=== PATIENT | male | born 1935 | race Caucasian/White ===

== ENCOUNTER → 2016-11-26 | Outpatient (CLI) | payer OTHER, BC ==
[~2016-11-26] MED LIST: ALBUAER19 INH; ASMIN/60 INH; ASPI-461 PO; AZAT50TA17 PO; CLC100X PO; CLON0.5T3 PO; CYAN10002 IM; LPR25 PO; MULTI VITAMIN PO; POLY335025 PO; PYRI60TA9 PO; TOLT4CAP PO; ZOLP10TA6 PO; vancomycin susp PO
--- NOTE | 2016-11-26 13:48 | DIAGNOSTIC IMAGING REPORT ---
RIGHT SHOULDER MIN 2 VIEWS ROUTINE CLINICAL HISTORY: Right shoulder pain. Impingement. COMPARISON: None FINDINGS: There is marked glenohumeral joint space narrowing. There is chronic deformity of the right humeral head. There is osteophytosis with subchondral sclerosis. Elevation of the humeral head is noted. There is evidence for a prior distal right clavicular resection. There is no acute fracture. Several osteophytes are present. IMPRESSION: 1. Severe osteoarthritis of the right glenohumeral joint. 2. Elevation of the right humeral head which suggests a chronic rotator cuff tear. 3. No acute fracture. 4. Findings suggestive of a previous distal right clavicular resection. Electronically signed by: Conrado Dumont M.D. 11/26/2016 1:46 PM Dictated Date/Time: 11/26/2016 1:44 PM
== END | disposition home or self-care (01) ==
LOC: C.RAD1850 12:59
PROVIDERS: ATTEND Family Medicine
DX: M75.41 Impingement syndrome of right shoulder (principal); J20.9 Acute bronchitis, unspecified; M19.011 Primary osteoarthritis, right shoulder

== ENCOUNTER 2016-12-27 16:06 | Emergency (ER) | payer OTHER, BC ==
[~2016-12-27] VITALS: Ht 180.3 cm; Wt 141.7 kg
[2016-12-27 16:19] VITALS: TEMP 36.7; Ht 180.3 cm; Wt 141.7 kg
[2016-12-27] MEDS ORDERED: SODIUM CHLORIDE 0.9% 1000ML 1,000 ML IV STA (16:46)
[2016-12-27 17:23] LABS: BASO % 0.6 %; BASO ABS # 0.03 K/uL (0-0.2); COMPLETE YES; HEMATOCRIT 45.1 % (42-52); IG% 0.2 %; LYMPH % 15.1 %; LYMPH ABS # 0.71 K/uL (1.2-3.4); MEAN CELL VOLUME 100.7 fL (80-100); MEAN CORPUSCULAR HEMOGLOBIN 32.8 pg (25-34); MEAN CORPUSCULAR HGB CONC 32.6 g/dl (32-36); MEAN PLATELET VOLUME 11.4 fL (7.4-10.4); MONO % 11.3 %; NEUT % 65.8 %; PLATELET COUNT 156 K/uL (130-400); RED BLOOD COUNT 4.48 M/uL (4.7-6.1)
--- NOTE | 2016-12-27 17:27 | DIAGNOSTIC IMAGING REPORT ---
CT HEAD WITHOUT CONTRAST (CT) CLINICAL HISTORY: Acute change in mental status. Weakness. COMPARISON STUDY: No previous studies for comparison. TECHNIQUE: Axial CT of the brain is performed from the vertex to the skull base. IV contrast was not administered for this examination. A dose lowering technique was utilized adhering to the principles of ALARA. CT DOSE: 724.83 mGy.cm FINDINGS: No intra or extra-axial mass lesions are visualized. There is no CT evidence of acute cortical infarction. There is no evidence of midline shift. There is no acute hemorrhage. No calvarial fractures are visualized. There are minor white matter hypodensities likely on a small vessel basis. There is focal left frontal atrophy of uncertain etiology. There is no evidence of pathologic ventricular dilatation. There is trace fluid/debris within the left maxillary sinus. There is a left sphenoid sinus air-fluid level. There is partial opacification of several left-sided ethmoid air cells. IMPRESSION: 1. No acute intracranial findings. 2. Focal left frontal lobe atrophy 3. Inflammatory changes within the paranasal sinuses Electronically signed by: Hernan Ashton M.D. 12/27/2016 5:25 PM Dictated Date/Time: 12/27/2016 5:22 PM
--- NOTE | 2016-12-27 17:44 | DIAGNOSTIC IMAGING REPORT ---
CHEST ONE VIEW PORTABLE CLINICAL HISTORY: Altered mental status, weakness. COMPARISON STUDY: 12/08/2012 FINDINGS: The examination is limited from a technical standpoint. The heart is enlarged. Mild central pulmonary vascular congestion is suspected. Increased basal markings, are likely atelectatic. There are no pleural effusions. There is no overt failure.[ There is no lobar consolidation. There are old posttraumatic changes involving the distal right clavicle and proximal right shoulder IMPRESSION: 1. Technically limited study 2. Cardiomegaly and suspected mild bony vascular congestion 3. No evidence of lobar consolidation Electronically signed by: Hernan Ashton M.D. 12/27/2016 5:42 PM Dictated Date/Time: 12/27/2016 5:41 PM
[2016-12-27 17:58] LABS: ALKALINE PHOSPHATASE 86 U/L (45-117); ALT/SGPT 17 U/L (12-78); AST/SGOT 24 U/L (15-37); BLOOD UREA NITROGEN 20 mg/dl (7-18); BUN/CREATININE RATIO 26.6 (10-20); CALCIUM 8.4 mg/dl (8.5-10.1); CARBON DIOXIDE 29 mmol/L (21-32); CHLORIDE 106 mmol/L (98-107); CKMB/CK RATIO 1.2 (0-3.0); CREATININE 0.77 mg/dl (0.60-1.40); GLUCOSE 103 mg/dl (70-99); MAGNESIUM 2.3 mg/dl (1.8-2.4); POTASSIUM 4.6 mmol/L (3.5-5.1); SODIUM 139 mmol/L (136-145)
--- NOTE | 2016-12-27 18:42 | EMERGENCY ROOM VISIT NOTE ---
History Report prepared by Virginie: Sherrie Galicia Under the Supervision of: Dr. Remberto Singleton D.O. First contact with patient: 16:25 Chief Complaint: HEAD INJURY (MINOR) Stated Complaint: HIT HEAD ON TUESDAY History of Present Illness The patient is a 81 year old male who presents to the Emergency Room with complaints of a sudden fall that occurred one week ago. He currently rates his discomfort as an 8/10 in severity. The patient states that he is unsure what happened and what made him fall. He states that he does not remember the fall and states that when he woke up he saw his granddaughter and EMS surrounding him. The patient's daughter states that the patient hit his head off of the concrete floor in the garage. She states that the patient was bleeding from the back of his head. The patient's daughter states that the patient refused any further medical treatment and declined coming to the emergency department for further evaluation and treatment. She states that the patient was taken to his [facility] at [facility] after the fall. The patient states that he had an additional fall on Tuesday. The patient's daughter states that the patient has complained of dizziness since the fall. The patient reports a history of Myasthenia gravis. He denies any chest pain or shortness of breath. The patient reports a decrease in fluid intake, noting that he is feeling dry right now. He reports a decrease in appetite. He states that he has a history of atrial fibrillation, but denies being on any anti-coagulants. The patient reports a history of a cardiac ablation. He states that he takes metoprolol daily for his atrial fibrillation. The patient reports a headache today. Source of History: patient, family (daughter) Onset: one week ago Position: other (global) Symptom Intensity: 8/10 Quality: other (fall) Timing: other (sudden) Associated Symptoms: + headache, No chest pain, No SOB Note: Associated Symptoms: dizziness, decrease in appetite, decrease in fluid intake Review of Systems See HPI for pertinent positives & negatives. A total of 10 systems reviewed and were otherwise negative. 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 (11) Stress echo Family History Diabetes mellitus Social History Smoking Status: Former Smoker Marital Status: Housing Status: lives alone Occupation Status: retired Current/Historical Medications Scheduled Aspirin (Aspirin), 81 MG PO DAILY Azathioprine (Imuran), 150 MG PO DAILY Cyanocobalamin (Vitamin B-12 Inj), 1,000 MCG IM Q2 WEEKS Docusate Sodium (Colace), 100 MG PO HS Metoprolol Tartrate (Lopressor), 12.2 MG PO DAILY Mometasone Furoate (Asmanex 60 Metered Doses), 1 PUFF INH QAM Pyridostigmine Dexter (Mestinon Tab), 120 MG PO TID Tolterodine Tartrate (Detrol La), 4 MG PO BID [Multi Vitamin Packet], 1 PACK PO DAILY [vancomycin susp], 250 MG PO QID [vancomycin susp], 125 MG PO QID Scheduled PRN Albuterol Inhaler (Ventolin Inhaler), 2 PUFFS INH Q4H PRN Clonazepam (Klonopin), 0.5 MG PO DAILY PRN Polyethylene Glycol 3350 (Miralax), 1 DOSE PO DAILY UD PRN Zolpidem Tartrate (Zolpidem Tartrate), 10 MG PO HS PRN Allergies Coded Allergies: Adhesives (Verified Allergy, Unknown, ., 07/18/09) Latex1 -Allergic Contact Dermititis (Verified Allergy, Unknown, blisters and swelling, 09/14/16) Physical Exam Vital Signs Date Time Temp Pulse Resp B/P (MAP) Pulse Ox O2 Delivery O2 Flow Rate FiO2 12/27/16 18:11 65 20 166/83 93 Room Air 12/27/16 16:24 20 12/27/16 16:19 36.7 60 20 163/86 95 Room Air Physical Exam CONSTITUTIONAL/VITAL SIGNS: Reviewed / noted above. GENERAL: Non-toxic in appearance. INTEGUMENTARY: Warm, dry, and [place]. HEAD: Healing abrasion on the posterior apex of the head. EYES: without scleral icterus or trauma. ENT/OROPHARYNX: clear and moist. LYMPHADENOPATHY/NECK: Is supple without lymphadenopathy or meningismus. RESPIRATORY: Lungs clear and equal. CARDIOVASCULAR: Regular rate and rhythm. GI/ABDOMEN: Soft and nontender. No organomegaly or pulsatile mass. No rebound or guarding. Normal bowel sounds. EXTREMITIES: Warm and well perfused. BACK: No CVA tenderness. NEUROLOGICAL: Intact without focal deficits. PSYCHIATRIC: normal affect. MUSCULOSKELETAL: Normally developed with good muscle tone. Medical Decision & Procedures ER Provider Diagnostic Interpretation: Radiology results as stated below per my review and radiologist interpretation: CT HEAD WITHOUT CONTRAST (CT) CLINICAL HISTORY: Acute change in mental status. Weakness. COMPARISON STUDY: No previous studies for comparison. TECHNIQUE: Axial CT of the brain is performed from the vertex to the skull base. IV contrast was not administered for this examination. A dose lowering technique was utilized adhering to the principles of ALARA. CT DOSE: 724.83 mGy.cm FINDINGS: No intra or extra-axial mass lesions are visualized. There is no CT evidence of acute cortical infarction. There is no evidence of midline shift. There is no acute hemorrhage. No calvarial fractures are visualized. There are minor white matter hypodensities likely on a small vessel basis. There is focal left frontal atrophy of uncertain etiology. There is no evidence of pathologic ventricular dilatation. There is trace fluid/debris within the left maxillary sinus. There is a left sphenoid sinus air-fluid level. There is partial opacification of several left-sided ethmoid air cells. IMPRESSION: 1. No acute intracranial findings. 2. Focal left frontal lobe atrophy 3. Inflammatory changes within the paranasal sinuses Electronically signed by: Hernan Ashton M.D. 12/27/2016 5:25 PM Dictated Date/Time: 12/27/2016 5:22 PM CHEST ONE VIEW PORTABLE CLINICAL HISTORY: Altered mental status, weakness. COMPARISON STUDY: 12/08/2012 FINDINGS: The examination is limited from a technical standpoint. The heart is enlarged. Mild central pulmonary vascular congestion is suspected. Increased basal markings, are likely atelectatic. There are no pleural effusions. There is no overt failure.[ There is no lobar consolidation. There are old posttraumatic changes involving the distal right clavicle and proximal right shoulder IMPRESSION: 1. Technically limited study 2. Cardiomegaly and suspected mild bony vascular congestion 3. No evidence of lobar consolidation Electronically signed by: Hernan Ashton M.D. 12/27/2016 5:42 PM Dictated Date/Time: 12/27/2016 5:41 PM Laboratory Results 12/27/16 17:05 Red Blood Count 4.48, Mean Corpuscular Volume 100.7, Mean Corpuscular Hemoglobin 32.8, Mean Corpuscular Hemoglobin Concent 32.6, Mean Platelet Volume 11.4, Neutrophils (%) (Auto) 65.8, Lymphocytes (%) (Auto) 15.1, Monocytes (%) ( Auto) 11.3, Eosinophils (%) (Auto) 7.0, Basophils (%) (Auto) 0.6, Neutrophils # (Auto) 3.09, Lymphocytes # (Auto) 0.71, Monocytes # (Auto) 0.53, Eosinophils # ( Auto) 0.33, Basophils # (Auto) 0.03 12/27/16 17:05 Test 12/27/16 17:05 White Blood Count 4.70 K/uL (4.8-10.8) Red Blood Count 4.48 M/uL (4.7-6.1) Hemoglobin 14.7 g/dL (14.0-18.0) Hematocrit 45.1 % (42-52) Mean Corpuscular Volume 100.7 fL (80-100) Mean Corpuscular Hemoglobin 32.8 pg (25-34) Mean Corpuscular Hemoglobin Concent 32.6 g/dl (32-36) Platelet Count 156 K/uL (130-400) Mean Platelet Volume 11.4 fL (7.4-10.4) Neutrophils (%) (Auto) 65.8 % Lymphocytes (%) (Auto) 15.1 % Monocytes (%) (Auto) 11.3 % Eosinophils (%) (Auto) 7.0 % Basophils (%) (Auto) 0.6 % Neutrophils # (Auto) 3.09 K/uL (1.4-6.5) Lymphocytes # (Auto) 0.71 K/uL (1.2-3.4) Monocytes # (Auto) 0.53 K/uL (0.11-0.59) Eosinophils # (Auto) 0.33 K/uL (0-0.5) Basophils # (Auto) 0.03 K/uL (0-0.2) RDW Standard Deviation 55.2 fL (36.4-46.3) RDW Coefficient of Variation 15.0 % (11.5-14.5) Immature Granulocyte % (Auto) 0.2 % Immature Granulocyte # (Auto) 0.01 K/uL (0.00-0.02) Anion Gap 4.0 mmol/L (3-11) Est Creatinine Clear Calc Drug Dose 112.1 ml/min Estimated GFR () 100.0 Estimated GFR (Non- 86.3 BUN/Creatinine Ratio 26.6 (10-20) Calcium Level 8.4 mg/dl (8.5-10.1) Magnesium Level 2.3 mg/dl (1.8-2.4) Total Bilirubin 0.6 mg/dl (0.2-1) Direct Bilirubin mg/dl (0-0.2) Aspartate Amino Transf (AST/SGOT) 24 U/L (15-37) Alanine Aminotransferase (ALT/SGPT) 17 U/L (12-78) Alkaline Phosphatase 86 U/L (45-117) Total Creatine Kinase 60 U/L (39-308) Creatine Kinase MB 0.7 ng/ml (0.5-3.6) Creatine Kinase MB Ratio 1.2 (0-3.0) Troponin I < 0.015 ng/ml (0-0.045) Total Protein 6.6 gm/dl (6.4-8.2) Albumin 3.6 gm/dl (3.4-5.0) Lipase 99 U/L (73-393) Thyroid Stimulating Hormone (TSH) 1.660 uIu/ml (0.300-4.500) Laboratory results as stated above per my review. Medications Administered Medications (Trade) Dose Ordered Sig/Tenzin Route Start Time Stop Time Status Last Admin Dose Admin Sodium Chloride 1,000 ml @ 300 mls/hr Q3H20M STAT IV 12/27/16 16:46 12/27/16 20:05 12/27/16 18:13 300 MLS/HR ECG Indication: other (dizziness) Rate (beats per minute): 63 Rhythm: sinus rhythm Findings: 1st degree AV block, PVC, no acute ischemic change, no ectopy ED Course 163: Previous medical records were reviewed. The patient was evaluated in room B8. A complete history and physical examination was performed. 164: Ordered Sodium Chloride 1000 ml @ 300 mls/hr IV. 1842: I reevaluated the patient and he is doing well. I discussed the exam findings with him and his family and I discussed the treatment plan. They verbalized complete understanding and agreement. The patient is ready to go home. Medical Decision Differentials include: Acute coronary syndrome, myocardial infarction, CVA, TIA , anemia, infection, pneumonia, UTI, pyelonephritis, poor nutrition, dehydration , electrolyte disturbance, and hypoglycemia. This is a 81-year-old male who presents to the ED with a chief complaint of a head injury. The patient states that he fell and his garage striking the back of his head on concrete. This occurred 6 days ago. Tuesday he states that he lost his balance and also fell in his house. The patient does not remember how he fell or what occurred 6 days ago. He was evaluated by EMS at that time but refused transport. His daughter states that he was not unresponsive for any period of time. The patient denies loss of consciousness with regards to his fall on Tuesday. He denies any recent illness. He does report that he has had decreased oral intake and has not had much of an appetite recently. His physical and neurological exam today did not reveal any significant abnormalities. A twelve-lead EKG reveals a sinus rhythm at a rate of 63 with a first-degree AV block and an occasional PVC. There was no acute injury or ectopy. CBC is unremarkable, BUN is 20, metabolic panel was unremarkable, TSH is normal, troponin is negative. Chest x-ray did not show acute disease. CT scan of the brain did not show any evidence of acute trauma. The patient was told the results of the test. The patient is felt to be stable for discharge and outpatient follow-up. Head Trauma GCS Score: 15 Medication Reconcilliation Current Medication List: was personally reviewed by me Blood Pressure Screening Patient's blood pressure: Elevated blood pressure Blood pressure disposition: Elevated BP felt to be situational, Did not require urgent referral Impression Primary Impression: Fall Additional Impressions: Abrasion head Unsteady Scribe Attestation The scribe's documentation has been prepared under my direction and personally reviewed by me in its entirety. I confirm that the note above accurately reflects all work, treatment, procedures, and medical decision making performed by me. Departure Information Dispostion Home / Self-Care Referrals Costa Iverson M.D. (PCP) Forms HOME CARE DOCUMENTATION FORM, IMPORTANT VISIT INFORMATION Patient Instructions My [facility] Additional Instructions Follow-up with your neurologist for recheck. Call tomorrow for an appointment. Follow-up with your doctor for further care and evaluation in 1-2 days. Return to the emergency department for worsening or new symptoms or any concerns. You have been examined and treated today on an emergency basis only. This is not a substitute for, or an effort to provide, complete comprehensive medical care. It is impossible to recognize and treat all injuries or illnesses in a single emergency department visit. It is therefore important that you follow up closely with your doctor. Call as soon as possible for an appointment. Use your walker. Problem Qualifiers
[2016-12-27 20:29] VITALS: BP 160/72; PULSE 78; O2SAT 98
== END 2016-12-27 20:33 | disposition home or self-care (01) ==
LOC: C.EDB 16:07
DX: S09.90XA Unspecified injury of head, initial encounter (principal); S00.91XA Abrasion of unspecified part of head, initial encounter; W22.09XA Striking against other stationary object, initial encounter; R26.81 Unsteadiness on feet; I44.0 Atrioventricular block, first degree; I48.92 Unspecified atrial flutter; E11.9 Type 2 diabetes mellitus without complications; G70.00 Myasthenia gravis without (acute) exacerbation; Z91.81 History of falling; Z98.84 Bariatric surgery status; Z90.49 Acquired absence of other specified parts of digestive tract; Z87.891 Personal history of nicotine dependence; Z79.82 Long term (current) use of aspirin; Z79.899 Other long term (current) drug therapy; Z83.3 Family history of diabetes mellitus; R63.8 Other symptoms and signs concerning food and fluid intake; R42 Dizziness and giddiness

== ENCOUNTER 2018-11-28 15:11 | Inpatient (IN) ==
--- OUTSIDE RECORDS SUMMARY | 2018-11-28 15:15 | External Medical Summary | Continuity of Care Document ---
:1935 Author Name Nesha Ruffin, Provider Address Unavailable Unavailable , Care Team Providers Name Role Phone Unavailable Unavailable Unavailable Robyn Fields Unavailable [email or web address] Regina Covarrubias Unavailable [email or web address] Mcdaniels Unavailable [email or web address] MIL PEREZ Unavailable Unavailable Unavailable Unavailable Unavailable Problems Urinary tract infection (599.0) (N39.0) Urinary symptom or sign (788.99) (R39.9) Urinary frequency (788.41) (R35.0) Urge incontinence (788.31) (N39.41) Nocturia (788.43) (R35.1) Allergies and Adverse Reactions Morphine Derivatives (Allergy) Adhesive Tape (Allergy) Medications LORazepam 0.5 MG Oral Tablet , M.D. Refills: 0 Asmanex 30 Metered Doses 220 MCG/INH Inhalation Aeroso l Powder Breath Activated , M.D. Refills: 0 Pyridostigmine Pinnacle 60 MG Oral Tablet , M.D. Refills: 0 Zolpidem Tartrate 5 MG Oral Tablet , M.D. Refills: 0 Metoprolol Tartrate 25 MG Oral Tablet , M.D. Refills: 0 Tylenol 325 MG Oral Tablet , M.D. Refills: 0 PreserVision AREDS CAPS , M.D. Refills: 0 Aspirin 81 MG TABS , M.D. Refills: 0 ProAir HFA 108 (90 Base) MCG/ACT Inhalation Aerosol Solution , M.D. Refills: 0 Detrol LA 4 MG Oral Capsule Extended Release 24 Hour , M.D. Refills: 0 Multivitamins TABS , M.D. Refills: 0 Vitamin B-12 1000 MCG/ML SOLN , M.D. Refills: 0 Myrbetriq 25 MG Oral Tablet Extended Rel ease 24 Hour; take 1 tablet by mouth twice a day SIMONE Martinez Start: 13-Apr-2016 Quantity: 60 Refills: 2 Lisinopril 5 MG Oral Tablet , M.DPriya Refills: 0 Botox 100 UNIT Injection Solution Recons tituted; INJECT 100 UNIT Once Inject 100 units intravesicle into bladder detrusor muscle, every 3 months, PRN SIMONE Aldana Start: 17-Oct-2017 Quantity: 1 Refills: 0 Ciprofloxacin HCl - 500 MG Oral Tablet; TAKE 1 TABLET TWICE DAILY. SIMONE Almaguer Start: 07-Sep-2018 Quantity: 12 Refills: 0 Procedures History of Knee Replacement Status: Comp leted History of Shoulder Surgery Status: Comp leted Immunizations Immunizations not documented Family History Mother Family history of diabetes mellitus (V18.0) (Z83.3) Status: Active Social History - Smoking Status Former smoker Plan of Treatment Planned Observations Planned Goals not documented Results No Known Results Results not documented Encounters Appointment; Brady Ott M.D. 21-Nov-2018 14:00 Encounter Diagnosis: Problem not documented Appointment; Urology, Room 7 21-Nov-2018 13:00 Encounter Diagnosis: Problem not documented Appointment; Urology, RN 21-Nov-2018 13:00 Encounter Diagnosis: Problem not documented Appointment; Brady Ott M.D. 12-Jul-2018 16:15 Encounter Diagnosis: Problem not documented Appointment; Urology, Room 7 12-Jul-2018 15:15 Encounter Diagnosis: Problem not documented Appointment; Urology, RN 12-Jul-2018 15:15 Encounter Diagnosis: Problem not documented Appointment; Brady Ott M.D. 27-Feb-2018 14:45 Encounter Diagnosis: Problem not documented Appointment; Urology, Room 7 27-Feb-2018 13:45 Encounter Diagnosis: Problem not documented Appointment; Urology, RN 27-Feb-2018 13:45 Encounter Diagnosis: Problem not documented Appointment; Urology, RN 16-Feb-2018 13:00 Encounter Diagnosis: Problem not documented Appointment; Brady Ott M.D. 15-Feb-2018 10:05 Encounter Diagnosis: Problem not documented Appointment; Urology, Nursing Station 14-Feb-2018 12:00 Encounter Diagnosis: Problem not documented Appointment; Brady Ott M.D. 30-Jan-2018 14:30 Encounter Diagnosis: Problem not documented Appointment; Urology, RN 28-Nov-2017 14:00 Encounter Diagnosis: Problem not documented Appointment; Brady Ott M.D. 04-Nov-2017 10:00 Encounter Diagnosis: Problem not documented Appointment; Urology, RN 04-Nov-2017 9:00 Encounter Diagnosis: Problem not documented Appointment; Urology, Room 7 04-Nov-2017 9:00 Encounter Diagnosis: Problem not documented Appointment; Urology, RN 17-Oct-2017 14:00 Encounter Diagnosis: Problem not documented Appointment; Brady Ott M.D. 29-Aug-2017 15:00 Encounter Diagnosis: Problem not documented Appointment; Brady Ott M.D. 08-Jul-2017 10:20 Encounter Diagnosis: Problem not documented Appointment; Urology, Room 6 30-Jun-2017 14:30 Encounter Diagnosis: Problem not documented Appointment; Urology, Room 6 16-Jun-2017 14:30 Encounter Diagnosis: Problem not documented Appointment; Urology, Room 6 09-Jun-2017 14:30 Encounter Diagnosis: Problem not documented Appointment; Urology, Room 6 02-Jun-2017 14:30 Encounter Diagnosis: Problem not documented Appointment; Urology, Room 6 26-May-2017 14:00 Encounter Diagnosis: Problem not documented Appointment; Urology, Room 6 19-May-2017 14:30 Encounter Diagnosis: Problem not documented Appointment; Urology, Room 6 12-May-2017 14:30 Encounter Diagnosis: Problem not documented Appointment; Urology, Room 6 05-May-2017 14:30 Encounter Diagnosis: Problem not documented Appointment; Urology, Room 6 28-Apr-2017 14:30 Encounter Diagnosis: Problem not documented Appointment; Urology, Room 6 21-Apr-2017 14:30 Encounter Diagnosis: Problem not documented Appointment; Brady tOt M.D. 20-Apr-2017 15:45 Encounter Diagnosis: Problem not documented Appointment; Urology, Room 7 20-Apr-2017 15:30 Encounter Diagnosis: Problem not documented Appointment; Urology, Room 6 14-Apr-2017 14:30 Encounter Diagnosis: Problem not documented Appointment; Urology, Room 6 31-Mar-2017 13:30 Encounter Diagnosis: Problem not documented Appointment; Brady Ott M.D. 15-Mar-2017 13:15 Encounter Diagnosis: Problem not documented
[2018-11-28] MEDS ORDERED: PYRIDOSTIGMINE BROMIDE 60 MG TAB PO STA ×2 (15:28→15:29)
[2018-11-28 15:40] LABS: Basophils # (auto) 0.02 K/uL (0-0.2); Basophils % (auto) 0.3 %; Eosinophils # (auto) 0.04 K/uL (0-0.5); Eosinophils % (auto) 0.7 %; Hematocrit (blood only) 44.3 % (42-52); Hemoglobin 14.6 g/dL (14.0-18.0); Immature Granulocytes # (auto) 0.02 K/uL (0.00-0.02); Immature Granulocytes % (auto) 0.3 %; Lymphocytes # (auto) 0.49 K/uL (1.2-3.4); Lymphocytes % (auto) 8.1 %; Mean Corpuscular Volume 95.1 fL (80-100); Mean Platelet Volume 10.2 fL (7.4-10.4); Monocytes # (auto) 0.79 K/uL (0.11-0.59); Neutrophils # (auto) 4.71 K/uL (1.4-6.5); Neutrophils % (auto) 77.6 %; Platelet Count 167 K/uL (130-400); RDW Coefficient of Variation 16.4 % (11.5-14.5); RDW Standard Deviation 56.2 fL (36.4-46.3); Red Blood Count 4.66 M/uL (4.7-6.1); White Blood Count 6.07 K/uL (4.8-10.8)
--- NOTE | 2018-11-28 15:45 | XRay Report ---
XR chest 1V portable CLINICAL HISTORY: Dyspnea COMPARISON STUDY: Chest CT December 08, 2012. Chest radiograph December 27, 2016. FINDINGS: There is no pneumothorax. Small to moderate left and small right pleural effusions are note d. There is pulmonary vascular congestion with suspected pulmonary edema. Bibasilar opacities are not ed. Chronic deformity of the right humeral head and right acromioclavicular joint is unchanged. There is no pneumothorax. Moderate cardiomegaly is noted. IMPRESSION: 1. Moderate pulmonary edema. 2. Small to moderate left and small right pleural effusions with bibasilar opacities which favor atel ectasis although consolidation could appear similar. Radiographic follow up is recommended. Electronically signed by: Conrado Dumont M.D. 11/28/2018 3:43 PM
[2018-11-28 16:04] LABS: INR 1.2 (0.9-1.1); Partial Thromboplastin Ratio 1.1; Partial Thromboplastin Time 28.7 Seconds (21.0-31.0); Prothrombin Time 12.4 Seconds (9.0-12.0)
[2018-11-28 16:07] LABS: Alanine Aminotransferase 18 U/L (12-78); Albumin Globulin Ratio 1.1 (0.9-2); Albumin Level 3.5 gm/dl (3.4-5.0); Alkaline Phosphatase 74 U/L (45-117); BUN Creatinine Ratio 20.1 (10-20); Bilirubin,Total 1.5 mg/dl (0.2-1); Blood Urea Nitrogen 18 mg/dl (7-18); Calcium 8.9 mg/dl (8.5-10.1); Carbon Dioxide 30 mmol/L (21-32); Chloride 99 mmol/L (98-107); Creatinine Clr Calc Pharmacy 100.7 ml/min; Est GFR (African American) 92.5; Est GFR (Non-African American) 79.8; Globulin 3.1 gm/dl (2.5-4.0); Glucose 120 mg/dl (70-99); NT Pro B Type Natriuretic Pept 3991 pg/ml (0-1800); Sodium 134 mmol/L (136-145); Total Protein 6.6 gm/dl (6.4-8.2); Troponin I < 0.015 ng/ml (0-0.045)
[2018-11-28] MEDS ORDERED: FUROSEMIDE 40 MG/4 ML VIAL IV STA (16:15)
[2018-11-28 16:20] LABS: Base Excess VBG 2.1 mEq/L; HCO3 VBG 29 mmol/L; PCO2 VBG 55 mmHg (38-50); PO2 VBG 26 mmHg; pH VBG 7.35 (7.36-7.41)
[2018-11-28 16:29] LABS: Oxygen Saturation VBG < 60.0 %
[2018-11-28 16:41] LABS: Magnesium 2.2 mg/dl (1.8-2.4); Potassium 4.5 mmol/L (3.5-5.1)
--- NOTE | 2018-11-28 20:52 | History & Physical Report ---
Date of Service November 28, 2018 Assessment & Plan (1) Shortness of breath: 83M here for dyspnea on exertion, LE swelling and weakness over the last 4 weeks. PMH sig for myasthenia gravis and BRIJESH and h/o PAF s/p ablation. #Dyspnea -diffl includes cardiac, respiratory, neurologic -BNP elevated, and exam concerning for CHF although has no known history of the same -fluid evident on CXR, but otherwise not hypoxic currently -exam and testing not consistent with myasthenic crisis at this time, although this should be followed closely for any changes. -not febrile, tachycardic, tachypnic, no leukocytosis Plan -pt has received 40mg IV lasix with good output - vann in place - monitor I/Os, daily weights and dose as appropriate -TTE in AM, trend trops (so far negative) -can consider cardiology consult - see Dr. Wiley with [facility] cards -repeat CXR in am -O2 as needed -neuro checks QS -avoid IVF, low sodium diet -procal in AM - if positive, could consider abx coverage for PNA, although I suspect this is not an infectious process. #EKG abnormalities -PAF vs PVCs. Rate is controlled. -h/o PAF s/p ablation and not on anticoagulation -TTE as above -daily EKG, telemetry monitoring #Deconditioning, morbid obesity -PT/OT consulted, may likely need temp rehab as he lives alone. Family prefers [facility]. FEN/GI: heart healthy, low sodium DVT ppx: heparin q8h CODE STATUS: FULL as d/w pt and family DISPO: Tele. PT/OT. Jacy Lamb is pt's daughter, cell is [phone], and home is [phone]. Other ongoing medical problems: -BRIJESH - cont home CPAP -Myasthenia gravis - cont home azathioprine, pyridostigmine -asthma - cont home asmanex and albuterol -urinary incontinence - currently with vann, cont home myrbetriq -HTN - cont home lisinopril (2) CHF (congestive heart failure): (3) Weakness: (4) Atrial flutter: (5) Morbid obesity: (6) Myasthenia gravis: History of Present Illness Chief Complaint: Shortness of breath, progressive weakness over the last 4 weeks, intermittent confusion Primary Care Provider: Costa Iverson MD This is an 83-year-old male who presents to the ER by private vehicle accompanied by his daughters due to progressive shortness of breath, progressive weakness and intermittent confusion over the last 3 to 4 weeks. Patient lives alone, but his daughter lives next door. She provides history that over the last 3 to 4 weeks he has declined functionally. She states he has not wanted to get up out of bed or walk for any length of time, normally ambulates with a mobile walker but was very resistant to walking any due to decreased energy. He is been sleeping more and has had decreased appetite which is not like him. He was seen in his PCP office and basic blood work was done given his difficulty breathing and cough and per report no abnormalities were found. Daughter also states that his short-term memory has become progressively worse in this time as well. Denies any overt illness or fevers. Does have a history of atrial fibrillation and apparently has undergone ablation and follows with Dr. Wiley but has not seen him in about 2 years. No known history of congestive heart failure, states his last echocardiogram was probably 2 years ago. He is followed by Dr. Tang his neurologist for medical management of his myasthenia gravis medications, and was just seen within the last 2 weeks and his medication instructions were clarified. Daughter does have concerned that the patient is not taking his medications as prescribed possibly due to increasing confusion. She wonders if he has had mini strokes. Despite his history of A. fib this patient is not on any anticoagulation that I can see, he does regularly check his pulse and blood pressure at home and these have been normal. Of note, he does endorse swelling in his legs that is relatively new for him and that has progressively gotten worse in the last 3 to 4 weeks. He also endorses a semi-productive cough for which she has been taking his albuterol inhaler as needed. ED course: 40 mg IV Lasix (patient is Lasix jessica) with good output, Vann placed, chest x-ray with evidence of fluid overload and possible consolidation. Afebrile, not hypoxic, not hypotensive or hypertensive, pulse is under 100 but appears irregular on the monitor and appears to have PVCs on the EKG. Labs are notable for absence of leukocytosis, absence of anemia, mildly elevated INR 1.2, venous blood gas without significant abnormalities, BMP notable for slightly elevated bilirubin 1.5, negative for transaminitis or elevated troponin, BNP nearly 4000. NIF test performed by RT normal. Allergies Allergy/AdvReac Type Severity Reaction Status Date / Time vancomycin Allergy Severe Hives Verified 11/28/18 16:49 adhesive Allergy Unknown . Verified 07/18/09 19:29 latex Allergy Unknown blisters Verified 09/14/16 12:41 and swelling morphine Allergy Rash Verified 11/28/18 16:49 Influenza Virus Vaccines AdvReac Severe DEATHLY Verified 11/28/18 16:49 SICK Home Medications Home Medications Medication Instructions Recorded Confirmed Type acetaminophen [Tylenol] 325 mg PO Q4 PRN 11/28/18 11/28/18 History albuterol sulfate 2 puff INHALATION Q4 PRN 11/28/18 11/28/18 History amoxicillin 2,000 mg PO UD PRN 11/28/18 11/28/18 History aspirin [Aspir-81] 81 mg PO QPM 11/28/18 11/28/18 History azathioprine [Imuran] 150 mg PO DAILY 11/28/18 11/28/18 History cyanocobalamin (vitamin B-12) 1,000 mcg IM .[id number] 11/28/18 11/28/18 History escitalopram oxalate [Lexapro] 5 mg PO DAILY 11/28/18 11/28/18 History ferrous sulfate [iron] 325 mg PO TID 11/28/18 11/28/18 History fexofenadine [Jenny Allergy] 180 mg PO DAILY PRN 11/28/18 11/28/18 History fluticasone propionate [Flonase 2 spray INTRANASAL DAILY PRN 11/28/18 11/28/18 History Allergy Relief] lisinopril [Zestril] 5 mg PO DAILY 11/28/18 11/28/18 History mirabegron [Myrbetriq] 25 mg PO BID 11/28/18 11/28/18 History mometasone [Asmanex Twisthaler] 2 inh INHALATION BID 11/28/18 11/28/18 History multivitamin 4 - 5 tab PO DAILY 11/28/18 11/28/18 History pyridostigmine bromide [Mestinon] 120 mg PO TID 11/28/18 11/28/18 History tolterodine [Detrol LA] 4 mg PO BID 11/28/18 11/28/18 History zolpidem [Ambien] 5 mg PO HS PRN 11/28/18 11/28/18 History Past Med/Surg History Medical History Atrial flutter (Resolved Unknown) "s/p ablation " Myasthenia gravis (Chronic Unknown) Pulmonary hypertension (Acute Unknown) Social History Preferred Language: Maltese Communication Ability: Effective Open Shank Coverer Required: No Beliefs That Will Affect Care: None Current Living Situation: Alone Current Living Situation Comment: Patient lives at home alone, however, daughter lives next door to him. Other Information That Helps Us Care for You: No Feels Safe at Home: Yes Safety Concerns: Feels Safe At This Time Smoking Status: Former smoker Smoking End Date: 1965 Second Hand Exposure: No Hx Alcohol Use: No Hx Substance Use: No Review of Systems Review of Systems: All systems reviewed & are unremarkable except as noted in HPI & below (Denies chest pain, abdominal pain, shoulder pain that is out of the norm, does not endorse sukhdev orthopnea although does sleep with a CPAP every night and cannot sleep without it. Endorses leg swelling.) Physical Exam Physical Exam: Vitals noted and within normal limits GENERAL: Awake, alert to person, place, and time, nontoxic-appearing, in no distress. HENT: Normocephalic, atraumatic. . Mucus membranes appear moist. EYES: Normal conjunctiva. Sclera non-icteric. EOMI. NECK: Supple. Full range of motion. RESPIRATORY: Distant breath sounds bilaterally, no overt wheezing or rhonchi. Normal work of breathing. CARDIAC: Irregular rate, appears to have PVCs on telemetry. Extremities warm and well perfused, pulses are difficult to ascertain in the lower extremities given the extent of swelling; . LOWER EXTREMITIES: Inspection of calves reveal equal size bilaterally. They are non-tender. 3+ edema to the knee. No discoloration. Evidence of venous stasis given lack of hair and sheen to the skin NEURO: No gross focal motor deficits noted. Sensation in tact. CN II-XII in tact. All 4 extremities move symmetrically, strength equal in all 4 extremities. SKIN: Rash not present. No jaundice noted. PSYCH: Appropriate mood and affect. Cooperative. Seen and examined with Constantine Lamb at bedside. Exam as done by Natalie Pickett MD, Machine Builder. Results & Data Vital Signs (Past 12 Hours) Vital Signs Temp Pulse Pulse Resp BP BP Pulse Ox 11/28/18 20:30 82 18 115/67 98 11/28/18 19:32 65 20 129/66 11/28/18 16:10 80 16 94 11/28/18 16:01 80 119/62 94 11/28/18 16:00 88 93 11/28/18 15:43 85 96 11/28/18 15:40 98 11/28/18 15:34 36.4 C L 81 24 131/63 98 11/28/18 15:30 93 H 131/63 95 Laboratory Results 11/28/18 11/28/18 11/28/18 Range/Units 15:57 15:57 15:25 WBC (4.8-10.8) K/uL RBC (4.7-6.1) M/uL Hgb (14.0-18.0) g/dL Hct (42-52) % MCV (80-100) fL MCH (25-34) pg MCHC (32-36) g/dL RDW Std Deviation (36.4-46.3) fL RDW Coeff of Naseem (11.5-14.5) % Plt Count (130-400) K/uL MPV (7.4-10.4) fL Immature Gran % (Auto) % Neut % (Auto) % Lymph % (Auto) % Calhoun % (Auto) % Eos % (Auto) % Baso % (Auto) % Immature Gran # (Auto) (0.00-0.02) K/uL Neut # (Auto) (1.4-6.5) K/uL Lymph # (Auto) (1.2-3.4) K/uL Calhoun # (Auto) (0.11-0.59) K/uL Eos # (Auto) (0-0.5) K/uL Baso # (Auto) (0-0.2) K/uL PT (9.0-12.0) Seconds INR (0.9-1.1) APTT (21.0-31.0) Seconds PTT Ratio VBG pH 7.35 L (7.36-7.41) VBG pCO2 55 H (38-50) mmHg VBG pO2 26 mmHg VBG HCO3 29 mmol/L VBG O2 Saturation < 60.0 % VBG Base Excess 2.1 mEq/L Barometric Pressure 732.8 mm/Hg Sodium 134 L (136-145) mmol/L Potassium 4.5 (3.5-5.1) mmol/L Chloride 99 (98-107) mmol/L Carbon Dioxide 30 (21-32) mmol/L Anion Gap 5.0 (3-11) BUN 18 (7-18) mg/dl Creatinine 0.90 (0.6-1.4) mg/dl Est Cr Clr Drug Dosing 100.7 ml/min Est GFR ( Amer) 92.5 Est GFR (Non-Af Amer) 79.8 BUN/Creatinine Ratio 20.1 H (10-20) Glucose 120 H (70-99) mg/dl Calcium 8.9 (8.5-10.1) mg/dl Magnesium 2.2 (1.8-2.4) mg/dl Total Bilirubin 1.5 H (0.2-1) mg/dl AST 25 (15-37) U/L ALT 18 (12-78) U/L Alkaline Phosphatase 74 (45-117) U/L Troponin I < 0.015 (0-0.045) ng/ml NT-Pro-B Natriuret Pep 3991 H (0-1800) pg/ml Total Protein 6.6 (6.4-8.2) gm/dl Albumin 3.5 (3.4-5.0) gm/dl Globulin 3.1 (2.5-4.0) gm/dl Albumin/Globulin Ratio 1.1 (0.9-2) Specimen Hemolysis 11/28/18 11/28/18 Range/Units 15:25 15:25 WBC 6.07 (4.8-10.8) K/uL RBC 4.66 L (4.7-6.1) M/uL Hgb 14.6 (14.0-18.0) g/dL Hct 44.3 (42-52) % MCV 95.1 (80-100) fL MCH 31.3 (25-34) pg MCHC 33.0 (32-36) g/dL RDW Std Deviation 56.2 H (36.4-46.3) fL RDW Coeff of Naseem 16.4 H (11.5-14.5) % Plt Count 167 (130-400) K/uL MPV 10.2 (7.4-10.4) fL Immature Gran % (Auto) 0.3 % Neut % (Auto) 77.6 % Lymph % (Auto) 8.1 % Calhoun % (Auto) 13.0 % Eos % (Auto) 0.7 % Baso % (Auto) 0.3 % Immature Gran # (Auto) 0.02 (0.00-0.02) K/uL Neut # (Auto) 4.71 (1.4-6.5) K/uL Lymph # (Auto) 0.49 L (1.2-3.4) K/uL Calhoun # (Auto) 0.79 H (0.11-0.59) K/uL Eos # (Auto) 0.04 (0-0.5) K/uL Baso # (Auto) 0.02 (0-0.2) K/uL PT 12.4 H (9.0-12.0) Seconds INR 1.2 H (0.9-1.1) APTT 28.7 (21.0-31.0) Seconds PTT Ratio 1.1 VBG pH (7.36-7.41) VBG pCO2 (38-50) mmHg VBG pO2 mmHg VBG HCO3 mmol/L VBG O2 Saturation % VBG Base Excess mEq/L Barometric Pressure mm/Hg Sodium (136-145) mmol/L Potassium (3.5-5.1) mmol/L Chloride (98-107) mmol/L Carbon Dioxide (21-32) mmol/L Anion Gap (3-11) BUN (7-18) mg/dl Creatinine (0.6-1.4) mg/dl Est Cr Clr Drug Dosing ml/min Est GFR ( Amer) Est GFR (Non-Af Amer) BUN/Creatinine Ratio (10-20) Glucose (70-99) mg/dl Calcium (8.5-10.1) mg/dl Magnesium (1.8-2.4) mg/dl Total Bilirubin (0.2-1) mg/dl AST (15-37) U/L ALT (12-78) U/L Alkaline Phosphatase (45-117) U/L Troponin I (0-0.045) ng/ml NT-Pro-B Natriuret Pep (0-1800) pg/ml Total Protein (6.4-8.2) gm/dl Albumin (3.4-5.0) gm/dl Globulin (2.5-4.0) gm/dl Albumin/Globulin Ratio (0.9-2) Specimen Hemolysis Supervising Physician Co-Signing Physician Notes Pt seen/examined following resident MD Leona Pickett. Orders and plan of admission formulated with resident. 83 y/o M Hx mtesthenia gravis, HTN, morbidly obese. Brought to the hospital by family who state that he has become SOB and weak over the past few weeks. Apparently he failed a Niff test in the ER OE AAO x 2 S1,2 R CTA - poor effort NT, ND, BS + + BL edema P: Progressive weakness and SOB - may be exacerbation of MG - Will be placed on steroids. He is already on Imuran so may benefit from Mycphenolate going forward. We will obtain an echo as he is edematous and CHF is in differential. Decision on medication will be left to the discretion of neurology. PT/OT can follow diagnostic w/u PG Care Time/CCT Total # of Minutes Spent Total Time Spent with Patient: Total time spent is greater than 50% in coordination of care (as documented) at patient's floor/unit and/or counseling patient: Resident Activity Tracking Resident Involvement: Resident Care Provided Care Provided: Adult Hospital Medicine (1) CHF (congestive heart failure) Heart failure chronicity: acute Heart failure type: unspecified Qualified Code(s): I50.9 - Heart failure, unspecified
[2018-11-28] MEDS ORDERED: ALBUTEROL HFA 8 GM INHALER INH PRN (22:45)
[2018-11-28] MEDS ORDERED: ZOLPIDEM TARTRATE 5 MG TAB PO PRN (22:45)
[2018-11-28] MEDS ORDERED: POLYETHYLENE (MIRALAX) 17 GM PACK PO PRN (22:45)
[2018-11-28] MEDS ORDERED: ACETAMINOPHEN 325 MG TAB PO PRN (22:45)
[2018-11-28] MEDS ORDERED: ENOXAPARIN INJ 30 MG/0.3 ML SYR SQ SCH (22:45)
[2018-11-28] MEDS ORDERED: FLUTICASONE PROPIONATE NA SPR 16 GM BTL PRN (22:45)
[2018-11-28] MEDS ORDERED: ALUMINUM/MAGNESIUM SUSP 30 ML UDC PO PRN (22:45)
[2018-11-28] MEDS ORDERED: FEXOFENADINE HCL 180 MG TAB PO PRN (22:45)
[2018-11-28] MEDS ORDERED: MAGNESIUM HYDROXIDE SUSP 30 ML UDC PO PRN (22:45)
--- NOTE | 2018-11-28 23:10 | Emergency Department Note ---
Entered by Mary Tinajero acting as a scribe for Royal Sy MD History of Present Illness General Chief complaint: Shortness of Breath/Dyspnea Stated complaint: WEAKNESS, SOB Time Seen by Provider: 11/28/18 15:14 Source: patient History of Present Illness Onset (ago): week(s) 2 Location: chest Pain Consistency: + other (persistent) Quality: + other (shortness of breath) Associated symptoms: + cough (positive productive with yellow phlegm) and + other (negative abdominal pain; positive leg swelling ); no chest pain The patient is a 83 year old white male w/ PMHx of atrial flutter, myasthenia gravis, and hypertension who presents to the ED w/ CC of persistent shortness of breath beginning 2 weeks prior to arrival. The patient states that he has been weak during this time, and states that he has been sitting a lot more recently. He reports that he has been coughing up some yellow phlegm during this time. The patient states that his legs have become more swollen recently. He denies chest pain or abdominal pain. The patient states that he is unsure if he is on blood thinners. Home Medications Home Medications Medication Instructions Recorded Confirmed Type acetaminophen [Tylenol] 325 mg PO Q4 PRN 11/28/18 11/28/18 History albuterol sulfate 2 puff INHALATION Q4 PRN 11/28/18 11/28/18 History amoxicillin 2,000 mg PO UD PRN 11/28/18 11/28/18 History aspirin [Aspir-81] 81 mg PO QPM 11/28/18 11/28/18 History azathioprine [Imuran] 150 mg PO DAILY 11/28/18 11/28/18 History cyanocobalamin (vitamin B-12) 1,000 mcg IM .[id number] 11/28/18 11/28/18 History escitalopram oxalate [Lexapro] 5 mg PO DAILY 11/28/18 11/28/18 History ferrous sulfate [iron] 325 mg PO TID 11/28/18 11/28/18 History fexofenadine [Jenny Allergy] 180 mg PO DAILY PRN 11/28/18 11/28/18 History fluticasone propionate [Flonase 2 spray INTRANASAL DAILY PRN 11/28/18 11/28/18 History Allergy Relief] lisinopril [Zestril] 5 mg PO DAILY 11/28/18 11/28/18 History mirabegron [Myrbetriq] 25 mg PO BID 11/28/18 11/28/18 History mometasone [Asmanex Twisthaler] 2 inh INHALATION BID 11/28/18 11/28/18 History multivitamin 4 - 5 tab PO DAILY 11/28/18 11/28/18 History pyridostigmine bromide [Mestinon] 120 mg PO TID 11/28/18 11/28/18 History tolterodine [Detrol LA] 4 mg PO BID 11/28/18 11/28/18 History zolpidem [Ambien] 5 mg PO HS PRN 11/28/18 11/28/18 History Allergies Allergy/AdvReac Type Severity Reaction Status Date / Time vancomycin Allergy Severe Hives Verified 11/28/18 16:49 adhesive Allergy Unknown . Verified 07/18/09 19:29 latex Allergy Unknown blisters Verified 09/14/16 12:41 and swelling morphine Allergy Rash Verified 11/28/18 16:49 Influenza Virus Vaccines AdvReac Severe DEATHLY Verified 11/28/18 16:49 SICK Past Med/Surg History Medical History Atrial flutter (Resolved Unknown) "s/p ablation " Myasthenia gravis (Chronic Unknown) Pulmonary hypertension (Acute Unknown) Social History Smoking Status: Former smoker Review of Systems See HPI for pertinent positives & negatives. and A total of 10 systems reviewed and were otherwise negative Physical Exam Vital Signs Vital Signs - 24 hr 11/28/18 15:30 11/28/18 15:34 11/28/18 15:40 Temperature 36.4 C L Temperature Source Oral Sepsis Recent Fever Within 48 Hours No Sepsis New/Unexplained Change in Mental Status No Sepsis Action Taken by Nursing No Action Required Pulse Rate 93 H 81 Pulse Rate [Finger] Pulse Rate from SpO2 Sensor 60 Respiratory Rate 24 Respiratory Effort / Characteristics Labored Respiratory Depth Normal Blood Pressure 131/63 131/63 Blood Pressure [Right Arm] Blood Pressure Mean 85 85 Blood Pressure Mean [Right Arm] Pulse Oximetry 95 98 98 Oxygen Delivery Method Room Air Room Air 11/28/18 15:43 11/28/18 16:00 11/28/18 16:01 Temperature Temperature Source Sepsis Recent Fever Within 48 Hours Sepsis New/Unexplained Change in Mental Status Sepsis Action Taken by Nursing Pulse Rate 85 88 80 Pulse Rate [Finger] Pulse Rate from SpO2 Sensor 70 Respiratory Rate Respiratory Effort / Characteristics Respiratory Depth Blood Pressure 119/62 Blood Pressure [Right Arm] Blood Pressure Mean 81 Blood Pressure Mean [Right Arm] Pulse Oximetry 96 93 94 Oxygen Delivery Method 11/28/18 16:10 11/28/18 19:32 11/28/18 20:30 Temperature Temperature Source Sepsis Recent Fever Within 48 Hours Sepsis New/Unexplained Change in Mental Status Sepsis Action Taken by Nursing Pulse Rate Pulse Rate [Finger] 80 65 82 Pulse Rate from SpO2 Sensor Respiratory Rate 16 20 18 Respiratory Effort / Characteristics Non-Labored Spontaneous Respiratory Depth Blood Pressure Blood Pressure [Right Arm] 129/66 115/67 Blood Pressure Mean Blood Pressure Mean [Right Arm] 87 83 Pulse Oximetry 94 98 Oxygen Delivery Method Room Air Room Air GENERAL: Wearing glasses. Well appearing, well nourished, NAD, non-toxic. EYE EXAM: Normal conjunctiva. PERRL, no anisocoria and EOM's grossly intact w/o pain. OROPHARYNX: Moist mucus membranes. Grossly normal dentition. NECK: Supple, no nuchal rigidity, no adenopathy, non-tender. no signs of meningismus. LUNGS: Bibasilar crackles and decreased breath sounds at the bases. Normal chest wall mechanics. HEART: NSR, no MRG. ABDOMEN: Abdomen soft, non-tender, normo-active bowel sounds, no masses, no rebound or guarding. BACK: No CVA TTP. SKIN: No rashes and no bruising. UPPER EXTREMITIES: Upper extremities are grossly normal. LOWER EXTREMITIES: 3-4+ bilateral lower extremity edema. No calf pain. NEURO EXAM: A&O x3, cranial nerves II-XII grossly intact, normal speech, moves all 4 extremities on command w/o issue. Course 1521: Past medical records reviewed. The patient was evaluated in room B6. A complete history and physical exam was performed. 1614: Respiratory is in the room. 1637: The patient had a NIF of - 30 and a VC of 990. 1651: I had a long conversation with the patient and his family. He will attempt an ambulatory trial and the onsite case manager will talk to the patient. 191: [facility]. Salazar[facility] Hopsitalist service is aware of the patient. Administered Medications Discontinued Medications Furosemide (Lasix) 40 mg IV NOW STA Stop: 11/28/18 16:16 Last Admin: 11/28/18 16:43 Dose: 40 mg Documented by: [id number] Pyridostigmine Horatio (Mestinon) 60 mg PO NOW STA Stop: 11/28/18 15:29 Last Admin: 11/28/18 15:54 Dose: Not Given Documented by: [id number] Pyridostigmine Horatio (Mestinon) 120 mg PO NOW STA Stop: 11/28/18 15:30 Last Admin: 11/28/18 15:54 Dose: 120 mg Documented by: [id number] Medical Decision Making Medical Records Attestation: I reviewed the patient's medical records. Home Medications Current Medication List: was personally reviewed by me Laboratory Data Attestation: I reviewed the patient's lab results. Result diagrams: 11/28/18 15:25 11/28/18 15:57 Lab Results 11/28/18 11/28/18 11/28/18 Range/Units 15:25 15:25 15:25 WBC 6.07 (4.8-10.8) K/uL RBC 4.66 L (4.7-6.1) M/uL Hgb 14.6 (14.0-18.0) g/dL Hct 44.3 (42-52) % MCV 95.1 (80-100) fL MCH 31.3 (25-34) pg MCHC 33.0 (32-36) g/dL RDW Std Deviation 56.2 H (36.4-46.3) fL RDW Coeff of Naseem 16.4 H (11.5-14.5) % Plt Count 167 (130-400) K/uL MPV 10.2 (7.4-10.4) fL Immature Gran % (Auto) 0.3 % Neut % (Auto) 77.6 % Lymph % (Auto) 8.1 % [place] % (Auto) 13.0 % Eos % (Auto) 0.7 % Baso % (Auto) 0.3 % Immature Gran # (Auto) 0.02 (0.00-0.02) K/uL Neut # (Auto) 4.71 (1.4-6.5) K/uL Lymph # (Auto) 0.49 L (1.2-3.4) K/uL [place] # (Auto) 0.79 H (0.11-0.59) K/uL Eos # (Auto) 0.04 (0-0.5) K/uL Baso # (Auto) 0.02 (0-0.2) K/uL PT 12.4 H (9.0-12.0) Seconds INR 1.2 H (0.9-1.1) APTT 28.7 (21.0-31.0) Seconds PTT Ratio 1.1 VBG pH (7.36-7.41) VBG pCO2 (38-50) mmHg VBG pO2 mmHg VBG HCO3 mmol/L VBG O2 Saturation % VBG Base Excess mEq/L Barometric Pressure mm/Hg Sodium 134 L (136-145) mmol/L Potassium (3.5-5.1) mmol/L Chloride 99 (98-107) mmol/L Carbon Dioxide 30 (21-32) mmol/L Anion Gap 5.0 (3-11) BUN 18 (7-18) mg/dl Creatinine 0.90 (0.6-1.4) mg/dl Est Cr Clr Drug Dosing 100.7 ml/min Est GFR ( Amer) 92.5 Est GFR (Non-Af Amer) 79.8 BUN/Creatinine Ratio 20.1 H (10-20) Glucose 120 H (70-99) mg/dl Calcium 8.9 (8.5-10.1) mg/dl Magnesium (1.8-2.4) mg/dl Total Bilirubin 1.5 H (0.2-1) mg/dl AST (15-37) U/L ALT 18 (12-78) U/L Alkaline Phosphatase 74 (45-117) U/L Troponin I < 0.015 (0-0.045) ng/ml NT-Pro-B Natriuret Pep 3991 H (0-1800) pg/ml Total Protein 6.6 (6.4-8.2) gm/dl Albumin 3.5 (3.4-5.0) gm/dl Globulin 3.1 (2.5-4.0) gm/dl Albumin/Globulin Ratio 1.1 (0.9-2) Specimen Hemolysis 11/28/18 11/28/18 Range/Units 15:57 15:57 WBC (4.8-10.8) K/uL RBC (4.7-6.1) M/uL Hgb (14.0-18.0) g/dL Hct (42-52) % MCV (80-100) fL MCH (25-34) pg MCHC (32-36) g/dL RDW Std Deviation (36.4-46.3) fL RDW Coeff of Naseem (11.5-14.5) % Plt Count (130-400) K/uL MPV (7.4-10.4) fL Immature Gran % (Auto) % Neut % (Auto) % Lymph % (Auto) % [place] % (Auto) % Eos % (Auto) % Baso % (Auto) % Immature Gran # (Auto) (0.00-0.02) K/uL Neut # (Auto) (1.4-6.5) K/uL Lymph # (Auto) (1.2-3.4) K/uL [place] # (Auto) (0.11-0.59) K/uL Eos # (Auto) (0-0.5) K/uL Baso # (Auto) (0-0.2) K/uL PT (9.0-12.0) Seconds INR (0.9-1.1) APTT (21.0-31.0) Seconds PTT Ratio VBG pH 7.35 L (7.36-7.41) VBG pCO2 55 H (38-50) mmHg VBG pO2 26 mmHg VBG HCO3 29 mmol/L VBG O2 Saturation < 60.0 % VBG Base Excess 2.1 mEq/L Barometric Pressure 732.8 mm/Hg Sodium (136-145) mmol/L Potassium 4.5 (3.5-5.1) mmol/L Chloride (98-107) mmol/L Carbon Dioxide (21-32) mmol/L Anion Gap (3-11) BUN (7-18) mg/dl Creatinine (0.6-1.4) mg/dl Est Cr Clr Drug Dosing ml/min Est GFR ( Amer) Est GFR (Non-Af Amer) BUN/Creatinine Ratio (10-20) Glucose (70-99) mg/dl Calcium (8.5-10.1) mg/dl Magnesium 2.2 (1.8-2.4) mg/dl Total Bilirubin (0.2-1) mg/dl AST 25 (15-37) U/L ALT (12-78) U/L Alkaline Phosphatase (45-117) U/L Troponin I (0-0.045) ng/ml NT-Pro-B Natriuret Pep (0-1800) pg/ml Total Protein (6.4-8.2) gm/dl Albumin (3.4-5.0) gm/dl Globulin (2.5-4.0) gm/dl Albumin/Globulin Ratio (0.9-2) Specimen Hemolysis Imaging Data Radiologist's Impression: Radiology results as stated below per my review and the radiologist's interpretation: XR chest 1V portable CLINICAL HISTORY: Dyspnea COMPARISON STUDY: Chest CT December 08, 2012. Chest radiograph December 27, 2016. FINDINGS: There is no pneumothorax. Small to moderate left and small right pleural effusions are noted. There is pulmonary vascular congestion with suspected pulmonary edema. Bibasilar opacities are noted. Chronic deformity of the right humeral head and right acromioclavicular joint is unchanged. There is no pneumothorax. Moderate cardiomegaly is noted. IMPRESSION: 1. Moderate pulmonary edema. 2. Small to moderate left and small right pleural effusions with bibasilar opacities which favor atelectasis although consolidation could appear similar. Radiographic follow up is recommended. Electronically signed by: Conrado Dumont M.D. 11/28/2018 3:43 PM ECG Data Attestation: I personally reviewed and interpreted this ECG as follows: Indication: SOB/dyspnea Rate (beats per minute): 98 Rhythm: atrial fibrillation (likely) Findings: + other (prolonged QTC; right axis deviation) and + PVC (frequent) Comparison ECG Date: from (12/27/16) Change: the following changes noted (the patient may now be in a fib, difficult to interpret given frequent PVCs and motion artifact) Blood Pressure Blood Pressure Findings: Normal blood pressure MDM Narrative The patient is a 83 year old white male w/ PMHx of atrial flutter, myasthenia gravis, and hypertension who presents to the ED w/ CC of persistent shortness of breath beginning 2 weeks prior to arrival. Differential diagnosis: Etiologies such as infections, reactive airway disease, pneumonia, pneumothorax, COPD, CHF, cardiac ischemia, pulmonary embolism, musculoskeletal, gastrointestinal, as well as others were entertained. Patient was seen and evaluated the bedside. The patient was presenting with some weakness and associated shortness of breath. The patient is a prior history of a flutter myasthenia gravis. The patient does not complain of any bulbar symptoms. Patient does not complain of any difficulty with swallowing p tosis. I did call the respiratory therapist for a negative inspiratory force and vital capacity. Patient's NIF was -30 and vital capacity was approximately 1 L. The patient does have a normal white count and H&H. BNP is elevated and the patient does appear to be significantly volume overloaded. Troponin is not detectable. The patient's EKG is difficult to interpret but I believe this is A. fib. The patient does have a prior history of this but is not on any anticoagulant medication not in any dig therapy per the patient's medical reconciliation. Patient had been given his initial Mestinon given the concern for the patient's prior history of myasthenia gravis. The patient is Lasix na ve and did put out a fair amount of urine during his ER stay. I did attempt that the patient walked but this was unable to be completed. The onsite case manager did talk with the patient the patient's family and it was discussed with the patient be admitted for additional diuresis medical management optimization and then likely placement at [facility]. I did speak with the on-call hospitalist and resident and the patient was substernally admitted to the medicine service. Impression & Plan Shortness of breath, CHF (congestive heart failure), Weakness, Myasthenia gravis Discharge Plan Visit Data *Final* Discharge Date/Time: 11/28/18 21:35 Chief Complaint: Shortness of Breath/Dyspnea Stated Complaint: WEAKNESS, SOB ED Provider: Royal Sy Discharge Problem: Shortness of breath, CHF (congestive heart failure), Weakness, Myasthenia gravis Patient Disposition: Admitted As Inpatient Discharge Instructions Interventions: ED Discharge Assessment Last Done: 11/28/18 21:35 Discharge Problem: CHF (congestive heart failure) Qualifiers: Heart failure type: unspecified Heart failure chronicity: acute Qualified Code(s): I50.9 - Heart failure, unspecified The scribe's documentation has been prepared under my direction and personally reviewed by me in its entirety. I confirm that the note above accurately reflects all work, treatment, procedures, and medical decision making performed by me.
[2018-11-29] MEDS: MOMETASONE FUROATE 14 PUFF/1 INHALER INH SCH ×3 (00:51→20:20)
[2018-11-29] MEDS: MIRABEGRON ER 25 MG TAB PO SCH ×3 (00:53→20:20)
[2018-11-29] MEDS: ASPIRIN 81 MG ECTAB PO SCH ×2 (00:53→20:22)
[2018-11-29] MEDS: FERROUS SULFATE 325 MG TAB PO SCH ×4 (00:54→20:21)
[2018-11-29] MEDS: PYRIDOSTIGMINE BROMIDE 60 MG TAB PO SCH ×4 (00:54→20:21)
[2018-11-29] MEDS: TOLTERODINE TARTRATE LA 4 MG CAPCR PO SCH ×3 (00:54→20:21)
[2018-11-29 06:25] LABS: BUN Creatinine Ratio 18.7 (10-20); Calcium 8.6 mg/dl (8.5-10.1); Creatinine Clr Calc Pharmacy 98.3 ml/min; Est GFR (African American) 94.7; Est GFR (Non-African American) 81.7; Potassium 4.2 mmol/L (3.5-5.1)
[2018-11-29 06:30] LABS: Troponin I 0.016 ng/ml (0-0.045)
--- NOTE | 2018-11-29 07:08 | XRay Report ---
XR chest 1V portable CLINICAL HISTORY: fluid overload dyspnea COMPARISON STUDY: 11/28/2018 FINDINGS: Cardiomegaly. Components of congestive heart failure are similar to perhaps slightly improv ed. There appears to be small bilateral pleural effusions. IMPRESSION: Congestive heart failure of bilateral pleural effusions. Slight improvement compared to the prior study. The above report was generated using voice recognition software. It may contain grammatical, syntax or spelling errors. Electronically signed by: Ant Coon M.D. 11/29/2018 7:06 AM
[2018-11-29] MEDS: HEPARIN SOD 5,000 UNIT/0.5 ML VIAL SQ SCH ×2 (07:16→13:47)
[2018-11-29] MEDS: azaTHIOprine 50 MG TAB PO SCH (07:21)
[2018-11-29] MEDS: LISINOPRIL 5 MG TAB PO SCH (07:21)
--- NOTE | 2018-11-29 07:57 | Family Medicine Progress Note ---
Date of Service November 29, 2018 Assessment & Plan (1) Shortness of breath: 83M with a PMHx of atrial flutter s/p ablation (not on anticoagulation) and myasthenia gravis here for dyspnea on exertion, LE swelling and weakness over the last 4 weeks. Dyspnea -likely secondary to new onset CHF, in exacerbation -BNP elevated to 3991; patient volume overloaded on exam -pleural effusions on CXR (11/28), present but improved with diruesis (11/29) -pt has received 40mg IV lasix on admission (11/28) with negative output 3.6L; will order same dose of lasix today (11/29) for further diruesis -Jamil in place - monitor I/Os, daily weights -TTE obtained this AM -[place] cardiology consulted, patient follows with Dr. Wiley -O2 as needed, will wean tomorrow (11/30) -neuro checks QS given hx of myasthenia gravis -avoid IVF EKG abnormalities - string of PVCs on tele. Rate is controlled. -h/o PAF s/p ablation and not on anticoagulation -TTE as above -daily EKG, telemetry monitoring -[facility] cardiology consulted Deconditioning, morbid obesity -PT/OT consulted -Care management consulted (patient would like to go to [facility] for acute rehab) BRIJESH - cont home CPAP Myasthenia gravis - cont home azathioprine, pyridostigmine -neuro checks, qs asthma - cont home asmanex and albuterol urinary incontinence -Jamil in place - cont home myrbetriq HTN -cont home lisinopril FEN/GI: heart healthy, low sodium DVT ppx: heparin q8h CODE STATUS: FULL DISPO: Tele. Jacy Lamb is pt's daughter, cell is [phone], and home is [phone]. PT/OT: ordered (2) CHF (congestive heart failure): (3) Weakness: (4) Atrial flutter: (5) Morbid obesity: (6) Myasthenia gravis: Supervising Physician Co-Signing Physician Notes Patient seen and examined with Timmy Gabriel and Kayden. Agree with history, exam findings, assessment and plan of care as outlined. 83 y/o M Hx mtesthenia gravis, HTN, morbidly obese admitted with dyspnea and generalized weakness. Reports that he is feeling a bit better today after having lasix in the ED. Denies history of heart failure in the past but does follow with cardiology for aflutter that has previously been ablated. Crackles in the bases. regular rate and rhythm, but with flutter on the monitor. +lower extremity edema. 1. CHF exacerbation. IV Lasix. Monitor I/O's, daily weights. TTE pending. cardiology consult to assist in the setting of aflutter and to assist with question of whether or not he should be anticoagulated. 2. hx of MG. ?exacerbation. steroids. Already on imuran, continue. 3. electorlyte disturbance. repleting lytes. goal to get K to 4 and Mag to 2. Subjective Per nightfloat, patient had string of PVCs on tele. Eating well. Out of breath on conversation. Would like to do acute rehab at [facility] (care management consult already placed). Review of Systems Constitutional: + weakness; no chills, no sweats and no malaise Eyes: no diplopia and no worsening vision Ear, Nose, Mouth, Throat: denies difficulty chewing food, swallowing Respiratory: + cough and + dyspnea Cardiovascular: + edema; no chest pain Gastrointestinal: + early satiety; no abdominal pain, no nausea and no vomiting Physical Exam Constitutional: well developed, well nourished, + obese and cooperative nasal cannula in place Eyes: No ptosis Respiratory: + labored breathing; does not use accessory muscles Auscultation: + diminished lung sounds and + crackles (bilateral lung bases ) conversational dyspnea, speaking in 3-4 word bursts Cardiovascular: Rate/Rhythm: regular rate and regular rhythm Heart Sounds: normal S1, normal S2 and + murmur (systolic ejection murmur best appreciated in aortic area; radiates to neck) Vessels: no JVD Extremities: + pedal edema (+2 up to the bilateral knees) Gastrointestinal (Abdomen): Inspection/Auscultation: normal bowel sounds and + significant pannus Percussion/Palpation: abdomen soft; abdomen nontender and no guarding Skin: brawny dermatitis present on bilateral LE (L worse than R) Neurologic: awake Psychiatric: Orientation: oriented x 3 and cooperative Results & Data Vital Signs (Past 12 Hours) Vital Signs Temp Pulse Pulse Resp BP Pulse Ox 11/29/18 07:09 36.6 C 80 19 110/57 L 90 11/29/18 03:46 36.5 C 84 18 104/64 94 11/28/18 23:58 36.6 C 75 16 121/64 94 11/28/18 23:56 81 18 94 11/28/18 22:40 99 H 11/28/18 22:20 95 H 11/28/18 21:54 36.6 C 73 24 133/78 97 11/28/18 20:30 82 18 115/67 98 Laboratory Results 11/29/18 11/29/18 Range/Units 12:37 05:35 Sodium 136 (136-145) mmol/L Potassium 4.2 (3.5-5.1) mmol/L Chloride 99 (98-107) mmol/L Carbon Dioxide 34 H (21-32) mmol/L Anion Gap 3.0 (3-11) BUN 16 (7-18) mg/dl Creatinine 0.85 (0.6-1.4) mg/dl Est Cr Clr Drug Dosing 98.3 ml/min Est GFR ( Amer) 94.7 Est GFR (Non-Af Amer) 81.7 BUN/Creatinine Ratio 18.7 (10-20) Glucose 99 (70-99) mg/dl Calcium 8.6 (8.5-10.1) mg/dl Troponin I < 0.015 0.016 (0-0.045) ng/ml Diagnostic Findings XR chest 1V portable CLINICAL HISTORY: fluid overload dyspnea COMPARISON STUDY: 11/28/2018 FINDINGS: Cardiomegaly. Components of congestive heart failure are similar to perhaps slightly improved. There appears to be small bilateral pleural effusions. IMPRESSION: Congestive heart failure of bilateral pleural effusions. Slight improvement compared to the prior study. The above report was generated using voice recognition software. It may contain grammatical, syntax or spelling errors. Electronically signed by: Ant Coon M.D. 11/29/2018 7:06 AM Medications Administered Current Inpatient Medications Acetaminophen (Tylenol) 325 mg PO Q4 PRN PRN Reason: Pain Stop: 12/28/18 22:44 Al Hydrox/Mg Hydrox/Simethicone (Maalox) 15 ml PO Q4H PRN PRN Reason: Dyspepsia Stop: 12/28/18 22:44 Albuterol (Ventolin Hfa) 2 puffs INH Q4 PRN PRN Reason: Shortness Of Breath Or Wheezin Stop: 12/28/18 22:44 Aspirin (Ecotrin Ectab) 81 mg PO QPM [facility] Stop: 12/28/18 22:44 Last Admin: 11/29/18 00:53 Dose: 81 mg Documented by: Azathioprine (Imuran) 150 mg PO DAILY [facility] Stop: 12/29/18 08:59 Last Admin: 11/29/18 07:21 Dose: 150 mg Documented by: Cyanocobalamin (Vitamin B-12) 1,000 mcg IM Q14D@0900 [facility] Stop: 01/05/19 08:59 Ferrous Sulfate (Feosol) 325 mg PO TID [facility] Stop: 12/28/18 22:44 Last Admin: 11/29/18 13:46 Dose: 325 mg Documented by: Fexofenadine HCl (Jenny) 180 mg PO DAILY PRN PRN Reason: ALLERGIES Stop: 12/28/18 22:44 Fluticasone Propionate (Flonase) 2 sprays NA DAILY PRN PRN Reason: Nasal Congestion Stop: 12/28/18 22:44 Heparin Sodium/Dextrose () 1 ea IV Q15M [facility]; Protocol Stop: 12/29/18 18:18 Lisinopril (Zestril) 5 mg PO DAILY [facility] Stop: 12/29/18 08:59 Last Admin: 11/29/18 07:21 Dose: 5 mg Documented by: Magnesium Hydroxide (Milk Of Magnesia) 30 ml PO Q12H PRN PRN Reason: Constipation Stop: 12/28/18 22:44 Metoprolol Tartrate (Lopressor) 25 mg PO BID [facility] Stop: 12/30/18 08:59 Mirabegron (Myrbetriq Er) 25 mg PO BID [facility] Stop: 12/28/18 22:44 Last Admin: 11/29/18 07:20 Dose: 25 mg Documented by: Mometasone Furoate (Asmanex 220mcg) 2 puffs INH BID [facility] Stop: 12/28/18 22:44 Last Admin: 11/29/18 07:22 Dose: 2 puffs Documented by: Polyethylene Glycol (Miralax Powder Packet) 17 gm PO DAILY PRN PRN Reason: Constipation Stop: 12/28/18 22:44 Pyridostigmine Harrison (Mestinon) 120 mg PO TID [facility] Stop: 12/28/18 22:44 Last Admin: 11/29/18 13:47 Dose: 120 mg Documented by: Tolterodine Tartrate (Detrol La) 4 mg PO BID [facility] Stop: 12/28/18 22:44 Last Admin: 11/29/18 07:20 Dose: 4 mg Documented by: Warfarin Sodium (Coumadin) 5 mg PO DAILY@1600 [facility] Stop: 12/30/18 15:59 Zolpidem Tartrate (Ambien) 5 mg PO HS PRN PRN Reason: Sleep Stop: 12/28/18 22:44 PG Care Time/CCT Total # of Minutes Spent Total Time Spent with Patient: Total time spent is greater than 50% in coordination of care (as documented) at patient's floor/unit and/or counseling patient: Resident Activity Tracking Resident Involvement: Resident Care Provided Care Provided: Adult Hospital Medicine (1) CHF (congestive heart failure) Heart failure chronicity: acute Heart failure type: unspecified Qualified Code(s): I50.9 - Heart failure, unspecified
[2018-11-29] MEDS ORDERED: FUROSEMIDE 40 MG in SYRINGE 0 ML IV ONE (12:09)
[2018-11-29] MEDS ORDERED: FUROSEMIDE 40 MG in SYRINGE 0 ML IV STA (13:30)
[2018-11-29] MEDS ORDERED: WARFARIN SOD 5 MG TAB PO ONE (18:19)
[2018-11-29] MEDS ORDERED: METOPROLOL TARTRATE 25 MG TAB PO STA (18:36)
--- NOTE | 2018-11-29 18:36 | Cardiology Consultation ---
Date of Consultation November 29, 2018 Assessment & Plan (1) CHF (congestive heart failure): (2) Atrial fibrillation, persistent: (3) Frequent PVCs: (4) Nonsustained ventricular tachycardia: (5) Morbid obesity: I discussed the patient's progress with nursing. He has had a significant amoun t of urine output on his current dose of diuretics with most recent dose of 40 mg this afternoon at 1346. We will hold off on further diuretic therapy and reassess him clinically and assess his labs tomorrow. Future considerations include adding low-dose spironolactone if necessary from a standpoint of helping maintain his potassium. In terms of his rhythm, we will add metoprolol tartrate for regulation of atrial fibrillation as well as the frequent PVCs and nonsustained ventricular tachycardia. In terms of stroke prophylaxis, I have ordered a heparin infusion to be followed by Coumadin. Coumadin dose will likely need to be adjusted due to his use of azathioprine, and this may mean that his Coumadin dose will be higher than expected, but I think it is most reasonable to start with a low-dose 5 mg although given the azathioprine and his obesity, his Coumadin dose will likely need to be higher than this. Daily INRs have been ordered. Given his moderate aortic stenosis, wanted to be cautious to not over diurese him. At the time of his most recent cardiology visit in 2017 he had just had a fall with head trauma. The patient states that he has not had any recent falls, and I think in the short-term is reasonable to start anticoagulation, and as his hospitalization develops we can reassess his fall risk. History of Present Illness Attending Physician: Catracho Serrano DO History of Present Illness Emory Benjamin is an 83 year old male seen in cardiology consultation per the request of Dr Springer for the evaluation of congestive heart failure and arrhythmia. The patient was sitting in the bedside chair. He was comfortable. A Jamil catheter was in place, with 2 L of clear yellow urine output noted in the collection receptacle. The patient describes that he has had generalized progressive fatigue over the last few weeks, and progressive lower extremity edema that he thinks has been going on for about 2 to 4 weeks. He ultimately presented to the emergency room yesterday, 11/28/2018 and was found to be volume overloaded on exam, with further supporting findings on chest x-ray with small bilateral pleural effusions. The patient's past history is notable for myasthenia gravis. He had previously followed with Dr. Randolph of our cardiology practice and then Dr Wiley with most recent visit having been in 2017. Office notes describe a history of remote atrial flutter ablation which the patient states was performed at [facility]. This was performed at least prior to 2010 looking back at his office notes. His history is otherwise notable for frequent PVCs, monoclonal paraproteinemia, remote cholecystectomy, morbid obesity, and obstructive sleep apnea on CPAP. Allergies Allergy/AdvReac Type Severity Reaction Status Date / Time vancomycin Allergy Severe Hives Verified 11/28/18 16:49 adhesive Allergy Unknown . Verified 07/18/09 19:29 latex Allergy Unknown blisters Verified 09/14/16 12:41 and swelling morphine Allergy Rash Verified 11/28/18 16:49 Influenza Virus Vaccines AdvReac Severe DEATHLY Verified 11/28/18 16:49 SICK Home Medications Home Medications Medication Instructions Recorded Confirmed Type acetaminophen [Tylenol] 325 mg PO Q4 PRN 11/28/18 11/28/18 History albuterol sulfate 2 puff INHALATION Q4 PRN 11/28/18 11/28/18 History amoxicillin 2,000 mg PO UD PRN 11/28/18 11/28/18 History aspirin [Aspir-81] 81 mg PO QPM 11/28/18 11/28/18 History azathioprine [Imuran] 150 mg PO DAILY 11/28/18 11/28/18 History cyanocobalamin (vitamin B-12) 1,000 mcg IM .[id number] 11/28/18 11/28/18 History escitalopram oxalate [Lexapro] 5 mg PO DAILY 11/28/18 11/28/18 History ferrous sulfate [iron] 325 mg PO TID 11/28/18 11/28/18 History fexofenadine [Jenny Allergy] 180 mg PO DAILY PRN 11/28/18 11/28/18 History fluticasone propionate [Flonase 2 spray INTRANASAL DAILY PRN 11/28/18 11/28/18 History Allergy Relief] lisinopril [Zestril] 5 mg PO DAILY 11/28/18 11/28/18 History mirabegron [Myrbetriq] 25 mg PO BID 11/28/18 11/28/18 History mometasone [Asmanex Twisthaler] 2 inh INHALATION BID 11/28/18 11/28/18 History multivitamin 4 - 5 tab PO DAILY 11/28/18 11/28/18 History pyridostigmine bromide [Mestinon] 120 mg PO TID 11/28/18 11/28/18 History tolterodine [Detrol LA] 4 mg PO BID 11/28/18 11/28/18 History zolpidem [Ambien] 5 mg PO HS PRN 11/28/18 11/28/18 History Patient History Medical History Atrial flutter (Resolved Unknown) "s/p ablation " Myasthenia gravis (Chronic Unknown) Pulmonary hypertension (Acute Unknown) Social History Preferred Language: Argentine Communication Ability: Effective Production Cell Leader Required: No Beliefs That Will Affect Care: None marital status: / Current Living Situation: Alone Current Living Situation Comment: Patient lives at home alone, however, ananda ramos lives next door to him. Other Information That Helps Us Care for You: No Feels Safe at Home: Yes Safety Concerns: Feels Safe At This Time Smoking Status: Former smoker Smoking End Date: 1965 Second Hand Exposure: No Hx Alcohol Use: No Hx Substance Use: No Review of Systems Review of Systems: All systems reviewed & are unremarkable except as noted in HPI & below Physical Exam Physical Exam: Temp Pulse Resp BP Pulse Ox 36.9 C 83 16 131/68 96 11/29/18 16:00 11/29/18 16:00 11/29/18 16:00 11/29/18 16:00 11/29/18 16:00 Constitutional: + ill appearing Ill in appearance without acute distress Respiratory: Auscultation: + diminished lung sounds (Decreased breath sounds at the bases bilaterally); no crackles and no rales Cardiovascular: Rate/Rhythm: + irregularly irregular Heart Sounds: no murmur Vessels: + JVD Extremities: + edema (2+ bilateral lower extremity edema) Gastrointestinal (Abdomen): normal bowel sounds, soft, nontender, no hepatosplenomegaly Neurologic: moves all extremities; no focal motor deficits Genitourinary: Jamil catheter in place draining clear yellow urine Results & Data Vital Signs (Past 12 Hours) Vital Signs Temp Pulse Pulse Resp BP Pulse Ox Pulse Ox 11/29/18 16:00 36.9 C 83 16 131/68 96 11/29/18 15:16 83 11/29/18 13:05 96 11/29/18 10:53 36.7 C 48 L 19 128/51 L 90 11/29/18 10:01 93 11/29/18 07:09 36.6 C 80 19 110/57 L 90 Pulse Ox 11/29/18 16:00 11/29/18 15:16 11/29/18 13:05 11/29/18 10:53 11/29/18 10:01 88 L 11/29/18 07:09 Laboratory Results Cardiac Enzymes 11/29/18 11/29/18 Range/Units 05:35 12:37 Troponin I 0.016 < 0.015 (0-0.045) ng/ml Comprehensive Metabolic Panel 11/29/18 Range/Units 05:35 Sodium 136 (136-145) mmol/L Potassium 4.2 (3.5-5.1) mmol/L Chloride 99 (98-107) mmol/L Carbon Dioxide 34 H (21-32) mmol/L BUN 16 (7-18) mg/dl Creatinine 0.85 (0.6-1.4) mg/dl Glucose 99 (70-99) mg/dl Calcium 8.6 (8.5-10.1) mg/dl Intake and Output 11/29/18 11/29/18 11/29/18 06:59 14:59 22:59 Intake Total 160 / 160 Output Total 1250 / 2800 1550 / 2800 Balance -1090 / -2640 -1550 / -2640 Intake: Oral 160 / 160 Output: Urine 800 / 800 Urine Amount (Catheter) 450 / 2000 1550 / 2000 Jamil/Indwelling 450 / 2000 1550 / 2000 Other: Weight 147 kg Patient Weight 11/30/18 06:59 Weight 147 kg Diagnostic Findings EKG performed 11/29/2018 at 6:31 AM revealed atrial fibrillation 82 bpm with frequent PVCs, nonspecific diffuse T wave flattening noted. Telemetry reveals rate controlled atrial fibrillation with frequent PVCs with episodes of ventricular bigeminy. A 12 beat run of nonsustained VT was also noted. A 2D echocardiogram was performed today and reviewed and palate by the undersigned: Assessment of hemodynamics of aortic stenosis as well as regional wall motion abnormal were limited due to the frequent ventricular ectopy. The left ventricular wall motion and LVEF however appear to be grossly normal. The right atrium appears to be mild to moderately dilated, with mild dilatation of the right ventricle and normal RV systolic function. There is evidence of a moderate left pleural effusion noted on echocardiogram. Mild mitral regurgitation is present. Mild tricuspid regurgitation is present. Moderate aortic valve stenosis is present (1) CHF (congestive heart failure) Heart failure chronicity: acute Heart failure type: unspecified Qualified Code(s): I50.9 - Heart failure, unspecified
[2018-11-29] MEDS: Heparin Adult STANDARD Wt-Based Dextrose 5% 25,000 units/500 mL IV SCH (19:02)
[2018-11-29] MEDS: Heparin IV Standard *NO* Bolus IV SCH ×2 (20:37→20:38)
[2018-11-29] MEDS ORDERED: METOPROLOL TARTRATE 25 MG TAB PO SCH (21:00)
[2018-11-30 01:36] LABS: Partial Thromboplastin Ratio 2.6
[2018-11-30 01:49] LABS: Partial Thromboplastin Time 69.5 Seconds (21.0-31.0)
--- NOTE | 2018-11-30 07:04 | Family Medicine Progress Note ---
Date of Service November 30, 2018 Assessment & Plan (1) Shortness of breath: 83M with a PMHx of atrial flutter s/p ablation (not on anticoagulation) and myasthenia gravis here for dyspnea on exertion, LE swelling and weakness over the last 4 weeks. Dyspnea-improving with diruesis -likely secondary to new onset CHF, in exacerbation -pleural effusions on CXR (11/28), present but improved with diruesis (11/29) -pt has received 1 dose of IV lasix, 40mg (11/28) and 1 on 11/29 which has resulted in 8.4 liters of fluid removal - additional dose of IV lasix, 40mg, IV ordered today (11/30) -Jamil in place - monitor I/Os -weight 160.2 kg on admission, 143.6kg today (11/30) -O2 weaned today (11/30) -neuro checks QS given hx of myasthenia gravis -avoid IVF given volume overloaded state Present on Admission?: Yes (2) CHF (congestive heart failure): -BNP elevated to 3991 on admission (11/28) - patient volume overloaded on exam - pleural effusions on CXR (11/28), present but improved with diruesis (11/29) -measure daily weights -Jamil in place (I/Os) -[facility] consulted, patient follows with Dr. Wiley -cardiology guiding direutic dosing -TTE from 11/29 showed evidence of pulmonary HTN (3) Atrial fibrillation, persistent: -Rate is controlled. -bridging with heparin to coumadin -initial coumadin dose 5mg (given patient's BMI and concurrent use of aza thioprine) -daily INR checks -[id number] score of 4 -HAS-BLED score of 3 -patient felt to be a poor candidate for a DOAC given his BMI over 40 (dosing becomes difficult) -TTE as above -daily EKG, telemetry monitoring (4) Weakness: Present on Admission?: Yes (5) Atrial flutter: (6) Morbid obesity: -PT/OT consulted and recommended inpatient rehab -Care management (working to place in [facility] in [place]) Present on Admission?: Yes (7) Myasthenia gravis: - cont home azathioprine, pyridostigmine -neuro checks, qs Present on Admission?: Yes (8) Rash: -erythema with overlying scale present in bilateral inguinal folds -appears to be consistent with intertrigo -wound care consulted, appreciate recs FEN/GI: heart healthy, low sodium DVT ppx: heparin q8h CODE STATUS: FULL DISPO: TelePriya Lamb is pt's daughter, cell is [phone], and home is [phone]. PT/OT: ordered Present on Admission?: Yes (9) Hypertension: -cont home lisinopril (10) BRIJESH (obstructive sleep apnea): - cont home CPAP Present on Admission?: Yes (11) Asthma: - cont home asmanex and albuterol Present on Admission?: Yes (12) Urinary bladder incontinence: -Jamil in place - cont home myrbetriq Present on Admission?: Yes Supervising Physician Co-Signing Physician Notes Patient seen and examined with Timmy Gabriel and Kayden. Agree with history, exam findings, assessment and plan of care as outlined. 83 y/o M Hx MG, HTN, morbidly obese admitted with dyspnea and generalized weakness. Reports that he is feeling a bit better today. Urinating a lot from the lasix. Crackles in the bases. regular rate and rhythm, but with flutter/fib on the monitor. +lower extremity edema to the knees. 1. CHF exacerbation. IV Lasix. Added spironolactone. Monitor I/O's, daily weights. Wean O2 as able. TTE difficult to interpret due to frequent ectopy. Appreciate cardiology assistance with anticoagulation question and diuresis. 2. hx of MG. not in exacerbation. steroids. Already on imuran, continue. 3. electorlyte disturbance. repleting lytes. goal to get K to 4 and Mag to 2. 4. afib/flutter. added metoprolol, now anticoagulated with heparin to coumadin bridge. Might consider outpatient lovenox bridge [facility] to make participating in therapy more feasible. Dispo: pending cinical improvement with diuresis. Will be discharged to [facility]. Subjective No events overnight. Feels as though he is able to breath better; feels as though legs are still significantly swollen. Grandson present during evaluation. PT recommends placement at inpatient rehab facility (rather than SNF); patient would like to go to [facility] in [place] since his youngest daughter works there. Review of Systems Constitutional: + weakness; no chills, no sweats and no malaise Eyes: no diplopia and no worsening vision Ear, Nose, Mouth, Throat: denies difficulty chewing food, swallowing Respiratory: + cough and + dyspnea Cardiovascular: + edema; no chest pain Gastrointestinal: + early satiety; no abdominal pain, no nausea and no vomiting Physical Exam Constitutional: well developed, well nourished, + obese and cooperative Respiratory: + labored breathing; does not use accessory muscles Auscultation: + diminished lung sounds and + crackles (bilateral lung bases ) conversational dyspnea still present, although patient is now able to speak in 5-7 word sentences (improved from yesterday's exam) Cardiovascular: Rate/Rhythm: regular rate and regular rhythm Heart Sounds: normal S1, normal S2 and + murmur (systolic ejection murmur best appreciated in aortic area; radiates to neck) Vessels: no JVD Extremities: + pedal edema (+2 up to the bilateral knees) Gastrointestinal (Abdomen): Inspection/Auscultation: normal bowel sounds and + significant pannus Percussion/Palpation: abdomen soft; abdomen nontender and no guarding Skin: + rash (intertrigous rash present in bilateral inguinal folds (R & L groin)) Neurologic: awake Psychiatric: Orientation: oriented x 3 and cooperative Genitourinary: Jamil catheter in place draining reese colored urine with no visible blood clots Results & Data Vital Signs (Past 12 Hours) Vital Signs Temp Pulse Pulse Resp BP BP Pulse Ox 11/30/18 04:12 36.5 C 50 L 21 108/65 93 11/30/18 00:42 84 11/30/18 00:02 36.7 C 55 L 21 114/66 92 11/29/18 21:22 49 L 16 95 11/29/18 20:18 36.6 C 66 16 124/75 96 Laboratory Results 11/30/18 11/30/18 11/30/18 Range/Units 15:11 08:14 08:14 WBC 7.02 (4.8-10.8) K/uL RBC 4.42 L (4.7-6.1) M/uL Hgb 13.9 L (14.0-18.0) g/dL Hct 41.8 L (42-52) % MCV 94.6 (80-100) fL MCH 31.4 (25-34) pg MCHC 33.3 (32-36) g/dL RDW Std Deviation 55.9 H (36.4-46.3) fL RDW Coeff of Naseem 16.1 H (11.5-14.5) % Plt Count 149 (130-400) K/uL MPV 9.5 (7.4-10.4) fL PT 13.2 H (9.0-12.0) Seconds INR 1.3 H (0.9-1.1) APTT Pending 76.1 H* (21.0-31.0) Seconds PTT Ratio Pending 2.8 Sodium (136-145) mmol/L Potassium (3.5-5.1) mmol/L Chloride (98-107) mmol/L Carbon Dioxide (21-32) mmol/L Anion Gap (3-11) BUN (7-18) mg/dl Creatinine (0.6-1.4) mg/dl Est Cr Clr Drug Dosing ml/min Est GFR ( Amer) Est GFR (Non-Af Amer) BUN/Creatinine Ratio (10-20) Glucose (70-99) mg/dl Calcium (8.5-10.1) mg/dl Magnesium (1.8-2.4) mg/dl 11/30/18 11/30/18 Range/Units 08:14 01:02 WBC (4.8-10.8) K/uL RBC (4.7-6.1) M/uL Hgb (14.0-18.0) g/dL Hct (42-52) % MCV (80-100) fL MCH (25-34) pg MCHC (32-36) g/dL RDW Std Deviation (36.4-46.3) fL RDW Coeff of Naseem (11.5-14.5) % Plt Count (130-400) K/uL MPV (7.4-10.4) fL PT (9.0-12.0) Seconds INR (0.9-1.1) APTT 69.5 H* (21.0-31.0) Seconds PTT Ratio 2.6 Sodium 135 L (136-145) mmol/L Potassium 3.8 (3.5-5.1) mmol/L Chloride 97 L (98-107) mmol/L Carbon Dioxide 33 H (21-32) mmol/L Anion Gap 5.0 (3-11) BUN 17 (7-18) mg/dl Creatinine 0.88 (0.6-1.4) mg/dl Est Cr Clr Drug Dosing 93.0 ml/min Est GFR ( Amer) 93.4 Est GFR (Non-Af Amer) 80.6 BUN/Creatinine Ratio 19.0 (10-20) Glucose 120 H (70-99) mg/dl Calcium 8.3 L (8.5-10.1) mg/dl Magnesium 2.1 (1.8-2.4) mg/dl Medications Administered Current Inpatient Medications Acetaminophen (Tylenol) 325 mg PO Q4 PRN PRN Reason: Pain Stop: 12/28/18 22:44 Al Hydrox/Mg Hydrox/Simethicone (Maalox) 15 ml PO Q4H PRN PRN Reason: Dyspepsia Stop: 12/28/18 22:44 Albuterol (Ventolin Hfa) 2 puffs INH Q4 PRN PRN Reason: Shortness Of Breath Or Wheezin Stop: 12/28/18 22:44 Aspirin (Ecotrin Ectab) 81 mg PO QPM TRACY Stop: 12/28/18 22:44 Last Admin: 11/29/18 20:22 Dose: 81 mg Documented by: Azathioprine (Imuran) 150 mg PO DAILY [facility] Stop: 12/29/18 08:59 Last Admin: 11/30/18 07:44 Dose: 150 mg Documented by: Cyanocobalamin (Vitamin B-12) 1,000 mcg IM Q14D@0900 [facility] Stop: 01/05/19 08:59 Ferrous Sulfate (Feosol) 325 mg PO TID TRACY Stop: 12/28/18 22:44 Last Admin: 11/30/18 14:33 Dose: 325 mg Documented by: Fexofenadine HCl (Jenny) 180 mg PO DAILY PRN PRN Reason: ALLERGIES Stop: 12/28/18 22:44 Fluticasone Propionate (Flonase) 2 sprays NA DAILY PRN PRN Reason: Nasal Congestion Stop: 12/28/18 22:44 Heparin Sodium/Dextrose (Heparin Sodium/Dextrose) 25,000 units in 500 mls @ 30 mls/hr IV .[id number] [facility]; Protocol Stop: 12/29/18 18:59 Last Titration: 11/30/18 14:58 Dose: 1,500 units/hr, 30 mls/hr Documented by: Lisinopril (Zestril) 5 mg PO DAILY [facility] Stop: 12/29/18 08:59 Last Admin: 11/30/18 07:44 Dose: 5 mg Documented by: Magnesium Hydroxide (Milk Of Magnesia) 30 ml PO Q12H PRN PRN Reason: Constipation Stop: 12/28/18 22:44 Metoprolol Tartrate (Lopressor) 25 mg PO BID [facility] Stop: 12/30/18 08:59 Last Admin: 11/30/18 07:44 Dose: 25 mg Documented by: Mirabegron (Myrbetriq Er) 25 mg PO BID [facility] Stop: 12/28/18 22:44 Last Admin: 11/30/18 07:44 Dose: 25 mg Documented by: Mometasone Furoate (Asmanex 220mcg) 2 puffs INH BID [facility] Stop: 12/28/18 22:44 Last Admin: 11/30/18 07:45 Dose: 2 puffs Documented by: Nystatin (Mycostatin) 1 appln EXT DAILY PRN PRN Reason: Affected Skin Folds Stop: 12/30/18 00:51 Polyethylene Glycol (Miralax Powder Packet) 17 gm PO DAILY PRN PRN Reason: Constipation Stop: 12/28/18 22:44 Pyridostigmine [place] (Mestinon) 120 mg PO TID [facility] Stop: 12/28/18 22:44 Last Admin: 11/30/18 14:33 Dose: 120 mg Documented by: Spironolactone (Aldactone) 12.5 mg PO DAILY [facility] Stop: 12/30/18 11:44 Last Admin: 11/30/18 12:45 Dose: 12.5 mg Documented by: Tolterodine Tartrate (Detrol La) 4 mg PO BID [facility] Stop: 12/28/18 22:44 Last Admin: 11/30/18 07:44 Dose: 4 mg Documented by: Warfarin Sodium (Coumadin) 5 mg PO DAILY@1600 [facility] Stop: 12/30/18 15:59 Zolpidem Tartrate (Ambien) 5 mg PO HS PRN PRN Reason: Sleep Stop: 12/28/18 22:44 PG Care Time/CCT Total # of Minutes Spent Total Time Spent with Patient: Total time spent is greater than 50% in coordination of care (as documented) at patient's floor/unit and/or counseling patient: Resident Activity Tracking Resident Involvement: Resident Care Provided Care Provided: Adult Hospital Medicine (1) CHF (congestive heart failure) Heart failure chronicity: acute Heart failure type: unspecified Qualified Code(s): I50.9 - Heart failure, unspecified
[2018-11-30] MEDS: METOPROLOL TARTRATE 25 MG TAB PO SCH ×2 (07:44→20:44)
[2018-11-30] MEDS: LISINOPRIL 5 MG TAB PO SCH (07:44)
[2018-11-30] MEDS: TOLTERODINE TARTRATE LA 4 MG CAPCR PO SCH ×2 (07:44→20:43)
[2018-11-30] MEDS: MIRABEGRON ER 25 MG TAB PO SCH ×2 (07:44→20:42)
[2018-11-30] MEDS: PYRIDOSTIGMINE BROMIDE 60 MG TAB PO SCH ×3 (07:44→20:42)
[2018-11-30] MEDS: FERROUS SULFATE 325 MG TAB PO SCH ×3 (07:44→20:44)
[2018-11-30] MEDS: azaTHIOprine 50 MG TAB PO SCH (07:44)
[2018-11-30] MEDS: MOMETASONE FUROATE 14 PUFF/1 INHALER INH SCH ×2 (07:45→20:42)
[2018-11-30 08:26] LABS: Hematocrit (blood only) 41.8 % (42-52); Hemoglobin 13.9 g/dL (14.0-18.0); Mean Corpuscular Hgb Conc 33.3 g/dL (32-36); Mean Corpuscular Volume 94.6 fL (80-100); Mean Platelet Volume 9.5 fL (7.4-10.4); Platelet Count 149 K/uL (130-400); RDW Coefficient of Variation 16.1 % (11.5-14.5); RDW Standard Deviation 55.9 fL (36.4-46.3); Red Blood Count 4.42 M/uL (4.7-6.1); White Blood Count 7.02 K/uL (4.8-10.8)
[2018-11-30 08:50] LABS: INR 1.3 (0.9-1.1); Partial Thromboplastin Ratio 2.8; Prothrombin Time 13.2 Seconds (9.0-12.0)
[2018-11-30 08:54] LABS: Partial Thromboplastin Time 76.1 Seconds (21.0-31.0)
[2018-11-30] MEDS: Heparin Adult STANDARD Wt-Based Dextrose 5% 25,000 units/500 mL IV SCH (09:00)
[2018-11-30 09:10] LABS: Calcium 8.3 mg/dl (8.5-10.1); Est GFR (African American) 93.4; Est GFR (Non-African American) 80.6; Magnesium 2.1 mg/dl (1.8-2.4); Potassium 3.8 mmol/L (3.5-5.1)
[2018-11-30] MEDS ORDERED: FUROSEMIDE 40 MG in SYRINGE 0 ML IV ONE (11:01)
--- NOTE | 2018-11-30 11:35 | Cardiology Progress Note ---
Date of Service November 30, 2018 Assessment & Plan (1) CHF (congestive heart failure): Acute congestive heart failure with preserved ejection fraction, and in the setting of frequent ventricular ectopy, and likely moderate aortic stenosis. As documented in the echocardiogram report, analysis of regional wall motion, LVEF, as well as the hemodynamics of aortic valve stenosis are somewhat technically limited due to the frequent PVCs and that were present during the echocardiogram. Metoprolol has therefore been added for PVC suppression as well as for treatment for the sustained ventricular tachycardia, which the patient has tolerated well thus far. The patient's fluid balance was a negative net 4.8 L yesterday with a relatively low dose of furosemide having been administered. Electrolytes and blood pressure stable, I would recommend proceeding with another dose of 40 mg today. I discussed this with Dr Gabriel and will allow the primary service to place the diuretic order. CO2 levels climbing , however I certainly do not believe the patient is intravascularly volume depleted. I think we can continue diuresing . Start spironolactone 12.5 mg for diuretic and potassium sparing effect. (2) Atrial fibrillation, persistent: Rate control: metoprolol. Stroke prophylaxis: Continue with unfractionated heparin bridge. Coumadin initiated. Believe Coumadin is the drug of choice as the patient does have underlying valvular heart disease, and he is obese with a BMI of over 40, weight over 300 pounds. Need to reassess his fall risk on a daily basis in terms of determining his long-term anticoagulation candidacy. (3) Frequent PVCs: Continue metoprolol, monitor electrolytes. (4) Nonsustained ventricular tachycardia: Continue metoprolol, monitor electrolytes. (5) Myasthenia gravis: Continue [place] [facility] medications. Subjective Chief complaint: Follow-up edema, generalized fatigue Subjective: Patient sitting the bedside chair. Jamil catheter remains in place draining concentrated yellow urine. Telemetry was reviewed. The predominant rhythm is atrial fibrillation with ventricular rates in the 60 to 80 bpm range. Frequent PVCs are noted including episodes of ventricular bigeminy. A 12 beat carmen of nonsustained ventricular tachycardia was noted at 1643 on 11/29/2018 without recurrence. Review of Systems Review of Systems: All systems reviewed & are unremarkable except as noted in HPI & below Physical Exam Physical Exam: Temp Pulse Resp BP Pulse Ox 36.5 C 72 18 121/76 96 11/30/18 07:42 11/30/18 07:42 11/30/18 07:42 11/30/18 07:42 11/30/18 07:42 Constitutional: WD/WN, vitals as above Respiratory: Auscultation: + diminished lung sounds (Mildly decreased breath sounds bilaterally at the bases) Cardiovascular: Rate/Rhythm: + irregularly irregular Heart Sounds: + murmur (I/mineral 6 systolic murmur) Vessels: no JVD Extremities: + edema (2+ bilateral lower extremity edema) Gastrointestinal (Abdomen): normal bowel sounds, soft, nontender, no hepatosplenomegaly Neurologic: PERRL, EOMI, accommodation nl, no face palsy, no dysarthria Results & Data Vital Signs (Past 12 Hours) Vital Signs Temp Pulse Pulse Resp BP Pulse Ox 11/30/18 07:42 36.5 C 72 18 121/76 96 11/30/18 04:12 36.5 C 50 L 21 108/65 93 11/30/18 00:42 84 11/30/18 00:02 36.7 C 55 L 21 114/66 92 Laboratory Results Cardiac Enzymes 11/29/18 Range/Units 12:37 Troponin I < 0.015 (0-0.045) ng/ml Coagulation 11/30/18 11/30/18 Range/Units 01:02 08:14 PT 13.2 H (9.0-12.0) Seconds APTT 69.5 H* 76.1 H* (21.0-31.0) Seconds CBC 11/30/18 Range/Units 08:14 WBC 7.02 (4.8-10.8) K/uL RBC 4.42 L (4.7-6.1) M/uL Hgb 13.9 L (14.0-18.0) g/dL Hct 41.8 L (42-52) % Plt Count 149 (130-400) K/uL Comprehensive Metabolic Panel 11/30/18 Range/Units 08:14 Sodium 135 L (136-145) mmol/L Potassium 3.8 (3.5-5.1) mmol/L Chloride 97 L (98-107) mmol/L Carbon Dioxide 33 H (21-32) mmol/L BUN 17 (7-18) mg/dl Creatinine 0.88 (0.6-1.4) mg/dl Glucose 120 H (70-99) mg/dl Calcium 8.3 L (8.5-10.1) mg/dl Intake and Output 11/29/18 11/30/18 11/30/18 22:59 06:59 14:59 Intake Total 250 / 657.2 247.2 / 657.2 252.800 / 252.800 Output Total 3950 / 5500 300 / 5500 Balance -3700 / -4842.8 -52.8 / -4842.8 252.800 / 252.800 Intake: IV 247.2 / 247.2 252.800 / 252.800 HEPARIN SODIUM/DEXTROSE 25,000 247.2 / 247.2 252.800 / 252.800 units In 500 ml @ 1,700 UNITS/ HR 34 mls/hr IV .[id number] [facility] Rx #:[id number] Oral 250 / 410 Output: Urine Amount (Catheter) 3950 / 4700 300 / 4700 Jamil/Indwelling 3950 / 4700 300 / 4700 Other: Other Intake Source sips Weight 143.6 kg INR today 11/30/2018: 1.3 Diagnostic Findings EKG performed 11/30/2018 at 6:59 AM and reviewed independently reveals atrial fibrillation with frequent PVCs 82 bpm, age-indeterminate anterior lateral infarction pattern noted with poor R wave progression in the lateral leads, unchanged. The reported corrected QT interval was 565 ms, I do not however believe this is accurate because of the irregular R to R interval, and the varying durations of the QRS duration related to the frequent ventricular ectopy. (1) CHF (congestive heart failure) Heart failure chronicity: acute Heart failure type: unspecified Qualified Code(s): I50.9 - Heart failure, unspecified
[2018-11-30] MEDS: SPIRONOLACTONE 25 MG TAB PO SCH (12:45)
[2018-11-30 15:39] LABS: Partial Thromboplastin Ratio 2.2
[2018-11-30 15:44] LABS: Partial Thromboplastin Time 59.5 Seconds (21.0-31.0)
[2018-11-30] MEDS: WARFARIN SOD 5 MG TAB PO SCH (16:05)
[2018-11-30] MEDS: ASPIRIN 81 MG ECTAB PO SCH (20:42)
[2018-12-01] MEDS: Heparin Adult STANDARD Wt-Based Dextrose 5% 25,000 units/500 mL IV SCH ×2 (02:14→19:12)
[2018-12-01 06:37] LABS: BUN Creatinine Ratio 23.3 (10-20); Calcium 8.2 mg/dl (8.5-10.1); Est GFR (African American) 88.9; Est GFR (Non-African American) 76.7; INR 1.4 (0.9-1.1); Magnesium 1.9 mg/dl (1.8-2.4); Partial Thromboplastin Ratio 2.2; Potassium 3.6 mmol/L (3.5-5.1); Prothrombin Time 13.8 Seconds (9.0-12.0)
[2018-12-01 06:44] LABS: Partial Thromboplastin Time 60.2 Seconds (21.0-31.0)
--- NOTE | 2018-12-01 09:36 | Family Medicine Progress Note ---
Date of Service December 01, 2018 Assessment & Plan (1) Shortness of breath: 83M with a PMHx of atrial flutter s/p ablation (initiating anticoagulation) and myasthenia gravis here for dyspnea on exertion, LE swelling and weakness over the last 4 weeks. Dyspnea-improving with diruesis -likely secondary to new onset CHF, in exacerbation -pleural effusions on CXR (11/28), present but improved with diruesis (11/29) -continue lasix, 40mg IV, daily -started 20 mEQ KCL supplemetation -Jamil in place - monitor I/Os -weight 160.2 kg on admission, 143.6 kg today (12/01) -total of 10.75 liters of fluid has been direused thus far during hospital stay (12/01) -attempted to wean O2 yesterday but saturation dropped to 80s. now at 82% on 3L NC -neuro checks QS given hx of myasthenia gravis -avoid IVF given volume overloaded state (2) CHF (congestive heart failure): -BNP elevated to 3991 on admission (11/28) - patient volume overloaded on exam - pleural effusions on CXR (11/28), present but improved with diruesis (11/29) -measure daily weights -Jamil in place (I/Os) [facility], patient follows with Dr. Wiley -cardiology guiding direutic dosing -TTE from 11/29 showed evidence of pulmonary HTN, moderate aortic stenosis (3) Atrial fibrillation, persistent: -Rate fluctuation; continue metoprolol tartrate, 25 bid (room to titrate up, however will leave at present dose today given pulse of 48) -bridging with heparin to coumadin (initial dose 5mg) -INR 1.4 today (12/01); patient will be approved for discharge to [facility] once theraputic ( goal INR 2-3) -continue daily INR checks -[id number] score of 4 -HAS-BLED score of 3 -patient felt to be a poor candidate for a DOAC given his BMI over 40 (dosing becomes difficult) -TTE as above -daily EKG, telemetry monitoring (reported multiple strings of PVCs overnight) (4) Weakness: (5) Atrial flutter: (6) Morbid obesity: -PT/OT consulted and recommended inpatient rehab -Care management (working to place in [facility] in [place]) (7) Myasthenia gravis: - cont home azathioprine, pyridostigmine -neuro checks, qs (8) Rash: -erythema with overlying scale present in bilateral inguinal folds -appears to be consistent with intertrigo -wound care consulted, appreciate recs (9) Hypertension: -cont home lisinopril (10) BRIJESH (obstructive sleep apnea): - cont home CPAP (11) Asthma: - cont home asmanex and albuterol (12) Urinary bladder incontinence: -Jamil in place - cont home myrbetriq FEN/GI: heart healthy, low sodium DVT ppx: heparin q8h CODE STATUS: FULL DISPO: Tele. Jacy Lamb is pt's daughter, cell is [phone], and home is [phone]. PT/OT: ordered Supervising Physician Co-Signing Physician Notes Attending attestation Pt seen and examined in concert with Dr. Gabriel. In agreement with the documented findings as noted in the resident documentation with any exceptions or additions as noted here. Improving shortness of breath and leg swelling though still feeling tight. 2+ pitting edema of the B/L LE, S1/S2 nl, S3+, 3/6 DAYANA CHF with exacerbation - continue day by day lasix dosing and monitor I/O and weights AF - continue heparin to coumadin with INR trend Else see resident documentation as noted. Subjective No events overnight. Feels as though he is able to breath better and the swelling in his legs is much improved. Care Management working to get patient a bed at [facility] in [place] for inpatient rehab (anticipated discharge 12/04) Review of Systems Constitutional: + weakness; no chills, no sweats and no malaise Eyes: no diplopia Ear, Nose, Mouth, Throat: denies difficulty chewing food, swallowing Respiratory: + cough and + dyspnea Cardiovascular: + edema; no chest pain Gastrointestinal: + early satiety; no abdominal pain, no nausea and no vomiting Physical Exam Constitutional: well developed, well nourished, + obese and cooperative Respiratory: + labored breathing; does not use accessory muscles Auscultation: + diminished lung sounds and + crackles (bilateral lung bases ) Cardiovascular: Rate/Rhythm: regular rate and regular rhythm Heart Sounds: normal S1, normal S2 and + murmur (systolic ejection murmur best appreciated in aortic area; radiates to neck) Vessels: no JVD Extremities: + pedal edema (+2 up to the bilateral knees) S3 present on auscultation Gastrointestinal (Abdomen): Inspection/Auscultation: normal bowel sounds and + significant pannus Percussion/Palpation: abdomen soft; abdomen nontender and no guarding Skin: + rash (intertrigous rash present in bilateral inguinal folds (R & L groin)) Neurologic: awake Psychiatric: Orientation: oriented x 3 and cooperative Genitourinary: Jamil catheter in place draining reese colored urine with no visible blood clots Results & Data Vital Signs (Past 12 Hours) Vital Signs Temp Pulse Pulse Resp BP BP Pulse Ox 12/01/18 07:11 36.8 C 62 22 100/64 93 12/01/18 05:04 36.7 C 53 L 22 104/64 86 L 11/30/18 23:54 103 H 11/30/18 23:45 37.3 C 65 20 101/67 93 Laboratory Results 12/01/18 12/01/18 11/30/18 Range/Units 05:44 05:44 15:11 PT 13.8 H (9.0-12.0) Seconds INR 1.4 H (0.9-1.1) APTT 60.2 H* 59.5 H* (21.0-31.0) Seconds PTT Ratio 2.2 2.2 Sodium 135 L (136-145) mmol/L Potassium 3.6 (3.5-5.1) mmol/L Chloride 97 L (98-107) mmol/L Carbon Dioxide 34 H (21-32) mmol/L Anion Gap 4.0 (3-11) BUN 22 H (7-18) mg/dl Creatinine 0.93 (0.6-1.4) mg/dl Est Cr Clr Drug Dosing 88.0 ml/min Est GFR ( Amer) 88.9 Est GFR (Non-Af Amer) 76.7 BUN/Creatinine Ratio 23.3 H (10-20) Glucose 109 H (70-99) mg/dl Calcium 8.2 L (8.5-10.1) mg/dl Magnesium 1.9 (1.8-2.4) mg/dl Medications Administered Current Inpatient Medications Acetaminophen (Tylenol) 325 mg PO Q4 PRN PRN Reason: Pain Stop: 12/28/18 22:44 Al Hydrox/Mg Hydrox/Simethicone (Maalox) 15 ml PO Q4H PRN PRN Reason: Dyspepsia Stop: 12/28/18 22:44 Albuterol (Ventolin Hfa) 2 puffs INH Q4 PRN PRN Reason: Shortness Of Breath Or Wheezin Stop: 12/28/18 22:44 Aspirin (Ecotrin Ectab) 81 mg PO QPM [facility] Stop: 12/28/18 22:44 Last Admin: 11/30/18 20:42 Dose: 81 mg Documented by: Azathioprine (Imuran) 150 mg PO DAILY [facility] Stop: 12/29/18 08:59 Last Admin: 12/01/18 09:40 Dose: 150 mg Documented by: Cyanocobalamin (Vitamin B-12) 1,000 mcg IM Q14D@0900 [facility] Stop: 01/05/19 08:59 Ferrous Sulfate (Feosol) 325 mg PO TID [facility] Stop: 12/28/18 22:44 Last Admin: 12/01/18 09:41 Dose: 325 mg Documented by: Fexofenadine HCl (Jenny) 180 mg PO DAILY PRN PRN Reason: ALLERGIES Stop: 12/28/18 22:44 Fluticasone Propionate (Flonase) 2 sprays NA DAILY PRN PRN Reason: Nasal Congestion Stop: 12/28/18 22:44 Heparin Sodium/Dextrose (Heparin Sodium/Dextrose) 25,000 units in 500 mls @ 30 mls/hr IV .[id number] [facility]; Protocol Stop: 12/29/18 18:59 Last Titration: 12/01/18 06:50 Dose: 1,500 units/hr, 30 mls/hr Documented by: Lisinopril (Zestril) 5 mg PO DAILY [facility] Stop: 12/29/18 08:59 Last Admin: 12/01/18 09:41 Dose: 5 mg Documented by: Magnesium Hydroxide (Milk Of Magnesia) 30 ml PO Q12H PRN PRN Reason: Constipation Stop: 12/28/18 22:44 Metoprolol Tartrate (Lopressor) 25 mg PO BID [facility] Stop: 12/30/18 08:59 Last Admin: 12/01/18 09:40 Dose: 25 mg Documented by: Mirabegron (Myrbetriq Er) 25 mg PO BID [facility] Stop: 12/28/18 22:44 Last Admin: 12/01/18 09:40 Dose: 25 mg Documented by: Mometasone Furoate (Asmanex 220mcg) 2 puffs INH BID [facility] Stop: 12/28/18 22:44 Last Admin: 12/01/18 09:39 Dose: 2 puffs Documented by: Nystatin (Mycostatin) 1 appln EXT DAILY PRN PRN Reason: Affected Skin Folds Stop: 12/30/18 00:51 Polyethylene Glycol (Miralax Powder Packet) 17 gm PO DAILY PRN PRN Reason: Constipation Stop: 12/28/18 22:44 Pyridostigmine [place] (Mestinon) 120 mg PO TID [facility] Stop: 12/28/18 22:44 Last Admin: 12/01/18 09:39 Dose: 120 mg Documented by: Spironolactone (Aldactone) 12.5 mg PO DAILY [facility] Stop: 12/30/18 11:44 Last Admin: 12/01/18 09:40 Dose: 12.5 mg Documented by: Tolterodine Tartrate (Detrol La) 4 mg PO BID [facility] Stop: 12/28/18 22:44 Last Admin: 12/01/18 09:40 Dose: 4 mg Documented by: Warfarin Sodium (Coumadin) 5 mg PO DAILY@1600 [facility] Stop: 12/30/18 15:59 Last Admin: 11/30/18 16:05 Dose: 5 mg Documented by: Zolpidem Tartrate (Ambien) 5 mg PO HS PRN PRN Reason: Sleep Stop: 12/28/18 22:44 PG Care Time/CCT Total # of Minutes Spent Total Time Spent with Patient: Total time spent is greater than 50% in coordination of care (as documented) at patient's floor/unit and/or counseling patient: Resident Activity Tracking Resident Involvement: Resident Care Provided Care Provided: Adult Hospital Medicine (1) CHF (congestive heart failure) Heart failure chronicity: acute Heart failure type: unspecified Qualified Code(s): I50.9 - Heart failure, unspecified
[2018-12-01] MEDS: MOMETASONE FUROATE 14 PUFF/1 INHALER INH SCH ×2 (09:39→21:11)
[2018-12-01] MEDS: PYRIDOSTIGMINE BROMIDE 60 MG TAB PO SCH ×3 (09:39→21:14)
[2018-12-01] MEDS: SPIRONOLACTONE 25 MG TAB PO SCH (09:40)
[2018-12-01] MEDS: MIRABEGRON ER 25 MG TAB PO SCH ×2 (09:40→21:16)
[2018-12-01] MEDS: METOPROLOL TARTRATE 25 MG TAB PO SCH ×2 (09:40→21:13)
[2018-12-01] MEDS: azaTHIOprine 50 MG TAB PO SCH (09:40)
[2018-12-01] MEDS: TOLTERODINE TARTRATE LA 4 MG CAPCR PO SCH ×2 (09:40→21:17)
[2018-12-01] MEDS: LISINOPRIL 5 MG TAB PO SCH (09:41)
[2018-12-01] MEDS: FERROUS SULFATE 325 MG TAB PO SCH ×3 (09:41→21:15)
--- NOTE | 2018-12-01 10:59 | Cardiology Progress Note ---
Date of Service December 01, 2018 Assessment & Plan (1) CHF (congestive heart failure): Recommend 40 mg intravenous Lasix today. Patient received additional 20 mEq of oral potassium as well. Continue Aldactone and metoprolol as previously ordered. Repeat BMP in a.m. Follow fluid balance and daily weights. Echocardiogram technically limited however suggests possible moderate aortic stenosis. Patient will require repeat imaging in the outpatient setting. (2) Atrial fibrillation, persistent: Continue rate control strategy with metoprolol and IV heparin bridging to oral Coumadin. INR subtherapeutic today at 1.4. (3) Frequent PVCs: Continue metoprolol, give additional 20 mg potassium today. (4) Nonsustained ventricular tachycardia: (5) Myasthenia gravis: Continue [facility] medications. Subjective Patient seen and examined at the bedside. Fluid balance negative approximately 1500 cc overnight. INR remains subtherapeutic. Multiple family members present at bedside during the examination. Family voices concern regarding patient's edema and respiratory status. Patient notes intermittent breathlessness. Telemetry demonstrates rate controlled atrial fibrillation with frequent PVCs, occasional ventricular couplets, and frequent periods of ventricular bigeminy. Review of Systems Review of Systems: All systems reviewed & are unremarkable except as noted in HPI & below Physical Exam Physical Exam: General: NAD, AAO x3, well nourished. Chronically ill. HEENT: Normocephalic. Atraumatic. Conjunctiva pink, no scleral icterus. Neck: No carotid bruits, the carotid upstrokes are brisk. No JVD. No HJR Heart: Irregular rhythm with ectopy. 2/6 systolic ejection murmur heard best at the right second intercostal space. Heart sounds are distant. PMI is not displaced. No RV heave. Lungs: + Crackles at the bases bilaterally. Abdomen: 1+ edema. Normal bowel sounds. Soft. Nontender. No masses or organomegaly. No abdominal bruits. Extremities: 2+ bilateral lower extremity pitting edema. Pulses: radial=2/4. Neuro: Cranial nerves grossly intact. No focal motor deficit. Results & Data Vital Signs (Past 12 Hours) Vital Signs Temp Pulse Pulse Resp BP BP Pulse Ox 12/01/18 07:11 36.8 C 62 22 100/64 93 12/01/18 05:04 36.7 C 53 L 22 104/64 86 L 11/30/18 23:54 103 H 07/18/19 23:45 37.3 C 65 20 101/67 93 (1) CHF (congestive heart failure) Heart failure chronicity: acute Heart failure type: unspecified Qualified Code(s): I50.9 - Heart failure, unspecified
[2018-12-01] MEDS ORDERED: FUROSEMIDE 40 MG in SYRINGE 0 ML IV ONE (11:00)
[2018-12-01] MEDS ORDERED: POTASSIUM CHLORIDE 20 MEQ TABCR PO STA (11:01)
[2018-12-01] MEDS ORDERED: FUROSEMIDE 40 MG/4 ML VIAL IV STA (13:17)
[2018-12-01] MEDS ORDERED: FUROSEMIDE 40 MG in SYRINGE 0 ML IV STA (13:24)
[2018-12-01] MEDS: WARFARIN SOD 5 MG TAB PO SCH (18:13)
--- NOTE | 2018-12-01 19:51 | Progress Note ---
Date of Service December 01, 2018 Received a page from the patient's nurse that he has new hematuria in his Jamil bag. Brief record review, patient is on heparin bridge towards Coumadin for A. fib. Saw patient at bedside. He states he has never had hematuria before but that he sees Dr. Ott of urology as an outpatient for incontinence. He denies any abdominal pain or acute concerns. Vitals reviewed. Patient appears overall comfortable, slightly dyspneic, but pleasantly conversational. There is a darkish red coloration to his urine in the Jamil bag with a pinkish urine in the tube. Plan: - We will check an H&H for a new baseline. - Hold his heparin drip. - Consulted urology for the morning for further evaluation. Fang Monique, PGY3 Overnight call Results & Data Vital Signs (Past 12 Hours) Vital Signs Temp Pulse Resp BP BP Pulse Ox 12/01/18 19:42 37.2 C 67 20 104/65 93 12/01/18 16:10 36.8 C 54 L 19 98/62 L 92 12/01/18 11:36 36.9 C 48 L 16 100/63 92
[2018-12-01 19:55] LABS: Hematocrit (blood only) 43.5 % (42-52); Hemoglobin 14.3 g/dL (14.0-18.0)
[2018-12-01] MEDS: ASPIRIN 81 MG ECTAB PO SCH (21:16)
[2018-12-02 06:48] LABS: INR 1.6 (0.9-1.1); Prothrombin Time 16.2 Seconds (9.0-12.0)
[2018-12-02 07:01] LABS: BUN Creatinine Ratio 26.5 (10-20); Calcium 8.2 mg/dl (8.5-10.1); Creatinine Clr Calc Pharmacy 86.1 ml/min; Est GFR (African American) 86.7; Est GFR (Non-African American) 74.8; Potassium 3.8 mmol/L (3.5-5.1)
[2018-12-02] MEDS: METOPROLOL TARTRATE 25 MG TAB PO SCH ×2 (08:20→20:47)
[2018-12-02] MEDS: TOLTERODINE TARTRATE LA 4 MG CAPCR PO SCH ×2 (08:20→20:45)
[2018-12-02] MEDS: azaTHIOprine 50 MG TAB PO SCH (08:21)
[2018-12-02] MEDS: LISINOPRIL 5 MG TAB PO SCH (08:21)
[2018-12-02] MEDS: SPIRONOLACTONE 25 MG TAB PO SCH (08:21)
[2018-12-02] MEDS: FERROUS SULFATE 325 MG TAB PO SCH ×3 (08:22→20:44)
[2018-12-02] MEDS: MOMETASONE FUROATE 14 PUFF/1 INHALER INH SCH ×2 (08:22→20:43)
[2018-12-02] MEDS: MIRABEGRON ER 25 MG TAB PO SCH ×2 (08:22→20:46)
[2018-12-02] MEDS: PYRIDOSTIGMINE BROMIDE 60 MG TAB PO SCH ×3 (08:22→20:44)
--- NOTE | 2018-12-02 11:17 | Family Medicine Progress Note ---
Date of Service December 02, 2018 Assessment & Plan (1) Acute exacerbation of CHF (congestive heart failure): - Pt is currently satting to 96% on 2L NC, still with dyspnea and signs of volume overload but improved from yesterday - I/O net -8942mL, vann in place to measure, monitor daily weights - Continue Lasix 40 mg IV once daily, appreciate cardiology recs on dosing - duonebs PRN shortness of breath - Repeat CXR 2 view Present on Admission?: Yes (2) Macroscopic hematuria: - last night patient developed gross hematuria while bridging heparin to warfarin. Heparin was held and urology consulted, appreciate recs will trend H/H q12 - Repeat CBC today, UA - INR 1.6 on warfarin 5mg for 3 days Present on Admission?: No (3) Atrial fibrillation with rapid ventricular response: - pt continues to be in AFib on tele, will continue home metoprolol tartrate 25mg twice daily - INR 1.6 with daily INR checks, not to goal of 2.0-3.0 but will hold off on titration of dose for urology and cardiology recs concerning hematuria - [id number] score 4 - HASBLED score 3 Present on Admission?: Yes (4) Intertrigo: - erythema with overlying scale present in bilateral inguinal folds consistent with intertrigo - nystatin powder Present on Admission?: Yes Supervising Physician Co-Signing Physician Notes Attending attestation Pt seen and examined in concert with Dr. Trujillo. In agreement with the documented findings as noted in the resident documentation with any exceptions or additions as noted here. Overnight episode of mild confusion and SOB while off O2NC which resolved with resumption. Stable to mildly improved today with persistent cough. 2+ pitting edema of the B/L LE stable to mildly improved, S1/S2 nl, S3+, 3/6 DAYANA. Decreased breath sounds B/L LL with rales. CHF with exacerbation - continue diuresis with furosemide. Monitor I/O and weights. Repeat CXR today. Hematuria - urology consultation appreciated - trend H/H q12 for now and hold heparin. UA/UCx Atrial fibrillation - holding heparin until urology evaluation, likely to continue warfarin based on urology and trend INR. Continue metoprolol Else see resident documentation as noted. Subjective Pt seen and examined at bedside with daughter and granddaughter present. Yesterday late afternoon had an episode of confusion while off of O2 which resolved after resumption of oxygen therapy. Reports feeling somewhat better today however still feels weak and short of breath. Denies fever or chills, chest pain presyncopal symptoms. Currently has a vann catheter in place for output monitoring however has issues with incontinence at baseline. Pt's daughter reports that she believes her father looks much thinner since starting diuresis. Review of Systems Review of Systems: All systems reviewed & are unremarkable except as noted in HPI & below Constitutional: + fatigue and + weakness; no fever, no chills, no sweats and no malaise Respiratory: + cough, + chest congestion and + dyspnea Cardiovascular: + edema; no chest pain, no lightheadedness and no syncope Gastrointestinal: no abdominal pain, no nausea and no vomiting Genitourinary: + hematuria (started overnight, visualized in catheter collection bag) Physical Exam Constitutional: well developed, well nourished, + morbidly obese, cooperative and + edematous Respiratory: + audible wheezes; no retractions and does not use accessory muscles Auscultation: + diminished lung sounds, + crackles and + wheezes Cardiovascular: Rate/Rhythm: + irregularly irregular Heart Sounds: + murmur (2/6 systolic ejection murmur, right second intercostal space) Vessels: no carotid bruit Extremities: + edema (2+ pitting edema of the bilateral lower extremities) Gastrointestinal (Abdomen): Inspection/Auscultation: normal bowel sounds Percussion/Palpation: abdomen soft; abdomen nontender Psychiatric: A+Ox3, euthymic affect Results & Data Vital Signs (Past 12 Hours) Vital Signs Temp Pulse Resp BP BP Pulse Ox 12/02/18 07:54 36.5 C 76 18 95/52 L 96 12/02/18 05:07 37.0 C 73 20 98/54 L 93 12/01/18 23:40 36.8 C 74 19 97/59 L 91 PG Care Time/CCT Total # of Minutes Spent Total Time Spent with Patient: Total time spent is greater than 50% in coordination of care (as documented) at patient's floor/unit and/or counseling patient: Resident Activity Tracking Resident Involvement: Resident Care Provided Care Provided: Adult Hospital Medicine
[2018-12-02] MEDS ORDERED: FUROSEMIDE 40 MG in SYRINGE 0 ML IV ONE (11:48)
--- NOTE | 2018-12-02 11:49 | Cardiology Progress Note ---
Date of Service December 02, 2018 Assessment & Plan (1) CHF (congestive heart failure): 40 mg intravenous Lasix today. Continue Aldactone and metoprolol as previously ordered. Repeat BMP in a.m. Follow fluid balance and daily weights. Echocardiogram technically limited however suggests possible moderate aortic stenosis. Patient will require repeat imaging in the outpatient setting. (2) Atrial fibrillation, persistent: Continue rate control strategy with metoprolol and IV heparin bridging to oral Coumadin. INR subtherapeutic today at 1.6 (3) Frequent PVCs: Continue metoprolol. (4) Nonsustained ventricular tachycardia: (5) Myasthenia gravis: Continue ZINC PLATE GRAINER medications. Subjective Patient seen and examined at the bedside. Weight is down 36 pounds since admission. Renal function remains stable. Daughter present at bedside. Patient denies chest pain or palpitations. Telemetry demonstrates atrial fibrillation with frequent premature ventricular complexes. INR remains subtherapeutic. Review of Systems Review of Systems: All systems reviewed & are unremarkable except as noted in HPI & below Physical Exam Physical Exam: General: NAD, AAO x3, well nourished. Chronically ill. HEENT: Normocephalic. Atraumatic. Conjunctiva pink, no scleral icterus. Neck: No carotid bruits, the carotid upstrokes are brisk. No JVD. No HJR Heart: Irregular rhythm with ectopy. 2/6 systolic ejection murmur heard best at the right second intercostal space. Heart sounds are distant. PMI is not displaced. No RV heave. Lungs: + Crackles at the bases bilaterally. Abdomen: 1+ edema. Normal bowel sounds. Soft. Nontender. No masses or organomegaly. No abdominal bruits. Extremities: 2+ bilateral lower extremity pitting edema. Pulses: radial=2/4. Neuro: Cranial nerves grossly intact. No focal motor deficit. Results & Data Vital Signs (Past 12 Hours) Vital Signs Temp Pulse Resp BP BP Pulse Ox 12/02/18 07:54 36.5 C 76 18 95/52 L 96 12/02/18 05:07 37.0 C 73 20 98/54 L 93 Laboratory Results Laboratory Results - last 24 hr 12/01/18 12/02/18 12/02/18 19:37 05:56 05:56 Hgb 14.3 Hct 43.5 PT 16.2 H INR 1.6 H Sodium 134 L Potassium 3.8 Chloride 96 L Carbon Dioxide 33 H Anion Gap 5.0 BUN 25 H Creatinine 0.95 Est Cr Clr Drug Dosing 86.1 Est GFR ( Amer) 86.7 Est GFR (Non-Af Amer) 74.8 BUN/Creatinine Ratio 26.5 H Glucose 104 H Calcium 8.2 L Magnesium 2.0 (1) CHF (congestive heart failure) Heart failure chronicity: acute Heart failure type: unspecified Qualified Code(s): I50.9 - Heart failure, unspecified
--- NOTE | 2018-12-02 12:01 | Urology Consultation ---
Date of Consultation December 02, 2018 Assessment & Plan (1) Hematuria: Currently monitoring. On blood thinner. Will monitor for retention / Clot obstruction. Continue to follow. Will need cystoscopy and imaging as outpatient to workup more fully. May need scope if continues to have severe issues. As long as emptying can continue to monitor. Will monitor labs for suddent ABLA Discussed at length with family. Agree with monitoring for now. May have reoccurance of hematuria during management of blood thinners. Unless obstructive issues will monitor. History of Present Illness Attending Physician: Soy Yu MD History of Present Illness Admitted for multiple issues with multiple chronic issues including card and pulm On Bipap mask now. Unable to answer questions fully. Trying to rest. Family at bedside who give majority of information. ON blood thinner and found to develop hematuria. Severe urinary issues with hematuria over night. Now cleared to light pink History of Urologic issues and following with our group, Sees Dr. Ott No severe pain with bladder. no major change. Urgency sensation. Moderate to Severe LUTS at baseline Allergies Allergy/AdvReac Type Severity Reaction Status Date / Time vancomycin Allergy Severe Hives Verified 11/28/18 16:49 adhesive Allergy Unknown . Verified 07/18/09 19:29 latex Allergy Unknown blisters Verified 09/14/16 12:41 and swelling morphine Allergy Rash Verified 11/28/18 16:49 Influenza Virus Vaccines AdvReac Severe DEATHLY Verified 11/28/18 16:49 SICK Home Medications Home Medications Medication Instructions Recorded Confirmed Type acetaminophen [Tylenol] 325 mg PO Q4 PRN 11/28/18 11/28/18 History albuterol sulfate 2 puff INHALATION Q4 PRN 11/28/18 11/28/18 History amoxicillin 2,000 mg PO UD PRN 11/28/18 11/28/18 History aspirin [Aspir-81] 81 mg PO QPM 11/28/18 11/28/18 History azathioprine [Imuran] 150 mg PO DAILY 11/28/18 11/28/18 History cyanocobalamin (vitamin B-12) 1,000 mcg IM .[id number] 11/28/18 11/28/18 History escitalopram oxalate [Lexapro] 5 mg PO DAILY 11/28/18 11/28/18 History ferrous sulfate [iron] 325 mg PO TID 11/28/18 11/28/18 History fexofenadine [Jenny Allergy] 180 mg PO DAILY PRN 11/28/18 11/28/18 History fluticasone propionate [Flonase 2 spray INTRANASAL DAILY PRN 11/28/18 11/28/18 History Allergy Relief] lisinopril [Zestril] 5 mg PO DAILY 11/28/18 11/28/18 History mirabegron [Myrbetriq] 25 mg PO BID 11/28/18 11/28/18 History mometasone [Asmanex Twisthaler] 2 inh INHALATION BID 11/28/18 11/28/18 History multivitamin 4 - 5 tab PO DAILY 11/28/18 11/28/18 History pyridostigmine bromide [Mestinon] 120 mg PO TID 11/28/18 11/28/18 History tolterodine [Detrol LA] 4 mg PO BID 11/28/18 11/28/18 History zolpidem [Ambien] 5 mg PO HS PRN 11/28/18 11/28/18 History Patient History Medical History Atrial flutter (Resolved Unknown) "s/p ablation " Myasthenia gravis (Chronic Unknown) Pulmonary hypertension (Acute Unknown) Social History Preferred Language: Armenian Communication Ability: Effective Track Announcer Required: No Beliefs That Will Affect Care: None marital status: / Current Living Situation: Alone Current Living Situation Comment: Patient lives at home alone, however, daughter lives next door to him. Other Information That Helps Us Care for You: No Feels Safe at Home: Yes Safety Concerns: Feels Safe At This Time Smoking Status: Former smoker Smoking End Date: 1965 Second Hand Exposure: No Hx Alcohol Use: No Hx Substance Use: No Review of Systems Review of Systems: All systems reviewed & are unremarkable except as noted in HPI & below Constitutional: + weakness; no chills, no sweats and no malaise Ear, Nose, Mouth, Throat: denies difficulty chewing food, swallowing Bipap mask on obscuring speech Respiratory: + cough and + dyspnea Cardiovascular: + edema; no chest pain Physical Exam Constitutional: WD/WN, vitals as above well developed, well nourished, + ill appearing, + obese and cooperative Respiratory: normal respiratory effort baseline issues. CPAP mask on. Obscuring speech. Tolerating well. Cardiovascular: Rate/Rhythm: not tachycardic Gastrointestinal (Abdomen): normal bowel sounds, soft, nontender, no hepatosplenomegaly Inspection/Auscultation: normal bowel sounds and + significant pannus Percussion/Palpation: abdomen soft; abdomen nontender and no guarding Skin: + rash (intertrigous rash present in bilateral inguinal folds (R & L groin)) Neurologic: PERRL, EOMI, accommodation nl, no face palsy, no dysarthria moves all extremities and awake; no focal motor deficits Psychiatric: Orientation: oriented x 3 and cooperative Genitourinary: Jamil in place. Light pink urine to yellow in tube. Mild red urine in bag Results & Data Vital Signs (Past 12 Hours) Vital Signs Temp Pulse Resp BP BP Pulse Ox 12/02/18 07:54 36.5 C 76 18 95/52 L 96 12/02/18 05:07 37.0 C 73 20 98/54 L 93
[2018-12-02] MEDS ORDERED: ALBUT/IPRATROP 3MG/0.5MG NEB 3 ML VIAL NEB PRN (14:15)
[2018-12-02] MEDS: WARFARIN SOD 5 MG TAB PO SCH (15:13)
[2018-12-02 15:51] LABS: Hematocrit (blood only) 43.5 % (42-52); Hemoglobin 14.2 g/dL (14.0-18.0)
[2018-12-02 20:09] LABS: Appearance Urine Turbid (Clear); Bacteria Urine Automated Negative (Negative); Blood Urine 3+ (Negative); Color Urine Dark Yellow; Glucose Urine UA Negative (Negative); Ketones Urine Trace (Negative); Leukocyte Esterase Urine Trace (Negative); Nitrite Urine Positive (Negative); Protein Urine 2+ (Negative); RBC Urine Automated >30 /hpf (0-4); Urobilinogen Urine Positive (Negative)
[2018-12-02 20:33] LABS: Bilirubin Urine Negative (Negative); Ictotest Urine Negative (Negative)
[2018-12-02] MEDS: ASPIRIN 81 MG ECTAB PO SCH (20:45)
--- NOTE | 2018-12-02 21:07 | XRay Report ---
XR chest 1V portable CLINICAL HISTORY: Congestive failure COMPARISON STUDY: 11/29/2018 FINDINGS: The heart remains enlarged. There is continued radiographic evidence of congestive failure/ fluid overload. There are persistent bilateral pleural effusions with associated basilar airspace opa cities, likely representing compressive atelectasis.[ IMPRESSION: Persistent cardiomegaly, radiographic evidence of congestive failure/fluid overload, and bilateral pleural effusions. Electronically signed by: Hernan Ashton M.D. 12/02/2018 9:04 PM
[2018-12-02] MEDS ORDERED: DOBUTamine / D5W 500 MG/250 ML BAG IV PRN (22:22)
[2018-12-02] MEDS ORDERED: ICU PROTOCOL FOR HYPERGLYCEMIA PRN (22:22)
--- NOTE | 2018-12-02 22:25 | Progress Note ---
Date of Service December 02, 2018 Assessment & Plan (1) Acute exacerbation of CHF (congestive heart failure): Received a page that pt was becoming increasingly more hypoxic. Reviewed records. Total output shows -9L. Episodes of hypotension SBP 90s. PE: NECK: + JVD bilaterally RESP: crackles bilaterally, respiratory distress Assessment: fulminant dCHF, hypotension, UTI Plan: -consult court magistrate -transfer to ICU for dobutamine drip -will need central line placed -start abx for UTI A Piyush [facility] Resident PGY3 Results & Data Vital Signs (Past 12 Hours) Vital Signs Temp Pulse Resp BP BP Pulse Ox 12/02/18 21:46 37.7 C H 12/02/18 20:00 36.8 C 73 21 106/69 95 12/02/18 15:45 36.8 C 72 18 100/60 96 12/02/18 12:15 36.7 C 84 16 115/60 96 Resident Activity Tracking Resident Involvement: Resident Care Provided Care Provided: Adult Hospital Medicine
[2018-12-02] MEDS ORDERED: FUROSEMIDE 40 MG/4 ML VIAL IV STA (22:46)
--- NOTE | 2018-12-02 22:47 | Critical Care Consultation ---
Date of Consultation December 02, 2018 Assessment & Plan (1) Atrial fibrillation with rapid ventricular response: Reason critically ill: 83yo male with acute hypoxic respiratory failure in the setting of atrial fibrillation with rvr and acute decompensated heart failure refractory to diuretic treatment. NEURO -[facility] NEGATIVE -Pt with Hx of myasthenia gravis-continue mestinon -Continue home Ambien, Lexapro CARDS CHF -Pt with refractory CHF which possibly requires need for dobutamine support. -s/p stat 40mg IV Lasix administration per primary team -Chest XR 12/02 with persistent pleural effusions -Echo 11/29 with frequent PVCs and likely normal EF. Some LVH and RA dilation. -trops NEG x4 -continue Aldactone A fib with rvr -Currently on no meds for rate control -EKG 12/02 with a fib with rvr, normal qtc -anticoagulated with warfarin, INR subtherapeutic at 1.6 -appreciate CARDS input HTN -hold home lisinopril given lower BPs currently -If needed, will place central line in AM, will continue to monitor BP and hypoxia until then. RESP -Pt with acute hypoxic respiratory failure requiring bipap support, @FiO2 of 35 currently -Will continue to monitor the need for increased resp support, ie intubation and mech ventilation. -likely secondary to refractory CHF -No signs of a pneumonia, intrinsic lung disease, neoplasm -continue home albuterol, flonase as needed for asthma RENAL//ELECTROLYTES -no concerns currently -will replace electrolytes as needed -vann in place -No fluids given fluid overload status -continue home Detrol LA and Myrbetriq GI -Heart Healthy diet -Continue constipation meds -GI prophylaxis ENDOCRINE -ICU protocol for hyperglycemia HEME -no concerns currently ID -UA suggestive of UTI, urine culture pending -empiric treatment with Rocephin for UTI started. PIVs intact DVT Prophylaxis: On warfarin CODE STATUS: FULL CODE Dispo: ICU Supervising Physician Co-Signing Physician Notes I was advised of the patient by telephone. History of Present Illness Attending Physician: Soy Yu MD History of Present Illness Pt transferred to ICU out of concern for acute hypoxic respiratory failure and decompensated refractory CHF requiring the possible need of dobutamine administration for support. Pt seen in the room with bipap on. Was able to reply that he had abdominal pain. Allergies Allergy/AdvReac Type Severity Reaction Status Date / Time vancomycin Allergy Severe Hives Verified 11/28/18 16:49 adhesive Allergy Unknown . Verified 07/18/09 19:29 latex Allergy Unknown blisters Verified 09/14/16 12:41 and swelling morphine Allergy Rash Verified 11/28/18 16:49 Influenza Virus Vaccines AdvReac Severe DEATHLY Verified 11/28/18 16:49 SICK Home Medications Home Medications Medication Instructions Recorded Confirmed Type acetaminophen [Tylenol] 325 mg PO Q4 PRN 11/28/18 11/28/18 History albuterol sulfate 2 puff INHALATION Q4 PRN 11/28/18 11/28/18 History amoxicillin 2,000 mg PO UD PRN 11/28/18 11/28/18 History aspirin [Aspir-81] 81 mg PO QPM 11/28/18 11/28/18 History azathioprine [Imuran] 150 mg PO DAILY 11/28/18 11/28/18 History cyanocobalamin (vitamin B-12) 1,000 mcg IM .[id number] 11/28/18 11/28/18 History escitalopram oxalate [Lexapro] 5 mg PO DAILY 11/28/18 11/28/18 History ferrous sulfate [iron] 325 mg PO TID 11/28/18 11/28/18 History fexofenadine [Jenny Allergy] 180 mg PO DAILY PRN 11/28/18 11/28/18 History fluticasone propionate [Flonase 2 spray INTRANASAL DAILY PRN 11/28/18 11/28/18 History Allergy Relief] lisinopril [Zestril] 5 mg PO DAILY 11/28/18 11/28/18 History mirabegron [Myrbetriq] 25 mg PO BID 11/28/18 11/28/18 History mometasone [Asmanex Twisthaler] 2 inh INHALATION BID 11/28/18 11/28/18 History multivitamin 4 - 5 tab PO DAILY 11/28/18 11/28/18 History pyridostigmine bromide [Mestinon] 120 mg PO TID 11/28/18 11/28/18 History tolterodine [Detrol LA] 4 mg PO BID 11/28/18 11/28/18 History zolpidem [Ambien] 5 mg PO HS PRN 11/28/18 11/28/18 History Patient History Medical History Atrial flutter (Resolved Unknown) "s/p ablation " Myasthenia gravis (Chronic Unknown) Pulmonary hypertension (Acute Unknown) Social History Preferred Language: Monegasque Communication Ability: Effective Plastic Frame 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 Other Information That Helps Us Care for You: No Feels Safe at Home: Yes Safety Concerns: Feels Safe At This Time Smoking Status: Former smoker Smoking End Date: 1965 Second Hand Exposure: No Hx Alcohol Use: No Hx Substance Use: No Review of Systems Review of Systems: Other (bipap mask on) Physical Exam Physical Exam: General: Alert, obese gentleman laying in bed. HEENT: NC/AT, bipap mask on Chest: Nontender to palpation. CV: Irregularly irregular rate and rhythm Resp: Breath sounds coarse bilaterally though decreased due to habitus Abdomen: Soft, diffusely tender. No guarding. Extremities: Significant edema in lower extremities bilaterally. Results & Data Vital Signs (Past 12 Hours) Vital Signs Temp Pulse Resp BP BP Pulse Ox 12/02/18 21:46 37.7 C H 12/02/18 20:00 36.8 C 73 21 106/69 95 12/02/18 15:45 36.8 C 72 18 100/60 96 12/02/18 12:15 36.7 C 84 16 115/60 96 Laboratory Results Laboratory Results - last 24 hr 12/02/18 12/02/18 12/02/18 05:56 05:56 15:34 Hgb 14.2 Hct 43.5 PT 16.2 H INR 1.6 H Sodium 134 L Potassium 3.8 Chloride 96 L Carbon Dioxide 33 H Anion Gap 5.0 BUN 25 H Creatinine 0.95 Est Cr Clr Drug Dosing 86.1 Est GFR ( Amer) 86.7 Est GFR (Non-Af Amer) 74.8 BUN/Creatinine Ratio 26.5 H Glucose 104 H POC Glucose Calcium 8.2 L Magnesium 2.0 Troponin I Urine Color Urine Appearance Urine pH Ur Specific [place] Urine Protein Urine Glucose (UA) Urine Ketones Urine Blood Urine Nitrite Urine Bilirubin Urine Urobilinogen Ur Leukocyte Esterase Urine WBC (Auto) Urine RBC (Auto) U Hyaline Cast (Auto) U Epithel Cells (Auto) Urine Bacteria (Auto) Nasal Screen MRSA (PCR) 12/02/18 12/02/18 12/02/18 19:30 22:15 22:29 Hgb Hct PT INR Sodium Potassium Chloride Carbon Dioxide Anion Gap BUN Creatinine Est Cr Clr Drug Dosing Est GFR ( Amer) Est GFR (Non-Af Amer) BUN/Creatinine Ratio Glucose POC Glucose Calcium Magnesium Troponin I < 0.015 Urine Color Dark Yellow Urine Appearance Turbid A Urine pH 5.0 Ur Specific [place] 1.020 Urine Protein 2+ H Urine Glucose (UA) Negative Urine Ketones Trace H Urine Blood 3+ H Urine Nitrite Positive A Urine Bilirubin Negative Urine Urobilinogen Positive H Ur Leukocyte Esterase Trace H Urine WBC (Auto) 5-10 H Urine RBC (Auto) >30 H U Hyaline Cast (Auto) 1-5 U Epithel Cells (Auto) 10-20 H Urine Bacteria (Auto) Negative Nasal Screen MRSA (PCR) Negative 12/02/18 23:28 Hgb Hct PT INR Sodium Potassium Chloride Carbon Dioxide Anion Gap BUN Creatinine Est Cr Clr Drug Dosing Est GFR ( Amer) Est GFR (Non-Af Amer) BUN/Creatinine Ratio Glucose POC Glucose 126 H Calcium Magnesium Troponin I Urine Color Urine Appearance Urine pH Ur Specific [place] Urine Protein Urine Glucose (UA) Urine Ketones Urine Blood Urine Nitrite Urine Bilirubin Urine Urobilinogen Ur Leukocyte Esterase Urine WBC (Auto) Urine RBC (Auto) U Hyaline Cast (Auto) U Epithel Cells (Auto) Urine Bacteria (Auto) Nasal Screen MRSA (PCR) Medications Administered Home Medications acetaminophen [Tylenol] 325 mg PO Q4 PRN 11/28/18 [History Confirmed 11/28/18] albuterol sulfate 2 puff INHALATION Q4 PRN 11/28/18 [History Confirmed 11/28/18] amoxicillin 2,000 mg PO UD PRN 11/28/18 [History Confirmed 11/28/18] aspirin [Aspir-81] 81 mg PO QPM 11/28/18 [History Confirmed 11/28/18] azathioprine [Imuran] 150 mg PO DAILY 11/28/18 [History Confirmed 11/28/18] cyanocobalamin (vitamin B-12) 1,000 mcg IM .[id number] 11/28/18 [History Confirmed 11/28/18] escitalopram oxalate [Lexapro] 5 mg PO DAILY 11/28/18 [History Confirmed 11/28/18] ferrous sulfate [iron] 325 mg PO TID 11/28/18 [History Confirmed 11/28/18] fexofenadine [Jenny Allergy] 180 mg PO DAILY PRN 11/28/18 [History Confirmed 11/28/18] fluticasone propionate [Flonase Allergy Relief] 2 spray INTRANASAL DAILY PRN 11/28/18 [History Confirmed 11/28/18] lisinopril [Zestril] 5 mg PO DAILY 11/28/18 [History Confirmed 11/28/18] mirabegron [Myrbetriq] 25 mg PO BID 11/28/18 [History Confirmed 11/28/18] mometasone [Asmanex Twisthaler] 2 inh INHALATION BID 11/28/18 [History Confirmed 11/28/18] multivitamin 4 - 5 tab PO DAILY 11/28/18 [History Confirmed 11/28/18] pyridostigmine bromide [Mestinon] 120 mg PO TID 11/28/18 [History Confirmed 11/28/18] tolterodine [Detrol LA] 4 mg PO BID 11/28/18 [History Confirmed 11/28/18] zolpidem [Ambien] 5 mg PO HS PRN 11/28/18 [History Confirmed 11/28/18] Active Medications Acetaminophen (Tylenol) 325 mg PO Q4 PRN PRN Reason: Pain Stop: 12/28/18 22:44 Al Hydrox/Mg Hydrox/Simethicone (Maalox) 15 ml PO Q4H PRN PRN Reason: Dyspepsia Stop: 12/28/18 22:44 Albuterol (Ventolin Hfa) 2 puffs INH Q4 PRN PRN Reason: Shortness Of Breath Or Wheezin Stop: 12/28/18 22:44 Albuterol (Duoneb) 3 ml NEB QIDR PRN PRN Reason: shortness of breath Stop: 01/01/19 15:59 Aspirin (Ecotrin Ectab) 81 mg PO QPM TRACY Stop: 12/28/18 22:44 Last Admin: 12/02/18 20:45 Dose: 81 mg Documented by: Azathioprine (Imuran) 150 mg PO DAILY [facility] Stop: 12/29/18 08:59 Last Admin: 12/02/18 08:21 Dose: 150 mg Documented by: Cyanocobalamin (Vitamin B-12) 1,000 mcg IM Q14D@0900 [facility] Stop: 01/05/19 08:59 Ferrous Sulfate (Feosol) 325 mg PO TID TRACY Stop: 12/28/18 22:44 Last Admin: 12/02/18 20:44 Dose: 325 mg Documented by: Fexofenadine HCl (Jenny) 180 mg PO DAILY PRN PRN Reason: ALLERGIES Stop: 12/28/18 22:44 Fluticasone Propionate (Flonase) 2 sprays NA DAILY PRN PRN Reason: Nasal Congestion Stop: 12/28/18 22:44 Ceftriaxone Sodium 2,000 mg/ (Dextrose) 70 mls @ 100 mls/hr IV Q24H TRACY; Protocol Stop: 12/13/18 00:59 Last Admin: 12/03/18 00:51 Dose: 100 mls/hr Documented by: Dobutamine HCl/Dextrose (Dobutamine / D5w) 500 mg in 250 mls @ 10.718 mls/hr IV .[id number] PRN; Protocol PRN Reason: TITRATE Stop: 01/01/19 22:21 Magnesium Hydroxide (Milk Of Magnesia) 30 ml PO Q12H PRN PRN Reason: Constipation Stop: 12/28/18 22:44 Mirabegron (Myrbetriq Er) 25 mg PO BID [facility] Stop: 12/28/18 22:44 Last Admin: 12/02/18 20:46 Dose: 25 mg Documented by: Miscellaneous (Icu Protocol For Hyperglycemia) 1 ea N/A PRN PRN; Protocol PRN Reason: Hyperglycemia Protocol Stop: 12/04/18 22:21 Mometasone Furoate (Asmanex 220mcg) 2 puffs INH BID TRACY Stop: 12/28/18 22:44 Last Admin: 12/02/18 20:43 Dose: 2 puffs Documented by: Nystatin (Mycostatin) 1 appln EXT DAILY PRN PRN Reason: Affected Skin Folds Stop: 12/30/18 00:51 Polyethylene Glycol (Miralax Powder Packet) 17 gm PO DAILY PRN PRN Reason: Constipation Stop: 08/15/19 22:44 Pyridostigmine [place] (Mestinon) 120 mg PO TID TRACY Stop: 12/28/18 22:44 Last Admin: 12/02/18 20:44 Dose: 120 mg Documented by: Spironolactone (Aldactone) 12.5 mg PO DAILY TRACY Stop: 12/30/18 11:44 Last Admin: 12/02/18 08:21 Dose: 12.5 mg Documented by: Tolterodine Tartrate (Detrol La) 4 mg PO BID TRACY Stop: 12/28/18 22:44 Last Admin: 12/02/18 20:45 Dose: 4 mg Documented by: Warfarin Sodium (Coumadin) 5 mg PO DAILY@1600 [facility] Stop: 12/30/18 15:59 Last Admin: 12/02/18 15:13 Dose: 5 mg Documented by: Zolpidem Tartrate (Ambien) 5 mg PO HS PRN PRN Reason: Sleep Stop: 12/28/18 22:44 PG Care Time/CCT Total # of Minutes Spent Total Time Spent with Patient: Total time spent is greater than 50% in coordination of care (as documented) at patient's floor/unit and/or counseling patient:
[2018-12-03] MEDS: cefTRIAXone SODIUM 2,000 MG in DEXTROSE 5% 50 ML IV SCH ×2 (00:51→21:46)
[2018-12-03 01:14] LABS: Appearance Urine Cloudy (Clear); Bacteria Urine Automated Negative (Negative); Blood Urine 3+ (Negative); Color Urine Dark Yellow; Glucose Urine UA Negative (Negative); Ketones Urine Negative (Negative); Leukocyte Esterase Urine Negative (Negative); Nitrite Urine Negative (Negative); Protein Urine Trace (Negative); Specific Gravity Urine 1.018 (1.000-1.030); Urobilinogen Urine Negative (Negative)
[2018-12-03 01:18] LABS: Bilirubin Urine Negative (Negative); Ictotest Urine Negative (Negative)
[2018-12-03 01:23] LABS: Mucus Urine Present (None Prsent)
[2018-12-03 04:48] LABS: Basophils # (auto) 0.01 K/uL (0-0.2); Basophils % (auto) 0.1 %; Hematocrit (blood only) 42.9 % (42-52); Hemoglobin 13.6 g/dL (14.0-18.0); Immature Granulocytes # (auto) 0.01 K/uL (0.00-0.02); Immature Granulocytes % (auto) 0.1 %; Lymphocytes # (auto) 0.33 K/uL (1.2-3.4); Lymphocytes % (auto) 4.7 %; Mean Corpuscular Hgb Conc 31.7 g/dL (32-36); Mean Corpuscular Volume 97.5 fL (80-100); Mean Platelet Volume 9.8 fL (7.4-10.4); Monocytes # (auto) 0.72 K/uL (0.11-0.59); Monocytes % (auto) 10.3 %; Neutrophils # (auto) 5.89 K/uL (1.4-6.5); Neutrophils % (auto) 84.8 %; Platelet Count 158 K/uL (130-400); RDW Coefficient of Variation 16.3 % (11.5-14.5); RDW Standard Deviation 58.5 fL (36.4-46.3); White Blood Count 6.96 K/uL (4.8-10.8)
[2018-12-03 04:58] LABS: INR 2.5 (0.9-1.1); Prothrombin Time 23.8 Seconds (9.0-12.0)
[2018-12-03 05:04] LABS: Phosphorus 4.4 mg/dl (2.5-4.9)
[2018-12-03 05:15] LABS: Calcium 8.2 mg/dl (8.5-10.1); Creatinine Clr Calc Pharmacy 72.9 ml/min; Est GFR (Non-African American) 61.3; Magnesium 2.1 mg/dl (1.8-2.4); Potassium 4.1 mmol/L (3.5-5.1)
--- NOTE | 2018-12-03 05:45 | Critical Care Progress Note ---
Date of Service December 03, 2018 Assessment & Plan (1) Atrial fibrillation with rapid ventricular response: Reason critically ill: 83yo male with acute hypoxic respiratory failure in the setting of atrial fibrillation with rvr and acute decompensated heart failure refractory to diuretic treatment. NEURO -[facility] NEGATIVE -Pt with Hx of myasthenia gravis-continue mestinon -Continue home Ambien, Lexapro CARDS CHF -Pt with refractory CHF which possibly requires need for dobutamine support. -s/p stat 40mg IV Lasix administration per primary team -Chest XR 12/02 with persistent pleural effusions -Echo 11/29 with frequent PVCs and likely normal EF. Some LVH and RA dilation. -will obtain a limited repeat echo 12/03/18 -500mg Normosol bolus 12/03 -trops NEG x4 -continue Aldactone -will get LFTs to monitor backward effect on liver A fib with rvr -Will re-start on metoprolol 12.5mg for rate control 12/03 -EKG 12/02 with a fib with rvr, normal qtc -anticoagulated with warfarin, INR currently therapeutic -appreciate CARDS input HTN -hold home lisinopril given lower BPs currently -If needed, will place central line, will continue to monitor BP and hypoxia until then. RESP -Pt with acute hypoxic respiratory failure requiring bipap support, @FiO2 of 35 currently -Will continue to monitor the need for increased resp support, ie intubation and mech ventilation. -likely secondary to refractory CHF -No signs of a pneumonia, intrinsic lung disease, neoplasm -continue home albuterol, flonase as needed for asthma RENAL//ELECTROLYTES -no concerns currently -will replace electrolytes as needed -vann in place -Avoid fluids given fluid overload status -continue home Detrol LA and Myrbetriq GI -Heart Healthy diet -Continue constipation meds -GI prophylaxis ENDOCRINE -ICU protocol for hyperglycemia HEME -no concerns currently ID -UA suggestive of UTI, urine culture pending -empiric treatment with Rocephin for UTI -procal and lactate ordered PIVs intact DVT Prophylaxis: On warfarin CODE STATUS: FULL CODE Dispo: ICU Supervising Physician Co-Signing Physician Notes volume depleted and may benefit from volume expansion will give trial of 500 cc bolusDr. Easley was resident physician during care of patient. I separately evaluated patient for cagle portions of the history and the exam. I was present during the critical portion of medical decision making, and I discussed the case with the resident. I generally agree with the findings and plan. CHF with relative hypotension compared to previous BP recordings. He has been diuresed nearly 20 kg since November 28. He has had a mild bump in his creatinine. Troponins negative x1 yesterday. I am concerned that the patient is echocardiogram performed on the revealed ejection fraction of 55 to 60% with significant dilatation. We will repeat limited echo today as the previous echo was limited secondary to frequent ectopy. Bedside monitor demonstrates regular rhythm. Will check LFTs rule out congestive hepatitis as well as lactic acid. Urine cultures pending, he was started on Rocephin will follow up with procalcitonin. Requires long-term anticoagulation for history of atrial fibrillation. Continued ICU observation is patient may require vasoactive support. I have personally spent 40 minutes of critical care time in the direct management of this patient. This is a life/limb threatening event. This includes time spent evaluating patient, direct bedside care, chart review, placing orders, interpretation of diagnostic studies, discussion with consultants, patient, and/or family members regarding treatment decisions, as well as other required patient management activities. This time is exclusive of all separately billable procedures, and teaching time and separate from and in addition to any other critical care service time. Update 1745 patient's vital signs have improved after small volume administration. Discontinuing BiPAP. Subjective Pt with no acute events overnight. MAPS of 50s noted, BPs on softer side but not requiring dobutamine. In bed with bipap mask on. Review of Systems Review of Systems: Other (unobtainable due to mask on) Physical Exam Physical Exam: General: Alert, obese gentleman laying in bed. HEENT: NC/AT, bipap mask on Chest: Nontender to palpation. CV: Irregularly irregular rate and rhythm Resp: Breath sounds coarse bilaterally though decreased due to habitus Abdomen: Soft, diffusely tender. No guarding. Extremities: Significant edema in lower extremities bilaterally. Results & Data Vital Signs (Past 12 Hours) Vital Signs Temp Pulse Pulse Pulse Resp BP BP 12/03/18 05:30 98 H 98/46 L 12/03/18 05:00 87 23 90/53 L 12/03/18 04:38 97 H 21 12/03/18 04:30 90 99/55 L 12/03/18 04:00 37.2 C 71 25 H 106/61 12/03/18 03:30 76 113/58 L 12/03/18 03:00 105 H 27 H 100/62 12/03/18 02:30 87 106/51 L 12/03/18 02:00 93 H 29 H 82/47 L 12/03/18 01:00 97 H 28 H 110/70 12/03/18 00:00 37.1 C 88 105 H 29 H 119/67 12/02/18 23:34 92 H 24 12/02/18 23:30 87 31 H 96/65 L 12/02/18 23:00 94 H 32 H 147/85 H 12/02/18 22:31 84 34 H 135/74 12/02/18 22:24 37.1 C 92 H 33 H 124/83 12/02/18 21:46 37.7 C H 12/02/18 20:00 36.8 C 73 21 106/69 Pulse Ox Pulse Ox 12/03/18 05:30 12/03/18 05:00 93 12/03/18 04:38 94 12/03/18 04:30 12/03/18 04:00 93 12/03/18 03:30 12/03/18 03:00 93 12/03/18 02:30 12/03/18 02:00 92 12/03/18 01:00 93 12/03/18 00:00 94 12/02/18 23:34 94 12/02/18 23:30 93 12/02/18 23:00 91 94 12/02/18 22:31 94 12/02/18 22:24 94 12/02/18 21:46 12/02/18 20:00 95 Laboratory Results Laboratory Results - last 24 hr 12/02/18 12/02/18 12/02/18 15:34 19:30 22:15 WBC RBC Hgb 14.2 Hct 43.5 MCV MCH MCHC RDW Std Deviation RDW Coeff of Naseem Plt Count MPV Immature Gran % (Auto) Neut % (Auto) Lymph % (Auto) [place] % (Auto) Eos % (Auto) Baso % (Auto) Immature Gran # (Auto) Neut # (Auto) Lymph # (Auto) [place] # (Auto) Eos # (Auto) Baso # (Auto) PT INR Sodium Potassium Chloride Carbon Dioxide Anion Gap BUN Creatinine Est Cr Clr Drug Dosing Est GFR ( Amer) Est GFR (Non-Af Amer) BUN/Creatinine Ratio Glucose POC Glucose Calcium Phosphorus Magnesium Troponin I Urine Color Dark Yellow Urine Appearance Turbid A Urine pH 5.0 Ur Specific [place] 1.020 Urine Protein 2+ H Urine Glucose (UA) Negative Urine Ketones Trace H Urine Blood 3+ H Urine Nitrite Positive A Urine Bilirubin Negative Urine Urobilinogen Positive H Ur Leukocyte Esterase Trace H Urine WBC (Auto) 5-10 H Urine RBC (Auto) >30 H U Hyaline Cast (Auto) 1-5 U Epithel Cells (Auto) 10-20 H Urine Bacteria (Auto) Negative Urine Mucus Nasal Screen MRSA (PCR) Negative 12/02/18 12/02/18 12/03/18 22:29 23:28 01:00 WBC RBC Hgb Hct MCV MCH MCHC RDW Std Deviation RDW Coeff of Naseem Plt Count MPV Immature Gran % (Auto) Neut % (Auto) Lymph % (Auto) [place] % (Auto) Eos % (Auto) Baso % (Auto) Immature Gran # (Auto) Neut # (Auto) Lymph # (Auto) [place] # (Auto) Eos # (Auto) Baso # (Auto) PT INR Sodium Potassium Chloride Carbon Dioxide Anion Gap BUN Creatinine Est Cr Clr Drug Dosing Est GFR ( Amer) Est GFR (Non-Af Amer) BUN/Creatinine Ratio Glucose POC Glucose 126 H Calcium Phosphorus Magnesium Troponin I < 0.015 Urine Color Dark Yellow Urine Appearance Cloudy A Urine pH 5.0 Ur Specific [place] 1.018 Urine Protein Trace H Urine Glucose (UA) Negative Urine Ketones Negative Urine Blood 3+ H Urine Nitrite Negative Urine Bilirubin Negative Urine Urobilinogen Negative Ur Leukocyte Esterase Negative Urine WBC (Auto) 1-5 Urine RBC (Auto) 10-30 H U Hyaline Cast (Auto) 10-30 H U Epithel Cells (Auto) 5-10 H Urine Bacteria (Auto) Negative Urine Mucus Present A Nasal Screen MRSA (PCR) 12/03/18 12/03/18 12/03/18 04:25 04:25 04:25 WBC 6.96 RBC 4.40 L Hgb 13.6 L Hct 42.9 MCV 97.5 MCH 30.9 MCHC 31.7 L RDW Std Deviation 58.5 H RDW Coeff of Naseem 16.3 H Plt Count 158 MPV 9.8 Immature Gran % (Auto) 0.1 Neut % (Auto) 84.8 Lymph % (Auto) 4.7 [place] % (Auto) 10.3 Eos % (Auto) 0.0 Baso % (Auto) 0.1 Immature Gran # (Auto) 0.01 Neut # (Auto) 5.89 Lymph # (Auto) 0.33 L [place] # (Auto) 0.72 H Eos # (Auto) 0.00 Baso # (Auto) 0.01 PT 23.8 H INR 2.5 H Sodium 135 L Potassium 4.1 Chloride 95 L Carbon Dioxide 35 H Anion Gap 5.0 BUN 34 H Creatinine 1.12 Est Cr Clr Drug Dosing 72.9 Est GFR ( Amer) 71.0 Est GFR (Non-Af Amer) 61.3 BUN/Creatinine Ratio 30.0 H Glucose 123 H POC Glucose Calcium 8.2 L Phosphorus 4.4 Magnesium 2.1 Troponin I Urine Color Urine Appearance Urine pH Ur Specific [place] Urine Protein Urine Glucose (UA) Urine Ketones Urine Blood Urine Nitrite Urine Bilirubin Urine Urobilinogen Ur Leukocyte Esterase Urine WBC (Auto) Urine RBC (Auto) U Hyaline Cast (Auto) U Epithel Cells (Auto) Urine Bacteria (Auto) Urine Mucus Nasal Screen MRSA (PCR) 12/03/18 05:19 WBC RBC Hgb Hct MCV MCH MCHC RDW Std Deviation RDW Coeff of Naseem Plt Count MPV Immature Gran % (Auto) Neut % (Auto) Lymph % (Auto) [place] % (Auto) Eos % (Auto) Baso % (Auto) Immature Gran # (Auto) Neut # (Auto) Lymph # (Auto) [place] # (Auto) Eos # (Auto) Baso # (Auto) PT INR Sodium Potassium Chloride Carbon Dioxide Anion Gap BUN Creatinine Est Cr Clr Drug Dosing Est GFR ( Amer) Est GFR (Non-Af Amer) BUN/Creatinine Ratio Glucose POC Glucose 141 H Calcium Phosphorus Magnesium Troponin I Urine Color Urine Appearance Urine pH Ur Specific [place] Urine Protein Urine Glucose (UA) Urine Ketones Urine Blood Urine Nitrite Urine Bilirubin Urine Urobilinogen Ur Leukocyte Esterase Urine WBC (Auto) Urine RBC (Auto) U Hyaline Cast (Auto) U Epithel Cells (Auto) Urine Bacteria (Auto) Urine Mucus Nasal Screen MRSA (PCR) Medications Administered Home Medications acetaminophen [Tylenol] 325 mg PO Q4 PRN 11/28/18 [History Confirmed 11/28/18] albuterol sulfate 2 puff INHALATION Q4 PRN 11/28/18 [History Confirmed 11/28/18] amoxicillin 2,000 mg PO UD PRN 11/28/18 [History Confirmed 11/28/18] aspirin [Aspir-81] 81 mg PO QPM 11/28/18 [History Confirmed 11/28/18] azathioprine [Imuran] 150 mg PO DAILY 11/28/18 [History Confirmed 11/28/18] cyanocobalamin (vitamin B-12) 1,000 mcg IM .[id number] 11/28/18 [History Confirmed 11/28/18] escitalopram oxalate [Lexapro] 5 mg PO DAILY 11/28/18 [History Confirmed 11/28/18] ferrous sulfate [iron] 325 mg PO TID 11/28/18 [History Confirmed 11/28/18] fexofenadine [Jenny Allergy] 180 mg PO DAILY PRN 11/28/18 [History Confirmed 11/28/18] fluticasone propionate [Flonase Allergy Relief] 2 spray INTRANASAL DAILY PRN 11/28/18 [History Confirmed 11/28/18] lisinopril [Zestril] 5 mg PO DAILY 11/28/18 [History Confirmed 11/28/18] mirabegron [Myrbetriq] 25 mg PO BID 11/28/18 [History Confirmed 11/28/18] mometasone [Asmanex [place]] 2 inh INHALATION BID 11/28/18 [History Confirmed 11/28/18] multivitamin 4 - 5 tab PO DAILY 11/28/18 [History Confirmed 11/28/18] pyridostigmine bromide [Mestinon] 120 mg PO TID 11/28/18 [History Confirmed 11/28/18] tolterodine [Detrol LA] 4 mg PO BID 11/28/18 [History Confirmed 11/28/18] zolpidem [Ambien] 5 mg PO HS PRN 11/28/18 [History Confirmed 11/28/18] Active Medications Acetaminophen (Tylenol) 325 mg PO Q4 PRN PRN Reason: Pain Stop: 12/28/18 22:44 Al Hydrox/Mg Hydrox/Simethicone (Maalox) 15 ml PO Q4H PRN PRN Reason: Dyspepsia Stop: 12/28/18 22:44 Albuterol (Ventolin Hfa) 2 puffs INH Q4 PRN PRN Reason: Shortness Of Breath Or Wheezin Stop: 12/28/18 22:44 Albuterol (Duoneb) 3 ml NEB QIDR PRN PRN Reason: shortness of breath Stop: 01/01/19 15:59 Aspirin (Ecotrin Ectab) 81 mg PO QPM TRACY Stop: 12/28/18 22:44 Last Admin: 12/02/18 20:45 Dose: 81 mg Documented by: Azathioprine (Imuran) 150 mg PO DAILY TRACY Stop: 12/29/18 08:59 Last Admin: 12/02/18 08:21 Dose: 150 mg Documented by: Cyanocobalamin (Vitamin B-12) 1,000 mcg IM Q14D@0900 [facility]ACY Stop: 01/05/19 08:59 Ferrous Sulfate (Feosol) 325 mg PO TID TRACY Stop: 12/28/18 22:44 Last Admin: 12/02/18 20:44 Dose: 325 mg Documented by: Fexofenadine HCl (Jenny) 180 mg PO DAILY PRN PRN Reason: ALLERGIES Stop: 12/28/18 22:44 Fluticasone Propionate (Flonase) 2 sprays NA DAILY PRN PRN Reason: Nasal Congestion Stop: 12/28/18 22:44 Ceftriaxone Sodium 2,000 mg/ (Dextrose) 70 mls @ 100 mls/hr IV Q24H TRACY; Protocol Stop: 12/13/18 00:59 Last Infusion: 12/03/18 01:33 Dose: Infused Documented by: Dobutamine HCl/Dextrose (Dobutamine / D5w) 500 mg in 250 mls @ 10.718 mls/hr IV .[id number] PRN; Protocol PRN Reason: TITRATE Stop: 01/01/19 22:21 Magnesium Hydroxide (Milk Of Magnesia) 30 ml PO Q12H PRN PRN Reason: Constipation Stop: 12/28/18 22:44 Metoprolol Tartrate (Lopressor) 12.5 mg PO BID TRACY Stop: 01/02/19 08:59 Mirabegron (Myrbetriq Er) 25 mg PO BID [facility] Stop: 12/28/18 22:44 Last Admin: 12/02/18 20:46 Dose: 25 mg Documented by: Miscellaneous (Icu Protocol For Hyperglycemia) 1 ea N/A PRN PRN; Protocol PRN Reason: Hyperglycemia Protocol Stop: 12/04/18 22:21 Mometasone Furoate (Asmanex 220mcg) 2 puffs INH BID [facility]ACY Stop: 12/28/18 22:44 Last Admin: 12/02/18 20:43 Dose: 2 puffs Documented by: Nystatin (Mycostatin) 1 appln EXT DAILY PRN PRN Reason: Affected Skin Folds Stop: 12/30/18 00:51 Polyethylene Glycol (Miralax Powder Packet) 17 gm PO DAILY PRN PRN Reason: Constipation Stop: 12/28/18 22:44 Pyridostigmine [place] (Mestinon) 120 mg PO TID [facility] Stop: 12/28/18 22:44 Last Admin: 12/02/18 20:44 Dose: 120 mg Documented by: Spironolactone (Aldactone) 12.5 mg PO DAILY [facility] Stop: 12/30/18 11:44 Last Admin: 12/02/18 08:21 Dose: 12.5 mg Documented by: Tolterodine Tartrate (Detrol La) 4 mg PO BID [facility] Stop: 12/28/18 22:44 Last Admin: 12/02/18 20:45 Dose: 4 mg Documented by: Warfarin Sodium (Coumadin) 5 mg PO DAILY@1600 [facility] Stop: 12/30/18 15:59 Last Admin: 12/02/18 15:13 Dose: 5 mg Documented by: Zolpidem Tartrate (Ambien) 5 mg PO HS PRN PRN Reason: Sleep Stop: 12/28/18 22:44 PG Care Time/CCT Critical Care Time: Yes Total Critical Care Time: 40
--- NOTE | 2018-12-03 07:51 | Family Medicine Progress Note ---
Date of Service December 03, 2018 Assessment & Plan (1) Acute exacerbation of CHF (congestive heart failure): - Pt was transferred to ICU overnight for increased oxygen demand and low blood pressures for possible dobutamine drop and BiPAP FIO2 35% was started, satting to 95% in room this morning - One dose Lasix 40 mg IV given stat around midnight, metoprolol dose decreased to 12.5 BID and lisinopril is held, Aldactone 12.5 daily still being given - diuresed nearly 20kg since November 28, vann in place to measure, monitor daily weights - Cr 1.12 from 0.95 yesterday - Given 500cc bolus given slight increase in creatinine in the setting of extensive volume depletion - Limited Echo performed today (2) Macroscopic hematuria: - on 12/02 patient developed gross hematuria while bridging heparin to warfarin. Heparin was held and urology consulted, H/H have showed stable Hgb of 13.6 from 14.3 yesterday, no gross blood in catheter collection bag this morning - UA yesterday showed positive nitrites, UCx pending and was started on Rocephin IV, will follow up with procalcitonin - INR to target today at 2.5, on day 4 of warfarin therapy - Per ICU: will check LFTs to rule out congestive hepatitis as well as lactic acid (3) Atrial fibrillation with rapid ventricular response: - pt's heart rate continues to be irregularly irregular, will continue home metoprolol at decreased dose 12.5 BID given hypotension - INR to target today at 2.5, on day 4 of warfarin therapy - [id number] score 4 - HASBLED score 3 Supervising Physician Co-Signing Physician Notes Attending attestation Pt seen and examined in concert with Dr. Trujillo. In agreement with the documented findings as noted in the resident documentation with any exceptions or additions as noted here. Patient is somnolent in bed but arouses to voice without meaningful response. On examination, decreased breathsounds with some rhonchi at bilateral bases. S1/ S2 nl 3/6 [place]. New onset CHF exacerbation refractory - ICU and cardiology consultation appreciated - on BIPAP. continue diuresis under close monitoring. Dobutamine ordered if required. Monitor I/Os. f/u repeat echocardiogram AF w/ RVR - decreased dosage of metoprolol and holding lisinopril in setting of hypotension Hematuria - urology consultation appreciated - f/u UCx. Continue rocephin. Else see resident documentation as noted. Subjective Patient seen and examined at the bedside in the intensive care unit. Transferred to ICU overnight due to worsening respiratory status and treated with BiPAP with standing order for dobutamine drip as needed for hypotension. Pt feels better upon interview, no longer on BiPAP. Reports feeling better than he did last night, feels more alert. Denies any chest pain, palpitations, dizziness, fever, chillls. Review of Systems Review of Systems: All systems reviewed & are unremarkable except as noted in HPI & below Constitutional: no fever and no chills Respiratory: + chest congestion and + dyspnea; no cough Cardiovascular: + edema; no chest pain and no palpitations Gastrointestinal: no abdominal pain, no nausea and no vomiting Genitourinary: + urinary incontinence (chronic) Physical Exam Constitutional: well developed and + morbidly obese On NC during interview this afternoon. Resting comfortably. Respiratory: + audible wheezes; no retractions and does not use accessory muscles Auscultation: + diminished lung sounds, + crackles and + wheezes Cardiovascular: Rate/Rhythm: + irregularly irregular Heart Sounds: + murmur (2/6 systolic ejection murmur, right second intercostal space) Vessels: no carotid bruit Extremities: + edema (2+ pitting edema of the bilateral lower extremities) Gastrointestinal (Abdomen): Inspection/Auscultation: normal bowel sounds Percussion/Palpation: abdomen soft; abdomen nontender Skin: chronic venous stasis changes to bilateral lower extremities, 2+ pitting edema b/l Results & Data Vital Signs (Past 12 Hours) Vital Signs Temp Pulse Pulse Pulse Resp BP BP 12/03/18 07:31 92 H 12 12/03/18 07:00 76 25 H 95/47 L 12/03/18 06:30 92 H 84/45 L 12/03/18 06:00 84 19 90/46 L 12/03/18 05:30 98 H 98/46 L 12/03/18 05:00 87 23 90/53 L 12/03/18 04:38 97 H 21 12/03/18 04:30 90 99/55 L 12/03/18 04:00 37.2 C 71 25 H 106/61 12/03/18 03:30 76 113/58 L 12/03/18 03:00 105 H 27 H 100/62 12/03/18 02:30 87 106/51 L 12/03/18 02:00 93 H 29 H 82/47 L 12/03/18 01:00 97 H 28 H 110/70 12/03/18 00:00 37.1 C 88 105 H 29 H 119/67 12/02/18 23:34 92 H 24 12/02/18 23:30 87 31 H 96/65 L 12/02/18 23:00 94 H 32 H 147/85 H 12/02/18 22:31 84 34 H 135/74 12/02/18 22:24 37.1 C 92 H 33 H 124/83 12/02/18 21:46 37.7 C H 12/02/18 20:00 36.8 C 73 21 106/69 Pulse Ox Pulse Ox 12/03/18 07:31 95 12/03/18 07:00 95 12/03/18 06:30 12/03/18 06:00 96 12/03/18 05:30 12/03/18 05:00 93 12/03/18 04:38 94 12/03/18 04:30 12/03/18 04:00 93 12/03/18 03:30 12/03/18 03:00 93 12/03/18 02:30 12/03/18 02:00 92 12/03/18 01:00 93 12/03/18 00:00 94 12/02/18 23:34 94 12/02/18 23:30 93 12/02/18 23:00 91 94 12/02/18 22:31 94 12/02/18 22:24 94 12/02/18 21:46 12/02/18 20:00 95 PG Care Time/CCT Total # of Minutes Spent Total Time Spent with Patient: Total time spent is greater than 50% in coordination of care (as documented) at patient's floor/unit and/or counseling patient: Resident Activity Tracking Resident Involvement: Resident Care Provided Care Provided: Adult Hospital Medicine
[2018-12-03] MEDS ORDERED: NORMOSOL-R 500 ML IV ONE (08:16)
[2018-12-03] MEDS ORDERED: FUROSEMIDE 40 MG in SYRINGE 0 ML IV SCH (09:00)
[2018-12-03 09:32] LABS: Albumin Level 2.5 gm/dl (3.4-5.0); Bilirubin Direct 0.5 mg/dl (0-0.2); Total Protein 5.5 gm/dl (6.4-8.2)
[2018-12-03] MEDS: SPIRONOLACTONE 25 MG TAB PO SCH (10:41)
[2018-12-03] MEDS: MOMETASONE FUROATE 14 PUFF/1 INHALER INH SCH ×2 (10:42→20:48)
[2018-12-03] MEDS: PYRIDOSTIGMINE BROMIDE 60 MG TAB PO SCH ×3 (10:43→20:49)
[2018-12-03] MEDS: azaTHIOprine 50 MG TAB PO SCH (10:45)
[2018-12-03] MEDS: METOPROLOL TARTRATE 25 MG TAB PO SCH ×2 (10:46→20:50)
[2018-12-03] MEDS: MIRABEGRON ER 25 MG TAB PO SCH ×2 (10:47→20:51)
[2018-12-03] MEDS: FERROUS SULFATE 325 MG TAB PO SCH ×3 (10:50→20:49)
[2018-12-03] MEDS: TOLTERODINE TARTRATE LA 4 MG CAPCR PO SCH ×2 (10:54→20:51)
--- NOTE | 2018-12-03 11:40 | Cardiology Progress Note ---
Date of Service December 03, 2018 Assessment & Plan (1) CHF (congestive heart failure): Worsening respiratory insufficiency noted overnight. Patient received additional 40 mg of IV Lasix with total of 1100 cc diuresis. Transiently supported with BiPAP. Currently improved. Low albumin noted with possible urinary tract infection per urinalysis 12/02. Will treat patient with IV albumin followed by IV Lasix today. Continue to follow fluid balance, daily weight, GFR, electrolytes daily. Antibiotics as per internal medicine. Continue daily Aldactone. INR is therapeutic. Dose warfarin daily for goal INR of 2.0-3.0. Hemoglobin remained stable. Repeat echocardiogram repeated this morning. Images technically limited however, suggest preserved LV systolic function, frequent PVCs with ejection fraction of 50 to 55%, moderate to severe aortic stenosis. No change when compared to prior study. (2) Atrial fibrillation, persistent: Rate controlled with therapeutic INR. (3) Frequent PVCs: Continue metoprolol. (4) Nonsustained ventricular tachycardia: (5) Myasthenia gravis: Continue WORSHIP DIRECTOR medications. Subjective Patient seen and examined at the bedside in the intensive care unit. Transferred to ICU overnight due to worsening respiratory status. Transiently treated with BiPAP. Received dose of IV Lasix with 1100 cc urine output. Awake and alert currently. Family members present at bedside. Patient denies chest pain or shortness of breath at rest. Edema unchanged. Weight down approximately 40 pounds since admission. A.m. labs demonstrate albumin of 2.5. Urinalysis performed 12/02/2018 suggestive of possible urinary tract infection. Empiric antibiotics initiated. Cultures pending. Review of Systems Review of Systems: All systems reviewed & are unremarkable except as noted in HPI & below Physical Exam Physical Exam: eneral: NAD, awake and alert. Chronically ill. Morbid obesity. HEENT: Normocephalic. Atraumatic. Conjunctiva pink, no scleral icterus. Neck: No carotid bruits, the carotid upstrokes are brisk. No JVD. No HJR Heart: Irregular rhythm with ectopy. 2/6 systolic ejection murmur heard best at the right second intercostal space. Heart sounds are distant. PMI is not displaced. No RV heave. Lungs: Diminished breath sounds at the bases bilateral, + Crackles at the bases bilaterally. Abdomen: 1+ edema. Normal bowel sounds. Soft. Nontender. No masses or organomegaly. No abdominal bruits. Extremities: 2+ bilateral lower extremity pitting edema. Pulses: radial=2/4. Neuro: Cranial nerves grossly intact. No focal motor deficit. Results & Data Vital Signs (Past 12 Hours) Vital Signs Temp Pulse Pulse Resp BP BP Pulse Ox 12/03/18 10:00 86 18 117/68 95 12/03/18 09:30 74 27 H 90/48 L 95 12/03/18 09:00 97 H 24 103/49 L 95 12/03/18 08:30 90 21 100/54 L 95 12/03/18 08:01 36.8 C 80 21 93/48 L 95 12/03/18 08:00 79 23 92 12/03/18 07:31 92 H 12 95 12/03/18 07:30 72 27 H 93/48 L 95 12/03/18 07:00 87 76 24 95/47 L 95/47 L 95 12/03/18 06:30 92 H 84/45 L 12/03/18 06:00 84 19 90/46 L 96 12/03/18 05:30 98 H 98/46 L 12/03/18 05:00 87 23 90/53 L 93 12/03/18 04:38 97 H 21 94 12/03/18 04:30 90 99/55 L 12/03/18 04:00 37.2 C 71 25 H 106/61 93 12/03/18 03:30 76 113/58 L 12/03/18 03:00 105 H 27 H 100/62 93 12/03/18 02:30 87 106/51 L 12/03/18 02:00 93 H 29 H 82/47 L 92 12/03/18 01:00 97 H 28 H 110/70 93 12/03/18 00:00 37.1 C 88 105 H 29 H 119/67 94 Laboratory Results Laboratory Results - last 24 hr 12/02/18 12/02/18 12/02/18 15:34 19:30 22:15 WBC RBC Hgb 14.2 Hct 43.5 MCV MCH MCHC RDW Std Deviation RDW Coeff of Naseem Plt Count MPV Immature Gran % (Auto) Neut % (Auto) Lymph % (Auto) [place] % (Auto) Eos % (Auto) Baso % (Auto) Immature Gran # (Auto) Neut # (Auto) Lymph # (Auto) [place] # (Auto) Eos # (Auto) Baso # (Auto) PT INR Sodium Potassium Chloride Carbon Dioxide Anion Gap BUN Creatinine Est Cr Clr Drug Dosing Est GFR ( Amer) Est GFR (Non-Af Amer) BUN/Creatinine Ratio Glucose POC Glucose Lactate Calcium Phosphorus Magnesium Total Bilirubin Direct Bilirubin AST ALT Alkaline Phosphatase Troponin I Total Protein Albumin Procalcitonin Urine Color Dark Yellow Urine Appearance Turbid A Urine pH 5.0 Ur Specific [place] 1.020 Urine Protein 2+ H Urine Glucose (UA) Negative Urine Ketones Trace H Urine Blood 3+ H Urine Nitrite Positive A Urine Bilirubin Negative Urine Urobilinogen Positive H Ur Leukocyte Esterase Trace H Urine WBC (Auto) 5-10 H Urine RBC (Auto) >30 H U Hyaline Cast (Auto) 1-5 U Epithel Cells (Auto) 10-20 H Urine Bacteria (Auto) Negative Urine Mucus Nasal Screen MRSA (PCR) Negative 12/02/18 12/02/18 12/03/18 22:29 23:28 01:00 WBC RBC Hgb Hct MCV MCH MCHC RDW Std Deviation RDW Coeff of Naseem Plt Count MPV Immature Gran % (Auto) Neut % (Auto) Lymph % (Auto) [place] % (Auto) Eos % (Auto) Baso % (Auto) Immature Gran # (Auto) Neut # (Auto) Lymph # (Auto) [place] # (Auto) Eos # (Auto) Baso # (Auto) PT INR Sodium Potassium Chloride Carbon Dioxide Anion Gap BUN Creatinine Est Cr Clr Drug Dosing Est GFR ( Amer) Est GFR (Non-Af Amer) BUN/Creatinine Ratio Glucose POC Glucose 126 H Lactate Calcium Phosphorus Magnesium Total Bilirubin Direct Bilirubin AST ALT Alkaline Phosphatase Troponin I < 0.015 Total Protein Albumin Procalcitonin Urine Color Dark Yellow Urine Appearance Cloudy A Urine pH 5.0 Ur Specific [place] 1.018 Urine Protein Trace H Urine Glucose (UA) Negative Urine Ketones Negative Urine Blood 3+ H Urine Nitrite Negative Urine Bilirubin Negative Urine Urobilinogen Negative Ur Leukocyte Esterase Negative Urine WBC (Auto) 1-5 Urine RBC (Auto) 10-30 H U Hyaline Cast (Auto) 10-30 H U Epithel Cells (Auto) 5-10 H Urine Bacteria (Auto) Negative Urine Mucus Present A Nasal Screen MRSA (PCR) 12/03/18 12/03/18 12/03/18 04:25 04:25 04:25 WBC 6.96 RBC 4.40 L Hgb 13.6 L Hct 42.9 MCV 97.5 MCH 30.9 MCHC 31.7 L RDW Std Deviation 58.5 H RDW Coeff of Naseem 16.3 H Plt Count 158 MPV 9.8 Immature Gran % (Auto) 0.1 Neut % (Auto) 84.8 Lymph % (Auto) 4.7 [place] % (Auto) 10.3 Eos % (Auto) 0.0 Baso % (Auto) 0.1 Immature Gran # (Auto) 0.01 Neut # (Auto) 5.89 Lymph # (Auto) 0.33 L [place] # (Auto) 0.72 H Eos # (Auto) 0.00 Baso # (Auto) 0.01 PT 23.8 H INR 2.5 H Sodium 135 L Potassium 4.1 Chloride 95 L Carbon Dioxide 35 H Anion Gap 5.0 BUN 34 H Creatinine 1.12 Est Cr Clr Drug Dosing 72.9 Est GFR ( Amer) 71.0 Est GFR (Non-Af Amer) 61.3 BUN/Creatinine Ratio 30.0 H Glucose 123 H POC Glucose Lactate Calcium 8.2 L Phosphorus 4.4 Magnesium 2.1 Total Bilirubin Direct Bilirubin AST ALT Alkaline Phosphatase Troponin I Total Protein Albumin Procalcitonin Urine Color Urine Appearance Urine pH Ur Specific [place] Urine Protein Urine Glucose (UA) Urine Ketones Urine Blood Urine Nitrite Urine Bilirubin Urine Urobilinogen Ur Leukocyte Esterase Urine WBC (Auto) Urine RBC (Auto) U Hyaline Cast (Auto) U Epithel Cells (Auto) Urine Bacteria (Auto) Urine Mucus Nasal Screen MRSA (PCR) 12/03/18 12/03/18 12/03/18 05:19 08:44 08:44 WBC RBC Hgb Hct MCV MCH MCHC RDW Std Deviation RDW Coeff of Naseem Plt Count MPV Immature Gran % (Auto) Neut % (Auto) Lymph % (Auto) [place] % (Auto) Eos % (Auto) Baso % (Auto) Immature Gran # (Auto) Neut # (Auto) Lymph # (Auto) [place] # (Auto) Eos # (Auto) Baso # (Auto) PT INR Sodium Potassium Chloride Carbon Dioxide Anion Gap BUN Creatinine Est Cr Clr Drug Dosing Est GFR ( Amer) Est GFR (Non-Af Amer) BUN/Creatinine Ratio Glucose POC Glucose 141 H Lactate 1.1 Calcium Phosphorus Magnesium Total Bilirubin 1.0 Direct Bilirubin 0.5 H AST 14 L ALT 12 Alkaline Phosphatase 52 Troponin I Total Protein 5.5 L Albumin 2.5 L Procalcitonin Urine Color Urine Appearance Urine pH Ur Specific [place] Urine Protein Urine Glucose (UA) Urine Ketones Urine Blood Urine Nitrite Urine Bilirubin Urine Urobilinogen Ur Leukocyte Esterase Urine WBC (Auto) Urine RBC (Auto) U Hyaline Cast (Auto) U Epithel Cells (Auto) Urine Bacteria (Auto) Urine Mucus Nasal Screen MRSA (PCR) 12/03/18 08:44 WBC RBC Hgb Hct MCV MCH MCHC RDW Std Deviation RDW Coeff of Naseem Plt Count MPV Immature Gran % (Auto) Neut % (Auto) Lymph % (Auto) [place] % (Auto) Eos % (Auto) Baso % (Auto) Immature Gran # (Auto) Neut # (Auto) Lymph # (Auto) [place] # (Auto) Eos # (Auto) Baso # (Auto) PT INR Sodium Potassium Chloride Carbon Dioxide Anion Gap BUN Creatinine Est Cr Clr Drug Dosing Est GFR ( Amer) Est GFR (Non-Af Amer) BUN/Creatinine Ratio Glucose POC Glucose Lactate Calcium Phosphorus Magnesium Total Bilirubin Direct Bilirubin AST ALT Alkaline Phosphatase Troponin I Total Protein Albumin Procalcitonin 0.12 Urine Color Urine Appearance Urine pH Ur Specific [place] Urine Protein Urine Glucose (UA) Urine Ketones Urine Blood Urine Nitrite Urine Bilirubin Urine Urobilinogen Ur Leukocyte Esterase Urine WBC (Auto) Urine RBC (Auto) U Hyaline Cast (Auto) U Epithel Cells (Auto) Urine Bacteria (Auto) Urine Mucus Nasal Screen MRSA (PCR) (1) CHF (congestive heart failure) Heart failure chronicity: acute Heart failure type: unspecified Qualified Code(s): I50.9 - Heart failure, unspecified
[2018-12-03] MEDS ORDERED: ALBUMIN 25% 50 ML IV ONE (12:00)
[2018-12-03] MEDS ORDERED: FUROSEMIDE 40 MG in SYRINGE 0 ML IV ONE (13:00)
[2018-12-03 15:22] LABS: Hematocrit (blood only) 43.5 % (42-52); Hemoglobin 13.8 g/dL (14.0-18.0)
[2018-12-03] MEDS: WARFARIN SOD 5 MG TAB PO SCH (17:45)
[2018-12-03] MEDS: NYSTATIN POWDER 15GM BTL EXT PRN (20:48)
[2018-12-03] MEDS: ASPIRIN 81 MG ECTAB PO SCH (20:50)
[2018-12-04 05:18] LABS: Basophils # (auto) 0.02 K/uL (0-0.2); Basophils % (auto) 0.3 %; Eosinophils # (auto) 0.04 K/uL (0-0.5); Eosinophils % (auto) 0.6 %; Hemoglobin 13.6 g/dL (14.0-18.0); Immature Granulocytes # (auto) 0.01 K/uL (0.00-0.02); Immature Granulocytes % (auto) 0.2 %; Lymphocytes # (auto) 0.65 K/uL (1.2-3.4); Lymphocytes % (auto) 9.8 %; Mean Corpuscular Hgb Conc 31.6 g/dL (32-36); Mean Corpuscular Volume 97.5 fL (80-100); Mean Platelet Volume 9.9 fL (7.4-10.4); Monocytes # (auto) 0.98 K/uL (0.11-0.59); Monocytes % (auto) 14.8 %; Neutrophils % (auto) 74.3 %; Platelet Count 160 K/uL (130-400); RDW Coefficient of Variation 16.2 % (11.5-14.5); RDW Standard Deviation 56.8 fL (36.4-46.3); Red Blood Count 4.41 M/uL (4.7-6.1)
[2018-12-04 05:37] LABS: Prothrombin Time 42.2 Seconds (9.0-12.0)
[2018-12-04 05:48] LABS: INR 4.6 (0.9-1.1)
[2018-12-04 05:58] LABS: BUN Creatinine Ratio 41.5 (10-20); Calcium 8.4 mg/dl (8.5-10.1); Creatinine Clr Calc Pharmacy 76.6 ml/min; Est GFR (African American) 75.9; Est GFR (Non-African American) 65.5; Magnesium 2.2 mg/dl (1.8-2.4); Phosphorus 3.8 mg/dl (2.5-4.9); Potassium 4.4 mmol/L (3.5-5.1)
--- NOTE | 2018-12-04 06:59 | Family Medicine Progress Note ---
Date of Service December 04, 2018 Assessment & Plan (1) Shortness of breath: 1) Shortness of breath: 83M with a PMHx of atrial flutter s/p ablation (on anticoagulation) and myasthenia gravis here for dyspnea on exertion, LE swelling and weakness over the last 4 weeks. Dyspnea-improving with diruesis -downgraded from ICU to PCU today (12/04) as patient is now stable -patient in need of BiPAP at present, will wean to NC as tolerated -likely secondary to new onset CHF, in exacerbation --weight 160.2 kg on admission, 141.1 kg today (12/04); LE edema persistent but much improved from admission -total of 13 liters of fluid has been direused thus far during hospital stay (12/04) - lasix increased to 60mg IV, daily and aldactone 25mg, daily (as directed by cardiology) -pleural effusions on CXR (11/28), persistent but improved with diruesis (12/02) -continue 20 mEQ KCL supplementation -BMPs daily -Jamil in place - monitor I/Os (2) CHF (congestive heart failure): -BNP elevated [place] 3991 on admission (11/28) - patient volume overloaded on exam - pleural effusions on CXR (11/28), persistent but improved with diruesis (12/02) -measure daily weights -Jamil in place (I/Os) -[facility] cardiology consulted, patient follows with Dr. Wiley -cardiology guiding direutic dosing -TTE from 11/29 showed evidence of pulmonary HTN, moderate aortic stenosis; repeat study on 12/03 unchanged (3) Atrial fibrillation, persistent: -Rate fluctuation; Metoprolol tartrate increased from 12.5 to 25 mg bid (there is room to titrate up if needed) -supratheraputic on coumadin; INR 4.6 (12/04) -we will hold coumadin today; reassess INR tomorrow -continue daily INR checks -[id number] score of 4 -HAS-BLED score of 3 -patient felt to be a poor candidate for a DOAC given his BMI over 40 (dosing becomes difficult) -daily EKG, telemetry monitoring; patient frequently throws strings of PVCs -care management working on placement at [facility] (4) Hematuria: -Urology consulted; patient will have scope as outpatient -no blood visible in Jamil tubing today on evaluation (12/04); appears to be resolving -etiology unknown, mostly likely traumatic from Jamil; scope will rule out cancer (5)Urinary Tract Infection -UA positive for nitrites and leuk esterase -on IV Rocehpin -Urine Cx pending (6)Hypoalbuminemia -level at 2.5 on 12/03 -IV replacement ordered 12/03 (7) Weakness: -likely secondary to active disease process vs. deconditioning -PT/OT ordered (8) Atrial flutter: -s/p ablation (9) Morbid obesity: -BMI >45 -PT/OT consulted and recommended inpatient rehab -Care management (working to place in [facility] in [place]) (10) Myasthenia gravis: - cont home azathioprine, pyridostigmine -neuro checks, qs (11) Rash: -erythema with overlying scale present in bilateral inguinal folds -appears to be consistent with intertrigo -wound care consulted, appreciate recs (12) Hypertension: -holding home lisinopril as patient was hypotensive; will resume as BP resumes (13) BRIJESH (obstructive sleep apnea): - cont home CPAP (14) Asthma: - cont home asmanex and albuterol (15) Urinary bladder incontinence: -Jamil in place - cont home myrbetriq FEN/GI: heart healthy, low sodium DVT ppx: heparin q8h CODE STATUS: FULL DISPO: PCU (Jacy Lamb is pt's daughter, cell is [phone], and home is [phone]) PT/OT: ordered Present on Admission?: Yes Supervising Physician Co-Signing Physician Notes I personally examined the patient and verified all cagle points of history and exam, discussed case, and agree with decision making with Dr Gabriel. Seems to be feeling better, less short of breath. No new complaints. Updated family extensively. Answered all questions the best my ability and to their satisfaction. Vitals noted, in general he is sleeping but easily awoken no distress. HEENT normocephalic atraumatic mucous members are moist, JVD difficult to discern but does seem to increase a little with HJR. Ongoing edema. Lungs relatively clear but very difficult exam Acute on chronic CHFdiastolic related to aortic stenosisotherwise known as heart failure with preserved EFcontinue cautious diuresis. Add compression to mobilize venous fluid. Otherwise as above. Subjective patient examined in PCU. Initially asleep but easily arousable- on BiPAP. States he is confused and does not know where he is at. Family is present at bedside. Review of Systems Eyes: no diplopia Ear, Nose, Mouth, Throat: denies difficulty chewing food, swallowing Respiratory: + dyspnea Cardiovascular: + edema; no chest pain and no palpitations Genitourinary: + urinary incontinence (chronic) Physical Exam Constitutional: well developed, well nourished, + obese and cooperative Eyes: no ptosis Respiratory: + labored breathing; does not use accessory muscles Auscultation: + diminished lung sounds and + crackles (bilateral lung bases ) Cardiovascular: Rate/Rhythm: regular rate and regular rhythm Heart Sounds: normal S1, normal S2 and + murmur (systolic ejection murmur best appreciated in aortic area; radiates to neck) Vessels: + JVD Extremities: + pedal edema (+2 up to the bilateral knees) S3 present Gastrointestinal (Abdomen): Inspection/Auscultation: normal bowel sounds and + significant pannus Percussion/Palpation: abdomen soft; abdomen nontender and no guarding Skin: + rash (intertrigous rash present in bilateral inguinal folds (R & L groin)) Neurologic: awake and + confused Psychiatric: Orientation: oriented to person and cooperative; + not oriented to place and + not oriented to time Genitourinary: Jamil catheter in place draining reese-colored urine with no visible blood clots Results & Data Vital Signs (Past 12 Hours) Vital Signs Temp Pulse Resp BP Pulse Ox 12/04/18 06:01 82 23 119/61 98 12/04/18 05:09 85 24 95 12/04/18 05:01 99 H 22 119/55 L 93 12/04/18 04:00 93 H 24 127/71 94 12/04/18 03:01 82 21 117/57 L 96 12/04/18 03:00 98 H 22 12/04/18 02:02 77 24 96 12/04/18 02:01 99 H 24 121/57 L 96 12/04/18 01:30 117 H 24 119/58 L 96 12/04/18 01:01 84 12 98 12/04/18 01:00 88 26 H 116/55 L 94 12/04/18 00:20 37.1 C 94 H 25 H 115/62 94 12/03/18 23:31 96 H 21 117/70 95 12/03/18 23:09 83 14 95 12/03/18 23:00 88 26 H 115/63 95 12/03/18 22:31 77 26 H 105/66 96 12/03/18 22:01 89 24 134/62 95 12/03/18 21:16 100 H 24 93 12/03/18 21:00 98 H 33 H 136/76 93 12/03/18 20:31 105 H 31 H 130/63 92 12/03/18 20:01 101 H 30 H 132/66 93 12/03/18 19:30 96 H 31 H 126/69 93 12/03/18 19:00 37.1 C 101 H 30 H 142/81 H 93 Laboratory Results 12/04/18 12/04/18 12/04/18 Range/Units 05:06 05:06 04:58 WBC 6.60 (4.8-10.8) K/uL RBC 4.41 L (4.7-6.1) M/uL Hgb 13.6 L (14.0-18.0) g/dL Hct 43.0 (42-52) % MCV 97.5 (80-100) fL MCH 30.8 (25-34) pg MCHC 31.6 L (32-36) g/dL RDW Std Deviation 56.8 H (36.4-46.3) fL RDW Coeff of Naseem 16.2 H (11.5-14.5) % Plt Count 160 (130-400) K/uL MPV 9.9 (7.4-10.4) fL Immature Gran % (Auto) 0.2 % Neut % (Auto) 74.3 % Lymph % (Auto) 9.8 % [place] % (Auto) 14.8 % Eos % (Auto) 0.6 % Baso % (Auto) 0.3 % Immature Gran # (Auto) 0.01 (0.00-0.02) K/uL Neut # (Auto) 4.90 (1.4-6.5) K/uL Lymph # (Auto) 0.65 L (1.2-3.4) K/uL [place] # (Auto) 0.98 H (0.11-0.59) K/uL Eos # (Auto) 0.04 (0-0.5) K/uL Baso # (Auto) 0.02 (0-0.2) K/uL PT 42.2 H (9.0-12.0) Seconds INR 4.6 H (0.9-1.1) Sodium 138 (136-145) mmol/L Potassium 4.4 (3.5-5.1) mmol/L Chloride 97 L (98-107) mmol/L Carbon Dioxide 33 H (21-32) mmol/L Anion Gap 8.0 (3-11) BUN 44 H (7-18) mg/dl Creatinine 1.06 (0.6-1.4) mg/dl Est Cr Clr Drug Dosing 76.6 ml/min Est GFR ( Amer) 75.9 Est GFR (Non-Af Amer) 65.5 BUN/Creatinine Ratio 41.5 H (10-20) Glucose 103 H (70-99) mg/dl POC Glucose (70-99) Calcium 8.4 L (8.5-10.1) mg/dl Phosphorus 3.8 (2.5-4.9) mg/dl Magnesium 2.2 (1.8-2.4) mg/dl Specimen Hemolysis 12/03/18 Range/Units 20:44 WBC (4.8-10.8) K/uL RBC (4.7-6.1) M/uL Hgb (14.0-18.0) g/dL Hct (42-52) % MCV (80-100) fL MCH (25-34) pg MCHC (32-36) g/dL RDW Std Deviation (36.4-46.3) fL RDW Coeff of Naseem (11.5-14.5) % Plt Count (130-400) K/uL MPV (7.4-10.4) fL Immature Gran % (Auto) % Neut % (Auto) % Lymph % (Auto) % [place] % (Auto) % Eos % (Auto) % Baso % (Auto) % Immature Gran # (Auto) (0.00-0.02) K/uL Neut # (Auto) (1.4-6.5) K/uL Lymph # (Auto) (1.2-3.4) K/uL [place] # (Auto) (0.11-0.59) K/uL Eos # (Auto) (0-0.5) K/uL Baso # (Auto) (0-0.2) K/uL PT (9.0-12.0) Seconds INR (0.9-1.1) Sodium (136-145) mmol/L Potassium (3.5-5.1) mmol/L Chloride (98-107) mmol/L Carbon Dioxide (21-32) mmol/L Anion Gap (3-11) BUN (7-18) mg/dl Creatinine (0.6-1.4) mg/dl Est Cr Clr Drug Dosing ml/min Est GFR ( Amer) Est GFR (Non-Af Amer) BUN/Creatinine Ratio (10-20) Glucose (70-99) mg/dl POC Glucose 117 H (70-99) Calcium (8.5-10.1) mg/dl Phosphorus (2.5-4.9) mg/dl Magnesium (1.8-2.4) mg/dl Specimen Hemolysis Medications Administered Current Inpatient Medications Acetaminophen (Tylenol) 325 mg PO Q4 PRN PRN Reason: Pain Stop: 12/28/18 22:44 Al Hydrox/Mg Hydrox/Simethicone (Maalox) 15 ml PO Q4H PRN PRN Reason: Dyspepsia Stop: 12/28/18 22:44 Albuterol (Ventolin Hfa) 2 puffs INH Q4 PRN PRN Reason: Shortness Of Breath Or Wheezin Stop: 12/28/18 22:44 Albuterol (Duoneb) 3 ml NEB QIDR PRN PRN Reason: shortness of breath Stop: 01/01/19 15:59 Aspirin (Ecotrin Ectab) 81 mg PO QPM [facility] Stop: 12/28/18 22:44 Last Admin: 12/03/18 20:50 Dose: 81 mg Documented by: Azathioprine (Imuran) 150 mg PO DAILY [facility] Stop: 12/29/18 08:59 Last Admin: 12/04/18 07:16 Dose: 150 mg Documented by: Cyanocobalamin (Vitamin B-12) 1,000 mcg IM Q14D@0900 [facility] Stop: 01/05/19 08:59 Ferrous Sulfate (Feosol) 325 mg PO TID [facility] Stop: 12/28/18 22:44 Last Admin: 12/04/18 07:16 Dose: 325 mg Documented by: Fexofenadine HCl (Jenny) 180 mg PO DAILY PRN PRN Reason: ALLERGIES Stop: 12/28/18 22:44 Fluticasone Propionate (Flonase) 2 sprays NA DAILY PRN PRN Reason: Nasal Congestion Stop: 12/28/18 22:44 Ceftriaxone Sodium 2,000 mg/ (Dextrose) 70 mls @ 100 mls/hr IV Q24H [facility]; Protocol Stop: 12/13/18 00:59 Last Infusion: 12/03/18 22:28 Dose: Infused Documented by: Magnesium Hydroxide (Milk Of Magnesia) 30 ml PO Q12H PRN PRN Reason: Constipation Stop: 12/28/18 22:44 Metoprolol Tartrate (Lopressor) 25 mg PO BID [facility] Stop: 01/03/19 20:59 Mirabegron (Myrbetriq Er) 25 mg PO BID [facility] Stop: 12/28/18 22:44 Last Admin: 12/04/18 07:17 Dose: 25 mg Documented by: Miscellaneous (Icu Protocol For Hyperglycemia) 1 ea N/A PRN PRN; Protocol PRN Reason: Hyperglycemia Protocol Stop: 12/04/18 22:21 Mometasone Furoate (Asmanex 220mcg) 2 puffs INH BID [facility] Stop: 12/28/18 22:44 Last Admin: 12/04/18 07:15 Dose: 2 puffs Documented by: Nystatin (Mycostatin) 1 appln EXT DAILY PRN PRN Reason: Affected Skin Folds Stop: 12/30/18 00:51 Last Admin: 12/03/18 20:48 Dose: 1 appln Documented by: Polyethylene Glycol (Miralax Powder Packet) 17 gm PO DAILY PRN PRN Reason: Constipation Stop: 12/28/18 22:44 Pyridostigmine [place] (Mestinon) 120 mg PO TID [facility] Stop: 12/28/18 22:44 Last Admin: 12/04/18 07:17 Dose: 120 mg Documented by: Spironolactone (Aldactone) 25 mg PO DAILY [facility] Stop: 01/04/19 08:59 Tolterodine Tartrate (Detrol La) 4 mg PO BID [facility] Stop: 12/28/18 22:44 Last Admin: 12/04/18 07:16 Dose: 4 mg Documented by: Warfarin Sodium (Coumadin) 5 mg PO DAILY@1600 [facility] Stop: 12/30/18 15:59 Last Admin: 12/03/18 17:45 Dose: 5 mg Documented by: Zolpidem Tartrate (Ambien) 5 mg PO HS PRN PRN Reason: Sleep Stop: 12/28/18 22:44 PG Care Time/CCT Total # of Minutes Spent Total Time Spent with Patient: Total time spent is greater than 50% in coordination of care (as documented) at patient's floor/unit and/or counseling patient: Resident Activity Tracking Resident Involvement: Resident Care Provided Care Provided: Adult Hospital Medicine
--- NOTE | 2018-12-04 07:08 | Critical Care Progress Note ---
Date of Service December 04, 2018 Assessment & Plan (1) Atrial fibrillation with rapid ventricular response: Reason critically ill: 83yo male with acute hypoxic respiratory failure in the setting of atrial fibrillation with rvr and acute decompensated heart failure refractory to diuretic treatment. Stable for downgrade. NEURO -[facility] ICU POSITIVE -Pt with Hx of myasthenia gravis-continue mestinon -Continue home Ambien, Lexapro CARDS CHF -Pt with refractory CHF which possibly requires need for dobutamine support. -s/p stat 40mg IV Lasix administration per primary team -Chest XR 12/02 with persistent pleural effusions -Echo 11/29 with frequent PVCs and likely normal EF. Some LVH and RA dilation. -will obtain a limited repeat echo 12/03/18 -500mg Normosol bolus 12/03 -trops NEG x4 -continue Aldactone -will get LFTs to monitor backward effect on liver A fib with rvr -Will re-start on metoprolol 12.5mg for rate control 12/03 -EKG 12/02 with a fib with rvr, normal qtc -anticoagulated with warfarin, HELD 12/04 as INR>4 -appreciate CARDS input HTN -hold home lisinopril given lower BPs currently -If needed, will place central line, will continue to monitor BP and hypoxia until then. RESP -Pt with acute hypoxic respiratory failure requiring bipap support, @FiO2 of 35 currently -Will continue to monitor the need for increased resp support, ie intubation and mech ventilation. -likely secondary to refractory CHF -No signs of a pneumonia, intrinsic lung disease, neoplasm -continue home albuterol, flonase as needed for asthma RENAL//ELECTROLYTES -no concerns currently -will replace electrolytes as needed -vann in place -Avoid fluids given fluid overload status -continue home Detrol LA and Myrbetriq GI -Heart Healthy diet with 1800ml fluid restriction -Continue constipation meds -GI prophylaxis ENDOCRINE -ICU protocol for hyperglycemia HEME -no concerns currently ID -UA suggestive of UTI, urine culture pending -empiric treatment with Rocephin for UTI PIVs intact DVT Prophylaxis: On warfarin, currently held. CODE STATUS: FULL CODE Dispo: Stable for downgrade Supervising Physician Co-Signing Physician Notes Dr. Easley was resident physician during care of patient. I separately evaluated patient for cagle portions of the history and the exam. I was present during the critical portion of medical decision making, and I discussed the case with the resident. I generally agree with the findings and plan. Atrial fibrillation with rapid ventricular response. I have personally spent 40 minutes of critical care time in the direct management of this patient. This is a life/limb threatening event. This includes time spent evaluating patient, direct bedside care, chart review, placing orders, interpretation of diagnostic studies, discussion with consultants, patient, and/or family members regarding treatment decisions, as well as other required patient management activities. This time is exclusive of all separately billable procedures, and teaching time and separate from and in addition to any other critical care service time. Subjective Pt with no acute events overnight. Disoriented currently. Review of Systems Review of Systems: Unobtainable due to cognitive status Physical Exam Physical Exam: General: Alert, obese gentleman laying in bed. HEENT: NC/AT Chest: Nontender to palpation. CV: Irregularly irregular rate and rhythm Resp: Breath sounds coarse bilaterally though decreased due to habitus Abdomen: Soft, diffusely tender. No guarding. Extremities: Significant edema in lower extremities bilaterally. Results & Data Vital Signs (Past 12 Hours) Vital Signs Temp Pulse Resp BP Pulse Ox 12/04/18 06:58 89 18 95 12/04/18 06:01 82 23 119/61 98 12/04/18 05:09 85 24 95 12/04/18 05:01 99 H 22 119/55 L 93 12/04/18 04:00 93 H 24 127/71 94 12/04/18 03:01 82 21 117/57 L 96 12/04/18 03:00 98 H 22 12/04/18 02:02 77 24 96 12/04/18 02:01 99 H 24 121/57 L 96 12/04/18 01:30 117 H 24 119/58 L 96 12/04/18 01:01 84 12 98 12/04/18 01:00 88 26 H 116/55 L 94 12/04/18 00:20 37.1 C 94 H 25 H 115/62 94 12/03/18 23:31 96 H 21 117/70 95 12/03/18 23:09 83 14 95 12/03/18 23:00 88 26 H 115/63 95 12/03/18 22:31 77 26 H 105/66 96 12/03/18 22:01 89 24 134/62 95 12/03/18 21:16 100 H 24 93 12/03/18 21:00 98 H 33 H 136/76 93 12/03/18 20:31 105 H 31 H 130/63 92 12/03/18 20:01 101 H 30 H 132/66 93 12/03/18 19:30 96 H 31 H 126/69 93 Laboratory Results Laboratory Results - last 24 hr 12/03/18 12/03/18 12/04/18 15:12 20:44 04:58 WBC RBC Hgb 13.8 L Hct 43.5 MCV MCH MCHC RDW Std Deviation RDW Coeff of Naseem Plt Count MPV Immature Gran % (Auto) Neut % (Auto) Lymph % (Auto) Sterling % (Auto) Eos % (Auto) Baso % (Auto) Immature Gran # (Auto) Neut # (Auto) Lymph # (Auto) Sterling # (Auto) Eos # (Auto) Baso # (Auto) PT 42.2 H INR 4.6 H Sodium Potassium Chloride Carbon Dioxide Anion Gap BUN Creatinine Est Cr Clr Drug Dosing Est GFR ( Amer) Est GFR (Non-Af Amer) BUN/Creatinine Ratio Glucose POC Glucose 117 H Calcium Phosphorus Magnesium Specimen Hemolysis 12/04/18 12/04/18 05:06 05:06 WBC 6.60 RBC 4.41 L Hgb 13.6 L Hct 43.0 MCV 97.5 MCH 30.8 MCHC 31.6 L RDW Std Deviation 56.8 H RDW Coeff of Naseem 16.2 H Plt Count 160 MPV 9.9 Immature Gran % (Auto) 0.2 Neut % (Auto) 74.3 Lymph % (Auto) 9.8 Sterling % (Auto) 14.8 Eos % (Auto) 0.6 Baso % (Auto) 0.3 Immature Gran # (Auto) 0.01 Neut # (Auto) 4.90 Lymph # (Auto) 0.65 L Sterling # (Auto) 0.98 H Eos # (Auto) 0.04 Baso # (Auto) 0.02 PT INR Sodium 138 Potassium 4.4 Chloride 97 L Carbon Dioxide 33 H Anion Gap 8.0 BUN 44 H Creatinine 1.06 Est Cr Clr Drug Dosing 76.6 Est GFR ( Amer) 75.9 Est GFR (Non-Af Amer) 65.5 BUN/Creatinine Ratio 41.5 H Glucose 103 H POC Glucose Calcium 8.4 L Phosphorus 3.8 Magnesium 2.2 Specimen Hemolysis Medications Administered Home Medications acetaminophen [Tylenol] 325 mg PO Q4 PRN 11/28/18 [History Confirmed 11/28/18] albuterol sulfate 2 puff INHALATION Q4 PRN 11/28/18 [History Confirmed 11/28/18] amoxicillin 2,000 mg PO UD PRN 11/28/18 [History Confirmed 11/28/18] aspirin [Aspir-81] 81 mg PO QPM 11/28/18 [History Confirmed 11/28/18] azathioprine [Imuran] 150 mg PO DAILY 11/28/18 [History Confirmed 11/28/18] cyanocobalamin (vitamin B-12) 1,000 mcg IM [id number] 11/28/18 [History Confirmed 11/28/18] escitalopram oxalate [Lexapro] 5 mg PO DAILY 11/28/18 [History Confirmed 11/28/18] ferrous sulfate [iron] 325 mg PO TID 11/28/18 [History Confirmed 11/28/18] fexofenadine [Jenny Allergy] 180 mg PO DAILY PRN 11/28/18 [History Confirmed 11/28/18] fluticasone propionate [Flonase Allergy Relief] 2 spray INTRANASAL DAILY PRN 11/28/18 [History Confirmed 11/28/18] lisinopril [Zestril] 5 mg PO DAILY 11/28/18 [History Confirmed 11/28/18] mirabegron [Myrbetriq] 25 mg PO BID 11/28/18 [History Confirmed 11/28/18] mometasone [Asmanex Twisthaler] 2 inh INHALATION BID 11/28/18 [History Confirmed 11/28/18] multivitamin 4 - 5 tab PO DAILY 11/28/18 [History Confirmed 11/28/18] pyridostigmine bromide [Mestinon] 120 mg PO TID 11/28/18 [History Confirmed 11/28/18] tolterodine [Detrol LA] 4 mg PO BID 11/28/18 [History Confirmed 11/28/18] zolpidem [Ambien] 5 mg PO HS PRN 11/28/18 [History Confirmed 11/28/18] Active Medications Acetaminophen (Tylenol) 325 mg PO Q4 PRN PRN Reason: Pain Stop: 12/28/18 22:44 Al Hydrox/Mg Hydrox/Simethicone (Maalox) 15 ml PO Q4H PRN PRN Reason: Dyspepsia Stop: 12/28/18 22:44 Albuterol (Ventolin Hfa) 2 puffs INH Q4 PRN PRN Reason: Shortness Of Breath Or Wheezin Stop: 12/28/18 22:44 Albuterol (Duoneb) 3 ml NEB QIDR PRN PRN Reason: shortness of breath Stop: 01/01/19 15:59 Aspirin (Ecotrin Ectab) 81 mg PO QPM [facility] Stop: 12/28/18 22:44 Last Admin: 12/03/18 20:50 Dose: 81 mg Documented by: Azathioprine (Imuran) 150 mg PO DAILY [facility] Stop: 12/29/18 08:59 Last Admin: 12/04/18 07:16 Dose: 150 mg Documented by: Cyanocobalamin (Vitamin B-12) 1,000 mcg IM Q14D@0900 [facility] Stop: 01/05/19 08:59 Ferrous Sulfate (Feosol) 325 mg PO TID [facility] Stop: 12/28/18 22:44 Last Admin: 12/04/18 07:16 Dose: 325 mg Documented by: Fexofenadine HCl (Jenny) 180 mg PO DAILY PRN PRN Reason: ALLERGIES Stop: 12/28/18 22:44 Fluticasone Propionate (Flonase) 2 sprays NA DAILY PRN PRN Reason: Nasal Congestion Stop: 12/28/18 22:44 Ceftriaxone Sodium 2,000 mg/ (Dextrose) 70 mls @ 100 mls/hr IV Q24H [facility]; Protocol Stop: 12/13/18 00:59 Last Infusion: 12/03/18 22:28 Dose: Infused Documented by: Magnesium Hydroxide (Milk Of Magnesia) 30 ml PO Q12H PRN PRN Reason: Constipation Stop: 12/28/18 22:44 Metoprolol Tartrate (Lopressor) 25 mg PO BID [facility] Stop: 01/03/19 20:59 Mirabegron (Myrbetriq Er) 25 mg PO BID [facility] Stop: 12/28/18 22:44 Last Admin: 12/04/18 07:17 Dose: 25 mg Documented by: Miscellaneous (Icu Protocol For Hyperglycemia) 1 ea N/A PRN PRN; Protocol PRN Reason: Hyperglycemia Protocol Stop: 12/04/18 22:21 Mometasone Furoate (Asmanex 220mcg) 2 puffs INH BID [facility] Stop: 12/28/18 22:44 Last Admin: 12/04/18 07:15 Dose: 2 puffs Documented by: Nystatin (Mycostatin) 1 appln EXT DAILY PRN PRN Reason: Affected Skin Folds Stop: 12/30/18 00:51 Last Admin: 12/03/18 20:48 Dose: 1 appln Documented by: Polyethylene Glycol (Miralax Powder Packet) 17 gm PO DAILY PRN PRN Reason: Constipation Stop: 12/28/18 22:44 Pyridostigmine [place] (Mestinon) 120 mg PO TID [facility] Stop: 12/28/18 22:44 Last Admin: 12/04/18 07:17 Dose: 120 mg Documented by: Spironolactone (Aldactone) 25 mg PO DAILY [facility] Stop: 01/04/19 08:59 Tolterodine Tartrate (Detrol La) 4 mg PO BID [facility] Stop: 12/28/18 22:44 Last Admin: 12/04/18 07:16 Dose: 4 mg Documented by: Warfarin Sodium (Coumadin) 5 mg PO DAILY@1600 [facility] Stop: 12/30/18 15:59 Last Admin: 12/03/18 17:45 Dose: 5 mg Documented by: Zolpidem Tartrate (Ambien) 5 mg PO HS PRN PRN Reason: Sleep Stop: 12/28/18 22:44 PG Care Time/CCT Critical Care Time: Yes Total Critical Care Time: 40
[2018-12-04] MEDS: SPIRONOLACTONE 25 MG TAB PO SCH (07:15)
[2018-12-04] MEDS: MOMETASONE FUROATE 14 PUFF/1 INHALER INH SCH ×2 (07:15→21:33)
[2018-12-04] MEDS: azaTHIOprine 50 MG TAB PO SCH (07:16)
[2018-12-04] MEDS: TOLTERODINE TARTRATE LA 4 MG CAPCR PO SCH ×2 (07:16→21:33)
[2018-12-04] MEDS: METOPROLOL TARTRATE 25 MG TAB PO SCH ×2 (07:16→21:34)
[2018-12-04] MEDS: FERROUS SULFATE 325 MG TAB PO SCH ×3 (07:16→21:34)
[2018-12-04] MEDS: PYRIDOSTIGMINE BROMIDE 60 MG TAB PO SCH ×3 (07:17→21:35)
[2018-12-04] MEDS: MIRABEGRON ER 25 MG TAB PO SCH ×2 (07:17→21:34)
[2018-12-04] MEDS ORDERED: SPIRONOLACTONE 25 MG TAB PO ONE (09:31)
[2018-12-04] MEDS ORDERED: METOPROLOL TARTRATE 25 MG TAB PO STA (09:45)
--- NOTE | 2018-12-04 09:45 | Urology Progress Note ---
Date of Service December 04, 2018 Assessment & Plan (1) Hematuria: Hematuria appears to have resolved. Jamil not bothersome - recommend trial of void when no longer needed for critical illness status. Outpatient URO follow up has been arranged. Please contact our service if we can be of further assistance during hospitalization. Subjective 83 YO male with resolved hematuria. Seen in ICU this morning. Urine remains clear. Remains on bipap. Appears comfortable. Denies abdominal/flank pain. Jamil not bothersome. Review of Systems Review of Systems: Full ROS not obtained due to ICU status and wearing bipap. Physical Exam Constitutional: + ill appearing ENMT: Ears: no hearing impairment Neck: normal visual inspection Respiratory: +bipap Cardiovascular: Vessels: no JVD Gastrointestinal (Abdomen): Percussion/Palpation: abdomen soft; abdomen nontender Psychiatric: Orientation: alert and cooperative Genitourinary: bladder normal to palpation Jamil in place, patent, draining clear yellow urine Results & Data Vital Signs (Past 12 Hours) Vital Signs Temp Pulse Resp BP Pulse Ox Pulse Ox 12/04/18 08:30 103 H 30 H 90 12/04/18 08:01 93 H 27 H 127/79 92 12/04/18 08:00 36.3 C L 96 H 24 91 12/04/18 07:30 107 H 26 H 94 12/04/18 07:28 92 12/04/18 07:01 82 21 116/63 94 12/04/18 07:00 97 H 22 12/04/18 06:58 89 18 95 12/04/18 06:01 82 23 119/61 98 12/04/18 05:09 85 24 95 12/04/18 05:01 99 H 22 119/55 L 93 12/04/18 04:00 93 H 24 127/71 94 12/04/18 03:01 82 21 117/57 L 96 12/04/18 03:00 98 H 22 12/04/18 02:02 77 24 96 12/04/18 02:01 99 H 24 121/57 L 96 12/04/18 01:30 117 H 24 119/58 L 96 12/04/18 01:01 84 12 98 12/04/18 01:00 88 26 H 116/55 L 94 12/04/18 00:20 37.1 C 94 H 25 H 115/62 94 12/03/18 23:31 96 H 21 117/70 95 12/03/18 23:09 83 14 95 12/03/18 23:00 88 26 H 115/63 95 12/03/18 22:31 77 26 H 105/66 96 12/03/18 22:01 89 24 134/62 95
[2018-12-04] MEDS ORDERED: FUROSEMIDE 60 MG in SYRINGE 0 ML IV ONE (09:54)
--- NOTE | 2018-12-04 09:57 | Cardiology Progress Note ---
Date of Service December 04, 2018 Assessment & Plan (1) CHF (congestive heart failure): 60 mg intravenous Lasix today. Increase Aldactone to 25 mg daily. Increase metoprolol to 25 mg twice daily. Repeat basic metabolic panel in a.m. Follow fluid balance and daily weights. Overall prognosis remains guarded. Patient with multiple medical ongoing issues including chronic congestive heart failure, moderate to severe aortic stenosis, urinary tract infection, and chronic respiratory failure requiring BiPAP. (2) Atrial fibrillation, persistent: Rate controlled with supratherapeutic INR today. Hold warfarin. (3) Frequent PVCs: Continue metoprolol. (4) Nonsustained ventricular tachycardia: (5) Myasthenia gravis: Continue [employer] medications. Subjective Patient seen and examined at the bedside. On BiPAP. Awake and mentating appropriately. Intermittent confusion reported. Fluid balance negative approximately 360 cc overnight. Renal function remained stable. Frequent PVCs, ventricular bigeminy, as well as short runs of nonsustained ventricular tachyc ardia on telemetry. Edema unchanged. Review of Systems Review of Systems: All systems reviewed & are unremarkable except as noted in HPI & below Physical Exam Physical Exam: General: NAD, awake and alert. Chronically ill. Morbid obes ity. HEENT: Normocephalic. Atraumatic. Conjunctiva pink, no scleral icterus. Neck: No carotid bruits, the carotid upstrokes are brisk. No JVD. No HJR Heart: Irregular rhythm with ectopy. 2/6 systolic ejection murmur heard best at the right second intercostal space. Heart sounds are distant. PMI is not displaced. No RV heave. Lungs: Diminished breath sounds at the bases bilateral, + Crackles at the bases bilaterally. Abdomen: 1+ edema. Normal bowel sounds. Soft. Nontender. No masses or organomegaly. No abdominal bruits. Extremities: 2+ bilateral lower extremity pitting edema. Pulses: radial=2/4. Neuro: Cranial nerves grossly intact. No focal motor deficit. Results & Data Vital Signs (Past 12 Hours) Vital Signs Temp Pulse Resp BP Pulse Ox Pulse Ox 12/04/18 08:30 103 H 30 H 90 12/04/18 08:01 93 H 27 H 127/79 92 12/04/18 08:00 36.3 C L 96 H 24 91 12/04/18 07:30 107 H 26 H 94 12/04/18 07:28 92 12/04/18 07:01 82 21 116/63 94 12/04/18 07:00 97 H 22 12/04/18 06:58 89 18 95 12/04/18 06:01 82 23 119/61 98 12/04/18 05:09 85 24 95 12/04/18 05:01 99 H 22 119/55 L 93 12/04/18 04:00 93 H 24 127/71 94 12/04/18 03:01 82 21 117/57 L 96 12/04/18 03:00 98 H 22 12/04/18 02:02 77 24 96 12/04/18 02:01 99 H 24 121/57 L 96 12/04/18 01:30 117 H 24 119/58 L 96 12/04/18 01:01 84 12 98 12/04/18 01:00 88 26 H 116/55 L 94 12/04/18 00:20 37.1 C 94 H 25 H 115/62 94 12/03/18 23:31 96 H 21 117/70 95 12/03/18 23:09 83 14 95 12/03/18 23:00 88 26 H 115/63 95 12/03/18 22:31 77 26 H 105/66 96 12/03/18 22:01 89 24 134/62 95 (1) CHF (congestive heart failure) Heart failure chronicity: acute Heart failure type: unspecified Qualified Code(s): I50.9 - Heart failure, unspecified
[2018-12-04] MEDS: FUROSEMIDE 60 MG in SYRINGE 0 ML IV SCH (16:29)
[2018-12-04] MEDS: ASPIRIN 81 MG ECTAB PO SCH (21:33)
[2018-12-05 06:45] LABS: Prothrombin Time 42.2 Seconds (9.0-12.0)
[2018-12-05 06:46] LABS: INR 4.6 (0.9-1.1)
[2018-12-05 07:03] LABS: BUN Creatinine Ratio 50.1 (10-20); Calcium 8.5 mg/dl (8.5-10.1); Creatinine Clr Calc Pharmacy 92.6 ml/min; Est GFR (African American) 94.3; Est GFR (Non-African American) 81.3
[2018-12-05] MEDS: PYRIDOSTIGMINE BROMIDE 60 MG TAB PO SCH ×3 (07:43→21:50)
[2018-12-05] MEDS: FUROSEMIDE 60 MG in SYRINGE 0 ML IV SCH (07:43)
[2018-12-05] MEDS: METOPROLOL TARTRATE 25 MG TAB PO SCH ×2 (07:43→21:51)
[2018-12-05] MEDS: SPIRONOLACTONE 25 MG TAB PO SCH (07:44)
[2018-12-05] MEDS: azaTHIOprine 50 MG TAB PO SCH (07:44)
[2018-12-05] MEDS: TOLTERODINE TARTRATE LA 4 MG CAPCR PO SCH ×2 (07:45→21:50)
[2018-12-05] MEDS: MIRABEGRON ER 25 MG TAB PO SCH ×2 (07:45→21:50)
[2018-12-05] MEDS: FERROUS SULFATE 325 MG TAB PO SCH ×3 (07:45→21:51)
[2018-12-05] MEDS: MOMETASONE FUROATE 14 PUFF/1 INHALER INH SCH ×2 (10:20→21:49)
--- NOTE | 2018-12-05 13:30 | Cardiology Progress Note ---
Date of Service December 05, 2018 Assessment & Plan (1) CHF (congestive heart failure): Respiratory status marginally improved with 4.5 L diuresis overnight. Renal function remains stable. Transition to oral Demadex 10 mg daily. Repeat ABG today to assess pH/CO2. Utilize BiPAP as needed as well as CPAP nightly due to history of sleep apnea. Repeat basic metabolic panel in a.m. Follow fluid balance, daily weights, GFR, and electrolytes. PT/OT as tolerated. Hold Coumadin today, INR remains supratherapeutic. Repeat INR in a.m. (2) Atrial fibrillation, persistent: Rate controlled with supratherapeutic INR today. Hold warfarin. (3) Frequent PVCs: Continue metoprolol. (4) Nonsustained ventricular tachycardia: (5) Myasthenia gravis: Continue [employer] medications. Subjective Patient seen and examined at the bedside. Respiratory status marginally improved overnight. Diuresed 4.5 L with 2 doses of intravenous furosemide yesterday. Renal function remains stable, however, bicarbonate trending upward to 40. Wearing BiPAP intermittently. Family present at bedside. Offer no additional concerns/complaints at this time. Review of Systems Review of Systems: All systems reviewed & are unremarkable except as noted in HPI & below Physical Exam Physical Exam: General: NAD, awake and alert. Chronically ill. Morbid obesity. HEENT: Normocephalic. Atraumatic. Conjunctiva pink, no scleral icterus. Neck: No carotid bruits, the carotid upstrokes are brisk. No JVD. No HJR Heart: Irregular rhythm with ectopy. 2/6 systolic ejection murmur heard best at the right second intercostal space. Heart sounds are distant. PMI is not displaced. No RV heave. Lungs: Diminished breath sounds at the bases bilateral, otherwise clear bilaterally. Abdomen:Normal bowel sounds. Soft. Nontender. No masses or organomegaly. No abdominal bruits. Extremities: 1+ bilateral lower extremity pitting edema. Pulses: radial=2/4. Neuro: Cranial nerves grossly intact. No focal motor deficit. Results & Data Vital Signs (Past 12 Hours) Vital Signs Temp Pulse Pulse Pulse Resp BP Pulse Ox 12/05/18 12:40 36.7 C 50 L 22 103/68 90 12/05/18 11:47 36.6 C 85 28 H 107/56 L 94 12/05/18 11:34 94 12/05/18 11:15 90 12/05/18 08:00 91 H 12/05/18 07:39 36.1 C L 93 H 18 133/65 99 12/05/18 05:11 95 H 22 98 12/05/18 04:32 37.1 C 76 20 109/53 L 96 12/05/18 01:59 87 26 H 96 (1) CHF (congestive heart failure) Heart failure chronicity: acute Heart failure type: unspecified Qualified Code(s): I50.9 - Heart failure, unspecified
[2018-12-05 14:16] LABS: Base Excess ABG 11.1 mEq/L (-9-1.8); HCO3 ABG 40 mmol/L (19-24); Oxygen Saturation ABG 95.2 % (90-95); PCO2 ABG 72 mmHg (35-46); PO2 ABG 81 mm/Hg (80-95); pH ABG 7.37 (7.35-7.45)
[2018-12-05 14:17] LABS: Allen Test Pos (Pos)
--- NOTE | 2018-12-05 16:42 | Family Medicine Progress Note ---
Date of Service December 05, 2018 Assessment & Plan (1) Shortness of breath: 1) Shortness of breath: 83M with a PMHx of atrial flutter s/p ablation (on anticoagulation) and myasthenia gravis here for dyspnea on exertion, LE swelling and weakness over the last 4 weeks. Dyspnea-improving with diruesis -downgraded from PCU to floor today (12/05) -patient on 4L NC at present with 97% O2 saturation; will be on CPAP overnight for BRIJESH -likely secondary to new onset CHF, in exacerbation -weight 160.2 kg on admission, 136.9 kg today (12/05); LE edema persistent but much improved from admission -total of 17.5 liters of fluid has been direused thus far during hospital stay (12/05) -transitioned from IV to PO direutics, Demadex 10mg, daily (as directed by cardiology) -continue Aldactone 25mg, daily -repeat ABG ordered today (12/05) to monitor pH/Co2 (per cardiology recs) -pleural effusions on CXR (11/28), persistent but improved with diruesis (12/02) -continue 20 mEQ KCL supplementation -BMPs daily -Jamil in place - monitor I/Os (2) CHF (congestive heart failure): -BNP elevated to 3991 on admission (11/28) - patient volume overloaded on exam - pleural effusions on CXR (11/28), persistent but improved with diruesis (12/02) -measure daily weights -Jamil in place (I/Os) -[facility] cardiology consulted, guiding direutic dosing -TTE from 11/29 showed evidence of pulmonary HTN, moderate aortic stenosis; repeat study on 12/03 unchanged (3) Atrial fibrillation, persistent: -Rate fluctuation; Metoprolol tartrate increased from 12.5 to 25 mg bid -patient off telemetry today to floor (12/05) -patient remains to be supratheraputic on coumadin despite holding dose on 12/04; INR today 4.6 (12/05) -we will hold coumadin again today (12/05); reassess INR tomorrow -[id number] score of 4 -HAS-BLED score of 3 -patient felt to be a poor candidate for a DOAC given his BMI over 40 (dosing becomes difficult) -care management working on placement at [facility] (4) Hematuria: -Urology consulted; patient will have scope as outpatient -no blood visible in Jamil tubing today on evaluation (12/04); appears to be resolving -etiology unknown, mostly likely traumatic from Jamil; scope will rule out cancer (5)Urinary Tract Infection -IV Rocephin discontinued 12/04 in light of Urine Cx showing no growth with fewer than 1,000 colonies/ml -unlikely source of confusion (6) Confusion - likely secondary to delirium -etiology unknown but unlikely secondary to contaminated urine as culture showed no growth with fewer than 1,000 colonies/ml -ICU exposure is likely contributory -family encouraged to reorient frequently -plan is to discharge patient from hospital as soon as medically ready (7)Hypoalbuminemia -level at 2.5 on 12/03 -IV replacement ordered 12/03 (8) Weakness: -likely secondary to active disease process vs. deconditioning -PT/OT ordered (9) Atrial flutter: -s/p ablation (10) Morbid obesity: -BMI >40 -PT/OT consulted and recommended inpatient rehab -Care management (working to place in [facility] in [place]) (11) Myasthenia gravis: - cont home azathioprine, pyridostigmine -neuro checks, qs (12) Rash: -erythema with overlying scale present in bilateral inguinal folds -appears to be consistent with intertrigo -wound care consulted, appreciate recs (13) Hypertension: -holding home lisinopril as patient was hypotensive; will resume as BP resumes (14) BRIJESH (obstructive sleep apnea): - cont home CPAP (15) Asthma: - cont home asmanex and albuterol (16) Urinary bladder incontinence: -Jamil in place - cont home myrbetriq FEN/GI: heart healthy, low sodium DVT ppx: nothing as patient is supratheraputic on coumadin CODE STATUS: FULL DISPO: PCU (Jacy Lamb is pt's daughter, cell is [phone], and home is [phone]) PT/OT: ordered Supervising Physician Co-Signing Physician Notes I personally examined the patient and verified all cagle points of history and exam, discussed case, and agree with decision making with Dr Gabriel. Feeling better breathing easier. No significant shortness of breath. Family present and questions answered to the best my ability. Vitals noted, in general he is sleeping but easily awoken no distress. HEENT normocephalic atraumatic mucous members are moist, Lungs somewhat quiet but clear without any rales rhonchi or wheezes good effort. Acute on chronic CHFdiastolic related to aortic stenosisotherwise known as heart failure with preserved EFseems to be improving to where it is reasonable to switch to oral diuretic, follow fluid balance both here in rehab, and once he is back at home Supratherapeutic INRno bleeding, continue to hold Coumadin and follow Subjective Resting comfortably in bed on exam; easily arousable. Family present at bedside. No events overnight. He is eating well again (ate most of breakfast). Review of Systems Ear, Nose, Mouth, Throat: denies difficulty chewing food, swallowing Respiratory: reports breathing is much improved Cardiovascular: + edema; no chest pain and no palpitations Genitourinary: + urinary incontinence (chronic) Physical Exam Constitutional: well developed, well nourished, + obese and cooperative Eyes: no ptosis Respiratory: + labored breathing; does not use accessory muscles Auscultation: + diminished lung sounds and + crackles (bilateral lung bases ) Cardiovascular: Rate/Rhythm: regular rate and regular rhythm Heart Sounds: normal S1, normal S2 and + murmur (systolic ejection murmur best appreciated in aortic area; radiates to neck) Vessels: + JVD Extremities: + pedal edema (+2 up to the bilateral knees) heart sounds are distant Gastrointestinal (Abdomen): Inspection/Auscultation: normal bowel sounds and + significant pannus Percussion/Palpation: abdomen soft; abdomen nontender and no guarding Skin: + rash (intertrigous rash present in bilateral inguinal folds (R & L groin)) Neurologic: awake and + confused Psychiatric: Orientation: oriented to person and cooperative; + not oriented to place (seems to be improving; when asked he replied [facility]") and + not oriented to time Genitourinary: Jamil catheter in place draining pale yellow -colored fluid with no visible clots Results & Data Vital Signs (Past 12 Hours) Vital Signs Temp Pulse Pulse Pulse Pulse Resp BP 12/05/18 15:15 36.4 C L 58 L 16 100/65 12/05/18 12:40 36.7 C 50 L 22 103/68 12/05/18 11:47 36.6 C 85 28 H 107/56 L 12/05/18 11:34 12/05/18 11:15 12/05/18 08:00 91 H 12/05/18 07:39 36.1 C L 93 H 18 133/65 12/05/18 05:11 95 H 22 Pulse Ox 12/05/18 15:15 97 12/05/18 12:40 90 12/05/18 11:47 94 12/05/18 11:34 94 12/05/18 11:15 90 12/05/18 08:00 12/05/18 07:39 99 12/05/18 05:11 98 Laboratory Results 12/05/18 12/05/18 12/05/18 Range/Units 14:07 05:48 05:48 PT 42.2 H (9.0-12.0) Seconds INR 4.6 H (0.9-1.1) ABG pH 7.37 (7.35-7.45) ABG pCO2 72 H (35-46) mmHg ABG pO2 81 (80-95) mm/Hg ABG HCO3 40 H (19-24) mmol/L ABG O2 Saturation 95.2 H (90-95) % ABG Base Excess 11.1 H (-9-1.8) mEq/L John Test Pos (Pos) Barometric Pressure 729.8 mm/Hg Oxygen Given 4 L Sodium 136 (136-145) mmol/L Potassium 4.0 (3.5-5.1) mmol/L Chloride 93 L (98-107) mmol/L Carbon Dioxide 40 H (21-32) mmol/L Anion Gap 3.0 (3-11) BUN 43 H (7-18) mg/dl Creatinine 0.86 (0.6-1.4) mg/dl Est Cr Clr Drug Dosing 92.6 ml/min Est GFR ( Amer) 94.3 Est GFR (Non-Af Amer) 81.3 BUN/Creatinine Ratio 50.1 H (10-20) Glucose 105 H (70-99) mg/dl Calcium 8.5 (8.5-10.1) mg/dl Medications Administered Current Inpatient Medications Acetaminophen (Tylenol) 325 mg PO Q4 PRN PRN Reason: Pain Stop: 12/28/18 22:44 Al Hydrox/Mg Hydrox/Simethicone (Maalox) 15 ml PO Q4H PRN PRN Reason: Dyspepsia Stop: 12/28/18 22:44 Albuterol (Ventolin Hfa) 2 puffs INH Q4 PRN PRN Reason: Shortness Of Breath Or Wheezin Stop: 12/28/18 22:44 Albuterol (Duoneb) 3 ml NEB QIDR PRN PRN Reason: shortness of breath Stop: 01/01/19 15:59 Aspirin (Ecotrin Ectab) 81 mg PO QPM [facility] Stop: 12/28/18 22:44 Last Admin: 12/04/18 21:33 Dose: 81 mg Documented by: Azathioprine (Imuran) 150 mg PO DAILY [facility] Stop: 12/29/18 08:59 Last Admin: 12/05/18 07:44 Dose: 150 mg Documented by: Cyanocobalamin (Vitamin B-12) 1,000 mcg IM Q14D@0900 [facility] Stop: 01/05/19 08:59 Ferrous Sulfate (Feosol) 325 mg PO TID [facility] Stop: 12/28/18 22:44 Last Admin: 12/05/18 14:04 Dose: 325 mg Documented by: Fexofenadine HCl (Jenny) 180 mg PO DAILY PRN PRN Reason: ALLERGIES Stop: 12/28/18 22:44 Fluticasone Propionate (Flonase) 2 sprays NA DAILY PRN PRN Reason: Nasal Congestion Stop: 12/28/18 22:44 Magnesium Hydroxide (Milk Of Magnesia) 30 ml PO Q12H PRN PRN Reason: Constipation Stop: 12/28/18 22:44 Metoprolol Tartrate (Lopressor) 25 mg PO BID [facility] Stop: 01/03/19 20:59 Last Admin: 12/05/18 07:43 Dose: 25 mg Documented by: Mirabegron (Myrbetriq Er) 25 mg PO BID [facility] Stop: 12/28/18 22:44 Last Admin: 12/05/18 07:45 Dose: 25 mg Documented by: Mometasone Furoate (Asmanex 220mcg) 2 puffs INH BID [facility] Stop: 12/28/18 22:44 Last Admin: 12/05/18 10:20 Dose: 2 puffs Documented by: Nystatin (Mycostatin) 1 appln EXT DAILY PRN PRN Reason: Affected Skin Folds Stop: 12/30/18 00:51 Last Admin: 12/03/18 20:48 Dose: 1 appln Documented by: Polyethylene Glycol (Miralax Powder Packet) 17 gm PO DAILY PRN PRN Reason: Constipation Stop: 12/28/18 22:44 Pyridostigmine [place] (Mestinon) 120 mg PO TID [facility] Stop: 12/28/18 22:44 Last Admin: 12/05/18 14:04 Dose: 120 mg Documented by: Spironolactone (Aldactone) 25 mg PO DAILY [facility] Stop: 01/04/19 08:59 Last Admin: 12/05/18 07:44 Dose: 25 mg Documented by: Tolterodine Tartrate (Detrol La) 4 mg PO BID [facility] Stop: 12/28/18 22:44 Last Admin: 12/05/18 07:45 Dose: 4 mg Documented by: Torsemide (Demadex) 10 mg PO QAM [facility] Stop: 01/05/19 08:59 Warfarin Sodium (Coumadin) 5 mg PO DAILY@1600 [facility] Stop: 12/30/18 15:59 Last Admin: 12/03/18 17:45 Dose: 5 mg Documented by: Zolpidem Tartrate (Ambien) 5 mg PO HS PRN PRN Reason: Sleep Stop: 12/28/18 22:44 PG Care Time/CCT Total # of Minutes Spent Total Time Spent with Patient: Total time spent is greater than 50% in coordination of care (as documented) at patient's floor/unit and/or counseling patient: Resident Activity Tracking Resident Involvement: Resident Care Provided Care Provided: Adult Hospital Medicine
[2018-12-05 17:32] LABS: Base Excess ABG 11.3 mEq/L (-9-1.8); HCO3 ABG 41 mmol/L (19-24); Oxygen Saturation ABG 88.6 % (90-95); PCO2 ABG 74 mmHg (35-46); PO2 ABG 58 mm/Hg (80-95); pH ABG 7.36 (7.35-7.45)
[2018-12-05 17:33] LABS: Allen Test Pos (Pos)
--- NOTE | 2018-12-05 18:44 | XRay Report ---
XR chest 1V portable CLINICAL HISTORY: Pulmonary edema COMPARISON STUDY: 12/02/2018 FINDINGS: The heart remains enlarged. There is continued radiographic evidence of congestive failure with pulmonary edema and bilateral pleural effusions.[ IMPRESSION: Persistent congestive failure, bilateral pleural effusions, and mild pulmonary edema. Electronically signed by: Hernan Ashton M.D. 12/05/2018 6:42 PM
[2018-12-05] MEDS: ASPIRIN 81 MG ECTAB PO SCH (21:51)
--- NOTE | 2018-12-06 07:14 | Family Medicine Progress Note ---
Date of Service December 06, 2018 Assessment & Plan (1) Shortness of breath: 1) Shortness of breath: 83M with a PMHx of atrial flutter s/p ablation (on anticoagulation) and myasthenia gravis here for dyspnea on exertion, LE swelling and weakness over the last 4 weeks. Dyspnea-improving with diruesis -transferred to telemetry capable room at the end of shift yesterday (12/05) -patient seems to be requiring BiPAP -likely secondary to new onset CHF, in exacerbation -weight 160.2 kg on admission, 136.9 kg today (12/06); LE edema persistent but much improved from admission -total of 20.3 liters of fluid has been direused thus far during hospital stay (12/06) -transitioned from IV to PO direutics, Demadex 10mg, daily (as directed by cardiology) -continue Aldactone 25mg, daily -repeat ABG ordered today (12/06) slightly improved from 12/05 with higher pO2 and lower pCO2 -pleural effusions on CXR (11/28), persistent but improved with diruesis (12/02) -continue 20 mEQ KCL supplementation -BMPs daily -Jamil in place - monitor I/Os (2) CHF (congestive heart failure): -BNP elevated to 3991 on admission (11/28) - patient volume overloaded on exam - pleural effusions on CXR (11/28), persistent but improved with diruesis (12/02) -measure daily weights -Jamil in place (I/Os) -[facility] cardiology consulted, guiding direutic dosing -TTE from 11/29 showed evidence of pulmonary HTN, moderate aortic stenosis; repeat study on 12/03 unchanged (3) Atrial fibrillation, persistent: -Rate fluctuation; Metoprolol tartrate 25 mg bid -patient back to telemetry monitoring (12/06) -patient now theraputic on coumadin INR 2.2 -restart coumadin today (5mg) -check daily INRs -[id number] score of 4 -HAS-BLED score of 3 -patient felt to be a poor candidate for a DOAC given his BMI over 40 (dosing becomes difficult) -care management working on placement at [facility] (4) Hematuria: -Urology consulted; patient will have scope as outpatient -no blood visible in Jamil tubing today on evaluation (12/04); appears to be resolving -etiology unknown, mostly likely traumatic from Jamil; scope will rule out cancer (5)Urinary Tract Infection -IV Rocephin discontinued 12/04 in light of Urine Cx showing no growth with fewer than 1,000 colonies/ml -unlikely source of confusion (6) Confusion - improved -patient oriented x 3 today -etiology unknown but unlikely secondary to contaminated urine as culture showed no growth with fewer than 1,000 colonies/ml -ICU exposure is likely contributory -family encouraged to reorient frequently -plan is to discharge patient from hospital as soon as medically ready (7)Hypoalbuminemia -level at 2.5 on 12/03 -IV replacement ordered 12/03 (8) Weakness: -likely secondary to active disease process vs. deconditioning -PT/OT ordered (9) Atrial flutter: -s/p ablation (10) Morbid obesity: -BMI >40 -PT/OT consulted and recommended inpatient rehab -Care management (working to place in [facility] in [place]) (11) Myasthenia gravis: - cont home azathioprine, pyridostigmine -neuro checks, qs (12) Rash: -erythema with overlying scale present in bilateral inguinal folds -appears to be consistent with intertrigo -wound care consulted, appreciate recs (13) Hypertension: -holding home lisinopril as patient was hypotensive; will resume as BP resumes (14) BRIJESH (obstructive sleep apnea): - cont home CPAP (15) Asthma: - cont home asmanex and albuterol (16) Urinary bladder incontinence: -Jamil in place - cont home myrbetriq FEN/GI: heart healthy, low sodium DVT ppx: nothing as patient is supratheraputic on coumadin CODE STATUS: FULL DISPO: PCU (Jacy Lamb is pt's daughter, cell is [phone], and home is [phone]) PT/OT: ordered Supervising Physician Co-Signing Physician Notes I personally examined the patient and verified all cagle points of history and exam, discussed case, and agree with decision making with Dr Gabriel. Generally continues to feel better. Was a little bit sleepy earlier, but totally oriented. ABG reviewed and is improving. Vitals noted, in general he is sleeping but easily awoken no distress. HEENT normocephalic atraumatic mucous members are moist, Lungs still reasonably quiet but clear without any rales rhonchi or wheezes good effort. Acute on chronic CHFdiastolic related to aortic stenosisotherwise known as heart failure with preserved EFcontinue oral diuretic, continue BiPAP support when needed, continue supplemental oxygen. Hypercapnic respiratory failureappears to likely be chronic, some exacerbation related to acid-base status with his volume contraction and metabolic alkalosis. Improving continue supportive care. Subjective At the end of shift last night, patient was put back on BiPAP for hypoxia (ABG); CXR ruled out flash pulmonary edema. He used his CPAP machine overnight. Transferred to telemetry capable floor. Resting comfortably in bed on exam; somnolent but able to be aroused. Family present at bedside. He is eating well again (ate 50% of breakfast). During breakfast nurse transition him from BiPAP to 4L NC, but after about 15 minutes he desatted, so she returned him to BiPAP. Review of Systems Ear, Nose, Mouth, Throat: denies difficulty chewing food, swallowing Respiratory: reports breathing is improved from admission Cardiovascular: + edema; no chest pain and no palpitations Genitourinary: + urinary incontinence (chronic) Physical Exam Constitutional: well developed, well nourished, + obese and cooperative Eyes: no ptosis Respiratory: does not use accessory muscles Auscultation: + diminished lung sounds and + crackles (bilateral lung bases ) breathing is unlabored while on BiPAP; oxygen saturation declines when off BiPAP; air movement seems to be improved Cardiovascular: Rate/Rhythm: regular rate and regular rhythm Heart Sounds: normal S1, normal S2 and + murmur (systolic ejection murmur best appreciated in aortic area; radiates to neck) Vessels: + JVD Extremities: + pedal edema (+2 up to the bilateral knees) Gastrointestinal (Abdomen): Inspection/Auscultation: normal bowel sounds and + significant pannus Percussion/Palpation: abdomen soft; abdomen nontender and no guarding Skin: + rash (intertrigous rash present in bilateral inguinal folds (R & L groin)) Neurologic: awake and + confused somnolent but able to be aroused Psychiatric: Orientation: oriented x 3 and cooperative Results & Data Vital Signs (Past 12 Hours) Vital Signs Temp Pulse Pulse Pulse Pulse Resp BP 12/06/18 07:09 36.3 C L 54 L 20 113/66 12/06/18 05:04 49 L 24 12/06/18 01:57 48 L 22 12/05/18 23:53 37.0 C 94 H 20 12/05/18 22:20 91 H 12/05/18 22:13 89 23 12/05/18 20:41 97 H 12/05/18 20:38 36.7 C 55 L 20 116/68 BP Pulse Ox 12/06/18 07:09 12/06/18 05:04 97 12/06/18 01:57 96 12/05/18 23:53 90/55 L 94 12/05/18 22:20 12/05/18 22:13 97 12/05/18 20:41 12/05/18 20:38 96 Laboratory Results 12/06/18 12/06/18 12/06/18 Range/Units 11:43 07:40 07:27 PT 21.7 H (9.0-12.0) Seconds INR 2.2 H (0.9-1.1) ABG pH 7.44 (7.35-7.45) ABG pCO2 62 H (35-46) mmHg ABG pO2 89 (80-95) mm/Hg ABG HCO3 41 H (19-24) mmol/L ABG O2 Saturation 96.7 H (90-95) % ABG Base Excess 14.2 H (-9-1.8) mEq/L John Test Pos (Pos) Barometric Pressure 732.9 mm/Hg Oxygen Given 30% FiO2 BiPap Sodium 139 (136-145) mmol/L Potassium 4.0 (3.5-5.1) mmol/L Chloride 95 L (98-107) mmol/L Carbon Dioxide 39 H (21-32) mmol/L Anion Gap 5.0 (3-11) BUN 43 H (7-18) mg/dl Creatinine 0.71 (0.6-1.4) mg/dl Est Cr Clr Drug Dosing 112.2 ml/min Est GFR ( Amer) 102.0 Est GFR (Non-Af Amer) 88.0 BUN/Creatinine Ratio 59.9 H (10-20) Glucose 102 H (70-99) mg/dl Calcium 8.6 (8.5-10.1) mg/dl Medications Administered Current Inpatient Medications Acetaminophen (Tylenol) 325 mg PO Q4 PRN PRN Reason: Pain Stop: 12/28/18 22:44 Al Hydrox/Mg Hydrox/Simethicone (Maalox) 15 ml PO Q4H PRN PRN Reason: Dyspepsia Stop: 12/28/18 22:44 Albuterol (Ventolin Hfa) 2 puffs INH Q4 PRN PRN Reason: Shortness Of Breath Or Wheezin Stop: 12/28/18 22:44 Albuterol (Duoneb) 3 ml NEB QIDR PRN PRN Reason: shortness of breath Stop: 01/01/19 15:59 Aspirin (Ecotrin Ectab) 81 mg PO QPM [facility] Stop: 12/28/18 22:44 Last Admin: 12/05/18 21:51 Dose: 81 mg Documented by: Azathioprine (Imuran) 150 mg PO DAILY [facility] Stop: 12/29/18 08:59 Last Admin: 12/06/18 08:06 Dose: 150 mg Documented by: Cyanocobalamin (Vitamin B-12) 1,000 mcg IM Q14D@0900 [facility] Stop: 01/05/19 08:59 Last Admin: 12/06/18 08:06 Dose: 1,000 mcg Documented by: Ferrous Sulfate (Feosol) 325 mg PO TID [facility] Stop: 12/28/18 22:44 Last Admin: 12/06/18 14:05 Dose: 325 mg Documented by: Fexofenadine HCl (Jenny) 180 mg PO DAILY PRN PRN Reason: ALLERGIES Stop: 12/28/18 22:44 Fluticasone Propionate (Flonase) 2 sprays NA DAILY PRN PRN Reason: Nasal Congestion Stop: 12/28/18 22:44 Magnesium Hydroxide (Milk Of Magnesia) 30 ml PO Q12H PRN PRN Reason: Constipation Stop: 12/28/18 22:44 Metoprolol Tartrate (Lopressor) 25 mg PO BID [facility] Stop: 01/03/19 20:59 Last Admin: 12/06/18 08:05 Dose: 25 mg Documented by: Mirabegron (Myrbetriq Er) 25 mg PO BID [facility] Stop: 12/28/18 22:44 Last Admin: 12/06/18 08:06 Dose: 25 mg Documented by: Mometasone Furoate (Asmanex 220mcg) 2 puffs INH BID [facility] Stop: 12/28/18 22:44 Last Admin: 12/06/18 08:06 Dose: 2 puffs Documented by: Nystatin (Mycostatin) 1 appln EXT DAILY PRN PRN Reason: Affected Skin Folds Stop: 12/30/18 00:51 Last Admin: 12/03/18 20:48 Dose: 1 appln Documented by: Polyethylene Glycol (Miralax Powder Packet) 17 gm PO DAILY PRN PRN Reason: Constipation Stop: 12/28/18 22:44 Pyridostigmine [place] (Mestinon) 120 mg PO TID [facility] Stop: 12/28/18 22:44 Last Admin: 12/06/18 14:05 Dose: 120 mg Documented by: Spironolactone (Aldactone) 25 mg PO DAILY [facility] Stop: 01/04/19 08:59 Last Admin: 12/06/18 08:06 Dose: 25 mg Documented by: Tolterodine Tartrate (Detrol La) 4 mg PO BID [facility] Stop: 12/28/18 22:44 Last Admin: 12/06/18 08:06 Dose: 4 mg Documented by: Torsemide (Demadex) 10 mg PO QAM [facility] Stop: 01/05/19 08:59 Last Admin: 12/06/18 08:06 Dose: 10 mg Documented by: Warfarin Sodium (Coumadin) 5 mg PO DAILY@1600 [facility] Stop: 12/30/18 15:59 Last Admin: 12/06/18 17:16 Dose: 5 mg Documented by: Zolpidem Tartrate (Ambien) 5 mg PO HS PRN PRN Reason: Sleep Stop: 12/28/18 22:44 PG Care Time/CCT Total # of Minutes Spent Total Time Spent with Patient: Total time spent is greater than 50% in coor dination of care (as documented) at patient's floor/unit and/or counseling patient: Resident Activity Tracking Resident Involvement: Resident Care Provided Care Provided: Adult Hospital Medicine
[2018-12-06] MEDS: FERROUS SULFATE 325 MG TAB PO SCH ×3 (08:05→20:54)
[2018-12-06] MEDS: METOPROLOL TARTRATE 25 MG TAB PO SCH ×2 (08:05→20:55)
[2018-12-06] MEDS: MOMETASONE FUROATE 14 PUFF/1 INHALER INH SCH ×2 (08:06→20:53)
[2018-12-06] MEDS: MIRABEGRON ER 25 MG TAB PO SCH ×2 (08:06→20:58)
[2018-12-06] MEDS: SPIRONOLACTONE 25 MG TAB PO SCH (08:06)
[2018-12-06] MEDS: TORSEMIDE 10 MG TAB PO SCH (08:06)
[2018-12-06] MEDS: TOLTERODINE TARTRATE LA 4 MG CAPCR PO SCH ×2 (08:06→20:55)
[2018-12-06] MEDS: PYRIDOSTIGMINE BROMIDE 60 MG TAB PO SCH ×3 (08:06→20:57)
[2018-12-06] MEDS: azaTHIOprine 50 MG TAB PO SCH (08:06)
[2018-12-06 08:14] LABS: INR 2.2 (0.9-1.1); Prothrombin Time 21.7 Seconds (9.0-12.0)
[2018-12-06 08:37] LABS: BUN Creatinine Ratio 59.9 (10-20); Calcium 8.6 mg/dl (8.5-10.1); Creatinine Clr Calc Pharmacy 112.2 ml/min
[2018-12-06] MEDS ORDERED: CYANOCOBALAMIN 1000 MCG/ML VIAL IM SCH (09:00)
[2018-12-06 11:47] LABS: Base Excess ABG 14.2 mEq/L (-9-1.8); HCO3 ABG 41 mmol/L (19-24); Oxygen Saturation ABG 96.7 % (90-95); PCO2 ABG 62 mmHg (35-46); PO2 ABG 89 mm/Hg (80-95); pH ABG 7.44 (7.35-7.45)
[2018-12-06 11:49] LABS: Allen Test Pos (Pos)
--- NOTE | 2018-12-06 16:48 | Cardiology Progress Note ---
Date of Service December 06, 2018 Assessment & Plan (1) CHF (congestive heart failure): (2) Atrial fibrillation, persistent: (3) Frequent PVCs: (4) Nonsustained ventricular tachycardia: (5) Myasthenia gravis: Continue daily torsemide and Aldactone. Monitor renal function, electrolytes, and daily weight. Utilize BiPAP as needed. Encourage patient to increase his oral intake to improve nutritional status. PT/OT as tolerated. INR therapeutic today. Coumadin restarted. Continue other medications as previously ordered. Subjective Patient seen and examined at the bedside. 2.5 L diuresis noted over the past 24 hours. IV diuretics discontinued. Resting comfortably on BiPAP. Family present at bedside. Patient denies chest pain or shortness of breath however notes fatigue and lack of strength. Appetite remains poor. Offers no other concerns/complaints this time. Review of Systems Review of Systems: All systems reviewed & are unremarkable except as noted in HPI & below Physical Exam Physical Exam: General: NAD, awake and alert. Chronically ill. Morbid obesity. HEENT: Normocephalic. Atraumatic. Conjunctiva pink, no scleral icterus. Neck: No carotid bruits, the carotid upstrokes are brisk. No JVD. No HJR Heart: Irregular rhythm with ectopy. 2/6 systolic ejection murmur heard best at the right second intercostal space. Heart sounds are distant. PMI is not displaced. No RV heave. Lungs: Diminished breath sounds at the bases bilateral, otherwise clear. Abdomen:Normal bowel sounds. Soft. Nontender. No masses or organomegaly. No abdominal bruits. Extremities: Trace bilateral lower extremity edema. Pulses: radial=2/4. Neuro: Cranial nerves grossly intact. No focal motor deficit. Results & Data Vital Signs (Past 12 Hours) Vital Signs Temp Pulse Pulse Resp BP Pulse Ox 12/06/18 14:45 36.9 C 55 L 20 96/62 L 95 12/06/18 13:47 56 L 22 94 12/06/18 11:09 36.1 C L 60 20 90/54 L 96 12/06/18 08:59 57 L 23 96 12/06/18 08:00 93 12/06/18 07:09 36.3 C L 54 L 20 113/66 12/06/18 07:00 62 24 98 12/06/18 05:04 49 L 24 97 (1) CHF (congestive heart failure) Heart failure chronicity: acute Heart failure type: unspecified Qualified Code(s): I50.9 - Heart failure, unspecified
[2018-12-06] MEDS: WARFARIN SOD 5 MG TAB PO SCH (17:16)
[2018-12-06] MEDS: ASPIRIN 81 MG ECTAB PO SCH (20:54)
[2018-12-07] MEDS: SPIRONOLACTONE 25 MG TAB PO SCH (08:45)
[2018-12-07] MEDS: MOMETASONE FUROATE 14 PUFF/1 INHALER INH SCH ×2 (08:45→20:06)
[2018-12-07] MEDS: TORSEMIDE 10 MG TAB PO SCH (08:46)
[2018-12-07] MEDS: azaTHIOprine 50 MG TAB PO SCH (08:47)
[2018-12-07] MEDS: PYRIDOSTIGMINE BROMIDE 60 MG TAB PO SCH ×3 (08:47→20:06)
[2018-12-07] MEDS: MIRABEGRON ER 25 MG TAB PO SCH ×2 (08:47→20:05)
[2018-12-07] MEDS: FERROUS SULFATE 325 MG TAB PO SCH ×3 (08:48→20:05)
[2018-12-07] MEDS: METOPROLOL TARTRATE 25 MG TAB PO SCH ×2 (08:48→20:03)
[2018-12-07] MEDS: TOLTERODINE TARTRATE LA 4 MG CAPCR PO SCH ×2 (08:48→20:05)
[2018-12-07 08:57] LABS: INR 2.8 (0.9-1.1); Prothrombin Time 26.9 Seconds (9.0-12.0)
[2018-12-07 09:11] LABS: BUN Creatinine Ratio 62.7 (10-20); Calcium 8.5 mg/dl (8.5-10.1); Creatinine Clr Calc Pharmacy 119.1 ml/min; Est GFR (African American) 104.4; Est GFR (Non-African American) 90.1; Potassium 3.8 mmol/L (3.5-5.1)
--- NOTE | 2018-12-07 13:24 | Cardiology Progress Note ---
Date of Service December 07, 2018 Assessment & Plan (1) CHF (congestive heart failure): (2) Atrial fibrillation, persistent: (3) Frequent PVCs: (4) Nonsustained ventricular tachycardia: (5) Myasthenia gravis: Continue daily torsemide and Aldactone. Monitor renal function, electrolytes, and daily weight. Utilize BiPAP as needed and nightly. Encourage patient to increase his oral intake to improve nutritional status. PT/OT as tolerated. I NR therapeutic today. Dose Coumadin for goal INR of 2.0-3.0. Continue other medications as previously ordered. Subjective Patient seen and examined at the bedside. More alert today. Tolerating midday meal. Utilizing BiPAP overnight. Edema improved. Fluid balance negative approximately 1 L over the past 24 hours. Weight stable. Denies chest pain, orthopnea, PND. Review of Systems Review of Systems: All systems reviewed & are unremarkable except as noted in HPI & below Physical Exam Physical Exam: General: NAD, awake and alert. Chronically ill. Fatigued, morbid obesity. HEENT: Normocephalic. Atraumatic. Conjunctiva pink, no scleral icterus. Neck: No carotid bruits, the carotid upstrokes are brisk. No JVD. No HJR Heart: Irregular rhythm with ectopy. 2/6 systolic ejection murmur heard best at the right second intercostal space. Heart sounds are distant. PMI is not displaced. No RV heave. Lungs: Diminished breath sounds at the bases bilateral, otherwise clear. Abdomen: Normal bowel sounds. Soft. Nontender. No masses or organomegaly. No abdominal bruits. Extremities: Trace bilateral lower extremity edema. Pulses: radial=2/4. Neuro: Cranial nerves grossly intact. No focal motor deficit. Results & Data Vital Signs (Past 12 Hours) Vital Signs Temp Pulse Pulse Pulse Resp BP BP 12/07/18 12:00 36.7 C 42 L 20 117/76 12/07/18 07:21 36.8 C 57 L 20 115/68 12/07/18 04:46 82 12/07/18 04:23 36.8 C 75 20 95/61 L 12/07/18 02:10 55 L 21 Pulse Ox 12/07/18 12:00 95 12/07/18 07:21 93 12/07/18 04:46 12/07/18 04:23 97 12/07/18 02:10 94 (1) CHF (congestive heart failure) Heart failure chronicity: acute Heart failure type: unspecified Qualified Code(s): I50.9 - Heart failure, unspecified
--- NOTE | 2018-12-07 13:30 | Family Medicine Progress Note ---
Date of Service December 07, 2018 Assessment & Plan (1) Shortness of breath: 1) Shortness of breath: 83M with a PMHx of atrial flutter s/p ablation (on anticoagulation) and myasthenia gravis here for dyspnea on exertion, LE swelling and weakness over the last 4 weeks. -patient off BiPAP today; on 4L NC; breathing appeared to be slightly labored on AM exam, improved on PM exam -was fully oriented on 12/06, oriented only to person today 12/07 -weight 160.2 kg on admission, 137.3 kg today (12/07); LE edema persistent but much improved from admission -likely secondary to new onset CHF, in exacerbation -greater than 20.3 liters of fluid has been direused thus far during hospital stay (12/07) -transitioned from IV to PO direutics, Demadex 10mg, daily (as directed by cardiology) -continue Aldactone 25mg, daily -repeat ABG ordered today (12/06) slightly improved from 12/05 with higher pO2 and lower pCO2 -pleural effusions on CXR (11/28), persistent but improved with diruesis (12/02) -continue 20 mEQ KCL supplementation -BMPs daily -Jamil in place - monitor I/Os (2) CHF (congestive heart failure): -BNP elevated to 3991 on admission (11/28) - patient volume overloaded on exam - pleural effusions on CXR (11/28), persistent but improved with diruesis (12/02) -measure daily weights -Jamil in place (I/Os) -[facility] cardiology consulted, guiding direutic dosing -TTE from 11/29 showed evidence of pulmonary HTN, moderate aortic stenosis; repeat study on 12/03 unchanged (3) Atrial fibrillation, persistent: -Rate fluctuation; Metoprolol tartrate 25 mg bid -patient back to telemetry monitoring (12/06) -patient now theraputic on coumadin INR 2.2 -restart coumadin today (5mg) -check daily INRs -[id number] score of 4 -HAS-BLED score of 3 -patient felt to be a poor candidate for a DOAC given his BMI over 40 (dosing becomes difficult) -care management working on placement at [facility] (4) Somnolence -persistent, but easily arousable -etiology general tiredness vs. chemically induced (secondary to carbon dioxide retention) -ABG on 07/09 improved from 12/05 (higher oxygenation and low carbon dioxide retention) (5) Hematuria: -Urology consulted; patient will have scope as outpatient -no blood visible in Jamil tubing today on evaluation (12/04); appears to be resolving -etiology unknown, mostly likely traumatic from Jamil; scope will rule out cancer (6)Urinary Tract Infection -IV Rocephin discontinued 12/04 in light of Urine Cx showing no growth with fewer than 1,000 colonies/ml -unlikely source of confusion (7) Confusion - improved -patient oriented x 3 today -etiology unknown but unlikely secondary to contaminated urine as culture showed no growth with fewer than 1,000 colonies/ml -ICU exposure is likely contributory -family encouraged to reorient frequently -plan is to discharge patient from hospital as soon as medically ready (8)Hypoalbuminemia -level at 2.5 on 12/03 -IV replacement ordered 12/03 (9) Weakness: -likely secondary to active disease process vs. deconditioning -PT/OT ordered (10) Atrial flutter: -s/p ablation (11) Morbid obesity: -BMI >40 -PT/OT consulted and recommended inpatient rehab -Care management (working to place in [facility] in [place]) (12) Myasthenia gravis: - cont home azathioprine, pyridostigmine -neuro checks, qs (13) Rash: -erythema with overlying scale present in bilateral inguinal folds -appears to be consistent with intertrigo -wound care consulted, appreciate recs (14) Hypertension: -holding home lisinopril as patient was hypotensive; will resume as BP resumes (15) BRIJESH (obstructive sleep apnea): - cont home CPAP (16) Asthma: - cont home asmanex and albuterol (17) Urinary bladder incontinence: -Jamil in place - cont home myrbetriq FEN/GI: heart healthy, low sodium DVT ppx: patient is theraputic on coumadin CODE STATUS: FULL DISPO: PCU (Jacy Lamb is pt's daughter, cell is [phone], and home is [phone]) PT/OT: ordered (2) Somnolence: Supervising Physician Co-Signing Physician Notes I personally examined the patient and verified all cagle points of history and exam, discussed case, and agree with decision making with Dr Gabriel. feeling a good bit better, off bipap and eating fairly well. no new complaints today Vitals noted, in general awake and alert no distress. HEENT normocephalic atraumatic mucous members are moist, breathing unlabored no accessory muscle use good effort Acute on chronic CHFdiastolic related to aortic stenosisotherwise known as heart failure with preserved EFcontinue oral diuretic, continue BiPAP support when when asleep hopefully can keep on just NC O2 when awake Hypercapnic respiratory failureappears to likely be chronic, some exacerbation related to acid-base status with his volume contraction and metabolic alkalosis. Improving continue supportive care, clinically doing better today. Subjective Patient is resting comfortably at bedside; he denies any trouble breathing. He says he ate most of his breakfast, which appears to be consistent with tray remnants. Review of Systems Ear, Nose, Mouth, Throat: denies difficulty chewing food, swallowing Respiratory: reports breathing is improved from admission Cardiovascular: + edema; no chest pain and no palpitations Genitourinary: + urinary incontinence (chronic) Physical Exam Constitutional: well developed, well nourished, + obese and cooperative Respiratory: + uses accessory muscles Auscultation: + diminished lung sounds and + crackles (bilateral lung bases ) on repeat exam patient was not using accessory muscles Cardiovascular: Rate/Rhythm: regular rate and regular rhythm Heart Sounds: normal S1, normal S2 and + murmur (systolic ejection murmur best appreciated in aortic area; radiates to neck) Vessels: + JVD Extremities: + pedal edema (+2 up to the bilateral knees) Gastrointestinal (Abdomen): Inspection/Auscultation: normal bowel sounds and + significant pannus Percussion/Palpation: abdomen soft; abdomen nontender and no guarding Skin: + rash (intertrigous rash present in bilateral inguinal folds (R & L groin)) Neurologic: awake and + confused Psychiatric: Orientation: oriented to person and cooperative; + not oriented to place and + not oriented to time Genitourinary: Jamil catheter in place draining pale yellow colored urine with a hint of pink; no visible clots Results & Data Vital Signs (Past 12 Hours) Vital Signs Temp Pulse Pulse Pulse Resp BP BP 12/07/18 12:00 36.7 C 42 L 20 117/76 12/07/18 07:21 36.8 C 57 L 20 115/68 12/07/18 04:46 82 12/07/18 04:23 36.8 C 75 20 95/61 L 12/07/18 02:10 55 L 21 Pulse Ox 12/07/18 12:00 95 12/07/18 07:21 93 12/07/18 04:46 12/07/18 04:23 97 12/07/18 02:10 94 Laboratory Results 12/07/18 12/07/18 Range/Units 07:55 07:55 PT 26.9 H (9.0-12.0) Seconds INR 2.8 H (0.9-1.1) Sodium 140 (136-145) mmol/L Potassium 3.8 (3.5-5.1) mmol/L Chloride 96 L (98-107) mmol/L Carbon Dioxide 41 H* (21-32) mmol/L Anion Gap 3.0 (3-11) BUN 42 H (7-18) mg/dl Creatinine 0.67 (0.6-1.4) mg/dl Est Cr Clr Drug Dosing 119.1 ml/min Est GFR ( Amer) 104.4 Est GFR (Non-Af Amer) 90.1 BUN/Creatinine Ratio 62.7 H (10-20) Glucose 105 H (70-99) mg/dl Calcium 8.5 (8.5-10.1) mg/dl Medications Administered Current Inpatient Medications Acetaminophen (Tylenol) 325 mg PO Q4 PRN PRN Reason: Pain Stop: 12/28/18 22:44 Al Hydrox/Mg Hydrox/Simethicone (Maalox) 15 ml PO Q4H PRN PRN Reason: Dyspepsia Stop: 12/28/18 22:44 Albuterol (Ventolin Hfa) 2 puffs INH Q4 PRN PRN Reason: Shortness Of Breath Or Wheezin Stop: 12/28/18 22:44 Albuterol (Duoneb) 3 ml NEB QIDR PRN PRN Reason: shortness of breath Stop: 01/01/19 15:59 Aspirin (Ecotrin Ectab) 81 mg PO QPM [facility]ACY Stop: 12/28/18 22:44 Last Admin: 12/06/18 20:54 Dose: 81 mg Documented by: Azathioprine (Imuran) 150 mg PO DAILY [facility] Stop: 12/29/18 08:59 Last Admin: 12/07/18 08:47 Dose: 150 mg Documented by: Cyanocobalamin (Vitamin B-12) 1,000 mcg IM Q14D@0900 [facility] Stop: 01/05/19 08:59 Last Admin: 12/06/18 08:06 Dose: 1,000 mcg Documented by: Ferrous Sulfate (Feosol) 325 mg PO TID [facility] Stop: 12/28/18 22:44 Last Admin: 12/07/18 14:08 Dose: 325 mg Documented by: Fexofenadine HCl (Jenny) 180 mg PO DAILY PRN PRN Reason: ALLERGIES Stop: 12/28/18 22:44 Fluticasone Propionate (Flonase) 2 sprays NA DAILY PRN PRN Reason: Nasal Congestion Stop: 12/28/18 22:44 Magnesium Hydroxide (Milk Of Magnesia) 30 ml PO Q12H PRN PRN Reason: Constipation Stop: 12/28/18 22:44 Metoprolol Tartrate (Lopressor) 25 mg PO BID [facility] Stop: 01/03/19 20:59 Last Admin: 12/07/18 08:48 Dose: Not Given Documented by: Mirabegron (Myrbetriq Er) 25 mg PO BID [facility] Stop: 12/28/18 22:44 Last Admin: 12/07/18 08:47 Dose: 25 mg Documented by: Mometasone Furoate (Asmanex 220mcg) 2 puffs INH BID [facility] Stop: 12/28/18 22:44 Last Admin: 12/07/18 08:45 Dose: 2 puffs Documented by: Nystatin (Mycostatin) 1 appln EXT DAILY PRN PRN Reason: Affected Skin Folds Stop: 12/30/18 00:51 Last Admin: 12/03/18 20:48 Dose: 1 appln Documented by: Polyethylene Glycol (Miralax Powder Packet) 17 gm PO DAILY PRN PRN Reason: Constipation Stop: 12/28/18 22:44 Pyridostigmine [place] (Mestinon) 120 mg PO TID [facility] Stop: 12/28/18 22:44 Last Admin: 12/07/18 14:08 Dose: 120 mg Documented by: Spironolactone (Aldactone) 25 mg PO DAILY [facility] Stop: 01/04/19 08:59 Last Admin: 12/07/18 08:45 Dose: 25 mg Documented by: Tolterodine Tartrate (Detrol La) 4 mg PO BID [facility] Stop: 12/28/18 22:44 Last Admin: 12/07/18 08:48 Dose: 4 mg Documented by: Torsemide (Demadex) 10 mg PO QAM [facility] Stop: 01/05/19 08:59 Last Admin: 12/07/18 08:46 Dose: 10 mg Documented by: Warfarin Sodium (Coumadin) 5 mg PO DAILY@1600 [facility] Stop: 12/30/18 15:59 Last Admin: 12/07/18 15:48 Dose: 5 mg Documented by: Zolpidem Tartrate (Ambien) 5 mg PO HS PRN PRN Reason: Sleep Stop: 12/28/18 22:44 PG Care Time/CCT Total # of Minutes Spent Total Time Spent with Patient: Total time spent is greater than 50% in coordination of care (as documented) at patient's floor/unit and/or counseling patient: Resident Activity Tracking Resident Involvement: Resident Care Provided Care Provided: Adult Hospital Medicine
[2018-12-07] MEDS: WARFARIN SOD 5 MG TAB PO SCH (15:48)
[2018-12-07] MEDS: ASPIRIN 81 MG ECTAB PO SCH (20:05)
[2018-12-08 06:16] LABS: INR 3.2 (0.9-1.1); Prothrombin Time 30.4 Seconds (9.0-12.0)
[2018-12-08 07:09] LABS: BUN Creatinine Ratio 57.7 (10-20); Calcium 8.3 mg/dl (8.5-10.1); Creatinine Clr Calc Pharmacy 114.2 ml/min; Est GFR (African American) 102.6; Est GFR (Non-African American) 88.5; Potassium 4.1 mmol/L (3.5-5.1)
[2018-12-08] MEDS: FERROUS SULFATE 325 MG TAB PO SCH ×2 (08:04→14:47)
[2018-12-08] MEDS: TOLTERODINE TARTRATE LA 4 MG CAPCR PO SCH (08:05)
[2018-12-08] MEDS: MIRABEGRON ER 25 MG TAB PO SCH (08:05)
[2018-12-08] MEDS: NYSTATIN POWDER 15GM BTL EXT PRN (08:05)
[2018-12-08] MEDS: TORSEMIDE 10 MG TAB PO SCH (08:05)
[2018-12-08] MEDS: SPIRONOLACTONE 25 MG TAB PO SCH (08:05)
[2018-12-08] MEDS: azaTHIOprine 50 MG TAB PO SCH (08:06)
[2018-12-08] MEDS: MOMETASONE FUROATE 14 PUFF/1 INHALER INH SCH (08:06)
[2018-12-08] MEDS: PYRIDOSTIGMINE BROMIDE 60 MG TAB PO SCH ×2 (08:06→14:47)
[2018-12-08] MEDS: METOPROLOL TARTRATE 25 MG TAB PO SCH (08:07)
[2018-12-08] MEDS ORDERED: POLYETHYLENE (MIRALAX) 17 GM PACK PO STA (09:18)
--- NOTE | 2018-12-08 10:38 | Discharge Summary ---
Date of Service December 08, 2018 Admission HPI Per Admitting Provider This is an 83-year-old male who presents to the ER by private vehicle accompanied by his daughters due to progressive shortness of breath, progressive weakness and intermittent confusion over the last 3 to 4 weeks. Patient lives alone, but his daughter lives next door. She provides history that over the last 3 to 4 weeks he has declined functionally. She states he has not wanted to get up out of bed or walk for any length of time, normally ambulates with a mobile walker but was very resistant to walking any due to decreased energy. He is been sleeping more and has had decreased appetite which is not like him. He was seen in his PCP office and basic blood work was done given his difficulty breathing and cough and per report no abnormalities were found. Daughter also states that his short-term memory has become progressively worse in this time as well. Denies any overt illness or fevers. Does have a history of atrial fibrillation and apparently has undergone ablation and follows with Dr. Wiley but has not seen him in about 2 years. No known history of congestive heart failure, states his last echocardiogram was probably 2 years ago. He is followed by Dr. Tang his neurologist for medical management of his myasthenia gravis medications, and was just seen within the last 2 weeks and his medication instructions were clarified. Daughter does have concerned that the patient is not taking his medications as prescribed possibly due to increasing confusion. She wonders if he has had mini strokes. Despite his history of A. fib this patient is not on any anticoagulation that I can see, he does regularly check his pulse and blood pressure at home and these have been normal. Of note, he does endorse swelling in his legs that is relatively new for him and that has progressively gotten worse in the last 3 to 4 weeks. He also endorses a semi-productive cough for which she has been taking his albuterol inhaler as needed. ED course: 40 mg IV Lasix (patient is Lasix jessica) with good output, Vann placed, chest x-ray with evidence of fluid overload and possible consolidation. Afebrile, not hypoxic, not hypotensive or hypertensive, pulse is under 100 but appears irregular on the monitor and appears to have PVCs on the EKG. Labs are notable for absence of leukocytosis, absence of anemia, mildly elevated INR 1.2, venous blood gas without significant abnormalities, BMP notable for slightly elevated bilirubin 1.5, negative for transaminitis or elevated troponin, BNP nearly 4000. NIF test performed by RT normal. Admission Exam Per Admitting Provider Vitals noted and within normal limits GENERAL: Awake, alert to person, place, and time, nontoxic-appearing, in no distress. HENT: Normocephalic, atraumatic. . Mucus membranes appear moist. EYES: Normal conjunctiva. Sclera non-icteric. EOMI. NECK: Supple. Full range of motion. RESPIRATORY: Distant breath sounds bilaterally, no overt wheezing or rhonchi. Normal work of breathing. CARDIAC: Irregular rate, appears to have PVCs on telemetry. Extremities warm and well perfused, pulses are difficult to ascertain in the lower extremities given the extent of swelling; . LOWER EXTREMITIES: Inspection of calves reveal equal size bilaterally. They are non-tender. 3+ edema to the knee. No discoloration. Evidence of venous stasis given lack of hair and sheen to the skin NEURO: No gross focal motor deficits noted. Sensation in tact. CN II-XII in tact. All 4 extremities move symmetrically, strength equal in all 4 extremities. SKIN: Rash not present. No jaundice noted. PSYCH: Appropriate mood and affect. Cooperative. Principal Diagnosis new onset CHF, in exacerbation Discharge Exam Constitutional well developed, well nourished, + obese and cooperative Respiratory normal respiratory effort; no labored breathing Auscultation: + diminished lung sounds, + crackles (no crackles appreciated on day of discharge, although exam was limited ) and + wheezes (expiratory) Cardiovascular Rate/Rhythm: regular rate and regular rhythm Heart Sounds: normal S1, normal S2 and + murmur (systolic ejection murmur best appreciated in aortic area; radiates to neck) Extremities: + pedal edema (+2 up to the bilateral knees) Gastrointestinal (Abdomen) Inspection/Auscultation: normal bowel sounds and + significant pannus Percussion/Palpation: abdomen soft; abdomen nontender and no guarding Skin + rash (intertrigous rash present in bilateral inguinal folds (R & L groin)) Neurologic awake and + confused Psychiatric Orientation: oriented to person and cooperative; + not oriented to place and + not oriented to time Discharge Data Allergies Allergy/AdvReac Type Severity Reaction Status Date / Time vancomycin Allergy Severe Hives Verified 11/28/18 16:49 adhesive Allergy Unknown . Verified 07/18/09 19:29 latex Allergy Unknown blisters Verified 09/14/16 12:41 and swelling morphine Allergy Rash Verified 11/28/18 16:49 Influenza Virus Vaccines AdvReac Severe DEATHLY Verified 11/28/18 16:49 SICK Consultations 11/28/18 18:12 ED Decision to Admit Stat 11/28/18 22:45 Consult Case Management - Discharge Planning Routine 11/29/18 13:39 Consult Cardiology Routine 12/01/18 19:45 Consult Urology Routine 12/02/18 22:22 Consult Case Management - Discharge Planning Routine Consult Certified Nurse Operating Room Routine Hospital Course (1) Shortness of breath: Mr. Benjamin is an 83M who was admitted to [facility] on 11/28/18 to 12/08/18 for dyspnea on exertion, LE swelling and weakness of 4 weeks duration. He has a PMHx significant for myastenia gravis (on mestinon and azathioprine) and atrial flutter s/p ablation. Mr. Benjamin's SOB was likely secondary to new onset CHF with preserved ejection fraction, in exacerbation. He did decompensate during his stay and was transferred the ICU for one night, but never required a dobutamine drip or intubation. Etiology of this decompensation was likely over- direusis. Pleural effusions visualized on CXR (11/28), persistent but improved with diruesis (12/02). His weight was 160.2 kg on admission, 137.8 kg on day of discharge, which we will consider his new baseline (12/08). LE edema persistent but much improved from admission. Greater than 21 liters of fluid has been direused during hospital stay. He was treated with IV lasix during hospitalization, but discharged on Demadex 10mg, daily and Aldactone 25mg, daily. A vann catheter was placed during stay in order to measure I/Os, but was removed on day of discharge. He was discharged to [facility] for inpatient rehab. (2) CHF (congestive heart failure) with preserved EF (55-60%) -BNP elevated to 3991 on admission (11/28) - patient volume overloaded on exam - pleural effusions on CXR (11/28), persistent but improved with diruesis (12/02) -TTE from 11/29 showed evidence of pulmonary HTN, moderate aortic stenosis; repeat study on 12/03 unchanged (3) Atrial fibrillation, persistent: -Rate fluctuation; Metoprolol tartrate 25 mg bid -initiated on anticoagulation (coumadin) -INR on day of discharge 3.2 (12/08) -coumadin dose (3mg); will need routine anticoagulation care -[id number] score of 4 -HAS-BLED score of 3 -patient felt to be a poor candidate for a DOAC given his BMI over 40 (dosing becomes difficult) (4) Somnolence -persistent, but easily arousable -etiology general tiredness vs. chemically induced (secondary to carbon dioxide retention) (5) Hematuria: -Urology consulted; patient will have scope as outpatient -no blood visible in Vann tubing today on evaluation (12/04); appears to be resolving -etiology unknown, mostly likely traumatic from Vann; scope will rule out cancer (6)Urinary Tract Infection -IV Rocephin discontinued 12/04 in light of Urine Cx showing no growth with fewer than 1,000 colonies/ml -unlikely source of confusion (7) Confusion -patient oriented x 1 today (only to self) although this fluctuates throughout the day -etiology unknown but unlikely secondary to contaminated urine as culture showed no growth with fewer than 1,000 colonies/ml -ICU exposure is likely contributory -family encouraged to reorient frequently (8)Hypoalbuminemia -level at 2.5 on 12/03 -IV replacement ordered 12/03 (9) Weakness: -likely secondary to active disease process vs. deconditioning -PT/OT ordered (10) Atrial flutter: -s/p ablation (11) Morbid obesity: -BMI >40 -PT/OT consulted and recommended inpatient rehab (12) Myasthenia gravis: - cont home azathioprine, pyridostigmine -neuro checks, qs (13) Rash: -erythema with overlying scale present in bilateral inguinal folds -appears to be consistent with intertrigo -continue nystatin -wound care consulted (14) Hypertension: -held home lisinopril as patient was hypotensive -resume in rehab if BP allows (15) BRIJESH (obstructive sleep apnea): - cont home CPAP at night (16) Asthma: - cont home asmanex and albuterol (17) Urinary bladder incontinence: - cont home myrbetriq -cont Botox shots Total Time Total Time Spent Total Time Spent (In Minutes): less than 30 minutes Discharge Plan Discharge Items Patient Disposition: Transfer Inpatient Rehab Fac Reason For Visit: SOB, FLUID OVERLOAD Discharge Diagnosis: New onset CHF with preserved ejection fraction, in exacerbation Discharge Goals: Decrease discomfort and Learn about illness Activity: Resume your previous activity Activity Comment: as tolerated Non-emergency contact: Primary Care Provider Call non-emergency contact if: you have any medication questions Follow-up/Referrals: Costa Iverson MD [Primary Care Provider] - Diet: Heart Healthy and Low Sodium (2gm) Diet Comment: please restrict sodium to 1500mg per day Addtl Provider Instructions: You were hospitalized at [facility] from 11/28/18 - 12/08/18 for shortness of breath found to be secondary to new onset congestive heart failure that was in exacerbation. CHF: -measure daily weights -weight on day of discharge will be new patient's baseline (137.8 kg) -daily lung exams to assess for pulmonary edema -BMPs every 2-3 days; electrolytes stable on day of discharge (12-08-18) -continue Torosemide, 10mg, PO, daily and Aldactone, 25mg, PO, daily for direusis -continue metoprolol 25mg, PO, bid -continue lisinopril 5mg, Po, daily ; hold in setting of hypotension -vann catheter was used to measure I/Os during hospital stay was removed on day of discharge (12-08-18) out of concern for infection risk with prolonged use Hypoxia -continue use of CPAP at night -prior to hospitalization, patient required no baseline supplemental oxygen -he required BiPAP at times throughout hospitalization, interchanging with supplemental O2 (2-4L) via nasal cannula -please continue supplemental O2 as needed (including NC and BiPAP) Atrial Fibrillation with RVR -patient was initiated on anticoagulation with warfarin during hospitalization -please measure INRs at least every 2-3 days -INR on day of discharge was slightly above goal at 3.2 -was initiated on warfain dose of 5mg. We will reduce dose to 3 mg on day of discharge -please re-evaluation patient's fall risk to assess [facility] use of anticoagulation -[id number] score of 4 -HAS-BLED score of 3 Deconditioning -please work on PT and mobility Prescriptions: New torsemide 10 mg Tablet 10 mg PO QAM 60 Days Qty: 60 RF: 0 spironolactone 25 mg Tablet 25 mg PO DAILY 60 Days Qty: 60 RF: 0 nystatin [Nystop] 100,000 unit/gram Powder 1 applic EXT DAILY 14 Days Qty: 14 RF: 1 metoprolol tartrate 25 mg Tablet 25 mg PO BID 60 Days Qty: 120 RF: 0 warfarin [Coumadin] 3 mg tablet 3 mg PO DAILY Qty: 7 RF: 0 Continued multivitamin Tablet 4 - 5 tab PO DAILY RF: 0 amoxicillin 500 mg Capsule 2,000 mg PO UD PRN (Reason: BEFORE DENTIST) RF: 0 acetaminophen [Tylenol] 325 mg Tablet 325 mg PO Q4 PRN (Reason: Pain) RF: 0 tolterodine [Detrol LA] 4 mg capsule,extended release 24hr 4 mg PO BID RF: 0 azathioprine [Imuran] 50 mg tablet 150 mg PO DAILY RF: 0 fexofenadine [Jenny Allergy] 180 mg Tablet 180 mg PO DAILY PRN (Reason: ALLERGIES) RF: 0 aspirin [Aspir-81] 81 mg Tablet,Delayed Release (Dr/Ec) 81 mg PO QPM RF: 0 cyanocobalamin (vitamin B-12) 1,000 mcg/mL solution 1,000 mcg IM .[id number] RF: 0 ferrous sulfate [iron] 325 mg (65 mg iron) Tablet 325 mg PO TID RF: 0 pyridostigmine bromide [Mestinon] 60 mg tablet 120 mg PO TID RF: 0 lisinopril [Zestril] 5 mg tablet 5 mg PO DAILY RF: 0 zolpidem [Ambien] 5 mg tablet 5 mg PO HS PRN (Reason: Sleep) RF: 0 albuterol sulfate 90 mcg/actuation HFA aerosol inhaler 2 puff inhalation Q4 PRN (Reason: Shortness Of Breath Or Wheezing) RF: 0 fluticasone propionate [Flonase Allergy Relief] 50 mcg/actuation [place],Suspension 2 spray INTRANASAL DAILY PRN (Reason: Nasal Congestion) RF: 0 escitalopram oxalate [Lexapro] 5 mg tablet 5 mg PO DAILY RF: 0 Asmanex Twisthaler 220 mcg (30 doses) Aerosol Powdr Breath Activated 2 inh INHALATION BID RF: 0 Myrbetriq 25 mg tablet extended release 24 hr 25 mg PO BID RF: 0 Stand-Alone Forms: [facility] Discharge Orders: Discharge Order (Routine); Ordered 12/08/18 Ordered By: Cherise Gabriel Skilled Items Patient informed of condition?: Yes DNR: No Discharge Level of Care: Acute rehab Communicable Disease: No Discharge Prognosis: Improving Admission Data Admit Date/Time: 11/28/18 21:07 Attending Provider: Vince Wilson Admit Provider: Natalie Pickett Primary Care Provider: Costa Iverson Other Providers: Soy Yu ; Sherrie Salazar ; Jourdan Grant ; Greg Baker. II ; Wilfrido Adams Service: Telemetry Medical Other Interventions: Discharge Summary Assessment (RN) Last Done: 12/08/18 13:05 DC Date/Time DO NOT enter until pt leaves facility: 12/08/18 16:24 Supervising Physician Co-Signing Physician Notes I personally examined the patient and verified all cagle points of history and exam, discussed case, and agree with decision making with Dr Gabriel. Overall feeling better. Main complaint is leg stiffness from not moving. Breathing is stable. Eating okay. Vitals noted, in general awake and alert no distress. HEENT normocephalic atraumatic mucous members are moist, breathing unlabored no accessory muscle use good effort Acute on chronic CHFdiastolic related to aortic stenosisotherwise known as heart failure with preserved EFcontinue oral diuretic, continue BiPAP support when when asleep, or possibly when he is very fatigued, continue nasal cannula oxygen when awake, weaning as tolerated. Continue torsemide as above noted, daily weights, daily evaluation of his respiratory status, basic metabolic panel every 2 to 3 days at the most. A. fibfollow INR closely. Hypercapnic respiratory failureappears to likely be chronic, some exacerbation related to acid-base status with his volume contraction and metabolic alkalosis. Continue BiPAP when he is asleep or when very fatigued. Resident Activity Tracking Resident Involvement: Resident Care Provided Care Provided: Adult Hospital Medicine
[2018-12-08] MEDS ORDERED: ONDANSETRON 4 MG TAB PO PRN (10:45)
--- NOTE | 2018-12-08 13:05 | Cardiology Progress Note ---
Date of Service December 08, 2018 Assessment & Plan (1) CHF (congestive heart failure): (2) Atrial fibrillation, persistent: (3) Frequent PVCs: (4) Nonsustained ventricular tachycardia: (5) Myasthenia gravis: Continue daily torsemide and Aldactone. Monitor renal function, electrolytes, and daily weight. Utilize BiPAP as needed and nightly. Encourage patient to increase his oral intake to improve nutritional status. PT/OT as tolerated. INR mildly supratherapeutic today. Dose Coumadin for goal INR of 2.0-3.0. Continue other medications as previously ordered. Outpatient cardiology follow- up in 2 to 4 weeks. Cardiology will sign off at this time. Please call with questions. Subjective Patient seen and examined at the bedside. More alert today. Denies chest pain or shortness of breath. Wearing BiPAP at night. INR mildly supratherapeutic today. Fluid balance negative approximately 925 cc. Weight unchanged. Review of Systems Review of Systems: All systems reviewed & are unremarkable except as noted in HPI & below Physical Exam Physical Exam: General: NAD, awake and alert. Chronically ill. Fatigued, morbid obesity. HEENT: Normocephalic. Atraumatic. Conjunctiva pink, no scleral icterus. Neck: No carotid bruits, the carotid upstrokes are brisk. No JVD. No HJR Heart: Irregular rhythm with ectopy. 2/6 systolic ejection murmur heard best at the right second intercostal space. Heart sounds are distant. PMI is not displaced. No RV heave. Lungs: Diminished breath sounds at the bases bilateral, otherwise clear. Abdomen: Normal bowel sounds. Soft. Nontender. No masses or organomegaly. No abdominal bruits. Extremities: Trace bilateral lower extremity edema. Pulses: radial=2/4. Neuro: Cranial nerves grossly intact. No focal motor deficit. Results & Data Vital Signs (Past 12 Hours) Vital Signs Temp Pulse Pulse Resp BP BP Pulse Ox 12/08/18 11:25 36.9 C 47 L 18 118/67 90 12/08/18 07:32 85 12/08/18 07:30 36.6 C 49 L 18 101/65 99 12/08/18 04:00 36.6 C 72 20 104/66 94 (1) CHF (congestive heart failure) Heart failure chronicity: acute Heart failure type: unspecified Qualified Code(s): I50.9 - Heart failure, unspecified
[2018-12-08] MEDS: WARFARIN SOD 5 MG TAB PO SCH (15:11)
== END 2018-12-08 16:24 | DRG 56 ==
LOC: ED 15:11 → 2S 21:07 → SUATTDRO 21:07 → 2S 21:35 → 1E 12-02 22:22 → 2E 12-04 10:55 → 3N 12-05 12:25 → 2W 12-05 18:17 → 2N 12-07 08:35

== ENCOUNTER 2018-12-09 09:20 | Inpatient (IN) ==
[2018-12-09] MEDS ORDERED: ALBUT/IPRATROP 3MG/0.5MG NEB 3 ML VIAL NEB ONE (09:58)
[2018-12-09 10:35] LABS: Basophils # (auto) 0.02 K/uL (0-0.2); Basophils % (auto) 0.3 %; Eosinophils # (auto) 0.03 K/uL (0-0.5); Eosinophils % (auto) 0.4 %; Hematocrit (blood only) 47.5 % (42-52); Hemoglobin 14.9 g/dL (14.0-18.0); Immature Granulocytes # (auto) 0.02 K/uL (0.00-0.02); Immature Granulocytes % (auto) 0.3 %; Lymphocytes # (auto) 0.48 K/uL (1.2-3.4); Lymphocytes % (auto) 7.2 %; Mean Corpuscular Hgb Conc 31.4 g/dL (32-36); Mean Corpuscular Volume 99.6 fL (80-100); Mean Platelet Volume 9.8 fL (7.4-10.4); Monocytes # (auto) 0.72 K/uL (0.11-0.59); Monocytes % (auto) 10.7 %; Neutrophils # (auto) 5.43 K/uL (1.4-6.5); Neutrophils % (auto) 81.1 %; Platelet Count 201 K/uL (130-400); RDW Coefficient of Variation 16.5 % (11.5-14.5); RDW Standard Deviation 60.1 fL (36.4-46.3); Red Blood Count 4.77 M/uL (4.7-6.1)
[2018-12-09] MEDS ORDERED: FUROSEMIDE 40 MG in SYRINGE 0 ML IV ONE (10:39)
[2018-12-09 10:42] LABS: iSTAT Blood Urea Nitrogen 42 mg/dl (7-18); iSTAT Carbon Dioxide > 40 mEq/l (24-31); iSTAT Chloride 89 mEq/L (101-112); iSTAT Creatinine 1.1 mg/dl (0.6-1.3); iSTAT Glucose 116 mg/dl (70-99); iSTAT Hematocrit 48 % (42-52); iSTAT Hemoglobin 16.3 g/dl (14.0-18.0); iSTAT Potassium 4.3 mEq/L (3.3-5.0); iSTAT Sodium 138 mEq/L (135-144)
--- NOTE | 2018-12-09 10:46 | XRay Report ---
SINGLE VIEW CHEST CLINICAL HISTORY: Atypical chest pain. FINDINGS: 2 AP, portable, upright chest radiographs are compared to study dated 12/05/2018 and correla kurt with chest CT dated 12/08/2012. The examination is degraded by portable technique and patient rota tion. The heart is markedly enlarged and there is atherosclerotic calcification of the thoracic aort a. There is pulmonary vascular congestion with evidence of interstitial edema. Layering pleural effus ions are identified with bibasilar consolidation. No pneumothorax is seen. The skeletal structures ar e osteopenic. The bony thorax is grossly intact. Advanced degenerative change is noted in the right s houlder and thoracic spine. There is chronic posttraumatic deformity of the distal right clavicle. IMPRESSION: 1. Cardiomegaly with evidence of congestive failure and interstitial edema. 2. There are layering pleural effusions with bibasilar consolidation. Electronically signed by: Gabriel Gabriel M.D. 12/09/2018 10:45 AM
[2018-12-09 10:53] LABS: Prothrombin Time 51.5 Seconds (9.0-12.0)
[2018-12-09 11:13] LABS: Albumin Globulin Ratio 0.8 (0.9-2); Albumin Level 2.8 gm/dl (3.4-5.0); BUN Creatinine Ratio 47.1 (10-20); Bilirubin,Total 0.9 mg/dl (0.2-1); Calcium 8.5 mg/dl (8.5-10.1); Creatine Kinase MB 1.3 ng/ml (0.5-3.6); Est GFR (African American) 94.3; Est GFR (Non-African American) 81.3; Globulin 3.6 gm/dl (2.5-4.0); Potassium 4.3 mmol/L (3.5-5.1); Total Protein 6.4 gm/dl (6.4-8.2); Troponin I 0.123 ng/ml (0-0.045)
[2018-12-09 11:14] LABS: INR 5.7 (0.9-1.1)
[2018-12-09] MEDS ORDERED: FUROSEMIDE 40 MG/4 ML VIAL IV ONE (11:28)
[2018-12-09] MEDS ORDERED: OPTIRAY 320 125ml IV PRN (12:13)
--- NOTE | 2018-12-09 12:23 | CT Scan Report ---
CHEST CTA for PULMONARY ARTERIES CT DOSE: 1075.89 mGy.cm HISTORY: Atypical Chest Pain, eval for PE TECHNIQUE: Multiaxial CT images of the chest were performed following the intravenous administration of contrast to evaluate the pulmonary arteries. Maximal intensity projection images were also obtaine d. A dose lowering technique was utilized adhering to the principles of ALARA. COMPARISON STUDY: Chest CTA 12/08/2012. FINDINGS: The thoracic aorta is not adequately opacified to assess for dissection but appears normal in caliber. The heart is enlarged. Small to moderate bilateral pleural effusions are noted. Mild resp iratory motion artifact. There is also suboptimal opacification of the distal pulmonary arteries due to the patient's right heart dysfunction. This results in nondiagnostic evaluation of the majority of the segmental and subsegmental pulmonary arteries. The main and lobar pulmonary arteries appear antony nt. The upper lobe segmental pulmonary arteries are also likely patent. Remaining pulmonary arteries are nondiagnostic due to the artifact. Contrast within the hepatic veins is likely due to the right h eart dysfunction. Evidence for postoperative changes within the stomach which is only partially visua lized. The spleen is unremarkable. No significant mediastinal or hilar lymphadenopathy. Normal esopha erasto. Advanced degenerative changes within the shoulders. No suspicious lytic or blastic osseous lesio ns. No pneumothorax. The central airways are patent. Consolidation within the bilateral lower lobes p osteriorly. This includes the majority of the right lower lobe. There are associated air bronchograms . IMPRESSION: 1. No evidence for pulmonary metastases with limitations as described above. 2. Small to moderate bilateral pleural effusions. 3. Cardiomegaly with evidence for right-sided heart dysfunction. 4. Consolidation involving the majority of the bilateral lower lobes, right greater than left. This f avors compressive atelectasis from the pleural effusions. A pneumonia could also have a similar appea gayle in the appropriate clinical setting. Electronically signed by: Edvin Mariscal M.D. 12/09/2018 12:22 PM
[2018-12-09 13:19] LABS: iSTAT Arterial Blood Gas HCO3 44 meg/L (19-24); iSTAT Arterial Blood Gas pCO2 64 mmHg (35-46); iSTAT Arterial Blood Gas pH 7.44 (7.35-7.45); iSTAT Carbon Dioxide > 40 mEq/l (24-31); iSTAT Hematocrit 44 % (42-52); iSTAT Sodium 136 mEq/L (135-144)
--- NOTE | 2018-12-09 14:20 | Emergency Department Note ---
Entered by Tere Victoria acting as a scribe for Remberto Awad MD History of Present Illness General Chief complaint: Shortness of Breath/Dyspnea Time Seen by Provider: 12/09/18 09:50 Source: patient History of Present Illness Location: chest Pain Consistency: + other (persistent) Quality: + other (shortness of breath) Relieved By: + other (O2 nasal cannula, BiPap) Exacerbated By: + movement Associated symptoms: + confusion The patient is a 83 year old male that is presenting to the Emergency Room with complaints of persistent shortness of breath that started 10 days ago. The patient's daughter reports that the patient has been in the hospital since his symptoms started for CHF and atrial fibrillation. His daughter reports that the patient had 50 lbs of fluid removed from his body over the course of his stay. His daughter states that the patient has been confused since his arrival to the hospital. His daughter notes that the patient was eating and moving normally before he was transferred to [facility] yesterday. The patient's daughter reports that the patient has been short of breath since this transfer and notes that the patient had an O2 saturation level in to 80% range on nasal cannula. His daughter states that the patient's O2 saturation level improved to 96% last night on CPAP. However, his daughter reports that she was called to [facility] this morning as the patient was in respiratory distress. His daughter states that the patient has been 3-4L O2 on nasal cannula since his arrival to [facility]. Home Medications Home Medications Medication Instructions Recorded Confirmed Type Asmanex Twisthaler 2 inh INHALATION BID 11/28/18 12/09/18 History Myrbetriq 25 mg PO BID 11/28/18 12/09/18 History acetaminophen [Tylenol] 325 mg PO Q4 PRN 11/28/18 12/09/18 History albuterol sulfate 2 puff INHALATION Q4 PRN 11/28/18 12/09/18 History amoxicillin 2,000 mg PO UD PRN 11/28/18 12/09/18 History aspirin [Aspir-81] 81 mg PO QPM 11/28/18 12/09/18 History azathioprine [Imuran] 150 mg PO DAILY 11/28/18 12/09/18 History cyanocobalamin (vitamin B-12) 1,000 mcg IM .[id number] 11/28/18 12/09/18 History escitalopram oxalate [Lexapro] 5 mg PO DAILY 11/28/18 12/09/18 History ferrous sulfate [iron] 325 mg PO TID 11/28/18 12/09/18 History fexofenadine [Jenny Allergy] 180 mg PO DAILY PRN 11/28/18 12/09/18 History fluticasone propionate [Flonase 2 spray INTRANASAL DAILY PRN 11/28/18 12/09/18 History Allergy Relief] lisinopril [Zestril] 5 mg PO DAILY 11/28/18 12/09/18 History multivitamin 4 - 5 tab PO DAILY 11/28/18 12/09/18 History pyridostigmine bromide [Mestinon] 120 mg PO TID 11/28/18 12/09/18 History tolterodine [Detrol LA] 4 mg PO BID 11/28/18 12/09/18 History zolpidem [Ambien] 5 mg PO HS PRN 11/28/18 12/09/18 History metoprolol tartrate 25 mg PO BID 60 Days #120 tab 12/08/18 12/09/18 Rx nystatin [Nystop] 1 applic EXT DAILY 14 Days #14 12/08/18 12/09/18 Rx applic NS spironolactone 25 mg PO DAILY 60 Days #60 tab 12/08/18 12/09/18 Rx torsemide 10 mg PO QAM 60 Days #60 tab 12/08/18 12/09/18 Rx warfarin [Coumadin] 3 mg PO DAILY #7 tab 12/08/18 12/09/18 Rx Allergies Allergy/AdvReac Type Severity Reaction Status Date / Time vancomycin Allergy Severe Hives Verified 12/09/18 09:53 adhesive Allergy Unknown . Verified 12/09/18 09:53 latex Allergy Unknown blisters Verified 12/09/18 09:53 and swelling morphine Allergy Rash Verified 12/09/18 09:53 Influenza Virus Vaccines AdvReac Severe DEATHLY Verified 12/09/18 09:53 SICK Past Med/Surg History Medical History Atrial flutter (Resolved Unknown) "s/p ablation " Myasthenia gravis (Chronic Unknown) Pulmonary hypertension (Acute Unknown) Family History Other Family history non-contributory Social History Preferred Language: Indonesian Communication Ability: Effective Beliefs That Will Affect Care: None marital status: / Current Living Situation: Alone Current Living Situation Comment: Patient lives at home alone, however, daughter lives next door to him. Feels Safe at Home: Yes Smoking Status: Unknown if ever smoked Hx Alcohol Use: No Hx Substance Use: No Review of Systems See HPI for pertinent positives & negatives. and A total of 10 systems reviewed and were otherwise negative Physical Exam Vital Signs Vital Signs - 24 hr 12/09/18 09:25 12/09/18 09:30 12/09/18 09:32 Temperature 37.2 C Temperature Source Oral Sepsis Recent Fever Within 48 Hours No Sepsis New/Unexplained Change in Mental Status No Sepsis Action Taken by Nursing No Action Required Pulse Rate 95 H 91 H 96 H Pulse Rate [Finger] Pulse Rate from SpO2 Sensor 54 L 63 Pulse Rhythm [Finger] Respiratory Rate 12 31 H 22 Respiratory Effort / Characteristics Respiratory Depth Respiratory Pattern Blood Pressure 122/67 122/62 Blood Pressure [Right Arm] Blood Pressure Mean 85 82 Blood Pressure Mean [Right Arm] Pulse Oximetry 95 95 95 Oxygen Delivery Method Nasal Cannula Oxygen Flow Rate 4 Fraction of Inspired Oxygen 12/09/18 09:40 12/09/18 10:00 12/09/18 10:10 Temperature Temperature Source Sepsis Recent Fever Within 48 Hours Sepsis New/Unexplained Change in Mental Status Sepsis Action Taken by Nursing Pulse Rate 115 H 84 Pulse Rate [Finger] Pulse Rate from SpO2 Sensor 58 L Pulse Rhythm [Finger] Respiratory Rate 29 H 24 Respiratory Effort / Characteristics Spontaneous Short of Breath Respiratory Depth Normal Respiratory Pattern Regular Blood Pressure Blood Pressure [Right Arm] Blood Pressure Mean Blood Pressure Mean [Right Arm] Pulse Oximetry 96 97 Oxygen Delivery Method Nasal Cannula Oxygen Flow Rate 4 Fraction of Inspired Oxygen 40 12/09/18 10:13 12/09/18 10:27 12/09/18 10:30 Temperature Temperature Source Sepsis Recent Fever Within 48 Hours Sepsis New/Unexplained Change in Mental Status Sepsis Action Taken by Nursing Pulse Rate 76 99 H Pulse Rate [Finger] 84 86 Pulse Rate from SpO2 Sensor 61 56 L Pulse Rhythm [Finger] Regular Respiratory Rate 24 24 26 H Respiratory Effort / Characteristics Spontaneous Short of Breath Respiratory Depth Normal Respiratory Pattern Blood Pressure 104/52 L Blood Pressure [Right Arm] 104/52 L Blood Pressure Mean 69 Blood Pressure Mean [Right Arm] 69 Pulse Oximetry 97 92 90 Oxygen Delivery Method BiPAP CPAP Oxygen Flow Rate Fraction of Inspired Oxygen 40 12/09/18 11:00 12/09/18 11:30 12/09/18 11:32 Temperature Temperature Source Sepsis Recent Fever Within 48 Hours Sepsis New/Unexplained Change in Mental Status Sepsis Action Taken by Nursing Pulse Rate 74 88 103 H Pulse Rate [Finger] Pulse Rate from SpO2 Sensor 56 L 51 L 49 L Pulse Rhythm [Finger] Respiratory Rate 23 25 H 21 Respiratory Effort / Characteristics Respiratory Depth Respiratory Pattern Blood Pressure 105/58 L Blood Pressure [Right Arm] Blood Pressure Mean 73 Blood Pressure Mean [Right Arm] Pulse Oximetry 87 L 93 99 Oxygen Delivery Method Oxygen Flow Rate Fraction of Inspired Oxygen 12/09/18 12:15 12/09/18 12:16 12/09/18 12:30 Temperature Temperature Source Sepsis Recent Fever Within 48 Hours Sepsis New/Unexplained Change in Mental Status Sepsis Action Taken by Nursing Pulse Rate 102 H 78 87 Pulse Rate [Finger] Pulse Rate from SpO2 Sensor 79 61 Pulse Rhythm [Finger] Respiratory Rate 15 29 H 30 H Respiratory Effort / Characteristics Respiratory Depth Respiratory Pattern Blood Pressure 115/64 124/58 L Blood Pressure [Right Arm] Blood Pressure Mean 81 80 Blood Pressure Mean [Right Arm] Pulse Oximetry 100 96 Oxygen Delivery Method Oxygen Flow Rate Fraction of Inspired Oxygen 12/09/18 13:00 12/09/18 13:01 12/09/18 13:30 Temperature Temperature Source Sepsis Recent Fever Within 48 Hours Sepsis New/Unexplained Change in Mental Status Sepsis Action Taken by Nursing Pulse Rate 96 H 92 H 84 Pulse Rate [Finger] Pulse Rate from SpO2 Sensor 51 L 52 L 54 L Pulse Rhythm [Finger] Respiratory Rate 32 H 34 H 29 H Respiratory Effort / Characteristics Respiratory Depth Respiratory Pattern Blood Pressure 104/53 L 120/64 Blood Pressure [Right Arm] Blood Pressure Mean 70 82 Blood Pressure Mean [Right Arm] Pulse Oximetry 95 94 95 Oxygen Delivery Method Oxygen Flow Rate Fraction of Inspired Oxygen GENERAL: In minor distress and fall asleep intermittently on examination. HENT: Normocephalic, atraumatic. Oropharynx unremarkable. EYES: Normal conjunctiva. Sclera non-icteric. NECK: Supple. No nuchal rigidity. FROM. No JVD. RESPIRATORY: Shallow breaths CARDIAC: Regular rate, normal rhythm. Extremities warm and well perfused. Pulses equal. ABDOMEN: Soft, non-distended. No tenderness to palpation. No rebound or guarding. No masses. RECTAL: Deferred. MUSCULOSKELETAL: Chest examination reveals no tenderness. The back is symmetrical on inspection without obvious abnormality. There is no CVA t enderness to palpation. No joint edema. LOWER EXTREMITIES: Calves are equal size bilaterally and non-tender. No edema. No discoloration. NEURO: Normal sensorium. No sensory or motor deficits noted. SKIN: No rash or jaundice noted. Course 0953:The patient was evaluated in room A10. A complete history and physical examination was performed. 1038: I reevaluated the patient at this time. The patient continues to be short of breath with shallow breathing noted on reexamination. 1210: I discussed the patients case with MARIBELL Vega, who will evaluate the patient for further management and care with Dr. Wilson as her attending physician. 1220: Upon reevaluation, the patient is resting comfortably. I discussed laboratory and radiographic results with the patient. He verbalized agreement of the treatment plan. The patient will be evaluated for further management and care. Consultations Consultation #1: I discussed the patients case with MARIBELL Vega, who will evaluate the patient for further management and care with Dr. Wilson as her attending physician. Time: 12:10 Administered Medications Ioversol (Optiray 320 125ml) 119 ml IV ONCE PRN PRN Reason: Interaction Checking Stop: 12/13/18 12:12 Last Admin: 12/09/18 12:13 Dose: 119 ml Documented by: [id number] Discontinued Medications Albuterol (Duoneb) 12 ml NEB ONE ONE Stop: 12/09/18 09:59 Last Admin: 12/09/18 10:08 Dose: 12 ml Documented by: [id number] Furosemide (Lasix) Confirm Administered Dose 40 mg IV .STK-MED ONE Stop: 12/09/18 11:29 Last Admin: 12/09/18 11:32 Dose: 40 mg Documented by: [id number] Furosemide 40 mg/ Syringe 4 mls @ 4 mls/min IV ONE ONE Stop: 12/09/18 10:40 Last Admin: 12/09/18 11:32 Dose: Not Given Documented by: [id number] Medical Decision Making Differential Diagnosis Differential diagnosis: Etiologies such as infections, reactive airway disease, pneumonia, pneumothorax, COPD, CHF, cardiac ischemia, pulmonary embolism, musculoskeletal, gastrointestinal, as well as others were entertained. Medical Records Attestation: I reviewed the patient's medical records. Home Medications Current Medication List: was personally reviewed by me Laboratory Data Attestation: I reviewed the patient's lab results. Result diagrams: 12/09/18 10:18 12/09/18 10:18 Lab Results 12/09/18 12/09/18 12/09/18 Range/Units 10:18 10:18 10:18 WBC 6.70 (4.8-10.8) K/uL RBC 4.77 (4.7-6.1) M/uL Hgb 14.9 (14.0-18.0) g/dL POC Hgb (14.0-18.0) g/dl Hct 47.5 (42-52) % POC Hct (42-52) % MCV 99.6 (80-100) fL MCH 31.2 (25-34) pg MCHC 31.4 L (32-36) g/dL RDW Std Deviation 60.1 H (36.4-46.3) fL RDW Coeff of Naseem 16.5 H (11.5-14.5) % Plt Count 201 (130-400) K/uL MPV 9.8 (7.4-10.4) fL Immature Gran % (Auto) 0.3 % Neut % (Auto) 81.1 % Lymph % (Auto) 7.2 % Sublette % (Auto) 10.7 % Eos % (Auto) 0.4 % Baso % (Auto) 0.3 % Immature Gran # (Auto) 0.02 (0.00-0.02) K/uL Neut # (Auto) 5.43 (1.4-6.5) K/uL Lymph # (Auto) 0.48 L (1.2-3.4) K/uL Sublette # (Auto) 0.72 H (0.11-0.59) K/uL Eos # (Auto) 0.03 (0-0.5) K/uL Baso # (Auto) 0.02 (0-0.2) K/uL PT 51.5 H (9.0-12.0) Seconds INR 5.7 H* (0.9-1.1) POC pH (7.35-7.45) POC pCO2 (35-46) mmHg POC pO2 (80-95) mmHg POC HCO3 (19-24) vidya/L POC Base Excess (-9-1.8) vidya/L POC Sodium (135-144) mEq/L Sodium 139 (136-145) mmol/L POC Potassium (3.3-5.0) mEq/L Potassium 4.3 (3.5-5.1) mmol/L POC Chloride (101-112) mEq/L Chloride 93 L (98-107) mmol/L Carbon Dioxide 41 H* (21-32) mmol/L POC Total CO2 (24-31) mEq/l Anion Gap 3.0 (3-11) POC Anion Gap (16-25) mmol/L POC BUN (7-18) mg/dl BUN 40 H (7-18) mg/dl Creatinine 0.86 (0.6-1.4) mg/dl POC Creatinine (0.6-1.3) mg/dl Est Cr Clr Drug Dosing 96.0 ml/min Est GFR ( Amer) 94.3 Est GFR (Non-Af Amer) 81.3 BUN/Creatinine Ratio 47.1 H (10-20) Glucose 112 H (70-99) mg/dl POC Glucose (other) (70-99) mg/dl Calcium 8.5 (8.5-10.1) mg/dl POC Ioniz Calcium Artur (1.12-1.32) mmol/l Total Bilirubin 0.9 (0.2-1) mg/dl AST 36 (15-37) U/L ALT 25 (12-78) U/L Alkaline Phosphatase 67 (45-117) U/L Total Creatine Kinase 53 (39-308) U/L CK-MB (CK-2) 1.3 (0.5-3.6) ng/ml CK/CKMB % Calc 2.5 (0-3.0) Troponin I 0.123 H* (0-0.045) ng/ml Total Protein 6.4 (6.4-8.2) gm/dl Albumin 2.8 L (3.4-5.0) gm/dl Globulin 3.6 (2.5-4.0) gm/dl Albumin/Globulin Ratio 0.8 L (0.9-2) Lipase 182 (73-393) U/L 12/09/18 12/09/18 Range/Units 10:22 13:02 WBC (4.8-10.8) K/uL RBC (4.7-6.1) M/uL Hgb (14.0-18.0) g/dL POC Hgb 16.3 15.0 (14.0-18.0) g/dl Hct (42-52) % POC Hct 48 44 (42-52) % MCV (80-100) fL MCH (25-34) pg MCHC (32-36) g/dL RDW Std Deviation (36.4-46.3) fL RDW Coeff of Naseem (11.5-14.5) % Plt Count (130-400) K/uL MPV (7.4-10.4) fL Immature Gran % (Auto) % Neut % (Auto) % Lymph % (Auto) % Sublette % (Auto) % Eos % (Auto) % Baso % (Auto) % Immature Gran # (Auto) (0.00-0.02) K/uL Neut # (Auto) (1.4-6.5) K/uL Lymph # (Auto) (1.2-3.4) K/uL Sublette # (Auto) (0.11-0.59) K/uL Eos # (Auto) (0-0.5) K/uL Baso # (Auto) (0-0.2) K/uL PT (9.0-12.0) Seconds INR (0.9-1.1) POC pH 7.44 (7.35-7.45) POC pCO2 64 H (35-46) mmHg POC pO2 69 L (80-95) mmHg POC HCO3 44 H (19-24) vidya/L POC Base Excess 20.0 H (-9-1.8) vidya/L POC Sodium 138 136 (135-144) mEq/L Sodium (136-145) mmol/L POC Potassium 4.3 4.0 (3.3-5.0) mEq/L Potassium (3.5-5.1) mmol/L POC Chloride 89 L (101-112) mEq/L Chloride (98-107) mmol/L Carbon Dioxide (21-32) mmol/L POC Total CO2 > 40 H* > 40 H* (24-31) mEq/l Anion Gap (3-11) POC Anion Gap 14.0 L (16-25) mmol/L POC BUN 42 H (7-18) mg/dl BUN (7-18) mg/dl Creatinine (0.6-1.4) mg/dl POC Creatinine 1.1 (0.6-1.3) mg/dl Est Cr Clr Drug Dosing ml/min Est GFR ( Amer) Est GFR (Non-Af Amer) BUN/Creatinine Ratio (10-20) Glucose (70-99) mg/dl POC Glucose (other) 116 H (70-99) mg/dl Calcium (8.5-10.1) mg/dl POC Ioniz Calcium Artur 1.10 L (1.12-1.32) mmol/l Total Bilirubin (0.2-1) mg/dl AST (15-37) U/L ALT (12-78) U/L Alkaline Phosphatase (45-117) U/L Total Creatine Kinase (39-308) U/L CK-MB (CK-2) (0.5-3.6) ng/ml CK/CKMB % Calc (0-3.0) Troponin I (0-0.045) ng/ml Total Protein (6.4-8.2) gm/dl Albumin (3.4-5.0) gm/dl Globulin (2.5-4.0) gm/dl Albumin/Globulin Ratio (0.9-2) Lipase (73-393) U/L Imaging Data Radiologist's Impression: Radiology results as stated below per my review and the radiologist's interpretation: SINGLE VIEW CHEST CLINICAL HISTORY: Atypical chest pain. FINDINGS: 2 AP, portable, upright chest radiographs are compared to study dated 12/05/2018 and correlated with chest CT dated 12/08/2012. The examination is degra ded by portable technique and patient rotation. The heart is markedly enlarged and there is atherosclerotic calcification of the thoracic aorta. There is pulmonary vascular congestion with evidence of interstitial edema. Layering pleural effusions are identified with bibasilar consolidation. No pneumothorax is seen. The skeletal structures are osteopenic. The bony thorax is grossly intact. Advanced degenerative change is noted in the right shoulder and thoracic spine. There is chronic posttraumatic deformity of the distal right clavicle. IMPRESSION: 1. Cardiomegaly with evidence of congestive failure and interstitial edema. 2. There are layering pleural effusions with bibasilar consolidation. Electronically signed by: Gabriel Gabriel M.D. 12/09/2018 10:45 AM CHEST CTA for PULMONARY ARTERIES CT DOSE: 1075.89 mGy.cm HISTORY: Atypical Chest Pain, eval for PE TECHNIQUE: Multiaxial CT images of the chest were performed following the intravenous administration of contrast to evaluate the pulmonary arteries. Maximal intensity projection images were also obtained. A dose lowering technique was utilized adhering to the principles of ALARA. COMPARISON STUDY: Chest CTA 12/08/2012. FINDINGS: The thoracic aorta is not adequately opacified to assess for dissection but appears normal in caliber. The heart is enlarged. Small to moderate bilateral pleural effusions are noted. Mild respiratory motion artifact. There is also suboptimal opacification of the distal pulmonary arteries due to the patient's right heart dysfunction. This results in nondiagnostic evaluation of the majority of the segmental and subsegmental pulmonary arteries. The main and lobar pulmonary arteries appear patent. The upper lobe segmental pulmonary arteries are also likely patent. Remaining pulmonary arteries are nondiagnostic due to the artifact. Contrast within the hepatic veins is likely due to the right heart dysfunction. Evidence for postoperative changes within the stomach which is only partially visualized. The spleen is unremarkable. No significant mediastinal or hilar lymphadenopathy. Normal esophagus. Advanced degenerative changes within the shoulders. No suspicious lytic or blastic osseous lesions. No pneumothorax. The central airways are patent. Consolidation within the bilateral lower lobes posteriorly. This includes the majority of the right lower lobe. There are associated air bronchograms. IMPRESSION: 1. No evidence for pulmonary metastases with limitations as described above. 2. Small to moderate bilateral pleural effusions. 3. Cardiomegaly with evidence for right-sided heart dysfunction. 4. Consolidation involving the majority of the bilateral lower lobes, right greater than left. This favors compressive atelectasis from the pleural effusions. A pneumonia could also have a similar appearance in the appropriate clinical setting. Electronically signed by: Edvin Mariscal M.D. 12/09/2018 12:22 PM ECG Data Attestation: I personally reviewed and interpreted this ECG as follows: Indication: SOB/dyspnea Rate (beats per minute): 91 Rhythm: atrial fibrillation Findings: + other (old anterior infarct) and + PVC (frequent) Comparison ECG Date: from (12/02/2018) Change: no significant change Blood Pressure Blood Pressure Findings: Normal blood pressure MDM Narrative This is an 83-year-old male who presents emergency department hypoxic. He is also breathing heavily therefore was placed on BiPAP. His CO2 level is markedly elevated therefore an ABG was drawn. I did discuss this case with the patient hospitalist service. Patient also has an elevation in his INR as well as his troponin level. Both patient and family were in agreement with treatment plan. While in the emergency department the patient was given an hour-long breathing treatment. Impression & Plan CHF (congestive heart failure), Respiratory failure Critical Care Time I have personally spent greater than 30 minutes of critical care time in the direct management of this patient. This includes bedside care, interpretation of diagnostic studies, and testing, discussion with consultants, patient, and family members, and other required patient management activities. This 30 minutes is in excess of all separately billable procedures. Discharge Plan Visit Data Chief Complaint: Shortness of Breath/Dyspnea ED Provider: Remberto Awad Discharge Problem: CHF (congestive heart failure), Respiratory failure Patient Disposition: Being Evaluated by Hospitalist Forms Stand Alone Forms: [facility] Prescriptions Prescriptions: No Action multivitamin Tablet 4 - 5 tab PO DAILY RF: 0 amoxicillin 500 mg Capsule 2,000 mg PO UD PRN (Reason: BEFORE DENTIST) RF: 0 acetaminophen [Tylenol] 325 mg Tablet 325 mg PO Q4 PRN (Reason: Pain) RF: 0 tolterodine [Detrol LA] 4 mg capsule,extended release 24hr 4 mg PO BID RF: 0 azathioprine [Imuran] 50 mg tablet 150 mg PO DAILY RF: 0 fexofenadine [Jenny Allergy] 180 mg Tablet 180 mg PO DAILY PRN (Reason: ALLERGIES) RF: 0 aspirin [Aspir-81] 81 mg Tablet,Delayed Release (Dr/Ec) 81 mg PO QPM RF: 0 cyanocobalamin (vitamin B-12) 1,000 mcg/mL solution 1,000 mcg IM .[id number] RF: 0 ferrous sulfate [iron] 325 mg (65 mg iron) Tablet 325 mg PO TID RF: 0 pyridostigmine bromide [Mestinon] 60 mg tablet 120 mg PO TID RF: 0 lisinopril [Zestril] 5 mg tablet 5 mg PO DAILY RF: 0 zolpidem [Ambien] 5 mg tablet 5 mg PO HS PRN (Reason: Sleep) RF: 0 albuterol sulfate 90 mcg/actuation HFA aerosol inhaler 2 puff inhalation Q4 PRN (Reason: Shortness Of Breath Or Wheezing) RF: 0 fluticasone propionate [Flonase Allergy Relief] 50 mcg/actuation Deford,Handley spension 2 spray INTRANASAL DAILY PRN (Reason: Nasal Congestion) RF: 0 escitalopram oxalate [Lexapro] 5 mg tablet 5 mg PO DAILY RF: 0 Asmanex Twisthaler 220 mcg (30 doses) Aerosol Powdr Breath Activated 2 inh INHALATION BID RF: 0 Myrbetriq 25 mg tablet extended release 24 hr 25 mg PO BID RF: 0 torsemide 10 mg Tablet 10 mg PO QAM 60 Days Qty: 60 RF: 0 spironolactone 25 mg Tablet 25 mg PO DAILY 60 Days Qty: 60 RF: 0 nystatin [Nystop] 100,000 unit/gram Powder 1 applic EXT DAILY 14 Days Qty: 14 RF: 1 metoprolol tartrate 25 mg Tablet 25 mg PO BID 60 Days Qty: 120 RF: 0 warfarin [Coumadin] 3 mg tablet 3 mg PO DAILY Qty: 7 RF: 0 Referrals Referrals: Costa Iverson MD [Primary Care Provider] - Discharge Problem: CHF (congestive heart failure) Qualifiers: Heart failure type: other Qualified Code(s): I50.9 - Heart failure, unspecified Respiratory failure Qualifiers: Chronicity: acute Respiratory failure complication: hypercapnia Qualified Code(s): J96.02 - Acute respiratory failure with hypercapnia The amandaibe's documentation has been prepared under my direction and personally reviewed by me in its entirety. I confirm that the note above accurately reflects all work, treatment, procedures, and medical decision making performed by me.
[2018-12-09] MEDS ORDERED: ZOLPIDEM TARTRATE 5 MG TAB PO PRN (15:23)
[2018-12-09] MEDS ORDERED: FEXOFENADINE HCL 180 MG TAB PO PRN (15:23)
[2018-12-09] MEDS ORDERED: ALBUTEROL HFA 8 GM INHALER INH PRN (15:23)
[2018-12-09] MEDS ORDERED: FLUTICASONE PROPIONATE NA SPR 16 GM BTL NAE PRN (15:23)
[2018-12-09] MEDS ORDERED: ACETAMINOPHEN 325 MG TAB PO PRN (15:23)
[2018-12-09] MEDS ORDERED: [UNRECOGNIZED DRUG - REMARK] SCH (16:00)
[2018-12-09] MEDS: azaTHIOprine 50 MG TAB PO SCH (16:30)
[2018-12-09] MEDS: MULTIVITAMIN TAB PO SCH (16:30)
[2018-12-09] MEDS: PYRIDOSTIGMINE BROMIDE 60 MG TAB PO SCH ×2 (16:30→20:42)
[2018-12-09] MEDS: ESCITALOPRAM OXALATE 10 MG TAB PO SCH (16:31)
[2018-12-09] MEDS: SPIRONOLACTONE 25 MG TAB PO SCH (16:31)
[2018-12-09] MEDS: FERROUS SULFATE 325 MG TAB PO SCH ×2 (16:31→20:41)
[2018-12-09] MEDS: LISINOPRIL 5 MG TAB PO SCH (16:32)
--- NOTE | 2018-12-09 18:08 | History & Physical Report ---
Date of Service December 09, 2018 Assessment & Plan (1) Respiratory failure: (1) Respiratory Failure: -patient currently satting 97% on 3L of NC -physical exam unchanged from initial discharge on 12-08-18 -CXR and chest CT showed small - moderate bilateral pleural effusions and bibasilar consolidation; unchanged from studies performed prior to discharge on 12-08-18 -etiology unlikely unlikely to be from increased pulmonary edema despite transition from IV to PO lasix prior to recent discharge; more likely due to ample respiratory support (BiPAP) not having been available at [facility] despite prior arrangements made with facility -BiPAP ordered as needed; patient to sleep with CPAP overnight -continue torosemide, 10mg, PO, daily and Aldactone 25mg, PO, daily -patient can return to [facility] as early as tomorrow assuming O2 saturation remains stable and facility confirms BiPAP availability (2) CHF (congestive heart failure) with preserved EF (55-60%) -BNP elevated [place] 3991 on 11/28 - patient volume overloaded on exam - pleural effusions on CXR (11/28), persistent but improved with diruesis (12/02) -TTE from 11/29 showed evidence of pulmonary HTN, moderate aortic stenosis; repeat study on 12/03 unchanged (3) Atrial fibrillation, persistent: -Rate fluctuation; Metoprolol tartrate 25 mg bid -on anticoagulation (coumadin) -INR 5.7 (12/09) -hold coumadin today -recheck INR daily (4) Somnolence -persistent, but easily arousable -etiology general tiredness vs. chemically induced (secondary to carbon dioxide retention) (5) Hematuria: -Urology consulted; patient will have scope as outpatient -no blood visible in Jamil tubing today on evaluation (12/04); appears to be resolving -etiology unknown, mostly likely traumatic from Jamil; scope will rule out cancer (6)Urinary Tract Infection -IV Rocephin discontinued 12/04 in light of Urine Cx showing no growth with fewer than 1,000 colonies/ml -unlikely source of confusion (7) Confusion -patient oriented x 1 today (only to self) although this fluctuates -etiology unknown but unlikely secondary to contaminated urine as culture showed no growth with fewer than 1,000 colonies/ml -recent ICU exposure is likely contributory -family encouraged to reorient frequently (8)Hypoalbuminemia -level at 2.5 on 12/03 -IV replacement ordered 12/03 (9) Weakness: -likely secondary to active disease process vs. deconditioning -PT/OT ordered (10) Atrial flutter: -s/p ablation (11) Morbid obesity: -BMI >40 -PT/OT consulted and recommended inpatient rehab (12) Myasthenia gravis: - cont home azathioprine, pyridostigmine -neuro checks, qs (13) Rash: -erythema with overlying scale present in bilateral inguinal folds -appears to be consistent with intertrigo -continue nystatin -wound care consulted (14) Hypertension: -held home lisinopril as patient was hypotensive -resume in rehab if BP allows (15) BRIJESH (obstructive sleep apnea): - cont home CPAP at night (16) Asthma: - cont home asmanex and albuterol (17) Urinary bladder incontinence: - cont home myrbetriq -Jamil in place FEN/GI: Sodium restricted diet Code: Full Code PT/OT: ordered DVT prophylaxis: hold; patient supratheraputic on coumadin Dispo: medsurg on observation Present on Admission?: Yes History of Present Illness Chief Complaint: hypoxia Primary Care Provider: Costa Iverson MD Mr. Benjamin is an 83 yo gentleman who was admitted to [facility] from 11-28-18 to 12-08-18 with new onset CHF, in exacerbation who was discharged to [facility] at 4pm yesterday returning for hypoxia. Arrangements were made with [facility] in advance of his prior discharge for patient to have BiPAP mask available to him in the event his oxygen saturation dropped while on nasal cannula or room air. However, per daughters present during exam, when he arrived at [facility] the facility did not have this equipment available. He did sleep with his home CPAP overnight at [facility], but when it was removed this morning for breakfast and meds, he desatted to the 80s and was subsequently transported back to the hospital. He denies any difficulty breathing at present. Allergies Allergy/AdvReac Type Severity Reaction Status Date / Time vancomycin Allergy Severe Hives Verified 12/09/18 09:53 adhesive Allergy Unknown . Verified 12/09/18 09:53 latex Allergy Unknown blisters Verified 12/09/18 09:53 and swelling morphine Allergy Rash Verified 12/09/18 09:53 Influenza Virus Vaccines AdvReac Severe DEATHLY Verified 12/09/18 09:53 SICK Home Medications Home Medications Medication Instructions Recorded Confirmed Type Asmanex Twisthaler 2 inh INHALATION BID 11/28/18 12/09/18 History Myrbetriq 25 mg PO BID 11/28/18 12/09/18 History acetaminophen [Tylenol] 325 mg PO Q4 PRN 11/28/18 12/09/18 History albuterol sulfate 2 puff INHALATION Q4 PRN 11/28/18 12/09/18 History amoxicillin 2,000 mg PO UD PRN 11/28/18 12/09/18 History aspirin [Aspir-81] 81 mg PO QPM 11/28/18 12/09/18 History azathioprine [Imuran] 150 mg PO DAILY 11/28/18 12/09/18 History cyanocobalamin (vitamin B-12) 1,000 mcg IM .[id number] 11/28/18 12/09/18 History escitalopram oxalate [Lexapro] 5 mg PO DAILY 11/28/18 12/09/18 History ferrous sulfate [iron] 325 mg PO TID 11/28/18 12/09/18 History fexofenadine [Jenny Allergy] 180 mg PO DAILY PRN 11/28/18 12/09/18 History fluticasone propionate [Flonase 2 spray INTRANASAL DAILY PRN 11/28/18 12/09/18 History Allergy Relief] lisinopril [Zestril] 5 mg PO DAILY 11/28/18 12/09/18 History multivitamin 4 - 5 tab PO DAILY 11/28/18 12/09/18 History pyridostigmine bromide [Mestinon] 120 mg PO TID 11/28/18 12/09/18 History tolterodine [Detrol LA] 4 mg PO BID 11/28/18 12/09/18 History zolpidem [Ambien] 5 mg PO HS PRN 11/28/18 12/09/18 History metoprolol tartrate 25 mg PO BID 60 Days #120 tab 12/08/18 12/09/18 Rx nystatin [Nystop] 1 applic EXT DAILY 14 Days #14 12/08/18 12/09/18 Rx applic NS spironolactone 25 mg PO DAILY 60 Days #60 tab 12/08/18 12/09/18 Rx torsemide 10 mg PO QAM 60 Days #60 tab 12/08/18 12/09/18 Rx warfarin [Coumadin] 3 mg PO DAILY #7 tab 12/08/18 12/09/18 Rx Past Med/Surg History Medical History Atrial flutter (Resolved Unknown) "s/p ablation " Myasthenia gravis (Chronic Unknown) Pulmonary hypertension (Acute Unknown) Family History Other Family history non-contributory Social History Preferred Language: [place] Communication Ability: Impaired Communication Ability Comment: occ confusion Research Compliance Specialist Required: No Beliefs That Will Affect Care: None marital status: / Current Living Situation: Rehab Current Living Situation Comment: [facility] Other Information That Helps Us Care for You: No Feels Safe at Home: Yes Safety Concerns: Feels Safe At This Time Smoking Status: Never smoker Second Hand Exposure: No Hx Alcohol Use: No Hx Substance Use: No Review of Systems Constitutional: + weakness; no fever and no chills Eyes: no diplopia Ear, Nose, Mouth, Throat: no difficulty with chewing or swallowing food Respiratory: no cough and no dyspnea Cardiovascular: no chest pain Gastrointestinal: no abdominal pain Physical Exam Physical Exam: Constitutional well developed, well nourished, + obese and cooperative Respiratory normal respiratory effort; no labored breathing Auscultation: + diminished lung sounds, + wheezes (expiratory) Cardiovascular Rate/Rhythm: regular rate and regular rhythm Heart Sounds: normal S1, normal S2 and + murmur (systolic ejection murmur best appreciated in aortic area; radiates to neck) Extremities: + pedal edema (+2 up to the bilateral knees) Gastrointestinal (Abdomen) Inspection/Auscultation: normal bowel sounds and + significant pannus Percussion/Palpation: abdomen soft; abdomen nontender and no guarding Jamil catheter in place draining pale-yellow colored urine Skin + rash (intertrigous rash present in bilateral inguinal folds (R & L groin)) Neurologic awake and + confused Psychiatric Orientation: oriented to person and cooperative; + not oriented to place and + not oriented to time Results & Data Vital Signs (Past 12 Hours) Vital Signs Temp Pulse Pulse Resp BP BP Pulse Ox 12/09/18 15:24 36.8 C 96 H 18 101/47 L 97 12/09/18 14:30 92 H 42 H 105/57 L 95 12/09/18 14:02 81 19 95 12/09/18 14:01 95 H 17 104/61 95 12/09/18 14:00 86 20 94 12/09/18 13:30 84 29 H 120/64 95 12/09/18 13:01 92 H 34 H 104/53 L 94 12/09/18 13:00 96 H 32 H 95 12/09/18 12:30 87 30 H 124/58 L 96 12/09/18 12:16 78 29 H 115/64 100 12/09/18 12:15 102 H 15 12/09/18 11:32 103 H 21 105/58 L 99 12/09/18 11:30 88 25 H 93 12/09/18 11:00 74 23 87 L 12/09/18 10:30 99 H 26 H 90 12/09/18 10:27 76 86 24 104/52 L 104/52 L 92 12/09/18 10:13 84 24 97 12/09/18 10:10 84 24 97 12/09/18 10:00 115 H 29 H 96 12/09/18 09:32 37.2 C 96 H 22 122/62 95 12/09/18 09:30 91 H 31 H 95 12/09/18 09:25 95 H 12 122/67 95 Laboratory Results 12/09/18 12/09/18 12/09/18 Range/Units 13:02 10:22 10:18 WBC (4.8-10.8) K/uL RBC (4.7-6.1) M/uL Hgb (14.0-18.0) g/dL POC Hgb 15.0 16.3 (14.0-18.0) g/dl Hct (42-52) % POC Hct 44 48 (42-52) % MCV (80-100) fL MCH (25-34) pg MCHC (32-36) g/dL RDW Std Deviation (36.4-46.3) fL RDW Coeff of Naseem (11.5-14.5) % Plt Count (130-400) K/uL MPV (7.4-10.4) fL Immature Gran % (Auto) % Neut % (Auto) % Lymph % (Auto) % [place] % (Auto) % Eos % (Auto) % Baso % (Auto) % Immature Gran # (Auto) (0.00-0.02) K/uL Neut # (Auto) (1.4-6.5) K/uL Lymph # (Auto) (1.2-3.4) K/uL [place] # (Auto) (0.11-0.59) K/uL Eos # (Auto) (0-0.5) K/uL Baso # (Auto) (0-0.2) K/uL PT 51.5 H (9.0-12.0) Seconds INR 5.7 H* (0.9-1.1) POC pH 7.44 (7.35-7.45) POC pCO2 64 H (35-46) mmHg POC pO2 69 L (80-95) mmHg POC HCO3 44 H (19-24) vidya/L POC Base Excess 20.0 H (-9-1.8) vidya/L POC Sodium 136 138 (135-144) mEq/L Sodium (136-145) mmol/L POC Potassium 4.0 4.3 (3.3-5.0) mEq/L Potassium (3.5-5.1) mmol/L POC Chloride 89 L (101-112) mEq/L Chloride (98-107) mmol/L Carbon Dioxide (21-32) mmol/L POC Total CO2 > 40 H* > 40 H* (24-31) mEq/l Anion Gap (3-11) POC Anion Gap 14.0 L (16-25) mmol/L POC BUN 42 H (7-18) mg/dl BUN (7-18) mg/dl Creatinine (0.6-1.4) mg/dl POC Creatinine 1.1 (0.6-1.3) mg/dl Est Cr Clr Drug Dosing ml/min Est GFR ( Amer) Est GFR (Non-Af Amer) BUN/Creatinine Ratio (10-20) Glucose (70-99) mg/dl POC Glucose (other) 116 H (70-99) mg/dl Calcium (8.5-10.1) mg/dl POC Ioniz Calcium Artur 1.10 L (1.12-1.32) mmol/l Total Bilirubin (0.2-1) mg/dl AST (15-37) U/L ALT (12-78) U/L Alkaline Phosphatase (45-117) U/L Total Creatine Kinase (39-308) U/L CK-MB (CK-2) (0.5-3.6) ng/ml CK/CKMB % Calc (0-3.0) Troponin I (0-0.045) ng/ml Total Protein (6.4-8.2) gm/dl Albumin (3.4-5.0) gm/dl Globulin (2.5-4.0) gm/dl Albumin/Globulin Ratio (0.9-2) Lipase (73-393) U/L 12/09/18 12/09/18 Range/Units 10:18 10:18 WBC 6.70 (4.8-10.8) K/uL RBC 4.77 (4.7-6.1) M/uL Hgb 14.9 (14.0-18.0) g/dL POC Hgb (14.0-18.0) g/dl Hct 47.5 (42-52) % POC Hct (42-52) % MCV 99.6 (80-100) fL MCH 31.2 (25-34) pg MCHC 31.4 L (32-36) g/dL RDW Std Deviation 60.1 H (36.4-46.3) fL RDW Coeff of Naseem 16.5 H (11.5-14.5) % Plt Count 201 (130-400) K/uL MPV 9.8 (7.4-10.4) fL Immature Gran % (Auto) 0.3 % Neut % (Auto) 81.1 % Lymph % (Auto) 7.2 % [place] % (Auto) 10.7 % Eos % (Auto) 0.4 % Baso % (Auto) 0.3 % Immature Gran # (Auto) 0.02 (0.00-0.02) K/uL Neut # (Auto) 5.43 (1.4-6.5) K/uL Lymph # (Auto) 0.48 L (1.2-3.4) K/uL [place] # (Auto) 0.72 H (0.11-0.59) K/uL Eos # (Auto) 0.03 (0-0.5) K/uL Baso # (Auto) 0.02 (0-0.2) K/uL PT (9.0-12.0) Seconds INR (0.9-1.1) POC pH (7.35-7.45) POC pCO2 (35-46) mmHg POC pO2 (80-95) mmHg POC HCO3 (19-24) vidya/L POC Base Excess (-9-1.8) vidya/L POC Sodium (135-144) mEq/L Sodium 139 (136-145) mmol/L POC Potassium (3.3-5.0) mEq/L Potassium 4.3 (3.5-5.1) mmol/L POC Chloride (101-112) mEq/L Chloride 93 L (98-107) mmol/L Carbon Dioxide 41 H* (21-32) mmol/L POC Total CO2 (24-31) mEq/l Anion Gap 3.0 (3-11) POC Anion Gap (16-25) mmol/L POC BUN (7-18) mg/dl BUN 40 H (7-18) mg/dl Creatinine 0.86 (0.6-1.4) mg/dl POC Creatinine (0.6-1.3) mg/dl Est Cr Clr Drug Dosing 96.0 ml/min Est GFR ( Amer) 94.3 Est GFR (Non-Af Amer) 81.3 BUN/Creatinine Ratio 47.1 H (10-20) Glucose 112 H (70-99) mg/dl POC Glucose (other) (70-99) mg/dl Calcium 8.5 (8.5-10.1) mg/dl POC Ioniz Calcium Artur (1.12-1.32) mmol/l Total Bilirubin 0.9 (0.2-1) mg/dl AST 36 (15-37) U/L ALT 25 (12-78) U/L Alkaline Phosphatase 67 (45-117) U/L Total Creatine Kinase 53 (39-308) U/L CK-MB (CK-2) 1.3 (0.5-3.6) ng/ml CK/CKMB % Calc 2.5 (0-3.0) Troponin I 0.123 H* (0-0.045) ng/ml Total Protein 6.4 (6.4-8.2) gm/dl Albumin 2.8 L (3.4-5.0) gm/dl Globulin 3.6 (2.5-4.0) gm/dl Albumin/Globulin Ratio 0.8 L (0.9-2) Lipase 182 (73-393) U/L Medications Administered Current Inpatient Medications Acetaminophen (Tylenol) 325 mg PO Q4 PRN PRN Reason: Pain Stop: 01/08/19 15:22 Albuterol (Ventolin Hfa) 2 puffs INH Q4 PRN PRN Reason: Shortness Of Breath Or Wheezin Stop: 01/08/19 15:22 Aspirin (Ecotrin Ectab) 81 mg PO QPM [facility] Stop: 01/08/19 20:59 Azathioprine (Imuran) 150 mg PO DAILY [facility] Stop: 01/08/19 15:22 Last Admin: 12/09/18 16:30 Dose: 150 mg Documented by: Escitalopram Oxalate (Lexapro Tab) 5 mg PO DAILY [facility] Stop: 01/08/19 15:22 Last Admin: 12/09/18 16:31 Dose: 5 mg Documented by: Ferrous Sulfate (Feosol) 325 mg PO TID [facility] Stop: 01/08/19 15:22 Last Admin: 12/09/18 16:31 Dose: 325 mg Documented by: Fexofenadine HCl (Jenny) 180 mg PO DAILY PRN PRN Reason: ALLERGIES Stop: 01/08/19 15:22 Fluticasone Propionate (Flonase) 2 sprays GREG DAILY PRN PRN Reason: Nasal Congestion Stop: 01/08/19 15:22 Ioversol (Optiray 320 125ml) 119 ml IV ONCE PRN PRN Reason: Interaction Checking Stop: 12/13/18 12:12 Last Admin: 12/09/18 12:13 Dose: 119 ml Documented by: Lisinopril (Zestril) 5 mg PO DAILY [facility] Stop: 01/08/19 15:22 Last Admin: 12/09/18 16:32 Dose: 5 mg Documented by: Metoprolol Tartrate (Lopressor) 25 mg PO BID [facility] Stop: 01/08/19 20:59 Mirabegron (Myrbetriq Er) 25 mg PO BID [facility] Stop: 01/08/19 20:59 Miscellaneous (Order Awaiting Action) 1 ea N/A QS [facility] Stop: 01/08/19 15:59 Last Admin: 12/09/18 16:34 Dose: Not Given Documented by: Mometasone Furoate (Asmanex 220mcg) 2 puffs INH BID [facility] Stop: 01/08/19 20:59 Multivitamins (Multivitamin Tab) 1 tab PO DAILY [facility] Stop: 01/08/19 15:22 Last Admin: 12/09/18 16:30 Dose: 1 tab Documented by: Nystatin (Mycostatin) 1 appln EXT DAILY [facility] Stop: 01/09/19 08:59 Pyridostigmine [place] (Mestinon) 120 mg PO TID [facility] Stop: 01/08/19 15:22 Last Admin: 12/09/18 16:30 Dose: 120 mg Documented by: Spironolactone (Aldactone) 25 mg PO DAILY [facility] Stop: 01/08/19 15:22 Last Admin: 12/09/18 16:31 Dose: 25 mg Documented by: Tolterodine Tartrate (Detrol La) 4 mg PO BID [facility] Stop: 01/08/19 20:59 Torsemide (Demadex) 10 mg PO QAM [facility] Stop: 01/09/19 08:59 Zolpidem Tartrate (Ambien) 5 mg PO HS PRN PRN Reason: Sleep Stop: 01/08/19 15:22 Code Status & VTE Plan Code Status FULL VTE Prophylaxis Plan VTE Prophylaxis will be ordered: No Reason for no VTE drug order: Drug interaction (patient supratheraputic on coumadin) Supervising Physician Co-Signing Physician Notes I personally examined the patient and verified all cagle points of history and exam, discussed case, and agree with decision making with Dr Gabriel. Sent back from [facility] due to shortness of breath. He was not started on BiPAP last night. He feels okay now other than having a sore [place] from being [place]. He is only on about 2.5 L nasal cannula and was on more yesterday. Vitals noted, in general he is awake and alert fatigued but otherwise no distress. HEENT normocephalic atraumatic mucous membranes moist. Breathing unlabored no rales rhonchi or wheezes he is somewhat diminished at the bases but overall actually sounds like he has the same or may be slightly better air entry than yesterday. No accessory muscle use. Skin shows no rashes no pallor or icterus. Respiratory distressappears heavily if not entirely related to lack of BiPAP. We will continue him on the same oral diuretic regimen we discharged him on yesterday and to follow closely. He is on less oxygen than yesterday. He denies more shortness of breath now. Extensive discussion with patient and family. We will need to ensure that he does in fact have BiPAP when [facility] Otherwise as above PG Care Time/CCT Total # of Minutes Spent Total Time Spent with Patient: Total time spent is greater than 50% in coordination of care (as documented) at patient's floor/unit and/or counseling patient: Resident Activity Tracking Resident Involvement: Resident Care Provided Care Provided: Adult Hospital Medicine (1) Respiratory failure Chronicity: acute Respiratory failure complication: hypercapnia Qualified Code(s): J96.02 - Acute respiratory failure with hypercapnia
[2018-12-09] MEDS: ASPIRIN 81 MG ECTAB PO SCH (20:41)
[2018-12-09] MEDS: MIRABEGRON ER 25 MG TAB PO SCH (20:41)
[2018-12-09] MEDS: TOLTERODINE TARTRATE LA 4 MG CAPCR PO SCH (20:42)
[2018-12-09] MEDS: METOPROLOL TARTRATE 25 MG TAB PO SCH (20:42)
[2018-12-09] MEDS: MOMETASONE FUROATE 14 PUFF/1 INHALER INH SCH (21:02)
[2018-12-10] MEDS: SPIRONOLACTONE 25 MG TAB PO SCH (08:51)
[2018-12-10] MEDS: MOMETASONE FUROATE 14 PUFF/1 INHALER INH SCH ×2 (08:52→22:20)
[2018-12-10] MEDS: TORSEMIDE 10 MG TAB PO SCH (08:52)
[2018-12-10] MEDS: FERROUS SULFATE 325 MG TAB PO SCH ×3 (08:53→22:19)
[2018-12-10] MEDS: TOLTERODINE TARTRATE LA 4 MG CAPCR PO SCH ×2 (08:53→22:18)
[2018-12-10] MEDS: azaTHIOprine 50 MG TAB PO SCH (08:54)
[2018-12-10] MEDS: ESCITALOPRAM OXALATE 10 MG TAB PO SCH (08:55)
[2018-12-10] MEDS: METOPROLOL TARTRATE 25 MG TAB PO SCH ×2 (08:56→22:17)
[2018-12-10] MEDS: PYRIDOSTIGMINE BROMIDE 60 MG TAB PO SCH ×3 (08:56→22:18)
[2018-12-10] MEDS: MIRABEGRON ER 25 MG TAB PO SCH ×2 (08:57→22:18)
[2018-12-10] MEDS: MULTIVITAMIN TAB PO SCH (08:57)
[2018-12-10] MEDS: LISINOPRIL 5 MG TAB PO SCH (08:57)
[2018-12-10] MEDS ORDERED: CYANOCOBALAMIN 1000 MCG/ML VIAL IM SCH (09:00)
[2018-12-10 09:11] LABS: Prothrombin Time 79.3 Seconds (9.0-12.0)
[2018-12-10 09:33] LABS: BUN Creatinine Ratio 45.4 (10-20); Calcium 8.6 mg/dl (8.5-10.1); Creatinine Clr Calc Pharmacy 100.7 ml/min; Est GFR (African American) 96.1; Est GFR (Non-African American) 82.9; INR 9.1 (0.9-1.1); Potassium 4.2 mmol/L (3.5-5.1)
[2018-12-10] MEDS: NYSTATIN POWDER 15GM BTL EXT SCH (09:59)
--- NOTE | 2018-12-10 15:35 | Family Medicine Progress Note ---
Date of Service December 10, 2018 Assessment & Plan (1) Respiratory failure: (1) Respiratory Failure: -patient currently satting 91% on BiPAP -physical exam unchanged from initial discharge on 12-08-18 -CXR and chest CT showed small - moderate bilateral pleural effusions and bibasilar consolidation; unchanged from studies performed prior to discharge on 12-08-18 -etiology unlikely unlikely to be from increased pulmonary edema despite transition from IV to PO lasix prior to recent discharge; more likely due to ample respiratory support (BiPAP) not having been available at [facility] despite prior arrangements made with facility -BiPAP ordered as needed; patient to sleep with BiPAP (not CPAP) overnight -continue torosemide, 10mg, PO, daily and Aldactone 25mg, PO, daily -patient can return to [facility] as early as tomorrow (monday 12/11) assuming O2 saturation remains stable and facility confirms BiPAP availability (2) CHF (congestive heart failure) with preserved EF (55-60%) -BNP [place] 3991 on 11/28 - patient volume overloaded on exam - pleural effusions on CXR (11/28), persistent but improved with diruesis (12/02) -TTE from 11/29 showed evidence of pulmonary HTN, moderate aortic stenosis; repeat study on 12/03 unchanged (3) Atrial fibrillation, persistent: -Rate fluctuation; Metoprolol tartrate 25 mg bid -on anticoagulation (coumadin) -INR 9.1 (12/10) -hold coumadin today and likely tomorrow as well -recheck INR daily (4) Somnolence -persistent, but easily arousable -etiology general tiredness vs. chemically induced (secondary to carbon dioxide retention) (5) Hematuria: -Urology consulted; patient will have scope as outpatient -no blood visible in Vann tubing today on evaluation (12/04); appears to be resolving -etiology unknown, mostly likely traumatic from Vann; scope will rule out cancer (6)Urinary Tract Infection -IV Rocephin discontinued 12/04 in light of Urine Cx showing no growth with fewer than 1,000 colonies/ml -unlikely source of confusion (7) Confusion -patient oriented x 1 today (only to self) although this fluctuates -etiology unknown but unlikely secondary to contaminated urine as culture showed no growth with fewer than 1,000 colonies/ml -recent ICU exposure is likely contributory -family encouraged to reorient frequently (8)Hypoalbuminemia -level at 2.5 on 12/03 -IV replacement ordered 12/03 (9) Weakness: -likely secondary to active disease process vs. deconditioning -PT/OT ordered (10) Atrial flutter: -s/p ablation (11) Morbid obesity: -BMI >40 -PT/OT consulted and recommended inpatient rehab (12) Myasthenia gravis: - cont home azathioprine, pyridostigmine -neuro checks, qs (13) Rash: -erythema with overlying scale present in bilateral inguinal folds -appears to be consistent with intertrigo -continue nystatin -wound care consulted (14) Hypertension: -held home lisinopril as patient was hypotensive -resume in rehab if BP allows (15) BRIJESH (obstructive sleep apnea): - patient will be on BiPAP tonight (16) Asthma: - cont home asmanex and albuterol (17) Urinary bladder incontinence: - cont home myrbetriq -Vann removed FEN/GI: Sodium restricted diet, Heart healthy Code: Full Code PT/OT: ordered DVT prophylaxis: hold; patient supratheraputic on coumadin Dispo: medsurg on observation Supervising Physician Co-Signing Physician Notes I personally examined the patient and verified all cagle points of history and exam, discussed case, and agree with decision making with Dr Gabriel. feeling about the same. no new issues. [facility] hopefully ready to re- accept him tomorrow Vitals noted, in general he is awake and alert fatigued but otherwise no distress. HEENT normocephalic atraumatic mucous membranes moist. Breathing unlabored no rales rhonchi or wheezes he is somewhat diminished at the bases but overall very stable. No accessory muscle use. Skin shows no rashes no pallor or icterus. Respiratory distressappears heavily if not entirely related to lack of BiPAP. continue current diuresis w torsemide and aldactone, continue O2 during waking hours, bipap when asleep. coumadin coagulopathy - no bleeding. continue to follow. hold coumadin. no overt need for vitamin K and PO intake has been pretty good today. Otherwise as above Subjective No acute events overnight. resting in bed; complains of sore bottom from sitting in hospital bed; said he was overwhelmed by the number of the people in the room (myself, a nurse and a nurse offset assistant press operator). He said his breathing is "not as good as it should be." He is eating his breakfast (appears to have consumed 50%) and coughs at time throughout conversation, although does not bring anything up. After rounds: nurse asked if vann catheter could be d/c as patient had ulce ration present around penile meatus--order placed Review of Systems Constitutional: + weakness; no fever and no chills Ear, Nose, Mouth, Throat: no difficulty with chewing or swallowing food Respiratory: + cough Cardiovascular: no chest pain Gastrointestinal: no abdominal pain Genitourinary: + problem reported (says his bottom hurts from being on [facility]) Physical Exam Physical Exam: Constitutional well developed, well nourished, + obese and cooperative Respiratory normal respiratory effort Auscultation: + diminished lung sounds, + wheezes (expiratory) Cardiovascular Rate/Rhythm: regular rate and regular rhythm Heart Sounds: normal S1, normal S2 and + murmur (systolic ejection murmur best appreciated in aortic area; radiates to neck) Extremities: + pedal edema (+2 up to the bilateral knees) Gastrointestinal (Abdomen) Inspection/Auscultation: normal bowel sounds and + significant pannus Percussion/Palpation: abdomen soft; abdomen nontender and no guarding Vann catheter in place draining pale-yellow colored urine Skin + rash (intertrigous rash present in bilateral inguinal folds (R & L groin)) Neurologic awake and + confused Psychiatric Orientation: oriented to person and cooperative; + not oriented to time; "when asked where he was he replied "[facility]." Results & Data Vital Signs (Past 12 Hours) Vital Signs Temp Pulse Pulse Resp BP Pulse Ox 12/10/18 15:22 36.7 C 119 H 16 94/63 L 91 12/10/18 12:55 54 L 18 95 12/10/18 07:20 36.6 C 84 16 116/64 92 Laboratory Results 12/10/18 12/10/18 12/09/18 Range/Units 08:44 08:44 19:23 PT 79.3 H (9.0-12.0) Seconds INR 9.1 H* (0.9-1.1) Sodium 141 (136-145) mmol/L Potassium 4.2 (3.5-5.1) mmol/L Chloride 95 L (98-107) mmol/L Carbon Dioxide 42 H* (21-32) mmol/L Anion Gap 4.0 (3-11) BUN 37 H (7-18) mg/dl Creatinine 0.82 (0.6-1.4) mg/dl Est Cr Clr Drug Dosing 100.7 ml/min Est GFR ( Amer) 96.1 Est GFR (Non-Af Amer) 82.9 BUN/Creatinine Ratio 45.4 H (10-20) Glucose 133 H (70-99) mg/dl Calcium 8.6 (8.5-10.1) mg/dl Troponin I 0.058 H* (0-0.045) ng/ml Medications Administered Current Inpatient Medications Acetaminophen (Tylenol) 325 mg PO Q4 PRN PRN Reason: Pain Stop: 01/08/19 15:22 Albuterol (Ventolin Hfa) 2 puffs INH Q4 PRN PRN Reason: Shortness Of Breath Or Wheezin Stop: 01/08/19 15:22 Aspirin (Ecotrin Ectab) 81 mg PO QPM [facility] Stop: 01/08/19 20:59 Last Admin: 12/09/18 20:41 Dose: 81 mg Documented by: Azathioprine (Imuran) 150 mg PO DAILY [facility] Stop: 01/08/19 15:22 Last Admin: 12/10/18 08:54 Dose: 150 mg Documented by: Cyanocobalamin (Vitamin B-12) 1,000 mcg IM Q14D@0900 [facility] Stop: 01/09/19 08:59 Last Admin: 12/10/18 10:00 Dose: 1,000 mcg Documented by: Escitalopram Oxalate (Lexapro Tab) 5 mg PO DAILY [facility] Stop: 01/08/19 15:22 Last Admin: 12/10/18 08:55 Dose: 5 mg Documented by: Ferrous Sulfate (Feosol) 325 mg PO TID [facility] Stop: 01/08/19 15:22 Last Admin: 12/10/18 14:26 Dose: 325 mg Documented by: Fexofenadine HCl (Jenny) 180 mg PO DAILY PRN PRN Reason: ALLERGIES Stop: 01/08/19 15:22 Fluticasone Propionate (Flonase) 2 sprays GREG DAILY PRN PRN Reason: Nasal Congestion Stop: 01/08/19 15:22 Ioversol (Optiray 320 125ml) 119 ml IV ONCE PRN PRN Reason: Interaction Checking Stop: 12/13/18 12:12 Last Admin: 12/09/18 12:13 Dose: 119 ml Documented by: Lisinopril (Zestril) 5 mg PO DAILY [facility] Stop: 01/08/19 15:22 Last Admin: 12/10/18 08:57 Dose: 5 mg Documented by: Metoprolol Tartrate (Lopressor) 25 mg PO BID [facility] Stop: 01/08/19 20:59 Last Admin: 12/10/18 08:56 Dose: 25 mg Documented by: Mirabegron (Myrbetriq Er) 25 mg PO BID [facility] Stop: 01/08/19 20:59 Last Admin: 12/10/18 08:57 Dose: 25 mg Documented by: Mometasone Furoate (Asmanex 220mcg) 2 puffs INH BID [facility] Stop: 01/08/19 20:59 Last Admin: 12/10/18 08:52 Dose: 2 puffs Documented by: Multivitamins (Multivitamin Tab) 1 tab PO DAILY [facility] Stop: 01/08/19 15:22 Last Admin: 12/10/18 08:57 Dose: 1 tab Documented by: Nystatin (Mycostatin) 1 appln EXT DAILY [facility] Stop: 01/09/19 08:59 Last Admin: 12/10/18 09:59 Dose: 1 appln Documented by: Pyridostigmine [employer] (Mestinon) 120 mg PO TID [facility] Stop: 01/08/19 15:22 Last Admin: 12/10/18 14:27 Dose: 120 mg Documented by: Spironolactone (Aldactone) 25 mg PO DAILY [facility] Stop: 01/08/19 15:22 Last Admin: 12/10/18 08:51 Dose: 25 mg Documented by: Tolterodine Tartrate (Detrol La) 4 mg PO BID [facility] Stop: 01/08/19 20:59 Last Admin: 12/10/18 08:53 Dose: 4 mg Documented by: Torsemide (Demadex) 10 mg PO QAM [facility] Stop: 01/09/19 08:59 Last Admin: 12/10/18 08:52 Dose: 10 mg Documented by: Zolpidem Tartrate (Ambien) 5 mg PO HS PRN PRN Reason: Sleep Stop: 01/08/19 15:22 PG Care Time/CCT Total # of Minutes Spent Total Time Spent with Patient: Total time spent is greater than 50% in coordination of care (as documented) at patient's floor/unit and/or counseling patient: Resident Activity Tracking Resident Involvement: Resident Care Provided Care Provided: Adult Hospital Medicine (1) Respiratory failure Chronicity: acute Respiratory failure complication: hypercapnia Qualified Code(s): J96.02 - Acute respiratory failure with hypercapnia
[2018-12-10] MEDS ORDERED: PHYTONADIONE 5 MG TAB PO ONE (18:00)
[2018-12-10] MEDS: ASPIRIN 81 MG ECTAB PO SCH (22:19)
[2018-12-11 06:30] LABS: INR 2.7 (0.9-1.1); Prothrombin Time 25.5 Seconds (9.0-12.0)
[2018-12-11] MEDS: LISINOPRIL 5 MG TAB PO SCH (07:42)
[2018-12-11] MEDS: TOLTERODINE TARTRATE LA 4 MG CAPCR PO SCH ×2 (07:42→20:24)
[2018-12-11] MEDS: azaTHIOprine 50 MG TAB PO SCH (07:42)
[2018-12-11] MEDS: MIRABEGRON ER 25 MG TAB PO SCH ×2 (07:43→20:28)
[2018-12-11] MEDS: NYSTATIN POWDER 15GM BTL EXT SCH (07:43)
[2018-12-11] MEDS: PYRIDOSTIGMINE BROMIDE 60 MG TAB PO SCH ×3 (07:43→20:24)
[2018-12-11] MEDS: TORSEMIDE 10 MG TAB PO SCH (07:43)
[2018-12-11] MEDS: FERROUS SULFATE 325 MG TAB PO SCH ×3 (07:44→20:24)
[2018-12-11] MEDS: MOMETASONE FUROATE 14 PUFF/1 INHALER INH SCH ×2 (07:45→20:26)
[2018-12-11] MEDS: SPIRONOLACTONE 25 MG TAB PO SCH (07:45)
[2018-12-11] MEDS: ESCITALOPRAM OXALATE 10 MG TAB PO SCH (07:46)
[2018-12-11] MEDS: MULTIVITAMIN TAB PO SCH (07:46)
[2018-12-11] MEDS: METOPROLOL TARTRATE 25 MG TAB PO SCH ×2 (07:47→20:23)
[2018-12-11 08:22] LABS: BUN Creatinine Ratio 46.3 (10-20); Calcium 8.4 mg/dl (8.5-10.1); Est GFR (African American) 98.1; Est GFR (Non-African American) 84.7; Potassium 3.8 mmol/L (3.5-5.1)
[2018-12-11] MEDS ORDERED: WARFARIN SOD 3 MG TAB PO SCH (09:00)
--- NOTE | 2018-12-11 13:23 | Family Medicine Progress Note ---
Date of Service December 11, 2018 Assessment & Plan (1) Respiratory failure: (1) Respiratory Failure: -Patient satting at 96% on 3L oxygen. -Chest X-ray and CT from 12/09/18 showed moderate bilateral pleural effusions and bibasilar consolidation; Unchanged from prior studies on 12/08/18. -Patient to continue BiPAP at night daily. -Continue Torosemide 10mg PO QD and Aldactone 25mg PO QD. -Pulmonary Consult placed per request from [facility] for clearance so patient can return to [facility]. -Neurology Consult placed per request from [facility] for clearance so patient can return to [facility]. -Currently awaiting assurance from [facility] that they will have BiPAP available to the patient QHS. -Patient can return to [facility] as soon as BiPAP is available, Consults are completed, and patient remains stable. (2) CHF (congestive heart failure) with preserved EF (55-60%) -Patient doing well and diuresing well. -Pleural effusions present but improving. -TTE from 11/29 showed evidence of pulmonary HTN, moderate aortic stenosis; repeat study on 12/03 unchanged (3) Atrial fibrillation, persistent: -Rate fluctuation; Metoprolol tartrate 25 mg bid -INR 2.7 today -Coumadin 3mg QD restarted today. -Daily INR Check placed. (4) Somnolence -persistent, but easily arousable -etiology general tiredness vs. chemically induced (secondary to carbon dioxide retention) (5) Hematuria: -Urology consulted; patient will have scope as outpatient -no blood visible in Jamil tubing today on evaluation (12/04); appears to be resolving -etiology unknown, mostly likely traumatic from Jamil; scope will rule out cancer (6)Urinary Tract Infection -IV Rocephin discontinued 12/04 in light of Urine Cx showing no growth with fewer than 1,000 colonies/ml -unlikely source of confusion (7) Confusion -patient oriented x 1 today (only to self) although this fluctuates -etiology unknown but unlikely secondary to contaminated urine as culture showed no growth with fewer than 1,000 colonies/ml -recent ICU exposure is likely contributory -family encouraged to reorient frequently (8)Hypoalbuminemia -level at 2.5 on 12/03 -IV replacement ordered 12/03 (9) Weakness: -Encouraged patient to continue to eat as much of his meals as possible. -likely secondary to active disease process vs. deconditioning -PT/OT ordered (10) Atrial flutter: -s/p ablation (11) Morbid obesity: -BMI >40 -PT/OT consulted and recommended inpatient rehab (12) Myasthenia gravis: - cont home azathioprine, pyridostigmine -neuro checks, qs -Neuro and Pulmonology Consults placed. (13) Rash: -erythema with overlying scale present in bilateral inguinal folds -appears to be consistent with intertrigo -continue nystatin -wound care consulted (14) Hypertension: -held home lisinopril as patient was hypotensive -resume in rehab if BP allows (15) BRIJESH (obstructive sleep apnea): -Patient doing well on BiPAP QHS, continue as prescribed. (16) Asthma: - cont home asmanex and albuterol (17) Urinary bladder incontinence: - cont home myrbetriq -Jamil removed FEN/GI: Sodium restricted diet, Heart healthy Code: Full Code PT/OT: ordered DVT prophylaxis: hold; patient supratheraputic on coumadin Dispo: medsurg on observation Supervising Physician Co-Signing Physician Notes I personally examined the patient and verified all cagle points of history and exam, discussed case, and agree with decision making with Dr Mcnamara. feeling about the same. Would like to get out of the hospital. Discussed with physiatry, updated on situation. Physiatry is willing to accept but would like input from pulmonary and neurology regards to how much his myasthenia could be affecting his breathing. Neurology saw promptly, input greatly appreciated, discussed, and it seems highly unlikely that the myasthenia is playing any role in his breathing from a neurology stand point Vitals noted, in general he is awake and alert fatigued but otherwise no distress. HEENT normocephalic atraumatic mucous membranes moist. Breathing u nlabored no rales rhonchi or wheezes he is somewhat diminished at the bases but overall very stableexam almost identical the last several days. No accessory muscle use. Skin shows no rashes no pallor or icterus. Respiratory distressappears heavily if not entirely related to lack of BiPAP. continue current diuresis w torsemide and aldactone (medications unchanged for days), continue O2 during waking hours, bipap when asleep. coumadin coagulopathy - no bleeding. Improved with vitamin K. He likely is as far as why he seems to be so sensitive to Coumadin. We will resume Coumadin at 1 mg daily. Otherwise as above Subjective Patient seen and evaluated this AM at the bedside. He denies any acute events overnight. He appears comfortable and is currently eating his breakfast. He does state that he "does not have much of an appetite" and notes that he would be eating better if he were at home. He notes that he is ready to go to [facility] once everything is ready and when they are prepared for him with Bipap. Also, his daughter Swati called this AM with questions about the patient's recent CT scans. Her questions were answered. Patient has no other complaints at this time. Review of Systems Constitutional: + fatigue; no fever, no chills, no sweats and no increased appetite Eyes: no eye pain and no photophobia Ear, Nose, Mouth, Throat: no ear pain, no tinnitus and no dizziness Respiratory: + cough; no pain on inspiration and no wheezing Cardiovascular: no chest pain, no chest pain at rest and no palpitations Gastrointestinal: + early satiety; no abdominal pain, no nausea and no vomiting Physical Exam Constitutional: cooperative and comfortable; no acute distress, no altered mental status and not in distress Eyes: normal visual resendez by confrontation Respiratory: normal respiratory effort and + cough; no respiratory distress, n o labored breathing, no audible wheezes and no paradoxical chest wall movement Auscultation: + diminished lung sounds (Diminished at the bases bilateral); no crackles, no rales, no rhonchi and no wheezes Cardiovascular: Rate/Rhythm: regular rate and regular rhythm Heart Sounds: normal S1, normal S2 and + murmur Extremities: no edema Gastrointestinal (Abdomen): normal bowel sounds, soft, nontender, no hepatosplenomegaly Results & Data Vital Signs (Past 12 Hours) Vital Signs Temp Pulse Resp BP Pulse Ox 12/11/18 07:26 36.9 C 64 20 111/82 96 Laboratory Results Abnormal lab results 12/11/18 12/11/18 Range/Units 05:55 05:55 PT 25.5 H (9.0-12.0) Seconds INR 2.7 H (0.9-1.1) Chloride 97 L (98-107) mmol/L Carbon Dioxide 44 H* (21-32) mmol/L Anion Gap 1.0 L (3-11) BUN 36 H (7-18) mg/dl BUN/Creatinine Ratio 46.3 H (10-20) Glucose 101 H (70-99) mg/dl Calcium 8.4 L (8.5-10.1) mg/dl Medications Administered Current Inpatient Medications Acetaminophen (Tylenol) 325 mg PO Q4 PRN PRN Reason: Pain Stop: 01/08/19 15:22 Albuterol (Ventolin Hfa) 2 puffs INH Q4 PRN PRN Reason: Shortness Of Breath Or Wheezin Stop: 01/08/19 15:22 Aspirin (Ecotrin Ectab) 81 mg PO QPM [facility] Stop: 01/08/19 20:59 Last Admin: 12/10/18 22:19 Dose: 81 mg Documented by: Azathioprine (Imuran) 150 mg PO DAILY [facility] Stop: 01/08/19 15:22 Last Admin: 12/11/18 07:42 Dose: 150 mg Documented by: Cyanocobalamin (Vitamin B-12) 1,000 mcg IM Q14D@0900 [facility] Stop: 01/09/19 08:59 Last Admin: 12/10/18 10:00 Dose: 1,000 mcg Documented by: Escitalopram Oxalate (Lexapro Tab) 5 mg PO DAILY [facility] Stop: 01/08/19 15:22 Last Admin: 12/11/18 07:46 Dose: 5 mg Documented by: Ferrous Sulfate (Feosol) 325 mg PO TID [facility] Stop: 01/08/19 15:22 Last Admin: 12/11/18 13:52 Dose: 325 mg Documented by: Fexofenadine HCl (Jenny) 180 mg PO DAILY PRN PRN Reason: ALLERGIES Stop: 01/08/19 15:22 Fluticasone Propionate (Flonase) 2 sprays GREG DAILY PRN PRN Reason: Nasal Congestion Stop: 01/08/19 15:22 Ioversol (Optiray 320 125ml) 119 ml IV ONCE PRN PRN Reason: Interaction Checking Stop: 12/13/18 12:12 Last Admin: 12/09/18 12:13 Dose: 119 ml Documented by: Lisinopril (Zestril) 5 mg PO DAILY [facility] Stop: 01/08/19 15:22 Last Admin: 12/11/18 07:42 Dose: 5 mg Documented by: Metoprolol Tartrate (Lopressor) 25 mg PO BID [facility] Stop: 01/08/19 20:59 Last Admin: 12/11/18 07:47 Dose: 25 mg Documented by: Mirabegron (Myrbetriq Er) 25 mg PO BID [facility] Stop: 01/08/19 20:59 Last Admin: 12/11/18 07:43 Dose: 25 mg Documented by: Mometasone Furoate (Asmanex 220mcg) 2 puffs INH BID [facility] Stop: 01/08/19 20:59 Last Admin: 12/11/18 07:45 Dose: 2 puffs Documented by: Multivitamins (Multivitamin Tab) 1 tab PO DAILY [facility] Stop: 01/08/19 15:22 Last Admin: 12/11/18 07:46 Dose: 1 tab Documented by: Nystatin (Mycostatin) 1 appln EXT DAILY [facility] Stop: 01/09/19 08:59 Last Admin: 12/11/18 07:43 Dose: 1 appln Documented by: Pyridostigmine [place] (Mestinon) 120 mg PO TID [facility] Stop: 01/08/19 15:22 Last Admin: 12/11/18 13:52 Dose: 120 mg Documented by: Spironolactone (Aldactone) 25 mg PO DAILY [facility] Stop: 01/08/19 15:22 Last Admin: 12/11/18 07:45 Dose: 25 mg Documented by: Tolterodine Tartrate (Detrol La) 4 mg PO BID [facility] Stop: 01/08/19 20:59 Last Admin: 12/11/18 07:42 Dose: 4 mg Documented by: Torsemide (Demadex) 10 mg PO QAM [facility] Stop: 01/09/19 08:59 Last Admin: 12/11/18 07:43 Dose: 10 mg Documented by: Warfarin Sodium (Coumadin) 1 mg PO DAILY@1600 [facility] Stop: 01/10/19 15:59 Last Admin: 12/11/18 16:08 Dose: 1 mg Documented by: Zolpidem Tartrate (Ambien) 5 mg PO HS PRN PRN Reason: Sleep Stop: 01/08/19 15:22 PG Care Time/CCT Total # of Minutes Spent Total Time Spent with Patient: Total time spent is greater than 50% in coordination of care (as documented) at patient's floor/unit and/or counseling patient: Resident Activity Tracking Resident Involvement: Resident Care Provided Care Provided: Adult Hospital Medicine (1) Respiratory failure Chronicity: acute Respiratory failure complication: hypercapnia Qualified Code(s): J96.02 - Acute respiratory failure with hypercapnia
--- NOTE | 2018-12-11 14:30 | Neurology Consultation ---
Date of Consultation December 11, 2018 Assessment & Plan (1) Myasthenia gravis: 1. MG- continue current medication regime Mestinon 120 mg TID and Imuran 50 mg TID 2. weakness does not appear to be MG related 3. pulmonary for any treatment changes 4. would not recommend steroids at this time 5. bi pap as needed for O2 desaturation 6. primary team for medical management 7. please check FVC q shift -respiratory will see back in our office post rehab in 4-6 weeks Supervising Physician Co-Signing Physician Notes I have seen and discussed above patient with Dr Vilma Hodges, neurology. Pt seen and examined. Admitted from for exacerbation COPD. He indicates he does not feel current sx are cw myasthenic exacerbation. 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 Pt denies diplopia, dysarthria dysphagia or SOB. Awake alert, no fatigueability of EOM, eye closure.Occasional periorbital fasciculations No neck flexor weakness or fatigue. No fatigue of jaw opening or tongue. No deltoid or wrist extensor fatigue. Imp:Flare of COPD without flare of MG. No change in meds advised. Follow FVC, monitor for respiratory decompensation. Will follow with you. DENISSE Hodges MD History of Present Illness Reason for Consultation: dyspnea, myasthenia; physiatry requests evaluation Requesting Physician: Vince Wilson DO Attending Physician: Vince Wilson DO History of Present Illness Emory is an 83 year old male who has a PMH AF, CHF, ocular MG, SOB, HTN, asthma, who was hospitalized at [facility] from 11-28-18 to 12-08-18 with new onset CHF, in exacerbation who was discharged to [facility] at 4pm yesterday returning for hypoxia. Arrangements were made with [facility] in advance of his prior discharge for patient to have BiPAP mask available to him in the event his oxygen saturation dropped while on nasal cannula or room air. He is seen in our office by Hao Tejeda NP and Dr Raj Tang last seen 11/09/2018 for ocular MG with some generalized weakness. He is on a combination of Mestinon 120 mg TID and Imuran 50 mg TID for a number of years. He has reasonable control with occasional flare up of Ptosis and some proximal weakness which has been difficult to assess due to OA. he is morbidly obese with prior bi pass surgery and walks with a walker at baseline. Currently he states he was SOB and fatigued but feels this is not his MG. denies CP, SOB, abdominal pain, one sided weakness, numbness tingling, swallowing issues fatiguig with chewing or swallowing, vision changes, new bowel or bladder symptoms. Allergies Allergy/AdvReac Type Severity Reaction Status Date / Time vancomycin Allergy Severe Hives Verified 12/09/18 09:53 adhesive Allergy Unknown . Verified 12/09/18 09:53 latex Allergy Unknown blisters Verified 12/09/18 09:53 and swelling morphine Allergy Rash Verified 12/09/18 09:53 Influenza Virus Vaccines AdvReac Severe DEATHLY Verified 12/09/18 09:53 SICK Home Medications Home Medications Medication Instructions Recorded Confirmed Type Asmanex Twisthaler 2 inh INHALATION BID 11/28/18 12/09/18 History Myrbetriq 25 mg PO BID 11/28/18 12/09/18 History acetaminophen [Tylenol] 325 mg PO Q4 PRN 11/28/18 12/09/18 History albuterol sulfate 2 puff INHALATION Q4 PRN 11/28/18 12/09/18 History amoxicillin 2,000 mg PO UD PRN 11/28/18 12/09/18 History aspirin [Aspir-81] 81 mg PO QPM 11/28/18 12/09/18 History azathioprine [Imuran] 150 mg PO DAILY 11/28/18 12/09/18 History cyanocobalamin (vitamin B-12) 1,000 mcg IM .[id number] 11/28/18 12/09/18 History escitalopram oxalate [Lexapro] 5 mg PO DAILY 11/28/18 12/09/18 History ferrous sulfate [iron] 325 mg PO TID 11/28/18 12/09/18 History fexofenadine [Jenny Allergy] 180 mg PO DAILY PRN 11/28/18 12/09/18 History fluticasone propionate [Flonase 2 spray INTRANASAL DAILY PRN 11/28/18 12/09/18 History Allergy Relief] lisinopril [Zestril] 5 mg PO DAILY 11/28/18 12/09/18 History multivitamin 4 - 5 tab PO DAILY 11/28/18 12/09/18 History pyridostigmine bromide [Mestinon] 120 mg PO TID 11/28/18 12/09/18 History tolterodine [Detrol LA] 4 mg PO BID 11/28/18 12/09/18 History zolpidem [Ambien] 5 mg PO HS PRN 11/28/18 12/09/18 History metoprolol tartrate 25 mg PO BID 60 Days #120 tab 12/08/18 12/09/18 Rx nystatin [Nystop] 1 applic EXT DAILY 14 Days #14 12/08/18 12/09/18 Rx applic NS spironolactone 25 mg PO DAILY 60 Days #60 tab 12/08/18 12/09/18 Rx torsemide 10 mg PO QAM 60 Days #60 tab 12/08/18 12/09/18 Rx warfarin [Coumadin] 3 mg PO DAILY #7 tab 12/08/18 12/09/18 Rx Patient History Medical History Atrial flutter (Resolved Unknown) "s/p ablation " Myasthenia gravis (Chronic Unknown) Pulmonary hypertension (Acute Unknown) Family History Other Family history non-contributory Social History Preferred Language: Latvian Communication Ability: Unable Communication Ability Comment: occ confusion Cherry Cutter Required: No Beliefs That Will Affect Care: None marital status: / Current Living Situation: Rehab Current Living Situation Comment: [facility] Other Information That Helps Us Care for You: No Feels Safe at Home: Yes Safety Concerns: Feels Safe At This Time Smoking Status: Never smoker Second Hand Exposure: No Hx Alcohol Use: No Hx Substance Use: No Physical Exam Physical Exam: Physical Exam: Constitutional: appearance nourished, morbidly obese Ears, Nose, Mouth and Throat: mucous membranes moist, no injection and skin normal, eyes normal Cardiovascular: irregular Respiratory: course breath sounds Musculoskeletal: bilaterally peripheral edema Skin: bilateral venous stasis Eyes: extraocular muscles intact (EOMI) and pupils equal, round and reactive to light (PERRL), no fatiging with stressing of eye lids NEUROLOGIC EXAMINATION: Mental status: Alert and interactive Oriented to location Oriented to person Speech no slurring but slowing of speech Cranial Nerves smile eye brow raise symmetric Reflexes: Deep tendon reflexes unable to illicit, plantar neural Sensory: decreased sensation to light and cool touch LE Coordination: finger to nose dysmetric Gait/Stance: Posture unable to assess Motor: Negative for pronator drift of out stretched arms with eyes closed. Strength: biceps triceps hand president + publisher 5/5 bilaterally, neck stressing no fatiguing, hip flex against gravity no against resistance, plantar flex ext 5/5 Results & Data Vital Signs (Past 12 Hours) Vital Signs Temp Pulse Resp BP Pulse Ox 12/11/18 07:26 36.9 C 64 20 111/82 96 Laboratory Results Abnormal lab results 12/11/18 12/11/18 Range/Units 05:55 05:55 PT 25.5 H (9.0-12.0) Seconds INR 2.7 H (0.9-1.1) Chloride 97 L (98-107) mmol/L Carbon Dioxide 44 H* (21-32) mmol/L Anion Gap 1.0 L (3-11) BUN 36 H (7-18) mg/dl BUN/Creatinine Ratio 46.3 H (10-20) Glucose 101 H (70-99) mg/dl Calcium 8.4 L (8.5-10.1) mg/dl Diagnostic Findings CTA chest- . No evidence for pulmonary metastases with limitations as described above. Small to moderate bilateral pleural effusions. Cardiomegaly with evidence for right-sided heart dysfunction. Consolidation involving the majority of the bilateral lower lobes, right greater than left. This favors compressive atelectasis from the pleural effusions. A pneumonia could also have a similar appearance in the appropriate clinical setting.
[2018-12-11] MEDS: WARFARIN SOD 1 MG TAB PO SCH (16:08)
--- NOTE | 2018-12-11 17:26 | Ultrasound Report ---
US effusion-chest/mediastinum CLINICAL HISTORY: Bilat pleural effusions COMPARISON STUDY: Chest CT dated 12/09/2018 FINDINGS: Ultrasound reveals bilateral pleural effusions estimated to measure 40 cc in the right and 250 cc on the left. Neither effusion was marked due to adjacent atelectatic/consolidated lung. IMPRESSION: Bilateral pleural effusions left greater than right. Electronically signed by: Hernan Ashton M.D. 12/11/2018 5:24 PM
[2018-12-11] MEDS: ASPIRIN 81 MG ECTAB PO SCH (20:23)
--- NOTE | 2018-12-12 03:42 | Consultation Report ---
DATE OF CONSULTATION: 12/11/2018 PULMONARY MEDICINE CONSULT REASON FOR CONSULTATION: Acute on chronic respiratory failure. HISTORY OF PRESENT ILLNESS: An 83-year-old white male well known to me from having cared for him as both in and outpatient many years ago. The patient was admitted on the less than 24 hours after recent discharge and lengthy hospital stay. He was admitted to [facility] from 11/28/2018 to 12/08/2018 with new onset of CHF and was discharged to [facility] at 4:00 p.m. on 12/08/2018 and 14 hours later was readmitted onto the hospitalist service with progressive hypoxemia, disorientation and respiratory distress. The patient had been on CPAP for obstructive sleep apnea for many years along with O2 therapy at home. He lives by himself, although has a lot of family members nearby. He is . The family states since the holiday over November 16, he has been experiencing a great difficulty ambulating or navigating in his home because of severe dyspnea and weakness. He was seen back in distress by Dr. Remberto Awad on the and with confusion. Approximately 50 pounds of water weight had been removed during this last hospital stay with vigorous diuresis. The patient himself relates that he had a significant abdominal pannus and made it difficult for him to even see his legs, it was so protuberant. Normally he has had 3-4 liters of O2 via nasal cannula with his CPAP at home at night and with the oxygen therapy during the day. PAST MEDICAL HISTORY: History of pulmonary hypertension, recently diagnosed myasthenia gravis with Dr. Tang/neurology and atrial flutter status post ablation therapy. His primary care physician is Dr. Costa Iverson. BNP has been elevated in the past at 3991 on 11/28/2018 with clinical exam of being volume overloaded. Pleural effusions were present and a TTE done this past month had suggested the presence of moderate aortic stenosis and severe pulmonary hypertension, repeated again on the . He has been in chronic atrial fibrillation for the most part controlled with metoprolol and has been on Coumadin, although his INR was prolonged and is currently on hold. He was admitted hypersomnolent but today appears to be oriented x3, and freely conversant with myself and his family members who were in attendance in the room. He had been on IV Rocephin, which was discontinued on 12/04/2018. He has had chronic urinary tract infections and has a history of hypoalbuminemia. He has had a history of morbid obesity for many years and has been treated for intertrigo in the inguinal folds. He also has a history of asthma and has been on Asmanex and albuterol in the past. He was seen by Dr. Vilma Raymundo while here in the hospital from neurology and was to continue on Mestinon 120 mg p.o. t.i.d. and Imuran 50 mg p.o. t.i.d. for myasthenia gravis. He has a history of ocular myasthenia gravis and was seen in October by Dr. Tang, seemed to respond to the combination therapy. He occasionally gets ptosis with some proximal muscle weakness. He has had previous gastric bypass surgery. For details of past medical history, medications, family and social history, I refer you to current and past record. PHYSICAL EXAMINATION: GENERAL: Reveals a well-developed, friendly white male, in no obvious respiratory distress. VITAL SIGNS: Currently blood pressure 111/82, pulse 64 and irregular, respiratory rate 20, temperature 36.9, O2 sat 96% on current O2 with BiPAP. SKIN: Without lesion except the presence of intertrigo in the inguinal folds. HEENT: Atraumatic, normocephalic, PERRLA, EOMI. Conjunctivae pale. Sclerae nonicteric. Fundi poorly visualized. NECK: Neck veins are not distended at 45 degrees. No obvious adenopathy in the supra or infraclavicular areas. LUNGS: Decreased breath sounds bilaterally with rales. CARDIAC: Irregularly, irregular rhythm. I do not appreciate an S3. Grade 2/6 crescendo-decrescendo murmur heard at the lower left sternal border. ABDOMEN: Soft, protuberant. EXTREMITIES: Chronic stasis changes with +2 pitting edema. NEUROLOGICAL: Cranial nerves II-XII grossly intact. No lateralizing signs. LABORATORY DATA: Most recent echo on 12/03/2018 shows LVEF of 55% with frequent PVCs, moderate to severe aortic valve stenosis noted. Mild mitral regurgitation. Four days previous to that echo an initial echo was done which showed a dilated right ventricle. Other laboratory data, CTA on the showed no evidence of small to moderate bilateral pleural effusions, cardiomegaly, consolidation involving both lower lobes, right greater than left, suggesting compressive atelectasis. OVERALL ASSESSMENT: An 83-year-old with complex medical history, history of atrial flutter status post ablation, now in chronic atrial fibrillation and history of chronic alveolar hypoventilation/obstructive sleep apnea with cor pulmonale and significant pulmonary hypertension, also with moderate to severe aortic stenosis, mild mitral regurgitation and total body anasarca with signs and symptoms of acute on chronic hypoxic hypercapnic respiratory failure as well as acute on chronic congestive heart failure. Currently, the patient apparently sounds according to the family much better and certainly looks much better, more alert than what was described on admission. I would continue noninvasive positive pressure ventilation in the form of either a Trilogy unit or BiPAP and replace the CPAP unit at home along with O2 supplementation as required to maintain adequate saturation. The patient appears to be approaching euvolemia but the situation is made worse by his level of hypoalbuminemia. Recent ABGs pH 7.44, pCO2 64, pO2 of 69 on current O2. Calculated CO2 44, BUN 36, creatinine 0.78. We will follow along with you and would keep the current dosing of beta blockade as written. Would continue Demadex 10 mg p.o. q.a.m. and would have protime normalize before reinstituting anticoagulant therapy. We will follow along with you. Thank you very much for this consultation. GABBY
[2018-12-12 05:49] LABS: Basophils # (auto) 0.03 K/uL (0-0.2); Basophils % (auto) 0.4 %; Eosinophils # (auto) 0.15 K/uL (0-0.5); Eosinophils % (auto) 2.2 %; Hematocrit (blood only) 44.2 % (42-52); Hemoglobin 13.7 g/dL (14.0-18.0); Immature Granulocytes # (auto) 0.03 K/uL (0.00-0.02); Immature Granulocytes % (auto) 0.4 %; Lymphocytes % (auto) 8.9 %; Mean Corpuscular Volume 100.5 fL (80-100); Mean Platelet Volume 10.5 fL (7.4-10.4); Monocytes # (auto) 0.69 K/uL (0.11-0.59); Monocytes % (auto) 10.3 %; Neutrophils # (auto) 5.21 K/uL (1.4-6.5); Neutrophils % (auto) 77.8 %; Platelet Count 193 K/uL (130-400); RDW Coefficient of Variation 16.4 % (11.5-14.5); RDW Standard Deviation 60.4 fL (36.4-46.3); White Blood Count 6.71 K/uL (4.8-10.8)
[2018-12-12 06:09] LABS: INR 1.4 (0.9-1.1); Prothrombin Time 14.4 Seconds (9.0-12.0)
[2018-12-12 06:32] LABS: BUN Creatinine Ratio 49.6 (10-20); Calcium 8.2 mg/dl (8.5-10.1); Creatinine Clr Calc Pharmacy 113.1 ml/min; Potassium 3.7 mmol/L (3.5-5.1)
[2018-12-12] MEDS: SPIRONOLACTONE 25 MG TAB PO SCH (08:30)
[2018-12-12] MEDS: TORSEMIDE 10 MG TAB PO SCH (08:30)
[2018-12-12] MEDS: MOMETASONE FUROATE 14 PUFF/1 INHALER INH SCH (08:30)
[2018-12-12] MEDS: TOLTERODINE TARTRATE LA 4 MG CAPCR PO SCH (08:30)
[2018-12-12] MEDS: FERROUS SULFATE 325 MG TAB PO SCH ×2 (08:31→13:32)
[2018-12-12] MEDS: azaTHIOprine 50 MG TAB PO SCH (08:31)
[2018-12-12] MEDS: ESCITALOPRAM OXALATE 10 MG TAB PO SCH (08:31)
[2018-12-12] MEDS: PYRIDOSTIGMINE BROMIDE 60 MG TAB PO SCH ×2 (08:33→13:32)
[2018-12-12] MEDS: MULTIVITAMIN TAB PO SCH (08:34)
[2018-12-12] MEDS: MIRABEGRON ER 25 MG TAB PO SCH (08:34)
[2018-12-12] MEDS: LISINOPRIL 5 MG TAB PO SCH (08:34)
[2018-12-12] MEDS: NYSTATIN POWDER 15GM BTL EXT SCH (08:35)
[2018-12-12] MEDS: METOPROLOL TARTRATE 25 MG TAB PO SCH (08:35)
--- NOTE | 2018-12-12 13:56 | Progress Note ---
DATE: 12/12/2018 PULMONARY MEDICINE PROGRESS NOTE Chart reviewed, the patient examined. SUBJECTIVE: The patient feels about the same as dictated yesterday. He is oriented x3 and does not feel any more dyspneic or orthopneic than yesterday. Tolerating BiPAP with O2 supplementation nocturnally. OBJECTIVE: CURRENT VITAL SIGNS: Blood pressure 115/73, pulse 56 and regular, respiratory rate 20, temperature 36.9, O2 sat 90% on 3 liters. SKIN: Chronic stasis changes, bilateral lower extremities with some areas of excoriation in the calves. HEENT: Atraumatic, normocephalic. PERRLA. LUNGS: Decreased breath sounds with dullness at the bases. CARDIAC: Irregularly irregular rhythm. I do not appreciate a gallop. ABDOMEN: Soft, protuberant with large abdominal pannus. EXTREMITIES: +1, +2 chronic pedal edema. Negative Homans sign. NEUROLOGICAL: Cranial nerves II-XII grossly intact. No lateralizing signs. LABORATORY DATA: Chest x-ray and ultrasound showed bilateral pleural effusions, minimal on the right and 250 mL on the left, neither to be marked for thoracentesis, bibasilar atelectasis suggested. White count is 6700, H and H 13.7 and 44.2 with hyperchromic macrocytic indices. Calculated CO2 of 44. The patient appears well compensated with BUN 35, creatinine 0.7. ASSESSMENT: An 83-year-old with acute on chronic hypoxic and hypercapnic respiratory failure as well as acute on chronic diastolic heart failure, pulmonary hypertension with cor pulmonale and chronic alveolar hypoventilation/obstructive sleep apnea. PLAN: The patient appears stable and well compensated. I certainly would proceed with placing patient on either a Trilogy unit or BiPAP unit for noninvasive positive pressure ventilation at night and p.r.n. during the day at home and would arrange for delivery of that equipment to replace his current CPAP machine with O2 supplementation. I would also stay on top of the patient's weight and any significant gain of 3-4 pounds within a few days would almost certainly represent sodium and volume overload and the need for increased diuresis with careful attention to pt''s renal status. GABBY
--- NOTE | 2018-12-12 15:10 | Neurology Progress Note ---
Date of Service December 12, 2018 Assessment & Plan (1) Myasthenia gravis: 1. MG- continue current medication regime Mestinon 120 mg TID and Imuran 50 mg TID 2. weakness does not appear to be MG related 3. pulmonary for any treatment changes 4. would not recommend steroids at this time 5. bi pap as needed for O2 desaturation 6. primary team for medical management 7. please check FVC q shift -respiratory will see back in our office post rehab in 4-6 weeks Supervising Physician Co-Signing Physician Notes I have seen and discussed above patient with Dr Vilma Hodges, neurology. Pt seen and examined. FVC 2.5. No SOB, diplopia. Awake, alert. Minimal fatigue with eye closure. No neck flex fatigue or wrist extensor fatigue. No resp distress. MG, no evidence of exacerbation. Continue Mestinon and Imuran. Will sign off. Pt should see Hao NICHOLS within 2 months of dc. DENISSE Hodges MD Rafal Cat is an 83 year old male who has a PMH AF, CHF, ocular MG, SOB, HTN, asthma, who was hospitalized at [facility] from 11-28-18 to 12-08-18 with new onset CHF, in exacerbation who was discharged to [facility] at 4pm yesterday returning for hypoxia. Arrangements were made with [facility] in advance of his prior discharge for patient to have BiPAP mask available to him in the event his oxygen saturation dropped while on nasal cannula or room air. He is seen in our office by Hao Tejeda NP and Dr Raj Tang last seen 11/09/2018 for ocular MG with some generalized weakness. He is on a combination of Mestinon 120 mg TID and Imuran 50 mg TID for a number of years. He has reasonable control with occasional flare up of Ptosis and some proximal weakness which has been difficult to assess due to OA. he is morbidly obese with prior bi pass surgery and walks with a walker at baseline. Today he feels his breathing is still not back to baseline but still feels this is not his MG. His family are in the room states they feel he is doing better today. He is schedule to return to [facility] today at 1700. denies CP, SOB, abdominal pain, one sided weakness, numbness tingling, swallowing issues fatiguig with chewing or swallowing, vision changes, new bowel or bladder symptoms. 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 hip flex unable to lift off bed does lift heels plantar flex ext 5/5 bilaterally Results & Data Vital Signs (Past 12 Hours) Vital Signs Temp Pulse Resp BP BP Pulse Ox 12/12/18 13:45 36.9 C 56 L 20 109/70 115/73 90 12/12/18 12:32 36.9 C 56 L 20 109/70 115/73 90 12/12/18 07:14 36.9 C 56 L 20 115/73 90 Laboratory Results Abnormal lab results 12/12/18 12/12/18 12/12/18 Range/Units 05:36 05:36 05:36 RBC 4.40 L (4.7-6.1) M/uL Hgb 13.7 L (14.0-18.0) g/dL MCV 100.5 H (80-100) fL MCHC 31.0 L (32-36) g/dL RDW Std Deviation 60.4 H (36.4-46.3) fL RDW Coeff of Naseem 16.4 H (11.5-14.5) % MPV 10.5 H (7.4-10.4) fL Immature Gran # (Auto) 0.03 H (0.00-0.02) K/uL Lymph # (Auto) 0.60 L (1.2-3.4) K/uL [place] # (Auto) 0.69 H (0.11-0.59) K/uL PT 14.4 H (9.0-12.0) Seconds INR 1.4 H (0.9-1.1) Chloride 96 L (98-107) mmol/L Carbon Dioxide 44 H* (21-32) mmol/L Anion Gap 2.0 L (3-11) BUN 35 H (7-18) mg/dl BUN/Creatinine Ratio 49.6 H (10-20) Calcium 8.2 L (8.5-10.1) mg/dl Diagnostic Findings Chest US-Bilateral pleural effusions left greater than right.
[2018-12-12] MEDS: WARFARIN SOD 1 MG TAB PO SCH (16:01)
--- NOTE | 2018-12-12 17:56 | Discharge Summary ---
Date of Service December 12, 2018 Admission HPI Per Admitting Provider Mr. Benjamin is an 83 yo gentleman who was admitted to [facility] from 11-28-18 to 12-08-18 with new onset CHF, in exacerbation who was discharged to [facility] at 4pm yesterday returning for hypoxia. Arrangements were made with [facility] in advance of his prior discharge for patient to have BiPAP mask available to him in the event his oxygen saturation dropped while on nasal cannula or room air. However, per daughters present during exam, when he arrived at [facility] the facility did not have this equipment available. He did sleep with his home CPAP overnight at [facility], but when it was removed this morning for breakfast and meds, he desatted to the 80s and was subsequently transported back to the hospital. He denies any difficulty breathing at present. Principal Diagnosis Acute on chronic diastolic CHF related to aortic stenosis Weakness and deconditioning Discharge Exam In general he is awake and alert, pleasant no distress. HEENT normocephalic atraumatic mucous members moist. Breathing is unlabored no accessory muscle use good effort. Shows no rashes no pallor or icterus. Neuro shows no focal deficits. He is globally weak all over. He is conversational. His mental status seems fairly good today. Discharge Data Allergies Allergy/AdvReac Type Severity Reaction Status Date / Time vancomycin Allergy Severe Hives Verified 12/09/18 09:53 adhesive Allergy Unknown . Verified 12/09/18 09:53 latex Allergy Unknown blisters Verified 12/09/18 09:53 and swelling morphine Allergy Rash Verified 12/09/18 09:53 Influenza Virus Vaccines AdvReac Severe DEATHLY Verified 12/09/18 09:53 SICK Consultations 12/09/18 12:19 ED Decision to Admit Stat 12/09/18 15:23 Consult Case Management - Discharge Planning Routine 12/11/18 13:28 Consult Pulmonology Routine 12/11/18 13:31 Consult Neurology Routine Consult Pulmonology Routine 12/11/18 13:38 Consult Neurology Routine Ordered Studies 12/09/18 10:00 CT angio chest PE protocol Stat CHEST CTA for PULMONARY ARTERIES CT DOSE: 1075.89 mGy.cm HISTORY: Atypical Chest Pain, eval for PE TECHNIQUE: Multiaxial CT images of the chest were performed following the intravenous administration of contrast to evaluate the pulmonary arteries. Maximal intensity projection images were also obtained. A dose lowering technique was utilized adhering to the principles of ALA. COMPARISON STUDY: Chest CTA 12/08/2012. FINDINGS: The thoracic aorta is not adequately opacified to assess for dissection but appears normal in caliber. The heart is enlarged. Small to moderate bilateral pleural effusions are noted. Mild respiratory motion artifact. There is also suboptimal opacification of the distal pulmonary arteries due to the patient's right heart dysfunction. This results in nondiagnostic evaluation of the majority of the segmental and subsegmental pulmonary arteries. The main and lobar pulmonary arteries appear patent. The upper lobe segmental pulmonary arteries are also likely patent. Remaining pulmonary arteries are nondiagnostic due to the artifact. Contrast within the hepatic veins is likely due to the right heart dysfunction. Evidence for postoperative changes within the stomach which is only partially visualized. The spleen is unremarkable. No significant mediastinal or hilar lymphadenopathy. Nor mal esophagus. Advanced degenerative changes within the shoulders. No suspicious lytic or blastic osseous lesions. No pneumothorax. The central airways are patent. Consolidation within the bilateral lower lobes posteriorly. This includes the majority of the right lower lobe. There are associated air bronchograms. IMPRESSION: 1. No evidence for pulmonary metastases with limitations as described above. 2. Small to moderate bilateral pleural effusions. 3. Cardiomegaly with evidence for right-sided heart dysfunction. 4. Consolidation involving the majority of the bilateral lower lobes, right gr eater than left. This favors compressive atelectasis from the pleural effusions. A pneumonia could also have a similar appearance in the appropriate clinical setting. Electronically signed by: Edvin Mariscal M.D. 12/09/2018 12:22 PM 12/11/18 16:08 US effusion-chest/mediastinum Routine US effusion-chest/mediastinum CLINICAL HISTORY: Bilat pleural effusions COMPARISON STUDY: Chest CT dated 12/09/2018 FINDINGS: Ultrasound reveals bilateral pleural effusions estimated to measure 40 cc in the right and 250 cc on the left. Neither effusion was marked due to adjacent atelectatic/consolidated lung. IMPRESSION: Bilateral pleural effusions left greater than right. Electronically signed by: Hernan Ashton M.D. 12/11/2018 5:24 PM Lab Results 12/09/18 12/09/18 12/09/18 Range/Units 10:18 10:18 10:18 WBC 6.70 (4.8-10.8) K/uL RBC 4.77 (4.7-6.1) M/uL Hgb 14.9 (14.0-18.0) g/dL POC Hgb (14.0-18.0) g/dl Hct 47.5 (42-52) % POC Hct (42-52) % MCV 99.6 (80-100) fL MCH 31.2 (25-34) pg MCHC 31.4 L (32-36) g/dL RDW Std Deviation 60.1 H (36.4-46.3) fL RDW Coeff of Naseem 16.5 H (11.5-14.5) % Plt Count 201 (130-400) K/uL MPV 9.8 (7.4-10.4) fL Immature Gran % (Auto) 0.3 % Neut % (Auto) 81.1 % Lymph % (Auto) 7.2 % [place] % (Auto) 10.7 % Eos % (Auto) 0.4 % Baso % (Auto) 0.3 % Immature Gran # (Auto) 0.02 (0.00-0.02) K/uL Neut # (Auto) 5.43 (1.4-6.5) K/uL Lymph # (Auto) 0.48 L (1.2-3.4) K/uL [place] # (Auto) 0.72 H (0.11-0.59) K/uL Eos # (Auto) 0.03 (0-0.5) K/uL Baso # (Auto) 0.02 (0-0.2) K/uL PT 51.5 H (9.0-12.0) Seconds INR 5.7 H* (0.9-1.1) POC pH (7.35-7.45) POC pCO2 (35-46) mmHg POC pO2 (80-95) mmHg POC HCO3 (19-24) vidya/L POC Base Excess (-9-1.8) vidya/L POC Sodium (135-144) mEq/L Sodium 139 (136-145) mmol/L POC Potassium (3.3-5.0) mEq/L Potassium 4.3 (3.5-5.1) mmol/L POC Chloride (101-112) mEq/L Chloride 93 L (98-107) mmol/L Carbon Dioxide 41 H* (21-32) mmol/L POC Total CO2 (24-31) mEq/l Anion Gap 3.0 (3-11) POC Anion Gap (16-25) mmol/L POC BUN (7-18) mg/dl BUN 40 H (7-18) mg/dl Creatinine 0.86 (0.6-1.4) mg/dl POC Creatinine (0.6-1.3) mg/dl Est Cr Clr Drug Dosing 96.0 ml/min Est GFR ( Amer) 94.3 Est GFR (Non-Af Amer) 81.3 BUN/Creatinine Ratio 47.1 H (10-20) Glucose 112 H (70-99) mg/dl POC Glucose (other) (70-99) mg/dl Calcium 8.5 (8.5-10.1) mg/dl POC Ioniz Calcium Artur (1.12-1.32) mmol/l Total Bilirubin 0.9 (0.2-1) mg/dl AST 36 (15-37) U/L ALT 25 (12-78) U/L Alkaline Phosphatase 67 (45-117) U/L Total Creatine Kinase 53 (39-308) U/L CK-MB (CK-2) 1.3 (0.5-3.6) ng/ml CK/CKMB % Calc 2.5 (0-3.0) Troponin I 0.123 H* (0-0.045) ng/ml Total Protein 6.4 (6.4-8.2) gm/dl Albumin 2.8 L (3.4-5.0) gm/dl Globulin 3.6 (2.5-4.0) gm/dl Albumin/Globulin Ratio 0.8 L (0.9-2) Lipase 182 (73-393) U/L 12/09/18 12/09/18 12/09/18 Range/Units 10:22 13:02 19:23 WBC (4.8-10.8) K/uL RBC (4.7-6.1) M/uL Hgb (14.0-18.0) g/dL POC Hgb 16.3 15.0 (14.0-18.0) g/dl Hct (42-52) % POC Hct 48 44 (42-52) % MCV (80-100) fL MCH (25-34) pg MCHC (32-36) g/dL RDW Std Deviation (36.4-46.3) fL RDW Coeff of Naseem (11.5-14.5) % Plt Count (130-400) K/uL MPV (7.4-10.4) fL Immature Gran % (Auto) % Neut % (Auto) % Lymph % (Auto) % [place] % (Auto) % Eos % (Auto) % Baso % (Auto) % Immature Gran # (Auto) (0.00-0.02) K/uL Neut # (Auto) (1.4-6.5) K/uL Lymph # (Auto) (1.2-3.4) K/uL [place] # (Auto) (0.11-0.59) K/uL Eos # (Auto) (0-0.5) K/uL Baso # (Auto) (0-0.2) K/uL PT (9.0-12.0) Seconds INR (0.9-1.1) POC pH 7.44 (7.35-7.45) POC pCO2 64 H (35-46) mmHg POC pO2 69 L (80-95) mmHg POC HCO3 44 H (19-24) vidya/L POC Base Excess 20.0 H (-9-1.8) vidya/L POC Sodium 138 136 (135-144) mEq/L Sodium (136-145) mmol/L POC Potassium 4.3 4.0 (3.3-5.0) mEq/L Potassium (3.5-5.1) mmol/L POC Chloride 89 L (101-112) mEq/L Chloride (98-107) mmol/L Carbon Dioxide (21-32) mmol/L POC Total CO2 > 40 H* > 40 H* (24-31) mEq/l Anion Gap (3-11) POC Anion Gap 14.0 L (16-25) mmol/L POC BUN 42 H (7-18) mg/dl BUN (7-18) mg/dl Creatinine (0.6-1.4) mg/dl POC Creatinine 1.1 (0.6-1.3) mg/dl Est Cr Clr Drug Dosing ml/min Est GFR ( Amer) Est GFR (Non-Af Amer) BUN/Creatinine Ratio (10-20) Glucose (70-99) mg/dl POC Glucose (other) 116 H (70-99) mg/dl Calcium (8.5-10.1) mg/dl POC Ioniz Calcium Artur 1.10 L (1.12-1.32) mmol/l Total Bilirubin (0.2-1) mg/dl AST (15-37) U/L ALT (12-78) U/L Alkaline Phosphatase (45-117) U/L Total Creatine Kinase (39-308) U/L CK-MB (CK-2) (0.5-3.6) ng/ml CK/CKMB % Calc (0-3.0) Troponin I 0.058 H* (0-0.045) ng/ml Total Protein (6.4-8.2) gm/dl Albumin (3.4-5.0) gm/dl Globulin (2.5-4.0) gm/dl Albumin/Globulin Ratio (0.9-2) Lipase (73-393) U/L 12/10/18 12/10/18 12/11/18 Range/Units 08:44 08:44 05:55 WBC (4.8-10.8) K/uL RBC (4.7-6.1) M/uL Hgb (14.0-18.0) g/dL POC Hgb (14.0-18.0) g/dl Hct (42-52) % POC Hct (42-52) % MCV (80-100) fL MCH (25-34) pg MCHC (32-36) g/dL RDW Std Deviation (36.4-46.3) fL RDW Coeff of Naseem (11.5-14.5) % Plt Count (130-400) K/uL MPV (7.4-10.4) fL Immature Gran % (Auto) % Neut % (Auto) % Lymph % (Auto) % [place] % (Auto) % Eos % (Auto) % Baso % (Auto) % Immature Gran # (Auto) (0.00-0.02) K/uL Neut # (Auto) (1.4-6.5) K/uL Lymph # (Auto) (1.2-3.4) K/uL [place] # (Auto) (0.11-0.59) K/uL Eos # (Auto) (0-0.5) K/uL Baso # (Auto) (0-0.2) K/uL PT 79.3 H 25.5 H (9.0-12.0) Seconds INR 9.1 H* 2.7 H (0.9-1.1) POC pH (7.35-7.45) POC pCO2 (35-46) mmHg POC pO2 (80-95) mmHg POC HCO3 (19-24) vidya/L POC Base Excess (-9-1.8) vidya/L POC Sodium (135-144) mEq/L Sodium 141 (136-145) mmol/L POC Potassium (3.3-5.0) mEq/L Potassium 4.2 (3.5-5.1) mmol/L POC Chloride (101-112) mEq/L Chloride 95 L (98-107) mmol/L Carbon Dioxide 42 H* (21-32) mmol/L POC Total CO2 (24-31) mEq/l Anion Gap 4.0 (3-11) POC Anion Gap (16-25) mmol/L POC BUN (7-18) mg/dl BUN 37 H (7-18) mg/dl Creatinine 0.82 (0.6-1.4) mg/dl POC Creatinine (0.6-1.3) mg/dl Est Cr Clr Drug Dosing 100.7 ml/min Est GFR ( Amer) 96.1 Est GFR (Non-Af Amer) 82.9 BUN/Creatinine Ratio 45.4 H (10-20) Glucose 133 H (70-99) mg/dl POC Glucose (other) (70-99) mg/dl Calcium 8.6 (8.5-10.1) mg/dl POC Ioniz Calcium Artur (1.12-1.32) mmol/l Total Bilirubin (0.2-1) mg/dl AST (15-37) U/L ALT (12-78) U/L Alkaline Phosphatase (45-117) U/L Total Creatine Kinase (39-308) U/L CK-MB (CK-2) (0.5-3.6) ng/ml CK/CKMB % Calc (0-3.0) Troponin I (0-0.045) ng/ml Total Protein (6.4-8.2) gm/dl Albumin (3.4-5.0) gm/dl Globulin (2.5-4.0) gm/dl Albumin/Globulin Ratio (0.9-2) Lipase (73-393) U/L 12/11/18 12/12/18 12/12/18 Range/Units 05:55 05:36 05:36 WBC 6.71 (4.8-10.8) K/uL RBC 4.40 L (4.7-6.1) M/uL Hgb 13.7 L (14.0-18.0) g/dL POC Hgb (14.0-18.0) g/dl Hct 44.2 (42-52) % POC Hct (42-52) % MCV 100.5 H (80-100) fL MCH 31.1 (25-34) pg MCHC 31.0 L (32-36) g/dL RDW Std Deviation 60.4 H (36.4-46.3) fL RDW Coeff of Naseem 16.4 H (11.5-14.5) % Plt Count 193 (130-400) K/uL MPV 10.5 H (7.4-10.4) fL Immature Gran % (Auto) 0.4 % Neut % (Auto) 77.8 % Lymph % (Auto) 8.9 % [place] % (Auto) 10.3 % Eos % (Auto) 2.2 % Baso % (Auto) 0.4 % Immature Gran # (Auto) 0.03 H (0.00-0.02) K/uL Neut # (Auto) 5.21 (1.4-6.5) K/uL Lymph # (Auto) 0.60 L (1.2-3.4) K/uL [place] # (Auto) 0.69 H (0.11-0.59) K/uL Eos # (Auto) 0.15 (0-0.5) K/uL Baso # (Auto) 0.03 (0-0.2) K/uL PT 14.4 H (9.0-12.0) Seconds INR 1.4 H (0.9-1.1) POC pH (7.35-7.45) POC pCO2 (35-46) mmHg POC pO2 (80-95) mmHg POC HCO3 (19-24) vidya/L POC Base Excess (-9-1.8) vidya/L POC Sodium (135-144) mEq/L Sodium 143 (136-145) mmol/L POC Potassium (3.3-5.0) mEq/L Potassium 3.8 (3.5-5.1) mmol/L POC Chloride (101-112) mEq/L Chloride 97 L (98-107) mmol/L Carbon Dioxide 44 H* (21-32) mmol/L POC Total CO2 (24-31) mEq/l Anion Gap 1.0 L (3-11) POC Anion Gap (16-25) mmol/L POC BUN (7-18) mg/dl BUN 36 H (7-18) mg/dl Creatinine 0.78 (0.6-1.4) mg/dl POC Creatinine (0.6-1.3) mg/dl Est Cr Clr Drug Dosing 103.0 ml/min Est GFR ( Amer) 98.1 Est GFR (Non-Af Amer) 84.7 BUN/Creatinine Ratio 46.3 H (10-20) Glucose 101 H (70-99) mg/dl POC Glucose (other) (70-99) mg/dl Calcium 8.4 L (8.5-10.1) mg/dl POC Ioniz Calcium Artur (1.12-1.32) mmol/l Total Bilirubin (0.2-1) mg/dl AST (15-37) U/L ALT (12-78) U/L Alkaline Phosphatase (45-117) U/L Total Creatine Kinase (39-308) U/L CK-MB (CK-2) (0.5-3.6) ng/ml CK/CKMB % Calc (0-3.0) Troponin I (0-0.045) ng/ml Total Protein (6.4-8.2) gm/dl Albumin (3.4-5.0) gm/dl Globulin (2.5-4.0) gm/dl Albumin/Globulin Ratio (0.9-2) Lipase (73-393) U/L 12/12/18 Range/Units 05:36 WBC (4.8-10.8) K/uL RBC (4.7-6.1) M/uL Hgb (14.0-18.0) g/dL POC Hgb (14.0-18.0) g/dl Hct (42-52) % POC Hct (42-52) % MCV (80-100) fL MCH (25-34) pg MCHC (32-36) g/dL RDW Std Deviation (36.4-46.3) fL RDW Coeff of Naseem (11.5-14.5) % Plt Count (130-400) K/uL MPV (7.4-10.4) fL Immature Gran % (Auto) % Neut % (Auto) % Lymph % (Auto) % [place] % (Auto) % Eos % (Auto) % Baso % (Auto) % Immature Gran # (Auto) (0.00-0.02) K/uL Neut # (Auto) (1.4-6.5) K/uL Lymph # (Auto) (1.2-3.4) K/uL [place] # (Auto) (0.11-0.59) K/uL Eos # (Auto) (0-0.5) K/uL Baso # (Auto) (0-0.2) K/uL PT (9.0-12.0) Seconds INR (0.9-1.1) POC pH (7.35-7.45) POC pCO2 (35-46) mmHg POC pO2 (80-95) mmHg POC HCO3 (19-24) vidya/L POC Base Excess (-9-1.8) vidya/L POC Sodium (135-144) mEq/L Sodium 141 (136-145) mmol/L POC Potassium (3.3-5.0) mEq/L Potassium 3.7 (3.5-5.1) mmol/L POC Chloride (101-112) mEq/L Chloride 96 L (98-107) mmol/L Carbon Dioxide 44 H* (21-32) mmol/L POC Total CO2 (24-31) mEq/l Anion Gap 2.0 L (3-11) POC Anion Gap (16-25) mmol/L POC BUN (7-18) mg/dl BUN 35 H (7-18) mg/dl Creatinine 0.71 (0.6-1.4) mg/dl POC Creatinine (0.6-1.3) mg/dl Est Cr Clr Drug Dosing 113.1 ml/min Est GFR ( Amer) 102.0 Est GFR (Non-Af Amer) 88.0 BUN/Creatinine Ratio 49.6 H (10-20) Glucose 99 (70-99) mg/dl POC Glucose (other) (70-99) mg/dl Calcium 8.2 L (8.5-10.1) mg/dl POC Ioniz Calcium Artur (1.12-1.32) mmol/l Total Bilirubin (0.2-1) mg/dl AST (15-37) U/L ALT (12-78) U/L Alkaline Phosphatase (45-117) U/L Total Creatine Kinase (39-308) U/L CK-MB (CK-2) (0.5-3.6) ng/ml CK/CKMB % Calc (0-3.0) Troponin I (0-0.045) ng/ml Total Protein (6.4-8.2) gm/dl Albumin (3.4-5.0) gm/dl Globulin (2.5-4.0) gm/dl Albumin/Globulin Ratio (0.9-2) Lipase (73-393) U/L Hospital Course (1) Respiratory failure: Acute on chronic related to his diastolic CHF, predominantly acuity was related to CPAP instead of BiPAP. Quickly resolved to his current slowly improving baseline. (2) Acute exacerbation of CHF (congestive heart failure): He has had a severe exacerbation during his prior hospital stay, this time he had a degree of worsening mostly related to confusion on CPAP versus BiPAP when he is asleep. He improved quite quickly and seems to have suffered no significant harm, we maintained his current chronic med regimen and he showed good stability. -At physiatry request, pulmonary and neurology were consulted in regards to his breathing and whether or not there was any real interplay with his myasthenia, neurology felt absolutely not, pulmonary felt that his breathing situation was improving with the current plan which should be continued. -Patient stable for another trial at rehab -Continue current medications, continue BiPAP when asleep. When the time comes for discharge from rehab, it would be quite reasonable to look to a trilogy type device for at home -Assess with daily weights, pulse ox.s, respiratory assessment, and assessment of his oxygen requirementescalate diuretics if anything seems to be worsening -Assess for "dry" with basic metabolic panel every 2 to 3 days, de-escalate diuretics slightly if contraction alkalosis worsens or if creatinine is rising (3) Atrial fibrillation with rapid ventricular response: Rate has been controlled, anticoagulation with Coumadin has been somewhat erratic. The erratic nature of his anticoagulation appears to have been related to his shifting oral intake. Earlier during his 2 weeks of illness his INR was very easy to run high, probably due predominantly to poor oral intake. Now suddenly his INR is improving some, and his oral intake is improving as well. For now continue 3 mg daily, follow INR daily to every other day. (4) Encephalopathy: Seems to been related to his illness, hypoxia, and environment. Is slowly improving. (5) Demand ischemia: Extremely mild, related to hypoxia. (6) Weakness: Seems heavily deconditioning related, PT/OT eval and treat ongoing. Goal would be to get him home. (7) Myasthenia gravis: Continue home meds, neurology did not feel that his myasthenia had anything to do with his breathing issues. (8) BRIJESH (obstructive sleep apnea): BiPAP when he sleeps, once he is ready for discharge from rehab, BiPAP versus a trilogy type device. 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 Patient had presented with worsening hypoxia due to initial lack of BiPAP at night. Warfarin dose was decreased to 3mg daily from 5mg daily due to supratherapeutic INR in light of decreased PO intake. INR was 1.4 today (12/12/18). Please recheck in 2-3 days. Please follow up with Neurology in 4-6 wks for Myasthenia Gravis. Prescriptions: Continued multivitamin Tablet 4 - 5 tab PO DAILY RF: 0 amoxicillin 500 mg Capsule 2,000 mg PO UD PRN (Reason: BEFORE DENTIST) RF: 0 acetaminophen [Tylenol] 325 mg Tablet 325 mg PO Q4 PRN (Reason: Pain) RF: 0 tolterodine [Detrol LA] 4 mg capsule,extended release 24hr 4 mg PO BID RF: 0 azathioprine [Imuran] 50 mg tablet 150 mg PO DAILY RF: 0 fexofenadine [Jenny Allergy] 180 mg Tablet 180 mg PO DAILY PRN (Reason: ALLERGIES) RF: 0 aspirin [Aspir-81] 81 mg Tablet,Delayed Release (Dr/Ec) 81 mg PO QPM RF: 0 cyanocobalamin (vitamin B-12) 1,000 mcg/mL solution 1,000 mcg IM .[id number] RF: 0 ferrous sulfate [iron] 325 mg (65 mg iron) Tablet 325 mg PO TID RF: 0 pyridostigmine bromide [Mestinon] 60 mg tablet 120 mg PO TID RF: 0 lisinopril [Zestril] 5 mg tablet 5 mg PO DAILY RF: 0 zolpidem [Ambien] 5 mg tablet 5 mg PO HS PRN (Reason: Sleep) RF: 0 albuterol sulfate 90 mcg/actuation HFA aerosol inhaler 2 puff inhalation Q4 PRN (Reason: Shortness Of Breath Or Wheezing) RF: 0 fluticasone propionate [Flonase Allergy Relief] 50 mcg/actuation [place],Suspension 2 spray INTRANASAL DAILY PRN (Reason: Nasal Congestion) RF: 0 escitalopram oxalate [Lexapro] 5 mg tablet 5 mg PO DAILY RF: 0 Asmanex Twisthaler 220 mcg (30 doses) Aerosol Powdr Breath Activated 2 inh INHALATION BID RF: 0 Myrbetriq 25 mg tablet extended release 24 hr 25 mg PO BID RF: 0 torsemide 10 mg Tablet 10 mg PO QAM 60 Days Qty: 60 RF: 0 spironolactone 25 mg Tablet 25 mg PO DAILY 60 Days Qty: 60 RF: 0 nystatin [Nystop] 100,000 unit/gram Powder 1 applic EXT DAILY 14 Days Qty: 14 RF: 1 metoprolol tartrate 25 mg Tablet 25 mg PO BID 60 Days Qty: 120 RF: 0 warfarin [Coumadin] 3 mg tablet 3 mg PO DAILY Qty: 7 RF: 0 Stand-Alone Forms: [facility] Discharge Orders: Discharge Order (Routine); Ordered 12/12/18 Ordered By: Freddy Mcnamara Skilled Items Patient informed of condition?: Yes DNR: No Discharge Level of Care: Acute rehab Communicable Disease: No Discharge Prognosis: Stable Admission Data Admit Date/Time: 12/11/18 13:44 Attending Provider: Vince Wilson Admit Provider: Vince Wilson Primary Care Provider: Costa Iverson Other Providers: Vince Wilson ; Costa Cardenas ; Raj Tang Kathleen Service: Medical Other Interventions: Discharge Summary Assessment (RN) Last Done: 12/12/18 13:45
== END 2018-12-12 18:08 | DRG 189 ==
LOC: 2W 09:20 → ED 09:20 → 2W 14:57 → 4W 12-11 22:00

== ENCOUNTER 2022-01-28 06:17 | Observation (INO) ==
[2022-01-28] MEDS ORDERED: SODIUM CHLORIDE 0.9% 500 ML IV SCH (06:45)
--- NOTE | 2022-01-28 06:51 | Emergency Department Note ---
Impression & Plan Bilateral pleural effusion, SOB (shortness of breath), Hematoma of right flank ED Provider Note NAME: SB MCCABE AGE: 87 SEX: M : 1935 ARRIVES VIA: Ambulance INFORMANT: Patient, ED PROVIDER(S): Costa Camarena DO CHIEF COMPLAINT: Abdominal pain HPI: The patient is an 87-year-old male who presented to the emergency [facility] for an evaluation of right-sided abdominal pain. The patient lives at [facility]. He arrived via ambulance but his family members arrived shortly after his arrival. The patient was sent to the emergency department for bruising and hypotension. The patient does have a history of spontaneous hematoma because of Coumadin therapy. He was transferred to [facility] recently with a large thigh hematoma. He has had no recent trauma. He denies having any chest pain or headaches. There is no leg pain or swelling reported. The patient was noted to have a large area of ecchymosis over his right flank. He has no nausea or vomiting. He denies having any black or blo cristopher bowel moods. His daughter states that he was having some changes to his Coumadin dose and they been trending his INR as recently. ROS: See above HPI for pertinent positives & negatives. A total of 10 systems reviewed and were otherwise negative. PAST MEDICAL HISTORY: See Below PAST SURGICAL HISTORY: See Below FAMILY HISTORY: See Below SOCIAL HISTORY: See Below HOME MEDICATIONS: See Below ALLERGIES: See Below VITALS: See Below PHYSICAL EXAMINATION: GENERAL: The patient is awake and alert. The patient is nonanxious appearing. EYES: The conjunctivae are clear. The pupils are round and reactive. EARS, NOSE, MOUTH AND THROAT: The nose is without any evidence of any deformity. NECK: The neck is nontender and supple. RESPIRATORY: Normal respiratory effort is noted there is no evidence of wheezing rhonchi or rales CARDIOVASCULAR: Heart sounds were noted auscultation. There is no definite murmur. GASTROINTESTINAL: The abdomen is distended. There is significant hematoma noted over the right flank. There is right upper quadrant tenderness to palpation. BACK: Tenderness was appreciated. There is no hematoma noted in the lumbar spine. MUSCULOSKELETAL/EXTREMITIES: There is no evidence of gross deformity full range of motion is noted in the hips and shoulders. SKIN: Pedal edema was noted bilaterally. Skin was warm and dry. NEUROLOGIC: Patient is awake alert and oriented to place and situation. MEDICAL DECISION MAKING: The patient is an 87-year-old male who presented to the emergency department for an evaluation of a hematoma on his right flank. Reportedly the patient was hypotensive at his personal-detention. He has a history of a recent intra- abdominal bleed from an unknown source. The patient was taking Coumadin at that time. He is now back on Coumadin and today at his personal-detention was found to have a very large flank hematoma. There is no reported trauma. The patient did have right upper quadrant abdominal pain. Given the patient's use of oral anticoagulation and the uncertainty of the mechanism further laboratory and radiographic studies were obtained to determine if any significant intra- abdominal or intrathoracic trauma existed. The patient was reevaluated multiple times. He was found to have no signs of intra-abdominal or intrathoracic trauma. He does have a significant hematoma but his hemoglobin is stable compared to baseline. He is having some shortness of breath especially with any exertion. He was found have bilateral pleural effusions. Given the patient's age and comorbidities I discussed his case with the on-call [facility] hospitalist. They have agreed to evaluate the patient in the emergency department for further management and disposition. Triage Nursing notes reviewed. Prior medical records reviewed Vital Signs: reviewed and remarkable for no significant abnormalities Differential diagnosis: Fracture, dislocation, contusion, intra-abdominal, pneumothorax, intrathoracic, intracranial, neurologic, compartment syndrome, rhabdomyolysis, as well as other pathologies. ER treatment provided: See below Diagnostics interpreted by me: ECG: EKG was obtained in the emergency department. My interpretation is atrial fibrillation at 65 bpm. PVCs were noted. Poor R wave progression was also appreciated. This was compared to a tracing from November 20, 2021. No changes were noted. Cardiac Monitoring: An order was placed for continuous cardiac monitoring. The monitor shows a rate of 61 bpm with atrial fibrillation. Laboratory studies: As stated above and show below. Imaging studies: See below Consultation(s): I discussed this case with Dr. Chapa the [facility] Hospitalist group. 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) Family History Other Family history non-contributory Social History Smoking Status: Former smoker Second Hand Exposure: No; Hx Alcohol Use: No Hx Substance Use: No Preferred Language: Kazakh Communication Ability: Unable 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 Verified 12/09/18 09:53 latex Allergy Unknown blisters Verified 12/09/18 09:53 and swelling morphine Allergy Rash Verified 12/09/18 09:53 Influenza Virus Vaccines AdvReac Severe DEATHLY Verified 12/09/18 09:53 SICK Home Meds Home Medications Medication Instructions Recorded Confirmed acetaminophen 325 mg tablet 325 mg PO Q4 PRN Pain 11/28/18 12/09/18 (Tylenol) albuterol sulfate 90 mcg/actuation 2 puff inhalation Q4 PRN Shortness 11/28/18 12/09/18 aerosol inhaler Of Breath Or Wheezing amoxicillin 500 mg capsule 2,000 mg PO UD PRN BEFORE DENTIST 11/28/18 12/09/18 aspirin 81 mg tablet,delayed 81 mg PO QPM 11/28/18 12/09/18 release (Aspir-) azathioprine 50 mg tablet (Imuran) 150 mg PO DAILY 11/28/18 12/09/18 cyanocobalamin (vitamin B-12) 1,000 mcg IM .[id number] 11/28/18 12/09/18 1,000 mcg/mL injection solution escitalopram oxalate 5 mg tablet 5 mg PO DAILY 11/28/18 12/09/18 (Lexapro) ferrous sulfate 325 mg (65 mg 325 mg PO TID 11/28/18 12/09/18 iron) tablet (iron) fexofenadine 180 mg tablet 180 mg PO DAILY PRN ALLERGIES 11/28/18 12/09/18 (Jenny Allergy) fluticasone propionate 50 2 spray intranasal DAILY PRN Nasal 11/28/18 12/09/18 mcg/actuation nasal Congestion spray,suspension (Flonase Allergy Relief) lisinopril 5 mg tablet (Zestril) 5 mg PO DAILY 11/28/18 12/09/18 mirabegron 25 mg tablet,extended 25 mg PO BID 11/28/18 12/09/18 release 24 hr (Myrbetriq) mometasone 220 mcg/actuation(30 2 inh inhalation BID 11/28/18 12/09/18 doses) breath activated powder inhaler (Asmanex Twisthaler) multivitamin 4 - 5 tab PO DAILY 11/28/18 12/09/18 pyridostigmine bromide 60 mg 120 mg PO TID 11/28/18 12/09/18 tablet (Mestinon) tolterodine 4 mg capsule,extended 4 mg PO BID 11/28/18 12/09/18 release 24 hr (Detrol LA) zolpidem 5 mg tablet (Ambien) 5 mg PO HS PRN Sleep 11/28/18 12/09/18 Previous Rx's Medication Instructions Recorded warfarin 3 mg tablet (Coumadin) 3 mg PO DAILY #7 tabs 12/12/18 Results & Data (ED) Vital Signs Vital Signs - 24 hr 01/28/22 06:41 01/28/22 06:41 01/28/22 06:59 Temperature 36.7 C Temperature Source Temporal Artery Scan Pulse Rate 85 74 Pulse Rate [Finger] 76 Pulse Rhythm Regular Respiratory Rate 20 20 24 Respiratory Effort / Characteristics Non-Labored Spontaneous Non-Labored Spontaneous Respiratory Depth Normal Normal Blood Pressure 140/65 Blood Pressure [Left Arm] 140/65 Blood Pressure Mean 90 Blood Pressure Mean [Left Arm] 90 Blood Pressure Position Sitting Blood Pressure Position [Left Arm] Pulse Oximetry 95 93 95 Oxygen Delivery Method Room Air Room Air Room Air Sepsis Recent Fever Within 48 Hours No Sepsis New/Unexplained Change in Mental Status N/A Sepsis Action Taken by Nursing No Action Required 01/28/22 08:49 Temperature Temperature Source Pulse Rate Pulse Rate [Finger] 61 Pulse Rhythm Respiratory Rate 20 Respiratory Effort / Characteristics Non-Labored Spontaneous Respiratory Depth Normal Blood Pressure Blood Pressure [Left Arm] 116/73 Blood Pressure Mean Blood Pressure Mean [Left Arm] 87 Blood Pressure Position Blood Pressure Position [Left Arm] Sitting Pulse Oximetry 97 Oxygen Delivery Method Room Air Sepsis Recent Fever Within 48 Hours Sepsis New/Unexplained Change in Mental Status Sepsis Action Taken by Senior Care Medications Current Medication List: was personally reviewed by me Laboratory Data Attestation: I reviewed the patient's lab results. Result diagrams: 01/28/22 07:11 01/28/22 07:11 Lab Results 01/28/22 01/28/22 01/28/22 Range/Units 07:11 07:11 07:11 WBC 4.71 L (4.8-10.8) K/ul RBC 3.75 L (4.63-6.08) M/uL Hgb 12.2 L (14.0-18.0) g/dl POC Hgb (14.0-18.0) g/dl Hct 38.5 L (40.1-51.0) % POC Hct (42-52) % MCV 102.7 H (80.0-100.0) fL MCH 32.5 (25.0-34.0) pg MCHC 31.7 L (32.0-36.0) g/dL RDW Std Deviation 58.8 H (36.4-46.3) fL RDW Coeff of Naseem 15.7 H (11.5-14.5) % Plt Count 151 (130-400) K/uL MPV 9.8 (9.4-12.4) fL Immature Gran % (Auto) 0.4 % Neut % (Auto) 69.9 % Lymph % (Auto) 15.5 % Pettis % (Auto) 9.1 % Eos % (Auto) 4.0 % Baso % (Auto) 1.1 % Neut # (Auto) 3.29 (1.4-6.5) K/uL Lymph # (Auto) 0.73 L (1.2-3.4) K/uL Pettis # (Auto) 0.43 (0.24-0.82) K/uL Eos # (Auto) 0.19 (0-0.50) K/uL Baso # (Auto) 0.05 (0-0.2) K/uL Immature Gran # (Auto) 0.02 (0.00-0.02) K/uL PT 20.3 H (9.0-12.0) Seconds INR 2.0 H (0.9-1.1) APTT 38.5 H (21.0-31.0) Seconds PTT Ratio 1.4 POC Sodium (135-144) mmol/L Sodium 139 (136-145) mmol/L POC Potassium (3.3-5.0) mmol/L Potassium 3.8 (3.5-5.1) mmol/L POC Chloride (101-112) mmol/L Chloride 104 (98-107) mmol/L Carbon Dioxide 31 (21-32) mmol/L POC Total CO2 (24-31) mmol/L Anion Gap 4 (3-11) POC Anion Gap (16-25) mmol/L POC BUN (7-18) mg/dl BUN 16 (6-23) mg/dl Creatinine 0.78 (0.6-1.4) mg/dl POC Creatinine (0.6-1.3) mg/dl Est Cr Clr Drug Dosing Not Reportable Est GFR ( Amer) 95.4 ml/min Est GFR (Non-Af Amer) 82.3 ml/min BUN/Creatinine Ratio 20.5 H (10-20) Glucose 99 (70-99(Fasting)) mg/dl POC Glucose (other) (70-99) mg/dl Calcium 8.1 L (8.5-10.1) mg/dl POC Ioniz Calcium Artur (1.12-1.32) mmol/l Total Bilirubin 0.9 (0.2-1.0) mg/dl AST 16 (13-39) U/L ALT 7 (7-52) U/L Alkaline Phosphatase 82 (34-104) U/L Total Creatine Kinase 25 L (30-223) U/L Troponin I High Sens 5.8 D (0-20) pg/ml Total Protein 6.0 (6.0-8.3) gm/dl Albumin 3.6 (3.4-5.0) gm/dl Globulin 2.4 L (2.5-4.0) gm/dl Albumin/Globulin Ratio 1.5 (0.9-2) Urine Color Urine Appearance (Clear) Urine pH (4.5-7.5) Ur Specific [place] (1.000-1.030) Urine Protein (Negative) Urine Glucose (UA) (Negative) Urine Ketones (Negative) Urine Blood (Negative) Urine Nitrite (Negative) Urine Bilirubin (Negative) Urine Urobilinogen (Negative) Ur Leukocyte Esterase (Negative) Urine WBC (Auto) (0-5) /hpf Urine RBC (Auto) (0-4) /hpf U Hyaline Cast (Auto) (0-5) /lpf U Epithel Cells (Auto) (0-5) /lpf Urine Bacteria (Auto) (Negative) SARS-CoV-2, RNA, NAAT (NEGATIVE) 01/28/22 01/28/22 01/28/22 Range/Units 07:32 08:49 11:03 WBC (4.8-10.8) K/ul RBC (4.63-6.08) M/uL Hgb (14.0-18.0) g/dl POC Hgb 13.3 L (14.0-18.0) g/dl Hct (40.1-51.0) % POC Hct 39 L (42-52) % MCV (80.0-100.0) fL MCH (25.0-34.0) pg MCHC (32.0-36.0) g/dL RDW Std Deviation (36.4-46.3) fL RDW Coeff of Naseem (11.5-14.5) % Plt Count (130-400) K/uL MPV (9.4-12.4) fL Immature Gran % (Auto) % Neut % (Auto) % Lymph % (Auto) % Pettis % (Auto) % Eos % (Auto) % Baso % (Auto) % Neut # (Auto) (1.4-6.5) K/uL Lymph # (Auto) (1.2-3.4) K/uL Pettis # (Auto) (0.24-0.82) K/uL Eos # (Auto) (0-0.50) K/uL Baso # (Auto) (0-0.2) K/uL Immature Gran # (Auto) (0.00-0.02) K/uL PT (9.0-12.0) Seconds INR (0.9-1.1) APTT (21.0-31.0) Seconds PTT Ratio POC Sodium 141 (135-144) mmol/L Sodium (136-145) mmol/L POC Potassium 3.7 (3.3-5.0) mmol/L Potassium (3.5-5.1) mmol/L POC Chloride 101 (101-112) mmol/L Chloride (98-107) mmol/L Carbon Dioxide (21-32) mmol/L POC Total CO2 30 (24-31) mmol/L Anion Gap (3-11) POC Anion Gap 15.0 L (16-25) mmol/L POC BUN 16 (7-18) mg/dl BUN (6-23) mg/dl Creatinine (0.6-1.4) mg/dl POC Creatinine 1.0 (0.6-1.3) mg/dl Est Cr Clr Drug Dosing Est GFR ( Amer) ml/min Est GFR (Non-Af Amer) ml/min BUN/Creatinine Ratio (10-20) Glucose (70-99(Fasting)) mg/dl POC Glucose (other) 97 (70-99) mg/dl Calcium (8.5-10.1) mg/dl POC Ioniz Calcium Artur 1.08 L (1.12-1.32) mmol/l Total Bilirubin (0.2-1.0) mg/dl AST (13-39) U/L ALT (7-52) U/L Alkaline Phosphatase (34-104) U/L Total Creatine Kinase (30-223) U/L Troponin I High Sens (0-20) pg/ml Total Protein (6.0-8.3) gm/dl Albumin (3.4-5.0) gm/dl Globulin (2.5-4.0) gm/dl Albumin/Globulin Ratio (0.9-2) Urine Color Yellow Urine Appearance Cloudy A (Clear) Urine pH 6.5 (4.5-7.5) Ur Specific [place] 1.019 (1.000-1.030) Urine Protein Trace H (Negative) Urine Glucose (UA) Negative (Negative) Urine Ketones Trace H (Negative) Urine Blood Negative (Negative) Urine Nitrite Negative (Negative) Urine Bilirubin Negative (Negative) Urine Urobilinogen Negative (Negative) Ur Leukocyte Esterase 1+ H (Negative) Urine WBC (Auto) 5-10 H (0-5) /hpf Urine RBC (Auto) 5-10 H (0-4) /hpf U Hyaline Cast (Auto) 1-5 (0-5) /lpf U Epithel Cells (Auto) >30 H (0-5) /lpf Urine Bacteria (Auto) Negative (Negative) SARS-CoV-2, RNA, NAAT NEGATIVE (NEGATIVE) Administered Medications Discontinued Medications Ioversol (Optiray 300 100ml) 94 ml IV ONCE ONE Stop: 01/28/22 08:45 Last Admin: 01/28/22 08:45 Dose: 94 ml Documented By: GEORGIE Imaging Data Radiologist's Impression: Abdomen/Pelvis CT 01/28/22 06:46 CT OF THE ABDOMEN AND PELVIS WITH CONTRAST CLINICAL HISTORY: Trauma COMPARISON STUDY: CT of the abdomen pelvis November 20, 2021. TECHNIQUE: Following IV administration of 94 mL of Optiray, axial images of the abdomen and pelvis were obtained from the lung bases to the proximal femurs. Images were reviewed in the axial, sagittal, and coronal planes. IV contrast was administered without complication. Automated exposure control was utilized for the study. A dose lowering technique was utilized adhering to the principles of ALARA. CT DOSE: 3993.14 mGy.cm FINDINGS: Anasarca is noted. Bilateral pleural effusions with interstitial pulmonary edema and cardiomegaly are better depicted on the chest CT. Please see that report for further description. There is no hemoperitoneum or pneumoperitoneum. The left rectus sheath hematoma has significantly decreased in size since CT of November 30, 2021. Residual hematoma measures 3.9 x 3.7 cm. Associated hypodensity consistent with a resolving hematoma within the space of Retzius has also significantly decreased in size. This measures 5.8 x 5.2 cm. No new sites of hemorrhage are identified. No evidence for traumatic injury to the liver, spleen, adrenal glands, kidneys or pancreas. Hepatic cyst is noted. Postoperative findings of the stomach are noted. There is a cyst within the lower pole of the left kidney. There are several left renal calculi. No hydronephrosis. 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 This is similar to prior exam. No acute lumbar spine, pelvic or hip fracture is identified. There is no lymphadenopathy. This exam is mildly compromised by artifact due to body wall contacting the gantry. No evidence for a bowel obstruction. There is colonic diverticulosis without evidence for acute diverticulitis. IMPRESSION: 1. No acute traumatic findings within the abdomen or pelvis. Exam mildly compromised due to body wall contacting the gantry with artifact. 2. Resolving left rectus sheath and space of Retzius hematomas, significantly decreased in size since CT of November 20, 2021. No new sites of hemorrhage. 3. Interstitial pulmonary edema, bilateral pleural effusions and anasarca. ACT 112: Negative or not required by law. Electronically signed by: Conrado Dumont M.D. 01/28/2022 9:[address] 01/28/22 06:46 CT cervical spine wo con CLINICAL HISTORY: 87 years-old Male with Trauma. Acute neck trauma status post fall COMPARISON: Head CT of same day TECHNIQUE: Multiple axial CT images of the cervical spine were obtained without contrast. A dose lowering technique was utilized adhering to the principles of ALARA. FINDINGS: Multilevel degenerative changes. Straightening of the normal cervical lordosis. No acute fracture, subluxation, endplate erosion or destructive bone lesion identified. The cervical soft tissues appear unremarkable. Layering pleural effusions. No pneumothorax. Calcified plaque of the carotid bulbs. IMPRESSION: No acute fracture or subluxation. ACT 112: Negative or not required by law. The above report was generated using voice recognition software. It may contain grammatical, syntax or spelling errors. Electronically signed by: Kieran Weiner M.D. 01/28/2022 9:[address] 01/28/22 06:46 CT OF THE CHEST WITH IV CONTRAST CLINICAL HISTORY: Trauma. COMPARISON STUDY: Chest CT December 09, 2018. Chest radiograph November 20, 2021. TECHNIQUE: Following IV administration of 94 mL of Optiray, helical axial images of the chest were obtained. Sagittal and coronal reconstructions were viewed as well as maximal intensity projections on an independent 3-D workstation. Automated exposure control was utilized for the study. A dose lowering technique was utilized adhering to the principles of ALARA. FINDINGS: There is no evidence for traumatic injury to the thoracic aorta. There is moderate cardiomegaly and extensive coronary artery calcification. The re is no pericardial effusion. Dilatation of the central pulmonary arteries is noted. There are no central pulmonary emboli. No pneumothorax is present. Small moderate right and small left pleural effusions are noted. Interstitial pulmonary edema is present. Lungs are suboptimally assessed due to respiratory motion. No acute rib or thoracic spine fracture is present although sensitivity for detection of rib fractures is diminished given motion artifact. There is anasarca. Abdomen and pelvis CT will be reported separately. IMPRESSION: 1. No acute traumatic findings within the chest. 2. Cardiomegaly with interstitial pulmonary edema and small to moderate right and small left pleural effusions. Anasarca. ACT 112: Negative or not required by law. Electronically signed by: Conrado Dumont M.D. 01/28/2022 9:[address] 01/28/22 06:46 CT head/brain wo con CLINICAL HISTORY: 87 years-old Male with Trauma. Acute head trauma with hypotension TECHNIQUE: Multiple axial CT images of the head were obtained without contrast. A dose lowering technique was utilized adhering to the principles of ALARA. COMPARISON: Head CT 11/20/2021 FINDINGS: No acute intracranial hemorrhage, midline shift, intracranial mass, h ydrocephalus, territorial ischemia or abnormal extra-axial collection. Involutional changes with unchanged asymmetric left frontal lobe atrophy. White matter hypodensities are suggestive of chronic microvascular ischemic disease. Cerebral vascular calcifications. The calvarium is intact. The paranasal sinuses, mastoid air cells, and middle ear cavities are clear. IMPRESSION: No acute intracranial abnormality. ACT 112: Negative or not required by law. The above report was generated using voice recognition software. It may contain grammatical, syntax or spelling errors. Electronically signed by: Kieran Weiner M.D. 01/28/2022 8:57 AM Discharge Plan Visit Data Chief Complaint: Illness Stated Complaint: Illness ED Provider: Costa Camarena Discharge Problem: Bilateral pleural effusion, SOB (shortness of breath), Hematoma of right flank Patient Disposition: Being Evaluated by Hospitalist Forms Stand Alone Forms: My [facility] [employer] Prescriptions Prescriptions: No Action multivitamin Tablet 4 - 5 tab PO DAILY Label Comments: FROM QVC amoxicillin 500 mg Capsule 2,000 mg PO UD PRN (Reason: BEFORE DENTIST) acetaminophen [Tylenol] 325 mg Tablet 325 mg PO Q4 PRN (Reason: Pain) tolterodine [Detrol LA] 4 mg capsule,extended release 24hr 4 mg PO BID azathioprine [Imuran] 50 mg tablet 150 mg PO DAILY fexofenadine [Jenny Allergy] 180 mg Tablet 180 mg PO DAILY PRN (Reason: ALLERGIES) aspirin [Aspir-81] 81 mg Tablet,Delayed Release (Dr/Ec) 81 mg PO QPM cyanocobalamin (vitamin B-12) 1,000 mcg/mL solution 1,000 mcg IM [id number] ferrous sulfate [iron] 325 mg (65 mg iron) Tablet 325 mg PO TID pyridostigmine bromide [Mestinon] 60 mg tablet 120 mg PO TID lisinopril [Zestril] 5 mg tablet 5 mg PO DAILY zolpidem [Ambien] 5 mg tablet 5 mg PO HS PRN (Reason: Sleep) albuterol sulfate 90 mcg/actuation HFA aerosol inhaler 2 puff inhalation Q4 PRN (Reason: Shortness Of Breath Or Wheezing) fluticasone propionate [Flonase Allergy Relief] 50 mcg/actuation [place],Suspension 2 spray INTRANASAL DAILY PRN (Reason: Nasal Congestion) escitalopram oxalate [Lexapro] 5 mg tablet 5 mg PO DAILY Asmanex Twisthaler 220 mcg (30 doses) Aerosol Powdr Breath Activated 2 inh INHALATION BID Myrbetriq 25 mg tablet extended release 24 hr 25 mg PO BID Rx Instructions: 1ST STATES 25 MG BID warfarin [Coumadin] 3 mg tablet 3 mg PO DAILY Qty: 7 0RF Rx Instructions: Titrate as needed according to INRs Referrals Referrals: Reese Sanchez Pierpont [Primary Care Provider] -
[2022-01-28 07:31] LABS: Basophils # (auto) 0.05 K/uL (0-0.2); Basophils % (auto) 1.1 %; Eosinophils # (auto) 0.19 K/uL (0-0.50); Hematocrit (blood only) 38.5 % (40.1-51.0); Hemoglobin 12.2 g/dl (14.0-18.0); Immature Granulocytes # (auto) 0.02 K/uL (0.00-0.02); Immature Granulocytes % (auto) 0.4 %; Lymphocytes # (auto) 0.73 K/uL (1.2-3.4); Lymphocytes % (auto) 15.5 %; Mean Corpuscular Hemoglobin 32.5 pg (25.0-34.0); Mean Corpuscular Hgb Conc 31.7 g/dL (32.0-36.0); Mean Corpuscular Volume 102.7 fL (80.0-100.0); Mean Platelet Volume 9.8 fL (9.4-12.4); Monocytes # (auto) 0.43 K/uL (0.24-0.82); Monocytes % (auto) 9.1 %; Neutrophils # (auto) 3.29 K/uL (1.4-6.5); Neutrophils % (auto) 69.9 %; Platelet Count 151 K/uL (130-400); RDW Coefficient of Variation 15.7 % (11.5-14.5); RDW Standard Deviation 58.8 fL (36.4-46.3); Red Blood Count 3.75 M/uL (4.63-6.08); White Blood Count 4.71 K/ul (4.8-10.8)
[2022-01-28 07:43] LABS: Partial Thromboplastin Ratio 1.4; Partial Thromboplastin Time 38.5 Seconds (21.0-31.0); Prothrombin Time 20.3 Seconds (9.0-12.0)
[2022-01-28 07:45] LABS: iSTAT Hemoglobin 13.3 g/dl (14.0-18.0); iSTAT Ionized Calcium 1.08 mmol/l (1.12-1.32); iSTAT Potassium 3.7 mmol/L (3.3-5.0)
[2022-01-28 07:50] LABS: Alanine Aminotransferase 7 U/L (7-52); Albumin Globulin Ratio 1.5 (0.9-2); Albumin Level 3.6 gm/dl (3.4-5.0); Alkaline Phosphatase 82 U/L (34-104); Anion Gap 4 (3-11); Aspartate Aminotransferase 16 U/L (13-39); BUN Creatinine Ratio 20.5 (10-20); Bilirubin,Total 0.9 mg/dl (0.2-1.0); Blood Urea Nitrogen 16 mg/dl (6-23); Calcium 8.1 mg/dl (8.5-10.1); Carbon Dioxide 31 mmol/L (21-32); Chloride 104 mmol/L (98-107); Creatine Kinase 25 U/L (30-223); Est GFR (African American) 95.4 ml/min; Est GFR (Non-African American) 82.3 ml/min; Globulin 2.4 gm/dl (2.5-4.0); Glucose 99 mg/dl (70-99(Fasting)); Potassium 3.8 mmol/L (3.5-5.1); Sodium 139 mmol/L (136-145)
[2022-01-28 07:57] LABS: Troponin I High Sensitivity 5.8 pg/ml (0-20)
[2022-01-28] MEDS ORDERED: OPTIRAY 300 100mL IV ONE (08:44)
--- NOTE | 2022-01-28 08:59 | CT Scan Report ---
CT head/brain wo con CLINICAL HISTORY: 87 years-old Male with Trauma. Acute head trauma with hypotension TECHNIQUE: Multiple axial CT images of the head were obtained without contrast. A dose lowering tech nique was utilized adhering to the principles of ALARA. COMPARISON: Head CT 11/20/2021 FINDINGS: No acute intracranial hemorrhage, midline shift, intracranial mass, hydrocephalus, territorial ischem ia or abnormal extra-axial collection. Involutional changes with unchanged asymmetric left frontal lo be atrophy. White matter hypodensities are suggestive of chronic microvascular ischemic disease. Cere bral vascular calcifications. The calvarium is intact. The paranasal sinuses, mastoid air cells, and middle ear cavities are clear. IMPRESSION: No acute intracranial abnormality. ACT 112: Negative or not required by law. The above report was generated using voice recognition software. It may contain grammatical, syntax o r spelling errors. Electronically signed by: Kieran Weiner M.D. 01/28/2022 8:57 AM
[2022-01-28 09:06] LABS: Appearance Urine Cloudy (Clear); Bacteria Urine Automated Negative (Negative); Bilirubin Urine Negative (Negative); Blood Urine Negative (Negative); Color Urine Yellow; Epithelial Cell Urine Auto >30 /lpf (0-5); Glucose Urine UA Negative (Negative); Ketones Urine Trace (Negative); Leukocyte Esterase Urine 1+ (Negative); Nitrite Urine Negative (Negative); Protein Urine Trace (Negative); Specific Gravity Urine 1.019 (1.000-1.030); Urobilinogen Urine Negative (Negative); pH Urine 6.5 (4.5-7.5)
--- NOTE | 2022-01-28 09:06 | CT Scan Report ---
CT OF THE CHEST WITH IV CONTRAST CLINICAL HISTORY: Trauma. COMPARISON STUDY: Chest CT December 09, 2018. Chest radiograph November 20, 2021. TECHNIQUE: Following IV administration of 94 mL of Optiray, helical axial images of the chest were o btained. Sagittal and coronal reconstructions were viewed as well as maximal intensity projections o n an independent 3-D workstation. Automated exposure control was utilized for the study. A dose low ering technique was utilized adhering to the principles of ALARA. FINDINGS: There is no evidence for traumatic injury to the thoracic aorta. There is moderate cardiom egaly and extensive coronary artery calcification. There is no pericardial effusion. Dilatation of th e central pulmonary arteries is noted. There are no central pulmonary emboli. No pneumothorax is pres ent. Small moderate right and small left pleural effusions are noted. Interstitial pulmonary edema is present. Lungs are suboptimally assessed due to respiratory motion. No acute rib or thoracic spine f racture is present although sensitivity for detection of rib fractures is diminished given motion art ifact. There is anasarca. Abdomen and pelvis CT will be reported separately. IMPRESSION: 1. No acute traumatic findings within the chest. 2. Cardiomegaly with interstitial pulmonary edema and small to moderate right and small left pleural effusions. Anasarca. ACT 112: Negative or not required by law. Electronically signed by: Conrado Dumont M.D. 01/28/2022 9:05 AM
--- NOTE | 2022-01-28 09:18 | CT Scan Report ---
CT cervical spine wo con CLINICAL HISTORY: 87 years-old Male with Trauma. Acute neck trauma status post fall COMPARISON: Head CT of same day TECHNIQUE: Multiple axial CT images of the cervical spine were obtained without contrast. A dose low ering technique was utilized adhering to the principles of ALARA. FINDINGS: Multilevel degenerative changes. Straightening of the normal cervical lordosis. No acute fr acture, subluxation, endplate erosion or destructive bone lesion identified. The cervical soft tissues appear unremarkable. Layering pleural effusions. No pneumothorax. Calcifie d plaque of the carotid bulbs. IMPRESSION: No acute fracture or subluxation. ACT 112: Negative or not required by law. The above report was generated using voice recognition software. It may contain grammatical, syntax o r spelling errors. Electronically signed by: Kieran Weiner M.D. 01/28/2022 9:15 AM
--- NOTE | 2022-01-28 09:22 | CT Scan Report ---
CT OF THE ABDOMEN AND PELVIS WITH CONTRAST CLINICAL HISTORY: Trauma COMPARISON STUDY: CT of the abdomen pelvis November 20, 2021. TECHNIQUE: Following IV administration of 94 mL of Optiray, axial images of the abdomen and pelvis we re obtained from the lung bases to the proximal femurs. Images were reviewed in the axial, sagittal, and coronal planes. IV contrast was administered without complication. Automated exposure control wa s utilized for the study. A dose lowering technique was utilized adhering to the principles of ALARA . CT DOSE: 3993.14 mGy.cm FINDINGS: Anasarca is noted. Bilateral pleural effusions with interstitial pulmonary edema and cardio megaly are better depicted on the chest CT. Please see that report for further description. There is no hemoperitoneum or pneumoperitoneum. The left rectus sheath hematoma has significantly decreased in size since CT of November 30, 2021. Residual hematoma measures 3.9 x 3.7 cm. Associated hypodensity cons istent with a resolving hematoma within the space of Retzius has also significantly decreased in size . This measures 5.8 x 5.2 cm. No new sites of hemorrhage are identified. No evidence for traumatic in jury to the liver, spleen, adrenal glands, kidneys or pancreas. Hepatic cyst is noted. Postoperative findings of the stomach are noted. There is a cyst within the lower pole of the left kidney. There ar e several left renal calculi. No hydronephrosis. 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 This is similar to prior exam. No acute lumbar spine, pelvic or hip fracture is identified. There is no lymphadenopathy. This exam is mildly compromised by artifact due to body wall contacting the frank ry. No evidence for a bowel obstruction. There is colonic diverticulosis without evidence for acute d iverticulitis. IMPRESSION: 1. No acute traumatic findings within the abdomen or pelvis. Exam mildly compromised due to body wal l contacting the gantry with artifact. 2. Resolving left rectus sheath and space of Retzius hematomas, significantly decreased in size since CT of November 20, 2021. No new sites of hemorrhage. 3. Interstitial pulmonary edema, bilateral pleural effusions and anasarca. ACT 112: Negative or not required by law. Electronically signed by: Conrado Dumont M.D. 01/28/2022 9:20 AM
--- NOTE | 2022-01-28 10:17 | History & Physical Report ---
Date of Service January 28, 2022 Assessment & Plan (1) Hematoma of flank: Plan: Emory Benjamin is a 87-year-old male with a past medical history of CHF, nonsustained V. tach, hypertension, permanent A. fib with history of atrial flutter and RVR, BRIEJSH, myasthenia gravis, pernicious anemia, pulmonary hypertension, and morbid obesity who presents with a right flank hematoma with high concern for family given his recent transfer to tertiary care for intra- abdominal bleeding, and some shortness of breath with evidence of mild acute on chronic diastolic CHF on CT. Anemia, hematoma With history of intra-abdominal bleed, currently with hematoma but no evidence of intra-abdominal bleeding Hemoglobin 12.2, up from prior discharge level of 9.8 MCV 102.7 B12/folate pending CThead: No acute findings CTC-spine: No acute fracture/findings. 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 CTA/P: No acute traumatic findings within the abdomen or pelvis. Resolving left rectus sheath hematomas, significantly decreased from 11/20/2021. No new sites of hemorrhage. Interstitial pulmonary edema as additionally noted above. - Will trend H&H q12 and AM. Reportedly hypotension prior to admit, now normotensive. Spot check if hypotension develops If breathing at normal baseline and hemoglobin remained stable patient and family are comfortable returning to personal care tomorrow with closer weekly INR checks would like to continue warfarin if possible as further noted below Acute hypoxic respiratory failure, pleural effusion with history of diastolic CHF CTchest: No acute findings, cardiomegaly with interstitial pulmonary edema and moderate right and small left pulm pleural effusions Creatinine baseline: Less than 1 Admitting creatinine: 0.78 Patient has worsened significantly due to confusion between CPAP/BiPAP at night the past Has previously had neurology/pulmonary consultation regarding whether his myasthenia and breathing were related, this was not felt to be likely by neurology and pulm recommended continuing BiPAP nightly. Patient was to be switched to Trelegy on discharge Lasix 40 mg IV daily if BP remains stable, follow strict MIHAI's. BMP daily Depression Continue Lexapro A. fib with history of RVR Rate controlled without beta-ana m Patient has a history of supratherapeutic INRs related to dietary intake, on admission INR 2.0 Patient has had intra-abdominal bleed and now with flank hematoma [id number]: >3, high risk Discussed risk of bleeding with warfarin versus cardioembolic stroke with high [id number] risk with family extensively. Noting that cardioembolic strokes tend to be particularly devastating, but patient is also very high bleeding risk and has required transfer for an intra-abdominal bleed on shared decision making they would prefer to continue warfarin with closer monitoring of INR if possible, as long as patient does not continue to have bleeding requiring transfer. At discharge would recommend a consistent diet with stable levels of vitamin K to help prevent INR fluctuations, in addition to at least weekly INR checks with a goal of 2.02.5. 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 [place] Emory Benjamin is a 87-year-old male with a past medical history of CHF, nonsustained V. tach, hypertension, permanent A. fib with history of atrial flutter and RVR, BRIJESH, myasthenia gravis, pernicious anemia, pulmonary hypertension, and morbid obesity who presents Recent dc and transferred for intraabdominal bleeding on Coumadin Presents from [facility] for [facility] called for flank hematoma and hypotension CT-Ab/Pel: No intraabdominal bleeding. 2x pleural effusions with hx of CHF. Hgb 12.2 INR 2.0 Family not comfortable with dc home given past history of worsened bleeding Seen at bedside with family members present. He reports he had a right flank hematoma which developed 1 day ago, family is very concerned as he recently had an intra-abdominal bleed while on Coumadin. Reportedly hypotensive prior to admission, normotensive at time of bedside assessment. Hemoglobin is stable and actually improved from where it was previously. Family is very concerned as his INR has been supratherapeutic to above 4, and he recently had an admission where he bled into his belly and required transfer to tertiary care. Given his hypotension and hematoma they do not feel comfortable with him returning unless he is hemodynamically stable overnight. Patient has baseline confusion which has been worsened over the previous several months. CT of his head is clear, but requires frequent reorientation and is oriented to name only. Family reports this is been around his baseline for the last couple of weeks. Patient denies chest pain, chest pressure, endorses some shortness of breath worse on laying flat for the last couple of days, denies lightheadedness, dizziness. He denies bleeding other than the bruise at his right flank and his recent hospital admission in his belly. No melena, no bright red blood per rectum, no hematemesis. Has had a history of respiratory failure requiring BiPAP or trilogy, should not be placed on CPAP at night. He did take medications this morning. Prema with family risk of stroke with his A. fib versus risk of bleeding, and the consequences of the embolic stroke. They greatly prefer him to remain on warfarin if possible, but with closer INR management as they have had difficulty getting his checks biweekly and has likely been supratherapeutic for several days before this was called. Medical History: Reviewed Medications: Reviewed Surgical History: Reviewed Allergies: Reviewed Social History: Denies current tobacco/etoh use. Former cigarette use Code Status: Full Code, discussed w pt and family Allergies Allergy/AdvReac Type Severity Reaction Status Date / Time vancomycin Allergy Severe Hives Verified 12/09/18 09:53 adhesive Allergy Unknown . Verified 12/09/18 09:53 latex Allergy Unknown blisters Verified 12/09/18 09:53 and swelling morphine Allergy Rash Verified 12/09/18 09:53 Influenza Virus Vaccines AdvReac Severe DEATHLY Verified 12/09/18 09:53 SICK Home Medications Medication Instructions Recorded Confirmed Type acetaminophen 325 mg tablet 325 mg PO Q4 PRN Pain 11/28/18 12/09/18 History (Tylenol) albuterol sulfate 90 mcg/actuation 2 puff inhalation Q4 PRN Shortness 11/28/18 12/09/18 History aerosol inhaler Of Breath Or Wheezing amoxicillin 500 mg capsule 2,000 mg PO UD PRN BEFORE DENTIST 11/28/18 12/09/18 History aspirin 81 mg tablet,delayed 81 mg PO QPM 11/28/18 12/09/18 History release (Aspir-) azathioprine 50 mg tablet (Imuran) 150 mg PO DAILY 11/28/18 12/09/18 History cyanocobalamin (vitamin B-12) 1,000 mcg IM .[id number] 11/28/18 12/09/18 History 1,000 mcg/mL injection solution escitalopram oxalate 5 mg tablet 5 mg PO DAILY 11/28/18 12/09/18 History (Lexapro) ferrous sulfate 325 mg (65 mg 325 mg PO TID 11/28/18 12/09/18 History iron) tablet (iron) fexofenadine 180 mg tablet 180 mg PO DAILY PRN ALLERGIES 11/28/18 12/09/18 History (Jenny Allergy) fluticasone propionate 50 2 spray intranasal DAILY PRN Nasal 11/28/18 12/09/18 History mcg/actuation nasal Congestion spray,suspension (Flonase Allergy Relief) lisinopril 5 mg tablet (Zestril) 5 mg PO DAILY 11/28/18 12/09/18 History mirabegron 25 mg tablet,extended 25 mg PO BID 11/28/18 12/09/18 History release 24 hr (Myrbetriq) mometasone 220 mcg/actuation(30 2 inh inhalation BID 11/28/18 12/09/18 History doses) breath activated powder inhaler (Asmanex Twisthaler) multivitamin 4 - 5 tab PO DAILY 11/28/18 12/09/18 History pyridostigmine bromide 60 mg 120 mg PO TID 11/28/18 12/09/18 History tablet (Mestinon) tolterodine 4 mg capsule,extended 4 mg PO BID 11/28/18 12/09/18 History release 24 hr (Detrol LA) zolpidem 5 mg tablet (Ambien) 5 mg PO HS PRN Sleep 11/28/18 12/09/18 History warfarin 3 mg tablet (Coumadin) 3 mg PO DAILY #7 tabs 12/12/18 Rx 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) Family History Other Family history non-contributory Social History Smoking Status: Former smoker Second Hand Exposure: No; Hx Alcohol Use: No Hx Substance Use: No Preferred Language: Iraqi Communication Ability: Unable Siphoner Required: No Beliefs That Will Affect Care: None marital status: / Current Living Situation: Rehab Current Living Situation Comment: [facility] Feels Safe at Home: Yes Assistive Devices: Oxygen - Continuous Review of Systems Review of Systems: All systems reviewed & are unremarkable except as noted in Subjective Limited somewhat by cognitive status Physical Exam Physical Exam: General: A&Ox1. NAD. Cooperative. HEENT: Atraumatic, normocephalic. Vision/hearing intact. PERLAA. No pallor. Skin: Right flank contusion/hematoma soft with no firmness/loculation. No overlying tenderness/erythema. TTP at lumbar spine without overlying skin change. Pulm: Bibasilar crackles without wheezing. Symmetrical chest rise. No increased work of breathing. No respiratory distress. Cardiac: iR ir, -mrg. Radial pulses intact and symmetrical. Abdominal: Nontender, nondistended, soft. BS present. Right flank hematoma as noted above Results & Data Results & Data ([facility]) Vital Signs (Past 12 Hours) Vital Signs Temp Pulse Pulse Resp BP BP Pulse Ox 01/28/22 08:49 61 20 116/73 97 01/28/22 06:59 74 24 95 01/28/22 06:41 76 20 140/65 93 01/28/22 06:41 36.7 C 85 20 140/65 95 O2 Del Method 01/28/22 08:49 Room Air 01/28/22 06:59 Room Air 01/28/22 06:41 Room Air 01/28/22 06:41 Room Air PG Care Time/CCT Total # of Minutes Spent Total Time Spent with Patient: Total time spent is greater than 50% in coordination of care (as documented) at patient's floor/unit and/or counseling patient: Coding Level of Care Code INT OBSERVATION CARE 50M LVL 2 Diagnoses Hematoma of flank S30.1XXA Acute exacerbation of CHF (congestive heart failure) I50.9 Atrial fibrillation, persistent I48.1 Asthma J45.909 Morbid obesity E66.01 Myasthenia gravis G70.00 BRIJESH (obstructive sleep apnea) G47.33 Pulmonary hypertension I27.20
[2022-01-28] MEDS ORDERED: POLYETHYLENE (MIRALAX) 17 GM PACK PO PRN (13:14)
[2022-01-28] MEDS ORDERED: ZOLPIDEM TARTRATE 5 MG TAB PO PRN (13:14)
[2022-01-28] MEDS ORDERED: ALBUTEROL HFA 8 GM INHALER INH PRN (13:14)
[2022-01-28] MEDS ORDERED: ONDANSETRON INJ 2 MG/ML 2 ML VIAL IV PRN (13:14)
[2022-01-28] MEDS ORDERED: FERROUS SULFATE 325 MG TAB PO SCH (13:45)
[2022-01-28] MEDS: pyRIDostigmine bromide 60 MG TAB PO SCH ×2 (16:13→21:21)
[2022-01-28] MEDS: ACETAMINOPHEN 325 MG TAB PO PRN ×2 (16:13→21:20)
[2022-01-28] MEDS ORDERED: FLUTICASONE FUROATE 100MCG 14 PUFFS/INHALER INH SCH (21:00)
[2022-01-28] MEDS: ASPIRIN 81 MG ECTAB PO SCH (21:21)
[2022-01-28] MEDS: TOLTERODINE TARTRATE LA 4 MG CAPCR PO SCH (21:21)
[2022-01-28] MEDS: MIRABEGRON ER 25 MG TAB PO SCH (21:21)
[2022-01-28 22:09] LABS: Hematocrit (blood only) 41.9 % (40.1-51.0); Hemoglobin 13.4 g/dl (14.0-18.0)
--- NOTE | 2022-01-29 05:35 | Electrocardiogram Report ---
Test Reason : Blood Pressure : / mmHG Vent. Rate : 065 BPM Atrial Rate : 326 BPM P-R Int : 000 ms QRS Dur : 090 ms QT Int : 440 ms P-R-T Axes : 000 -09 017 degrees QTc Int : 457 ms Poor data quality, interpretation may be adversely affected Atrial fibrillation with premature ventricular or aberrantly conducted complexes Low voltage QRS Cannot rule out Anterior infarct (cited on or before 27-DEC-2016) Abnormal ECG When compared with ECG of 20-NOV-2021 09:41, Nonspecific T wave abnormality now evident in Anterior leads QT has shortened Confirmed by Tim Persaud ([id number]) on 01/29/2022 5:35:08 AM Referred By: Reese mckenzie [facility] Confirmed By:Tim Persaud
[2022-01-29 07:26] LABS: Anion Gap 4 (3-11); BUN Creatinine Ratio 20.3 (10-20); Blood Urea Nitrogen 13 mg/dl (6-23); Calcium 8.1 mg/dl (8.5-10.1); Carbon Dioxide 29 mmol/L (21-32); Chloride 106 mmol/L (98-107); Est GFR (African American) 103.5 ml/min; Est GFR (Non-African American) 89.3 ml/min; Glucose 93 mg/dl (70-99(Fasting)); Potassium 3.8 mmol/L (3.5-5.1); Sodium 139 mmol/L (136-145)
[2022-01-29 07:51] LABS: Folate (Folic Acid) 6.04 ng/ml (>5.38)
[2022-01-29] MEDS: ESCITALOPRAM OXALATE 10 MG TAB PO SCH (08:40)
[2022-01-29] MEDS: MIRABEGRON ER 25 MG TAB PO SCH ×2 (08:40→20:30)
[2022-01-29] MEDS: FUROSEMIDE 40 MG/4 ML VIAL IV SCH (08:42)
[2022-01-29] MEDS: FLUTICASONE FUROATE 100MCG 14 PUFFS/INHALER INH SCH (08:43)
[2022-01-29] MEDS: TOLTERODINE TARTRATE LA 4 MG CAPCR PO SCH ×2 (08:43→20:30)
[2022-01-29] MEDS: lisinopril 5 MG TAB PO SCH (08:44)
[2022-01-29] MEDS: WARFARIN SOD 3 MG TAB PO SCH (08:44)
[2022-01-29] MEDS: pyRIDostigmine bromide 60 MG TAB PO SCH ×3 (08:44→20:29)
[2022-01-29 09:32] LABS: Hematocrit (blood only) 40.8 % (40.1-51.0); Mean Corpuscular Hemoglobin 32.6 pg (25.0-34.0); Mean Corpuscular Hgb Conc 31.9 g/dL (32.0-36.0); Mean Corpuscular Volume 102.3 fL (80.0-100.0); RDW Coefficient of Variation 15.7 % (11.5-14.5); RDW Standard Deviation 59.3 fL (36.4-46.3); Red Blood Count 3.99 M/uL (4.63-6.08); White Blood Count 5.32 K/ul (4.8-10.8)
[2022-01-29 09:33] LABS: Basophils # (auto) 0.06 K/uL (0-0.2); Basophils % (auto) 1.1 %; Eosinophils # (auto) 0.12 K/uL (0-0.50); Eosinophils % (auto) 2.3 %; Immature Granulocytes # (auto) 0.02 K/uL (0.00-0.02); Immature Granulocytes % (auto) 0.4 %; Lymphocytes # (auto) 0.64 K/uL (1.2-3.4); Mean Platelet Volume 10.2 fL (9.4-12.4); Monocytes # (auto) 0.43 K/uL (0.24-0.82); Monocytes % (auto) 8.1 %; Neutrophils # (auto) 4.05 K/uL (1.4-6.5); Neutrophils % (auto) 76.1 %; Platelet Count 166 K/uL (130-400)
[2022-01-29] MEDS: ACETAMINOPHEN 325 MG TAB PO PRN ×2 (09:49→21:46)
[2022-01-29 09:55] LABS: INR 2.3 (0.9-1.1); Prothrombin Time 23.6 Seconds (9.0-12.0)
--- NOTE | 2022-01-29 15:38 | Hospitalist Progress Note ---
Date of Service January 29, 2022 Assessment & Plan (1) Hematoma of flank: Plan: Emory Benjamin is a 87-year-old male with a past medical history of CHF, nonsustained V. tach, hypertension, permanent A. fib with history of atrial flutter and RVR, BRIJESH, myasthenia gravis, pernicious anemia, pulmonary hypertension, and morbid obesity who presents with a right flank hematoma with high concern for family given his recent transfer to tertiary care for intra- abdominal bleeding, and some shortness of breath with evidence of mild acute on chronic diastolic CHF on CT. Anemia, hematoma With history of intra-abdominal bleed, currently with hematoma but no evidence of intra-abdominal bleeding Hemoglobin= 13.4, no signs of acute bleeding, hemodynamically stable- hemoglobin has remained stable since admission MCV 102.7; B12/folate wnl CThead: No acute findings CTC-spine: No acute fracture/findings. 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 CTA/P: No acute traumatic findings within the abdomen or pelvis. Resolving left rectus sheath hematomas, significantly decreased from 11/20/2021. No new sites of hemorrhage. Interstitial pulmonary edema as additionally noted above. Hemodynamically stable, no signs of acute bleeding, INR= 2.3; plan to return to [facility] per PT recommendations Acute hypoxic respiratory failure, pleural effusion with history of diastolic CHF CTchest: No acute findings, cardiomegaly with interstitial pulmonary edema and moderate right and small left pulm pleural effusions Creatinine baseline: Less than 1; Admitting creatinine: 0.78 Patient has worsened significantly due to confusion between CPAP/BiPAP at night the past Has previously had neurology/pulmonary consultation regarding whether his myasthenia and breathing were related, this was not felt to be likely by neurology and pulm recommended continuing BiPAP nightly. Patient was to be switched to Trelegy on discharge - 40mg Lasix IV daily; breathing appears to be at his baseline can transition to home torsemide dosing upon discharge Depression Continue Lexapro A. fib with history of RVR Rate controlled without beta-ana m Patient has a history of supratherapeutic INRs related to dietary intake, on admission INR 2.0; repeat 2.3 Patient has had intra-abdominal bleed and now with flank hematoma [id number]: >3, high risk Discussed risk of bleeding with warfarin versus cardioembolic stroke with high [id number] risk with family extensively. Noting that cardioembolic strokes tend to be particularly devastating, but patient is also very high bleeding risk and has required transfer for an intra-abdominal bleed on shared decision making they would prefer to continue warfarin with closer monitoring of INR if possible, as long as patient does not continue to have bleeding requiring transfer. At discharge would recommend a consistent diet with stable levels of vitamin K to help prevent INR fluctuations, in addition to at least weekly INR c hecks with a goal of 2.02.5. 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 inhalers or formulary equivalent BRIJESH BiPAP nightly, trilogy at discharge DVT prophylaxis: On warfarin Diet: Low-salt Disposition: Medical telemetry for observation 2/2 CHF and observation of bleeding CODE STATUS: Full code, discussed with family (2) Acute exacerbation of CHF (congestive heart failure): (3) Atrial fibrillation, persistent: (4) Asthma: (5) Morbid obesity: (6) Myasthenia gravis: (7) BRIJESH (obstructive sleep apnea): (8) Pulmonary hypertension: Admission and Anticipated Discharge Date Admission Date: January 28, 2022 Supervising Physician Co-Signing Physician Notes I personally examined the patient and verified all cagle points of history and exam, discussed case, and agree with decision making with Dr Foster feeling better belly feeling better would like to leave hospital. for SNF in [facility] apparently not able to take today vitals noted nad heent nc at mmm breathing unlabored no accessory muscles good effort skin no rashes no pallor or icterus abd soft nd nt no masses no visible bruising - exam somewhat difficult due to sitting up and pannus but overall quite reassuring and nontender hematoma resolving, therapeutic INR, stable mild anemia -- stable for SNF, awaiting bed. otherwise as above Subjective 87 year old male with a past medical history of CHF, nonsustained VTach, HTN, A fib with RVR on warfarin, pulmonary HTN admiited for concern on bleeding secondary to warfarin use. No events overnight. Feels well today. Denies chest pain, dyspnea, flank/abdominal pain. Review of Systems Review of Systems: As per HPI Physical Exam Physical Exam: Constitutional: well-appearing, no acute distress HEENT: NCAT, no conjunctival injection CV: regular rhythm, no murmur appreciated, extremities well-perfused, no LE edema Resp: CTABL, no wheezes/rales/rhonchi appreciated, no increased work of breathing GI: soft, nondistended, nontender, BS normoactive MSK: large ecchymosis over right abdomen/flank, non tender to palpation Skin: warm, dry, no rash appreciated Results & Data Results & Data ([facility]) Vital Signs (Past 12 Hours) Vital Signs Temp Pulse Pulse Resp BP Pulse Ox O2 Del Method 01/29/22 04:11 36.7 C 55 L 20 124/76 97 BiPAP 01/29/22 03:10 58 L 16 96 01/29/22 00:38 127 H 01/28/22 21:20 101 H 01/28/22 23:15 63 20 95 01/29/22 00:23 Nasal Cannula, BiPAP 01/28/22 21:10 36.7 C 62 18 153/84 H 93 Nasal Cannula 01/28/22 21:09 Nasal Cannula O2 Flow Rate 01/29/22 04:11 01/29/22 03:10 2 01/29/22 00:38 01/28/22 21:20 01/28/22 23:15 2 01/29/22 00:23 2 01/28/22 21:10 2 01/28/22 21:09 2 Resident Activity Tracking Resident Involvement: Resident Care Provided Care Provided: Adult Hospital Medicine
--- NOTE | 2022-01-29 16:27 | Billing Data ---
Date of Service January 29, 2022 Coding Level of Care Code 31783 Subseq Obs Care Lvl 2
[2022-01-29] MEDS: ASPIRIN 81 MG ECTAB PO SCH (20:30)
--- NOTE | 2022-01-30 07:20 | Hospitalist Progress Note ---
Date of Service January 30, 2022 Assessment & Plan (1) Hematoma of flank: Plan: Emory Benjamin is a 87-year-old male with a past medical history of CHF, nonsustained V. tach, hypertension, permanent A. fib with history of atrial flutter and RVR, BRIJESH, myasthenia gravis, pernicious anemia, pulmonary hypertension, and morbid obesity who presents with a right flank hematoma with high concern for family given his recent transfer to tertiary care for intra- abdominal bleeding, and some shortness of breath with evidence of mild acute on chronic diastolic CHF on CT. Anemia, hematoma With history of intra-abdominal bleed, currently with hematoma but no evidence of intra-abdominal bleeding Hemoglobin= 13.4, no signs of acute bleeding, hemodynamically stable- hemoglobin has remained stable since admission MCV 102.7; B12/folate wnl CThead: No acute findings CTC-spine: No acute fracture/findings. Pt did not fall FISH FLIPPER. CTA/P: No acute traumatic findings within the abdomen or pelvis. Resolving left rectus sheath hematomas, significantly decreased from 11/20/2021. No new sites of hemorrhage. Interstitial pulmonary edema as additionally noted above. Hemodynamically stable, no signs of acute bleeding, INR= 2.3; plan to return to [facility] per PT recommendations Acute hypoxic respiratory failure, pleural effusion with history of diastolic CHF CTchest: No acute findings, cardiomegaly with interstitial pulmonary edema and moderate right and small left pulm pleural effusions Creatinine baseline: Less than 1; Admitting creatinine: 0.78 Patient has worsened significantly due to confusion between CPAP/BiPAP at night the past Has previously had neurology/pulmonary consultation regarding whether his myasthenia and breathing were related, this was not felt to be likely by neurology and pulm recommended continuing BiPAP nightly. Patient was to be switched to Trelegy on discharge - 40mg Lasix IV daily; breathing appears to be at his baseline can transition to home torsemide dosing upon discharge Depression Continue Lexapro A. fib with history of RVR Rate controlled without beta-ana m Patient has a history of supratherapeutic INRs related to dietary intake, on admission INR 2.0; repeat 2.3 Patient has had intra-abdominal bleed and now with flank hematoma [id number]: >3, high risk Discussed risk of bleeding with warfarin versus cardioembolic stroke with high [id number] risk with family extensively. Noting that cardioembolic strokes tend to be particularly devastating, but patient is also very high bleeding risk and has required transfer for an intra-abdominal bleed on shared decision making they would prefer to continue warfarin with closer monitoring of INR if possible, as long as patient does not continue to have bleeding requiring transfer. At discharge would recommend a consistent diet with stable levels of vitamin K to help prevent INR fluctuations, in addition to at least weekly INR c hecks with a goal of 2.02.5. Myasthenia gravis Continue home medications including pyridostigmine, Asthma Continue BiPAP at night, continue FISH FLIPPER inhalers or formulary equivalent BRIJESH BiPAP nightly, trilogy at discharge DVT prophylaxis: On warfarin Diet: Low-salt Disposition: Medical telemetry for observation 2/2 CHF and observation of bleeding CODE STATUS: Full code, discussed with family (2) Acute exacerbation of CHF (congestive heart failure): (3) Atrial fibrillation, persistent: (4) Asthma: (5) Morbid obesity: (6) Myasthenia gravis: (7) BRIJESH (obstructive sleep apnea): (8) Pulmonary hypertension: Admission and Anticipated Discharge Date Admission Date: January 28, 2022 Subjective 87 year old male with a past medical history of CHF, nonsustained VTach, HTN, A fib with RVR on warfarin, pulmonary HTN admitted for concern on bleeding secondary to warfarin use. No events overnight. Feels well today. Denies chest pain, SOB, flank/abdominal pain, hematochezia or hematuria. Review of Systems Review of Systems: See above. Physical Exam Physical Exam: Constitutional: well-appearing, no acute distress HEENT: NCAT, no conjunctival injection CV: regular rhythm, no murmur appreciated, extremities well-perfused Resp: CTABL, no wheezes/rales/rhonchi appreciated, no increased work of breathing GI: soft, nondistended, nontender MSK: large ecchymosis over right abdomen/flank, non tender to palpation Skin: warm, dry, no rash appreciated Results & Data Results & Data ([facility]) Vital Signs (Past 12 Hours) Vital Signs Temp Pulse Pulse Resp BP Pulse Ox O2 Del Method 01/30/22 03:40 69 19 97 01/29/22 23:22 55 L 20 95 01/30/22 01:29 BiPAP 09/16/22 21:49 36.7 C 91 H 20 153/68 H 92 O2 Flow Rate 01/30/22 03:40 2 01/29/22 23:22 2 01/30/22 01:29 01/29/22 21:49
[2022-01-30] MEDS: ACETAMINOPHEN 325 MG TAB PO PRN (07:34)
[2022-01-30 09:14] LABS: Hematocrit (blood only) 40.4 % (40.1-51.0); Hemoglobin 13.1 g/dl (14.0-18.0); Mean Corpuscular Hemoglobin 32.9 pg (25.0-34.0); Mean Corpuscular Hgb Conc 32.4 g/dL (32.0-36.0); Mean Corpuscular Volume 101.5 fL (80.0-100.0); Platelet Count 164 K/uL (130-400); RDW Coefficient of Variation 15.7 % (11.5-14.5); RDW Standard Deviation 58.5 fL (36.4-46.3); Red Blood Count 3.98 M/uL (4.63-6.08); White Blood Count 5.06 K/ul (4.8-10.8)
[2022-01-30 09:23] LABS: Anion Gap 4 (3-11); BUN Creatinine Ratio 22.1 (10-20); Blood Urea Nitrogen 15 mg/dl (6-23); Calcium 8.4 mg/dl (8.5-10.1); Carbon Dioxide 29 mmol/L (21-32); Chloride 104 mmol/L (98-107); Est GFR (African American) 100.9 ml/min; Est GFR (Non-African American) 87.1 ml/min; Glucose 108 mg/dl (70-99(Fasting)); Sodium 137 mmol/L (136-145)
[2022-01-30] MEDS: ESCITALOPRAM OXALATE 10 MG TAB PO SCH (09:41)
[2022-01-30] MEDS: FLUTICASONE FUROATE 100MCG 14 PUFFS/INHALER INH SCH (09:41)
[2022-01-30] MEDS: lisinopril 5 MG TAB PO SCH (09:42)
[2022-01-30 09:43] LABS: INR 2.2 (0.9-1.1); Prothrombin Time 22.8 Seconds (9.0-12.0)
[2022-01-30] MEDS: MIRABEGRON ER 25 MG TAB PO SCH (09:43)
[2022-01-30] MEDS: pyRIDostigmine bromide 60 MG TAB PO SCH (09:43)
[2022-01-30] MEDS: WARFARIN SOD 3 MG TAB PO SCH (09:43)
[2022-01-30] MEDS: TOLTERODINE TARTRATE LA 4 MG CAPCR PO SCH (09:44)
[2022-01-30] MEDS: FUROSEMIDE 40 MG/4 ML VIAL IV SCH (09:46)
--- NOTE | 2022-01-30 09:55 | Discharge Summary ---
Date of Service January 30, 2022 Admission HPI Per Admitting Provider Emory Benjamin is a 87-year-old male with a past medical history of CHF, nonsustained V. tach, hypertension, permanent A. fib with history of atrial flutter and RVR, BRIJESH, myasthenia gravis, pernicious anemia, pulmonary hypertension, and morbid obesity who presents Recent dc and transferred for intraabdominal bleeding on Coumadin Presents from [facility] for [facility] called for flank hematoma and hypotension CT-Ab/Pel: No intraabdominal bleeding. 2x pleural effusions with hx of CHF. Hgb 12.2 INR 2.0 Family not comfortable with dc home given past history of worsened bleeding Seen at bedside with family members present. He reports he had a right flank hematoma which developed 1 day ago, family is very concerned as he recently had an intra-abdominal bleed while on Coumadin. Reportedly hypotensive prior to ad mission, normotensive at time of bedside assessment. Hemoglobin is stable and actually improved from where it was previously. Family is very concerned as his INR has been supratherapeutic to above 4, and he recently had an admission where he bled into his belly and required transfer to tertiary care. Given his hypotension and hematoma they do not feel comfortable with him returning unless he is hemodynamically stable overnight. Patient has baseline confusion which has been worsened over the previous several months. CT of his head is clear, but requires frequent reorientation and is oriented to name only. Family reports this is been around his baseline for the last couple of weeks. Patient denies chest pain, chest pressure, endorses some shortness of breath worse on laying flat for the last couple of days, denies lightheadedness, dizziness. He denies bleeding other than the bruise at his right flank and his recent hospital admission in his belly. No melena, no bright red blood per rectum, no hematemesis. Has had a history of respiratory failure requiring BiPAP or trilogy, should not be placed on CPAP at night. He did take medications this morning. Prema with family risk of stroke with his A. fib versus risk of bleeding, and the consequences of the embolic stroke. They greatly prefer him to remain on warfarin if possible, but with closer INR management as they have had difficulty getting his checks biweekly and has likely been supratherapeutic for several days before this was called. Medical History: Reviewed Medications: Reviewed Surgical History: Reviewed Allergies: Reviewed Social History: Denies current tobacco/etoh use. Former cigarette use Code Status: Full Code, discussed w pt and family Admission Exam Per Admitting Provider General: A&Ox1. NAD. Cooperative. HEENT: Atraumatic, normocephalic. Vision/hearing intact. PERLAA. No pallor. Skin: Right flank contusion/hematoma soft with no firmness/loculation. No overlying tenderness/erythema. TTP at lumbar spine without overlying skin change. Pulm: Bibasilar crackles without wheezing. Symmetrical chest rise. No increased work of breathing. No respiratory distress. Cardiac: iR ir, -mrg. Radial pulses intact and symmetrical. Abdominal: Nontender, nondistended, soft. BS present. Right flank hematoma as n oted above Principal Diagnosis Flank Hematoma Discharge Exam Constitutional: well-appearing, no acute distress HEENT: NCAT, no conjunctival injection CV: regular rhythm, no murmur appreciated, extremities well-perfused Resp: CTABL, no wheezes/rales/rhonchi appreciated, no increased work of breathing GI: soft, nondistended, nontender MSK: large ecchymosis over right abdomen/flank, non tender to palpation Skin: warm, dry, no rash appreciated Discharge Data Allergies Allergy/AdvReac Type Severity Reaction Status Date / Time vancomycin Allergy Severe Hives Verified 01/28/22 17:55 adhesive Allergy Unknown . Verified 01/28/22 17:55 latex Allergy Unknown blisters Verified 01/28/22 17:55 and swelling morphine Allergy Rash Verified 01/28/22 17:55 Influenza Virus Vaccines AdvReac Severe DEATHLY Verified 01/28/22 17:55 SICK Consultations 01/28/22 10:11 ED Decision to Admit Stat Ordered Studies 01/28/22 06:46 CT abd pelvis IV con only Stat CT cervical spine wo con Stat CT chest diagnostic w con Stat CT head/brain wo con Stat Abdomen/Pelvis CT 01/28/22 06:46 CT OF THE ABDOMEN AND PELVIS WITH CONTRAST CLINICAL HISTORY: Trauma COMPARISON STUDY: CT of the abdomen pelvis November 20, 2021. TECHNIQUE: Following IV administration of 94 mL of Optiray, axial images of the abdomen and pelvis were obtained from the lung bases to the proximal femurs. Images were reviewed in the axial, sagittal, and coronal planes. IV contrast was administered without complication. Automated exposure control was utilized for the study. A dose lowering technique was utilized adhering to the principles of ALARA. CT DOSE: 3993.14 mGy.cm FINDINGS: Anasarca is noted. Bilateral pleural effusions with interstitial pulmonary edema and cardiomegaly are better depicted on the chest CT. Please see that report for further description. There is no hemoperitoneum or pneumoperitoneum. The left rectus sheath hematoma has significantly decreased in size since CT of November 30, 2021. Residual hematoma measures 3.9 x 3.7 cm. Associated hypodensity consistent with a resolving hematoma within the space of Retzius has also significantly decreased in size. This measures 5.8 x 5.2 cm. No new sites of hemorrhage are identified. No evidence for traumatic injury to the liver, spleen, adrenal glands, kidneys or pancreas. Hepatic cyst is noted. Postoperative findings of the stomach are noted. There is a cyst within the lo wer pole of the left kidney. There are several left renal calculi. No hydronephrosis. 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 This is similar to prior exam. No acute lumbar spine, pelvic or hip fracture is identified. There is no lymphadenopathy. This exam is mildly compromised by artifact due to body wall contacting the gantry. No evidence for a bowel obstruction. There is colonic diverticulosis without evidence for acute diverticulitis. IMPRESSION: 1. No acute traumatic findings within the abdomen or pelvis. Exam mildly compromised due to body wall contacting the gantry with artifact. 2. Resolving left rectus sheath and space of Retzius hematomas, significantly decreased in size since CT of November 20, 2021. No new sites of hemorrhage. 3. Interstitial pulmonary edema, bilateral pleural effusions and anasarca. ACT 112: Negative or not required by law. Electronically signed by: Conrado Dumont M.D. 01/28/2022 9:[address] 01/28/22 06:46 CT cervical spine wo con CLINICAL HISTORY: 87 years-old Male with Trauma. Acute neck trauma status post fall COMPARISON: Head CT of same day TECHNIQUE: Multiple axial CT images of the cervical spine were obtained without contrast. A dose lowering technique was utilized adhering to the principles of ALARA FINDINGS: Multilevel degenerative changes. Straightening of the normal cervical lordosis. No acute fracture, subluxation, endplate erosion or destructive bone lesion identified The cervical soft tissues appear unremarkable. Layering pleural effusions. No pneumothorax. Calcified plaque of the carotid bulbs. IMPRESSION: No acute fracture or subluxation. ACT 112: Negative or not required by law. The above report was generated using voice recognition software. It may contain grammatical, syntax or spelling errors. Electronically signed by: Kieran Weiner M.D. 01/28/2022 9:[address] 01/28/22 06:46 CT OF THE CHEST WITH IV CONTRAST CLINICAL HISTORY: Trauma. COMPARISON STUDY: Chest CT December 09, 2018. Chest radiograph November 20, 2021. TECHNIQUE: Following IV administration of 94 mL of Optiray, helical axial images of the chest were obtained. Sagittal and coronal reconstructions were viewed as well as maximal intensity projections on an independent 3-D workstation. Automated exposure control was utilized for the study. A dose lowering technique was utilized adhering to the principles of ALARA. FINDINGS: There is no evidence for traumatic injury to the thoracic aorta. There is moderate cardiomegaly and extensive coronary artery calcification. There is no pericardial effusion. Dilatation of the central pulmonary arteries is noted. There are no central pulmonary emboli. No pneumothorax is present. Small moderate right and small left pleural effusions are noted. Interstitial pulmonary edema is present. Lungs are suboptimally assessed due to respiratory motion. No acute rib or thoracic spine fracture is present although sensitivity for detection of rib fractures is diminished given motion artifact. There is anasarca. Abdomen and pelvis CT will be reported separately. IMPRESSION: 1. No acute traumatic findings within the chest 2. Cardiomegaly with interstitial pulmonary edema and small to moderate right and small left pleural effusions. Anasarca. ACT 112: Negative or not required by law. Electronically signed by: Conrado Dumont M.D. 01/28/2022 9:[address] 01/28/22 06:46 CT head/brain wo con CLINICAL HISTORY: 87 years-old Male with Trauma. Acute head trauma with hypotension TECHNIQUE: Multiple axial CT images of the head were obtained without contrast. A dose lowering technique was utilized adhering to the principles of ALARA. COMPARISON: Head CT 11/20/2021 FINDINGS: No acute intracranial hemorrhage, midline shift, intracranial mass, hydrocephalus, territorial ischemia or abnormal extra-axial collection. Involutional changes with unchanged asymmetric left frontal lobe atrophy. White matter hypodensities are suggestive of chronic microvascular ischemic disease. Cerebral vascular calcifications. The calvarium is intact. The paranasal sinuses, mastoid air cells, and middle ear cavities are clear. IMPRESSION: No acute intracranial abnormality. ACT 112: Negative or not required by law. The above report was generated using voice recognition software. It may contain grammatical, syntax or spelling errors. Electronically signed by: Kieran Weiner M.D. 01/28/2022 8:57 AM Hospital Course (1) Hematoma of flank: Emory Benjamin is a 87-year-old male with a past medical history of CHF, nonsustained V. tach, hypertension, permanent A. fib with history of atrial flutter and RVR on warfarin, BRIJESH, myasthenia gravis, pernicious anemia, pulmonary hypertension, and morbid obesity who presents with concern for intraabdominal bleeding and SOB with evidence of mild acute on chronic diastolic CHF on CT. Patient was recently transferred for intraabdominal bleeding on Warfarin. He presents from [facility] as EMS was called for flank hematoma and hypotension. CT A&P did not show any intraabdominal bleeding, Hbg was stable during admission (12-13) and INR was not supratherapeutic (2.2). Family was not comfortable with d/c home due to history of bleeding, so he will be returning to [facility]. Arranged transport for 10 am 01/30. Patient is cleared for discharge from a medical standpoint. Hospital Course By Problem: Anemia, hematoma With history of intra-abdominal bleed, currently with hematoma but no evidence of intra-abdominal bleeding Hemoglobin= 13.4, no signs of acute bleeding, hemodynamically stable- hemoglobin has remained stable since admission MCV 102.7; B12/folate wnl CThead: No acute findings CTC-spine: No acute fracture/findings. 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 CTA/P: No acute traumatic findings within the abdomen or pelvis. Resolving left rectus sheath hematomas, significantly decreased from 11/20/2021. No new sites of hemorrhage. Interstitial pulmonary edema as additionally noted above. Hemodynamically stable, no signs of acute bleeding, INR= 2.3; plan to return to [facility] SNF per PT recommendations Acute hypoxic respiratory failure, pleural effusion with history of diastolic CHF CTchest: No acute findings, cardiomegaly with interstitial pulmonary edema and moderate right and small left pulm pleural effusions Creatinine baseline: Less than 1; Admitting creatinine: 0.78 Patient has worsened significantly due to confusion between CPAP/BiPAP at night the past Has previously had neurology/pulmonary consultation regarding whether his myasthenia and breathing were related, this was not felt to be likely by neurology and pulm recommended continuing BiPAP nightly. Patient was to be switched to Trelegy on discharge - 40mg Lasix IV daily; breathing appears to be at his baseline transition to home torsemide dosing upon discharge Depression Continue Lexapro A. fib with history of RVR Rate controlled without beta-ana m Patient has a history of supratherapeutic INRs related to dietary intake, on admission INR 2.0; repeat 2.3 Patient has had intra-abdominal bleed and now with flank hematoma [id number]: >3, high risk Discussed risk of bleeding with warfarin versus cardioembolic stroke with high [id number] risk with family extensively. Noting that cardioembolic strokes tend to be particularly devastating, but patient is also very high bleeding risk and has required transfer for an intra-abdominal bleed on shared decision making they would prefer to continue warfarin with closer monitoring of INR if possible, as long as patient does not continue to have bleeding requiring transfer. At discharge would recommend a consistent diet with stable levels of vitamin K to help prevent INR fluctuations, in addition to at least weekly INR checks with a goal of 2.02.5. 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 or formulary equivalent BRIJESH BiPAP nightly, trilogy at discharge DVT prophylaxis: On warfarin Diet: Low-salt Disposition: [facility] CODE STATUS: Full code, discussed with family (2) Acute exacerbation of CHF (congestive heart failure): (3) Atrial fibrillation, persistent: (4) Asthma: (5) Morbid obesity: (6) Myasthenia gravis: (7) BRIJESH (obstructive sleep apnea): (8) Pulmonary hypertension: Total Time Total Time Spent Total Time Spent (In Minutes): <30. Discharge Plan Discharge Items Patient Disposition: [facility] Reason For Visit: HEMATOMA W/ HX BLEEDING, AOC CHF Discharge Diagnosis: Ecchymosis right flank Activity: Per Instructions section Non-emergency contact: Primary Care Provider Call non-emergency contact if: you have any medication questions Follow-up/Referrals: Reese Sanchez at [facility] [Primary Care Provider] - Diet: Heart Healthy Add Attending Provider Instructions: Emory Benjamin is a 87-year-old male with a past medical history of CHF, nonsust ained V. tach, hypertension, permanent A. fib with history of atrial flutter and RVR, BRIJESH, myasthenia gravis, pernicious anemia, pulmonary hypertension, and morbid obesity who presents with a right flank hematoma with high concern for family given his recent transfer to tertiary care for intra-abdominal bleeding, and some shortness of breath with evidence of mild acute on chronic diastolic CHF on CT. Anemia, hematoma With history of intra-abdominal bleed, currently with hematoma but no evidence of intra-abdominal bleeding Hemoglobin= 13.4, no signs of acute bleeding, hemodynamically stable- hemoglobin has remained stable since admission MCV 102.7; B12/folate wnl CThead: No acute findings CTC-spine: No acute fracture/findings. 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 CTA/P: No acute traumatic findings within the abdomen or pelvis. Resolving left rectus sheath hematomas, significantly decreased from 11/20/2021. No new sites of hemorrhage. Interstitial pulmonary edema as additionally noted above. Plan to return to personal care Acute hypoxic respiratory failure, pleural effusion with history of diastolic CHF CTchest: No acute findings, cardiomegaly with interstitial pulmonary edema and moderate right and small left pulm pleural effusions Creatinine baseline: Less than 1; Admitting creatinine: 0.78 Patient has worsened significantly due to confusion between CPAP/BiPAP at night the past Has previously had neurology/pulmonary consultation regarding whether his myasthenia and breathing were related, this was not felt to be likely by neurology and pulm recommended continuing BiPAP nightly. Patient was to be switched to Trelegy on discharge Does not clinically appear fluid overloading; continue torsemide upon discharge Depression Continue Lexapro A. fib with history of RVR Rate controlled without beta-ana m Patient has a history of supratherapeutic INRs related to dietary intake, on admission INR 2.0; repeat 2.3 Patient has had intra-abdominal bleed and now with flank hematoma [id number]: >3, high risk Discussed risk of bleeding with warfarin versus cardioembolic stroke with high [id number] risk with family extensively. Noting that cardioembolic strokes tend to be particularly devastating, but patient is also very high bleeding risk and has required transfer for an intra-abdominal bleed on shared decision making they would prefer to continue warfarin with closer monitoring of INR if possible, as long as patient does not continue to have bleeding requiring transfer. At discharge would recommend a consistent diet with stable levels of vitamin K to help prevent INR fluctuations, in addition to at least weekly INR checks with a goal of 2.02.5. 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 or formulary equivalent BRIJESH BiPAP nightly, trilogy at discharge Pending Studies at Discharge: No Stand-Alone Forms: [facility] Skilled Items Patient informed of condition?: Yes DNR: No Discharge Level of Care: Skilled Communicable Disease: No Discharge Prognosis: Stable Lines: None Urinary Catheter: No Medications and DC Order Prescriptions: Continued amoxicillin 500 mg capsule 2,000 mg PO DIRECTED Rx Instructions: TAKE 4 CAPS BEFORE DENTAL AND OTHER PROCEDURES DIRECTED buspirone 5 mg tablet 2.5 mg PO AMHS acetaminophen [Tylenol] 325 mg Tablet 650 mg PO Q4 PRN (Reason: .FEVER >100F/PAIN) torsemide 10 mg tablet 10 mg PO QAM Colace Clear 50 mg Capsule 50 mg PO DAILY PRN (Reason: Constipation) azathioprine 50 mg tablet 150 mg PO QAM melatonin 3 mg Tablet 3 mg PO HS aspirin 81 mg Tablet,Delayed Release (Dr/Ec) 81 mg PO HS warfarin 3 mg tablet 3 mg PO DAILY ferrous sulfate 325 mg (65 mg iron) Tablet 325 mg PO DAILY pyridostigmine bromide 60 mg tablet 120 mg PO TID docusate sodium [Colace] 100 mg Capsule 100 mg PO DAILY metoprolol succinate 25 mg tablet extended release 24 hr 12.5 mg PO HS albuterol sulfate [Ventolin HFA] 90 mcg/actuation HFA aerosol inhaler 2 puff INHALATION Q4 PRN (Reason: Shortness Of Breath Or Wheezing) fluticasone propionate 50 mcg/actuation spray,suspension 2 spray INTRANASAL QAM finasteride 5 mg tablet 5 mg PO QAM lanolin Cream 1 applic TOPICAL DAILY escitalopram oxalate 5 mg Tablet 10 mg PO DAILY sodium fluoride-pot nitrate [PreviDent 5000 Sensitive] 1.1-5 % Paste 1 applic DENTAL AMHS Rx Instructions: Do not rinse, eat or drink for 30 min. PreserVision AREDS [id number] Capsule 1 cap PO BID Rx Instructions: unknown strength menthol-zinc oxide [Calmoseptine] 0.44-20.6 % Ointment 1 applic TOPICAL BID PRN (Reason: irritation on buttucks) memantine 7 mg capsule,sprinkle,ER 24hr 7 mg PO QPM Asmanex HFA 200 mcg/actuation HFA aerosol inhaler 2 puff INHALATION DAILY Artificial Tears (cmc) 1 % Drops 1 drp OPHTHALMIC (EYE) TID Calazime 1 applic topical AMPM Rx Instructions: apply to groin & buttocks Discharge Orders: Discharge Order (Routine); Ordered 01/30/22 Ordered By: Araceli Cintron Admission Data Admit Date/Time: 01/28/22 10:50 Attending Provider: Vince Wilson Admit Provider: Fer Chapa Primary Care Provider: Reese Sanchez [facility] Other Providers: Reese Sanchez [facility] ; Fer Chapa Other Interventions: Discharge Summary Assessment (RN) Last Done: 01/30/22 09:56 Supervising Physician Co-Signing Physician Notes I personally examined the patient and verified all cagle points of history and exam, discussed case, and agree with decision making with Dr Cintron feels OK set up for [facility] vitals noted nad heent nc at mmm breathin gunlaobred no acessory muscles good effort skin no rashes no pallor or icterus abd pain - resolved, fortuntately hematoma resolving, no new hematoma. follow INR closely at SNF. stable for SNF Resident Activity Tracking Resident Involvement: Resident Care Provided Care Provided: Adult Hospital Medicine
--- NOTE | 2022-01-30 15:21 | Billing Data ---
Date of Service January 30, 2022 Coding Level of Care Code 75053 OBS Care - Discharge
== END 2022-01-30 10:10 ==
LOC: EDINP 06:17 → ED 06:17 → SUATTDRO 10:50 → 2N 21:09 → 3W 01-29 21:16

== ENCOUNTER 2025-02-07 14:19 | Inpatient (IN) ==
--- NOTE | 2025-02-07 14:30 | Emergency Department Note ---
Impression & Plan Pulmonary edema, Acute respiratory distress ED Provider Note NAME: SB MCCABE AGE: 89 SEX: M : 1935 ARRIVES VIA: Ambulance INFORMANT: Patient, EMS ED PROVIDER(S): Costa Camarena DO CHIEF COMPLAINT: Respiratory distress HPI: The patient is an 89-year-old male who presented to the emergency department from his alf for evaluation of respiratory distress. The patient developed difficulty breathing acutely prior to arrival. The patient had his normal meal at lunchtime. The staff was changing him when the patient had an episode of shortness of breath. There was reported cyanosis. The patient arrived via ambulance. He had CPAP applied prior to arrival. Initially the patient was lethargic. The patient is much more awake and alert. At this time he denies having any abdominal pain. There is no reported vomiting. The patient denies having any fever or hemoptysis. ROS: See above HPI for pertinent positives & negatives. A total of 10 systems reviewed and were otherwise negative. PAST MEDICAL HISTORY: See Below PAST SURGICAL HISTORY: See Below FAMILY HISTORY: See Below SOCIAL HISTORY: See Below HOME MEDICATIONS: See Below ALLERGIES: See Below VITALS: See Below PHYSICAL EXAMINATION: GENERAL: The patient is awake and alert. He is nonanxious appearing. EYES: The conjunctivae are clear. The pupils are round and reactive. EARS, NOSE, MOUTH AND THROAT: The nose is without any evidence of any deformity. NECK: The neck is nontender and supple. RESPIRATORY: Diminished breath sounds are noted throughout. There were rales in both bases. CARDIOVASCULAR: Irregular heart sounds were noted to auscultation. No obvious murmur was noted. GASTROINTESTINAL: The abdomen was distended. There is no tenderness guarding or rigidity. MUSCULOSKELETAL/EXTREMITIES: There is no evidence of gross deformity full range of motion is noted in the hips and shoulders. SKIN: Skin is warm and dry. Pedal edema was noted bilaterally. NEUROLOGIC: Patient is awake and oriented to person and place. Strength is symmetric. MEDICAL DECISION MAKING: The patient is an 89-year-old male who presented to the emergency department for shortness of breath. The patient has a cardiac history as well as CHF history. The patient was found to have severe hypoxia and was placed on noninvasive ventilation prior to arrival. Upon arrival the patient was awake and alert. He was much more improved. He was weaned down to an oxy mask. The patient was treated with a small fluid bolus prior to arrival because of hypotension after the feeder loader called gurpreet Schumacher and spoke with me. The patient was then treated with Lasix after reviewing the patient's laboratory and radiographic studies. Certainly his chest x-ray does appear to be consistent with more of a pulmonary edema pattern. White blood cell count is normal. He was not febrile. I discussed the patient's laboratory and radiographic studies with him and his family. I discussed his condition with the on-call [facility]ist. They have agreed to evaluate the patient in the emergency department for further management and disposition. Triage Nursing notes reviewed. Prior medical records reviewed Vital Signs: reviewed and remarkable for hypotension. Differential diagnosis: Reactive airway disease, pneumonia, pneumothorax, COPD, CHF, infections, cardiac ischemia, pulmonary embolism, musculoskeletal, gastrointestinal, as well as other pathologies. ER treatment provided: See below Diagnostics interpreted by me: ECG: EKG was obtained in the emergency department. My interpretation is atrial fibrillation at 96 bpm. Nonspecific interventricular conduction delay was noted. Nonspecific ST abnormalities were noted. This was compared to a tracing from January 28, 2022. There was a narrow QRS complex noted on the previous EKG otherwise no changes were noted. Cardiac Monitoring: An order was placed for continuous cardiac monitoring. The monitor shows a rate of 75 bpm with atrial fibrillation. Laboratory studies: As stated above and show below. Imaging studies: See below. Consultation(s): I discussed this case with Dr. Marcos who is on-call for the [facility]ist group. ED COURSE: Procedures: none Critical Care: I have personally spent greater than 35 minutes of critical care time in the direct management of this patient. This includes bedside care, interpretation of diagnostic studies, and testing, discussion with consultants, patient, and family members, and other required patient management activities. This 35 minutes is in excess of all separately billable procedures. Past Med/Surg History Problem List (Updated 02/07/25 @ 16:01 by Chang Marcos MD) Dementia Acute respiratory failure with hypoxemia Acute respiratory distress (Acute) Pulmonary edema (Acute) Hematoma of right flank (Acute) Bilateral pleural effusion (Acute) CHF (congestive heart failure) (Acute) Nonsustained ventricular tachycardia Hypertension Encephalopathy Demand ischemia Respiratory failure (Acute) Somnolence Intertrigo Hypotension Atrial fibrillation with rapid ventricular response Macroscopic hematuria Acute exacerbation of CHF (congestive heart failure) Hematuria Urinary bladder incontinence Asthma BRIEJSH (obstructive sleep apnea) Rash Frequent PVCs Atrial fibrillation, persistent Shortness of breath (Acute) Weakness (Acute) Myasthenia gravis (Chronic) Cellulitis of leg (Acute Unknown) Diarrhea (Acute Unknown) Monoclonal gammopathy (Chronic Unknown) Morbid obesity (Chronic Unknown) Myasthenia gravis (Chronic Unknown) Pernicious anemia (Acute Unknown) Pulmonary hypertension (Acute Unknown) Medical History SOB (shortness of breath) Hematoma of flank Sleep apnea Essential hypertension Dyslipidemia Diabetes mellitus Cellulitis and abscess of leg Surgical History History of Louis-en-Y gastric bypass S/P cholecystectomy 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) Family History Other Family history non-contributory Social History Smoking Status: Never smoker Second Hand Exposure: No; Do You Dip or Chew Tobacco: No; Hx Alcohol Use: No Hx Substance Use: No Preferred Language: Lebanese Communication Ability: Effective Communication Ability Comment: occ confusion Equal Opportunity Counselor Required: No Beliefs That Will Affect Care: None marital status: / Current Living Situation: Personal Care Facility Current Living Situation Comment: [facility] Feels Safe at Home: Yes Assistive Devices: Walker Allergies Allergies Allergy/AdvReac Type Severity Reaction Status Date / Time vancomycin Allergy Severe Hives Verified 02/07/25 15:05 adhesive Allergy Intermediate TEARS SKIN Verified 02/07/25 15:05 latex Allergy Intermediate blisters Verified 02/07/25 15:05 and swelling morphine Allergy Intermediate Rash Verified 02/07/25 15:05 Influenza Virus Vaccines AdvReac Severe DEATHLY Verified 02/07/25 15:05 SICK Home Meds Home Medications Medication Instructions Recorded Confirmed acetaminophen 325 mg tablet 650 mg PO Q4 PRN .FEVER >100F/PAIN 01/28/22 02/07/25 (Tylenol) amoxicillin 500 mg capsule 2,000 mg PO DIRECTED PRN PRIOR 01/28/22 02/07/25 TO DENTAL APPT. carboxymethylcellulose sodium 1 % 1 drp ophthalmic (eye) TID 01/28/22 02/07/25 eye drops (Artificial Tears (carboxymethylcellulose)) ferrous sulfate 325 mg (65 mg 325 mg PO DAILY 01/28/22 02/07/25 iron) tablet finasteride 5 mg tablet 5 mg PO QAM 01/28/22 02/07/25 melatonin 3 mg tablet 6 mg PO HS 01/28/22 02/07/25 metoprolol succinate 25 mg 12.5 mg PO HS 01/28/22 02/07/25 tablet,extended release 24 hr pyridostigmine bromide 60 mg tablet 120 mg PO TID 01/28/22 02/07/25 sodium fluoride 1.1 %-potassium 1 applic dental AMHS 01/28/22 02/07/25 nitrate 5 % dental paste (PreviDent 5000 Sensitive) vitamins A,C,W-yitx-aqawdk 4,296 1 cap PO BID 01/28/22 02/07/25 mcg-226 mg-90 mg capsule (PreserVision AREDS) Triad Hydrophilic Wound Drsg. 1 applic topical TID 02/07/25 02/07/25 albuterol sulfate 2.5 mg/3 mL 2.5 mg inhalation Q4H PRN 02/07/25 02/07/25 (0.083 %) solution for nebulization Shortness Of Breath Or Wheezing calcium carbonate 200 mg PO BIDM 02/07/25 02/07/25 cholecalciferol (vitamin D3) 25 100 mcg PO QDL 02/07/25 02/07/25 mcg (1,000 unit) capsule (Vitamin D3) coconut oil 1 ea topical 2XWK 02/07/25 02/07/25 corn starch 1 applic topical BID 02/07/25 02/07/25 cyanocobalamin (vitamin B-12) 1,000 mcg IM MONTHLY 02/07/25 02/07/25 1,000 mcg/mL injection solution famotidine 20 mg tablet 20 mg PO HS 02/07/25 02/07/25 fluticasone furoate 200 1 inh inhalation QAM 02/07/25 02/07/25 mcg/actuation blister powder for inhalation (Arnuity Ellipta) food supplemt, lactose-reduced 1 ea PO BID 02/07/25 02/07/25 guaifenesin 600 mg tablet, 600 mg PO Q12H PRN COUGH/CONGESTION 02/07/25 02/07/25 extended release 12 hr (Mucinex) ipratropium 0.5 mg-albuterol 3 mg 3 ml inhalation QID 02/07/25 02/07/25 (2.5 mg base)/3 mL nebulization soln mineral oil-hydrophil petrolat 1 applic topical BID 02/07/25 02/07/25 topical ointment multivitamin with minerals 1 tab PO DAILY 02/07/25 02/07/25 protein supplement 1 ea PO AMHS 02/07/25 02/07/25 quetiapine 25 mg tablet 12.5 mg PO AMHS 02/07/25 02/07/25 salicylic acid 3 % shampoo 1 ea topical 2XWK 02/07/25 02/07/25 sertraline 100 mg tablet (Zoloft) 150 mg PO HS 02/07/25 02/07/25 soap 1 ea topical BID 02/07/25 02/07/25 torsemide 20 mg tablet 20 mg PO QAM 02/07/25 02/07/25 warfarin 2 mg tablet 2 mg PO 4XWK 02/07/25 02/07/25 warfarin 2 mg tablet 3 mg PO 3XWK 02/07/25 02/07/25 Results & Data (ED) Vital Signs Vital Signs - 24 hr 02/07/25 14:12 02/07/25 14:12 02/07/25 14:12 Temperature 36.8 C Temperature Source Oral Pulse Rate 63 Pulse Rate [Right Brachial] Pulse Rhythm Regular Pulse Rhythm [Right Brachial] Pulse Strength Normal Pulse Strength [Right Brachial] Respiratory Rate 24 Respiratory Effort / Characteristics Non-Labored Non-Labored Respiratory Depth Normal Normal Respiratory Pattern Regular Regular Blood Pressure 104/73 Blood Pressure [Right Arm] Blood Pressure Mean 83 Blood Pressure Mean [Right Arm] Blood Pressure Position Lying Blood Pressure Position [Right Arm] Pulse Oximetry 95 Oxygen Delivery Method Oxymask Oxymask Oxymask Oxygen Flow Rate 5 5 5 Sepsis Recent Fever Within 48 Hours No Sepsis New/Unexplained Change in Mental Status N/A Sepsis Action Taken by Nursing No Action Required 02/07/25 14:12 02/07/25 14:12 02/07/25 14:38 Temperature 36.8 C Temperature Source Oral Pulse Rate 63 Pulse Rate [Right Brachial] 63 75 Pulse Rhythm Pulse Rhythm [Right Brachial] Regular Regular Pulse Strength Pulse Strength [Right Brachial] Normal Normal Respiratory Rate 24 24 23 Respiratory Effort / Characteristics Non-Labored Non-Labored Respiratory Depth Normal Normal Respiratory Pattern Regular Regular Blood Pressure Blood Pressure [Right Arm] 104/73 96/64 L Blood Pressure Mean Blood Pressure Mean [Right Arm] 83 74 Blood Pressure Position Blood Pressure Position [Right Arm] Sitting Sitting Pulse Oximetry 95 95 95 Oxygen Delivery Method Nasal Cannula Oxymask Oxymask Oxygen Flow Rate 5 5 5 Sepsis Recent Fever Within 48 Hours Sepsis New/Unexplained Change in Mental Status Sepsis Action Taken by Nursing 02/07/25 15:15 02/07/25 16:21 02/07/25 16:38 Temperature Temperature Source Pulse Rate 85 96 H 98 H Pulse Rate [Right Brachial] Pulse Rhythm Pulse Rhythm [Right Brachial] Pulse Strength Pulse Strength [Right Brachial] Respiratory Rate 22 24 22 Respiratory Effort / Characteristics Respiratory Depth Respiratory Pattern Blood Pressure 102/54 L 99/60 L 129/90 Blood Pressure [Right Arm] Blood Pressure Mean 70 69 103 Blood Pressure Mean [Right Arm] Blood Pressure Position Blood Pressure Position [Right Arm] Pulse Oximetry 95 95 95 Oxygen Delivery Method BiPAP Oxymask Oxymask Oxygen Flow Rate 6 6 Sepsis Recent Fever Within 48 Hours Sepsis New/Unexplained Change in Mental Status Sepsis Action Taken by Prison Medications Current Medication List: was personally reviewed by me Laboratory Data Attestation: I reviewed the patient's lab results. 02/07/25 14:20 02/07/25 14:20 Lab Results 02/07/25 02/07/25 02/07/25 Range/Units 14:20 14:50 15:00 WBC 7.36 (4.8-10.8) K/ul RBC 4.27 L (4.70-6.10) M/uL Hgb 12.1 L (14.0-18.0) g/dl Hct 38.8 L (42.0-52.0) % MCV 90.9 (80.0-100.0) fL MCH 28.3 (25.0-34.0) pg MCHC 31.2 L (32.0-36.0) g/dL RDW Std Deviation 54.0 H (36.4-46.3) fL RDW Coeff of Naseem 16.2 H (11.5-14.5) % Plt Count 264 (130-400) K/uL MPV 9.8 (9.4-12.4) fL Immature Gran % (Auto) 0.5 % Neut % (Auto) 70.3 % Lymph % (Auto) 13.6 % Sauk % (Auto) 12.1 % Eos % (Auto) 2.7 % Baso % (Auto) 0.8 % Neut # (Auto) 5.17 (1.40-6.50) K/uL Lymph # (Auto) 1.00 L (1.20-3.40) K/uL Sauk # (Auto) 0.89 H (0.11-0.59) K/uL Eos # (Auto) 0.20 (0.00-0.50) K/uL Baso # (Auto) 0.06 (0.00-0.20) K/uL Immature Gran # (Auto) 0.04 (0.01-0.20) K/uL PT 34.8 H (9.0-12.0) Seconds INR 3.6 H (0.9-1.1) APTT 46 H (21-31) Seconds PTT Ratio 1.7 VBG pH 7.31 L (7.36-7.41) VBG pCO2 56 H (38-50) mmHg VBG pO2 75 mmHg VBG HCO3 28 mmol/L VBG O2 Saturation 95.9 % VBG Base Excess 0.8 mEq/L Sodium 139 (136-145) mmol/L Potassium 3.8 (3.5-5.1) mmol/L Chloride 105 (98-107) mmol/L Carbon Dioxide 28 (21-32) mmol/L Anion Gap 6 (3-11) BUN 30 H (6-23) mg/dl Creatinine 0.76 (0.6-1.4) mg/dl Est Cr Clr Drug Dosing 82.4 ml/min eGFR 86.45 BUN/Creatinine Ratio 39.5 H (10-20) Glucose 138 H (70-99(Fasting)) mg/dl Lactate 1.0 (0.4-2.0) mmol/L Calcium 7.9 L (8.6-10.3) mg/dl Magnesium 1.9 (1.7-2.4) mg/dl Total Bilirubin 0.6 (0.2-1.0) mg/dl Direct Bilirubin 0.2 (0-0.2) mg/dl AST 40 H (13-39) U/L ALT 22 (7-52) U/L Alkaline Phosphatase 121 H (34-104) U/L Troponin I High Sens 9.9 (0-20) pg/ml B-Natriuretic Peptide 238 H (0-100) pg/ml Total Protein 6.6 (6.0-8.3) gm/dl Albumin 3.2 L (3.4-5.0) gm/dl Procalcitonin 0.13 (0-0.5) ng/ml SARS-CoV-2 (PCR) (Negative) Influenza Type A (PCR) (Neg) Influenza Type B (PCR) (Neg) RSV (RT-PCR) (Neg) 02/07/25 Range/Units Unknown WBC (4.8-10.8) K/ul RBC (4.70-6.10) M/uL Hgb (14.0-18.0) g/dl Hct (42.0-52.0) % MCV (80.0-100.0) fL MCH (25.0-34.0) pg MCHC (32.0-36.0) g/dL RDW Std Deviation (36.4-46.3) fL RDW Coeff of Naseem (11.5-14.5) % Plt Count (130-400) K/uL MPV (9.4-12.4) fL Immature Gran % (Auto) % Neut % (Auto) % Lymph % (Auto) % Sauk % (Auto) % Eos % (Auto) % Baso % (Auto) % Neut # (Auto) (1.40-6.50) K/uL Lymph # (Auto) (1.20-3.40) K/uL Sauk # (Auto) (0.11-0.59) K/uL Eos # (Auto) (0.00-0.50) K/uL Baso # (Auto) (0.00-0.20) K/uL Immature Gran # (Auto) (0.01-0.20) K/uL PT (9.0-12.0) Seconds INR (0.9-1.1) APTT (21-31) Seconds PTT Ratio VBG pH (7.36-7.41) VBG pCO2 (38-50) mmHg VBG pO2 mmHg VBG HCO3 mmol/L VBG O2 Saturation % VBG Base Excess mEq/L Sodium (136-145) mmol/L Potassium (3.5-5.1) mmol/L Chloride (98-107) mmol/L Carbon Dioxide (21-32) mmol/L Anion Gap (3-11) BUN (6-23) mg/dl Creatinine (0.6-1.4) mg/dl Est Cr Clr Drug Dosing ml/min eGFR BUN/Creatinine Ratio (10-20) Glucose (70-99(Fasting)) mg/dl Lactate (0.4-2.0) mmol/L Calcium (8.6-10.3) mg/dl Magnesium (1.7-2.4) mg/dl Total Bilirubin (0.2-1.0) mg/dl Direct Bilirubin (0-0.2) mg/dl AST (13-39) U/L ALT (7-52) U/L Alkaline Phosphatase (34-104) U/L Troponin I High Sens (0-20) pg/ml B-Natriuretic Peptide (0-100) pg/ml Total Protein (6.0-8.3) gm/dl Albumin (3.4-5.0) gm/dl Procalcitonin (0-0.5) ng/ml SARS-CoV-2 (PCR) NEGATIVE (Negative) Influenza Type A (PCR) Negative (Neg) Influenza Type B (PCR) Negative (Neg) RSV (RT-PCR) Negative (Neg) Administered Medications Discontinued Medications Furosemide (Furosemide 40 Mg/4 Ml Vial) 40 mg IV ONE ONE Stop: 02/07/25 15:09 Last Admin: 02/07/25 16:37 Dose: 40 mg Documented By: QGV Imaging Data Attestation: I personally reviewed and interpreted this imaging study as follows: My Impression: 1 view chest x-ray was obtained in the emergency department. My interpretation is cardiomegaly with pulmonary edema, final report below. Radiologist's Impression: Chest X-Ray 02/07/25 14:23 XR chest 1V portable CLINICAL HISTORY: Sepsis COMPARISON STUDY: 11/20/2021 FINDINGS: There is increased prominent cardiomegaly with pulmonary vascular congestion. There are increased bilateral pleural effusions and associated lung base consolidation, left greater than right. No pneumothorax. There is an old lower lateral left rib fracture. There are severe degenerative changes of the right shoulder. IMPRESSION: CHF with pleural effusions and lung base consolidation. ACT 112: Negative or not required by law. Electronically signed by: Álvaro Irby M.D. 02/07/2025 2:42 PM Discharge Plan Visit Data Chief Complaint: Respiratory Distress ED Provider: Costa Camarena Discharge Problem: Pulmonary edema, Acute respiratory distress Patient Disposition: Being Evaluated by Hospitalist Condition: Fair Forms Stand Alone Forms: [facility] Prescriptions Prescriptions: No Action amoxicillin 500 mg capsule 2,000 mg PO DIRECTED PRN (Reason: PRIOR TO DENTAL APPT.) Rx Instructions: TAKE 4 CAPS BEFORE DENTAL AND OTHER PROCEDURES DIRECTED acetaminophen [Tylenol] 325 mg Tablet 650 mg PO Q4 PRN (Reason: .FEVER >100F/PAIN) melatonin 3 mg Tablet 6 mg PO HS ferrous sulfate 325 mg (65 mg iron) Tablet 325 mg PO DAILY pyridostigmine bromide 60 mg tablet 120 mg PO TID Rx Instructions: 0800, 1400, & 2000 metoprolol succinate 25 mg tablet extended release 24 hr 12.5 mg PO HS Rx Instructions: HOLD FOR SBP <90 OR HR <60 finasteride 5 mg tablet 5 mg PO QAM sodium fluoride-pot nitrate [PreviDent 5000 Sensitive] 1.1-5 % Paste 1 applic DENTAL AMHS Rx Instructions: Do not rinse, eat or drink for 30 min. PreserVision AREDS [id number] Capsule 1 cap PO BID Artificial Tears (cmc) 1 % Drops 1 drp OPHTHALMIC (EYE) TID albuterol sulfate 2.5 mg /3 mL (0.083 %) Solution For Nebulization 2.5 mg INHALATION Q4H PRN (Reason: Shortness Of Breath Or Wheezing) famotidine 20 mg Tablet 20 mg PO HS cyanocobalamin (vitamin B-12) [Vitamin B-12] 1,000 mcg/mL Solution 1,000 mcg IM MONTHLY calcium carbonate 200 mg calcium (500 mg) Tablet,Chewable 200 mg PO BIDM corn starch Powder 1 applic TOPICAL BID Rx Instructions: APPLY TO AXILLAE AREA coconut oil Oil 1 ea TOPICAL 2XWK Rx Instructions: APPLY TO SCALP EVERY TUESDAY AND TUESDAY EVENINGS, WASH OUT ES & TUE WITH BATHING. cholecalciferol (vitamin D3) [Vitamin D3] 25 mcg (1,000 unit) Capsule 100 mcg PO QDL Rx Instructions: 4 CAPSULES Boost Plus Liquid 1 ea PO BID Rx Instructions: GIVE 120 ML AT 1000 & 1400 Baby Shampoo Shampoo 1 ea TOPICAL BID Rx Instructions: TO WASH CRUSTING FROM EYES BID protein supplement Liquid 1 ea PO AMHS Rx Instructions: GIVE 30 ML BID fluticasone furoate [Arnuity Ellipta] 200 mcg/actuation blister with device 1 inh INHALATION QAM quetiapine 25 mg tablet 12.5 mg PO AMHS ipratropium-albuterol 0.5 mg-3 mg(2.5 mg base)/3 mL Solution For Nebulization 3 ml INHALATION QID Rx Instructions: 0700, 1000, 1500, & 1900 torsemide 20 mg tablet 20 mg PO QAM Rx Instructions: STARTED 02/06/25 FOR 5 DAYS warfarin 2 mg Tablet 2 mg PO 4XWK Rx Instructions: SUN, TUES, THURS & SAT EVENINGS warfarin 2 mg Tablet 3 mg PO 3XWK Rx Instructions: MON, WED & FRI EVENINGS salicylic acid 3 % Shampoo 1 ea TOPICAL 2XWK Rx Instructions: TUESDAYS & FRIDAYS WITH BATHING multivitamin with minerals Tablet 1 tab PO DAILY guaifenesin [Mucinex] 600 mg Tablet Extended Release 12hr 600 mg PO Q12H PRN (Reason: COUGH/CONGESTION) sertraline [Zoloft] 100 mg Tablet 150 mg PO HS Triad Hydrophilic Wound Drsg. 1 applic topical TID Rx Instructions: APPLY TO BUTTOCKS AND SCROTUM AREA Aquaphor Ointment 1 applic TOPICAL BID Rx Instructions: APPLY TO ARMS FOR DRY SKIN Referrals Referrals: Reese Sanchez Dunellen [Primary Care Provider] -
--- NOTE | 2025-02-07 14:44 | XRay Report ---
XR chest 1V portable CLINICAL HISTORY: Sepsis COMPARISON STUDY: 11/20/2021 FINDINGS: There is increased prominent cardiomegaly with pulmonary vascular congestion. There are inc reased bilateral pleural effusions and associated lung base consolidation, left greater than right. N o pneumothorax. There is an old lower lateral left rib fracture. There are severe degenerative change s of the right shoulder. IMPRESSION: CHF with pleural effusions and lung base consolidation. ACT 112: Negative or not required by law. Electronically signed by: Álvaro Irby M.D. 02/07/2025 2:42 PM
[2025-02-07 14:45] LABS: Hematocrit (blood only) 38.8 % (42.0-52.0); Hemoglobin 12.1 g/dl (14.0-18.0); Immature Granulocytes # (auto) 0.04 K/uL (0.01-0.20); Immature Granulocytes % (auto) 0.5 %; Mean Corpuscular Hemoglobin 28.3 pg (25.0-34.0); Mean Corpuscular Volume 90.9 fL (80.0-100.0); Platelet Count 264 K/uL (130-400); RDW Standard Deviation 54.0 fL (36.4-46.3); Red Blood Count 4.27 M/uL (4.70-6.10); White Blood Count 7.36 K/ul (4.8-10.8)
[2025-02-07 14:51] LABS: Base Excess VBG 0.8 mEq/L; HCO3 VBG 28 mmol/L; Oxygen Saturation VBG 95.9 %; PCO2 VBG 56 mmHg (38-50); PO2 VBG 75 mmHg; pH VBG 7.31 (7.36-7.41)
[2025-02-07 15:04] LABS: Alanine Aminotransferase 22.0 U/L (7-52); Albumin Level 3.2 gm/dl (3.4-5.0); Alkaline Phosphatase 121.0 U/L (34-104); Anion Gap 6.0 (3-11); Bilirubin,Total 0.6 mg/dl (0.2-1.0); Blood Urea Nitrogen 30.0 mg/dl (6-23); Calcium 7.9 mg/dl (8.6-10.3); Carbon Dioxide 28.0 mmol/L (21-32); Chloride 105.0 mmol/L (98-107); Creatinine Clr Calc Pharmacy 82.4 ml/min; Glucose 138.0 mg/dl (70-99(Fasting)); Magnesium 1.9 mg/dl (1.7-2.4); Potassium 3.8 mmol/L (3.5-5.1); Sodium 139.0 mmol/L (136-145); Total Protein 6.6 gm/dl (6.0-8.3)
[2025-02-07 15:20] LABS: INR 3.6 (0.9-1.1); Partial Thromboplastin Time 46 Seconds (21-31); Prothrombin Time 34.8 Seconds (9.0-12.0)
[2025-02-07 15:31] LABS: Influenza A virus by PCR Negative (Neg); Influenza B virus by PCR Negative (Neg); SARS CoV2 RNA(COVID-19) Ceph NEGATIVE (Negative)
--- NOTE | 2025-02-07 16:01 | History & Physical Report ---
Date of Service February 07, 2025 Assessment & Plan (1) Acute respiratory failure with hypoxemia: Plan: Patient presents from his residence with acute onset of respiratory distress. It was reported hide he was cyanotic briefly after they turned him to change his clothes. Chest x-ray showed evidence of pulmonary congestion In the ED, he was subsequently put on BiPAP Will continue BiPAP for now Continue diuresis with Bumex 2 mg twice daily (2) Acute exacerbation of CHF (congestive heart failure): Plan: According to reports, despite being on home torsemide, the daughters report that he has been gaining some weight. Will obtain BNP and 2D echo Start him on Bumex 2 mg IV twice daily Will be wary of his blood pressure Monitor input and output, daily weight (3) Acute respiratory distress: Plan: Acute respiratory distress secondary to possible mucous plug They reported a brief period of cyanosis Currently on BiPAP Says his breathing is much improved and is close to baseline (4) Pulmonary edema: Plan: Seen on chest x-ray Patient has a history of congestive heart failure Will obtain BNP 2D echo Continue diuresis with Bumex 2 mg IV twice daily (5) Atrial fibrillation, persistent: Plan: On warfarin at home, continue Check INR (6) Myasthenia gravis: Plan: Continue home medication (7) Dementia: Plan Admit to telemetry DNR/DNI History of Present Illness Chief Complaint: sob Primary Care Provider: [facility] This is an 89-year-old male from [facility] with a history of dementia, permanent A-fib, congestive heart failure, hypertension, pulmonary hypertension, myasthenia gravis, who was brought from his home on account of an episode of cyanosis, shortness of breath. According to cirrhosis, some of the history was obtained from the physician and also from the patient's daughters who are at bedside. It was reported that the patient was being changed at [facility] when they turned him around and all of a sudden he passed out for a brief second and then started having shortness of breath. They said he turned cyanotic so they called 911. Upon arrival at the emergency department his blood pressure was soft initially 96/64 he was short of breath and subsequently put on BiPAP. Chest x-ray was done, which showed evidence of congestive heart failure with pleural effusions. Patient was given a shot of Lasix and will be admitted to the hospital for further management. Allergies Allergy/AdvReac Type Severity Reaction Status Date / Time vancomycin Allergy Severe Hives Verified 02/07/25 15:05 adhesive Allergy Intermediate TEARS SKIN Verified 02/07/25 15:05 latex Allergy Intermediate blisters Verified 02/07/25 15:05 and swelling morphine Allergy Intermediate Rash Verified 02/07/25 15:05 Influenza Virus Vaccines AdvReac Severe DEATHLY Verified 02/07/25 15:05 SICK Home Medications Medication Instructions Recorded Confirmed Type acetaminophen 325 mg tablet 650 mg PO Q4 PRN .FEVER >100F/PAIN 01/28/22 02/07/25 History (Tylenol) amoxicillin 500 mg capsule 2,000 mg PO DIRECTED PRN PRIOR 01/28/22 02/07/25 History TO DENTAL APPT. carboxymethylcellulose sodium 1 % 1 drp ophthalmic (eye) TID 01/28/22 02/07/25 History eye drops (Artificial Tears (carboxymethylcellulose)) ferrous sulfate 325 mg (65 mg 325 mg PO DAILY 01/28/22 02/07/25 History iron) tablet finasteride 5 mg tablet 5 mg PO QAM 01/28/22 02/07/25 History melatonin 3 mg tablet 6 mg PO HS 01/28/22 02/07/25 History metoprolol succinate 25 mg 12.5 mg PO HS 01/28/22 02/07/25 History tablet,extended release 24 hr pyridostigmine bromide 60 mg tablet 120 mg PO TID 01/28/22 02/07/25 History sodium fluoride 1.1 %-potassium 1 applic dental AMHS 01/28/22 02/07/25 History nitrate 5 % dental paste (PreviDent 5000 Sensitive) vitamins A,C,P-yxvz-aaifhb 4,296 1 cap PO BID 01/28/22 02/07/25 History mcg-226 mg-90 mg capsule (PreserVision AREDS) Triad Hydrophilic Wound Drsg. 1 applic topical TID 02/07/25 02/07/25 History albuterol sulfate 2.5 mg/3 mL 2.5 mg inhalation Q4H PRN 02/07/25 02/07/25 History (0.083 %) solution for nebulization Shortness Of Breath Or Wheezing calcium carbonate 200 mg PO BIDM 02/07/25 02/07/25 History cholecalciferol (vitamin D3) 25 100 mcg PO QDL 02/07/25 02/07/25 History mcg (1,000 unit) capsule (Vitamin D3) coconut oil 1 ea topical 2XWK 02/07/25 02/07/25 History corn starch 1 applic topical BID 02/07/25 02/07/25 History cyanocobalamin (vitamin B-12) 1,000 mcg IM MONTHLY 02/07/25 02/07/25 History 1,000 mcg/mL injection solution famotidine 20 mg tablet 20 mg PO HS 02/07/25 02/07/25 History fluticasone furoate 200 1 inh inhalation QAM 02/07/25 02/07/25 History mcg/actuation blister powder for inhalation (Arnuity Ellipta) food supplemt, lactose-reduced 1 ea PO BID 02/07/25 02/07/25 History guaifenesin 600 mg tablet, 600 mg PO Q12H PRN COUGH/CONGESTION 02/07/25 02/07/25 History extended release 12 hr (Mucinex) ipratropium 0.5 mg-albuterol 3 mg 3 ml inhalation QID 02/07/25 02/07/25 History (2.5 mg base)/3 mL nebulization soln mineral oil-hydrophil petrolat 1 applic topical BID 02/07/25 02/07/25 History topical ointment multivitamin with minerals 1 tab PO DAILY 02/07/25 02/07/25 History protein supplement 1 ea PO AMHS 02/07/25 02/07/25 History quetiapine 25 mg tablet 12.5 mg PO AMHS 02/07/25 02/07/25 History salicylic acid 3 % shampoo 1 ea topical 2XWK 02/07/25 02/07/25 History sertraline 100 mg tablet (Zoloft) 150 mg PO HS 02/07/25 02/07/25 History soap 1 ea topical BID 02/07/25 02/07/25 History torsemide 20 mg tablet 20 mg PO QAM 02/07/25 02/07/25 History warfarin 2 mg tablet 2 mg PO 4XWK 02/07/25 02/07/25 History warfarin 2 mg tablet 3 mg PO 3XWK 02/07/25 02/07/25 History Past Med/Surg History Problem List (Updated 02/07/25 @ 16:01 by Chang Marcos MD) Dementia Acute respiratory failure with hypoxemia Acute respiratory distress (Acute) Pulmonary edema (Acute) Hematoma of right flank (Acute) Bilateral pleural effusion (Acute) CHF (congestive heart failure) (Acute) Nonsustained ventricular tachycardia Hypertension Encephalopathy Demand ischemia Respiratory failure (Acute) Somnolence Intertrigo Hypotension Atrial fibrillation with rapid ventricular response Macroscopic hematuria Acute exacerbation of CHF (congestive heart failure) Hematuria Urinary bladder incontinence Asthma BRIJESH (obstructive sleep apnea) Rash Frequent PVCs Atrial fibrillation, persistent Shortness of breath (Acute) Weakness (Acute) Myasthenia gravis (Chronic) Cellulitis of leg (Acute Unknown) Diarrhea (Acute Unknown) Monoclonal gammopathy (Chronic Unknown) Morbid obesity (Chronic Unknown) Myasthenia gravis (Chronic Unknown) Pernicious anemia (Acute Unknown) Pulmonary hypertension (Acute Unknown) Medical History SOB (shortness of breath) Hematoma of flank Sleep apnea Essential hypertension Dyslipidemia Diabetes mellitus Cellulitis and abscess of leg Surgical History History of Louis-en-Y gastric bypass S/P cholecystectomy 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) Family History Other Family history non-contributory Social History Smoking Status: Never smoker Second Hand Exposure: No; Do You Dip or Chew Tobacco: No; Hx Alcohol Use: No Hx Substance Use: No Preferred Language: Faroese Communication Ability: Effective Communication Ability Comment: 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 Physical Exam Physical Exam: The patient is awake, alert and oriented Although occasionally confused HEENT--PERRL, EOMI, mucous membranes and oropharynx mildly dry Neck--supple. No JVD. No bruits. Thyroid normal, trachea midline, no adenopathy. Heart--normal S1 and S2. No murmurs, rubs or gallops. Lungs--Reduced and on auscultation, bibasilar crackles Abdomen--normal bowel sounds and soft. Extremities--no cyanosis or clubbing. Pitting leg edema Dermatologic--normal skin turgor, normal color, no abnormal lymph nodes, no rash. Neurologic--cranial nerves II through XII grossly intact. Rheumatologic--normal range of motion. Psychiatric--normal affect. Results & Data Results & Data Vital Signs (Past 12 Hours) Vital Signs Temp Pulse Pulse Resp BP BP Pulse Ox 02/07/25 15:15 85 22 102/54 L 95 02/07/25 14:38 75 23 96/64 L 95 02/07/25 14:12 63 24 95 02/07/25 14:12 98.2 F 63 24 104/73 95 02/07/25 14:12 02/07/25 14:12 98.2 F 63 24 104/73 95 02/07/25 14:12 O2 Del Method O2 Flow Rate 02/07/25 15:15 BiPAP 02/07/25 14:38 Oxymask 5 02/07/25 14:12 Oxymask 5 02/07/25 14:12 Nasal Cannula 5 02/07/25 14:12 Oxymask 5 02/07/25 14:12 Oxymask 5 02/07/25 14:12 Oxymask 5 PG Care Time/CCT Total # of Minutes Spent Total Time Spent with Patient: Total time spent is greater than 50% in coordination of care (as documented) at patient's floor/unit and/or counseling patient: Coding Level of Care Code 95164 INT INP/OBS CARE 3/75MIN Diagnoses Acute respiratory failure with hypoxemia J96.01 Acute exacerbation of CHF (congestive heart failure) I50.9 Acute respiratory distress R06.03 Pulmonary edema J81.1 Atrial fibrillation, persistent I48.1 Myasthenia gravis G70.00 Dementia F03.90 Time Spent (min) 75
[2025-02-07] MEDS: FUROSEMIDE 40 MG/4 ML VIAL IV ONE (16:37)
[2025-02-07] MEDS ORDERED: WARFARIN SOD 3 MG TAB PO SCH (18:00)
[2025-02-07] MEDS ORDERED: WARFARIN SOD 2 MG TAB PO SCH (18:00)
[2025-02-07] MEDS: METOPROLOL TARTRATE 1 MG/ML VIAL IV STA (18:24)
[2025-02-07] MEDS: MIDODRINE HCL 2.5 MG TAB PO SCH (18:38)
[2025-02-07] MEDS: BUMETANIDE 2 MG in SYRINGE 0 ML IV SCH (18:38)
[2025-02-07] MEDS: WARFARIN SOD 3 MG TAB PO SCH (18:39)
[2025-02-07] MEDS: METOPROLOL TARTRATE 25 MG TAB PO SCH (18:44)
[2025-02-07] MEDS: ASPIRIN 81 MG ECTAB PO SCH (20:24)
[2025-02-07] MEDS: ALBUT/IPRATROP 3MG/0.5MG NEB 3 ML VIAL NEB SCH (20:54)
[2025-02-07 20:55] LABS: Appearance Urine Clear (Clear); Bacteria Urine Automated None Seen (None Seen); Epithelial Cell Urine Auto 0-2 /hpf (0-2); Glucose Urine UA Negative (Negative); RBC Urine Automated >20 /hpf (0-2); WBC Urine Automated 0-5 /hpf (0-5)
[2025-02-08] MEDS: MELATONIN 3 MG TAB PO PRN (00:51)
[2025-02-08 06:23] LABS: Anion Gap 4.0 (3-11); Blood Urea Nitrogen 30.0 mg/dl (6-23); Calcium 8.0 mg/dl (8.6-10.3); Carbon Dioxide 32.0 mmol/L (21-32); Chloride 104.0 mmol/L (98-107); Creatinine Clr Calc Pharmacy 92.1 ml/min; Glucose 120.0 mg/dl (70-99(Fasting)); Potassium 3.3 mmol/L (3.5-5.1); Sodium 140.0 mmol/L (136-145)
[2025-02-08 07:05] LABS: INR 2.8 (0.9-1.1); Prothrombin Time 27.5 Seconds (9.0-12.0)
[2025-02-08] MEDS: POTASSIUM CHLORIDE 20 MEQ/15 ML UDC PO STA (08:41)
--- NOTE | 2025-02-08 12:11 | Hospitalist Progress Note ---
Date of Service February 08, 2025 Assessment & Plan (1) Acute respiratory failure with hypoxemia: Plan: Patient presents from his residence with acute onset of respiratory distress. It was reported he was cyanotic briefly after they turned him to change his clothes. Chest x-ray showed evidence of pulmonary congestion In the ED, he was subsequently put on BiPAP Currently on oxygen through nasal canula Fells better today Wean as tolerated (2) Acute exacerbation of CHF (congestive heart failure): Plan: According to reports, despite being on home torsemide, the daughters report that he has been gaining some weight. Will obtain BNP and 2D echo Start him on Bumex 2 mg IV twice daily Will be wary of his blood pressure Monitor input and output, daily weight (3) Acute respiratory distress: Plan: Acute respiratory distress secondary to possible mucous plug They reported a brief period of cyanosis Currently on BiPAP Says his breathing is much improved and is close to baseline (4) Pulmonary edema: Plan: Seen on chest x-ray Patient has a history of congestive heart failure BNP 238 2D echo Continue diuresis with Bumex 2 mg IV twice daily (5) Atrial fibrillation, persistent: Plan: On warfarin at home, continue Check INR (6) Myasthenia gravis: Plan: Continue home medication (7) Dementia: Plan Admit to telemetry DNR/DNI Admission and Anticipated Discharge Date Admission Date: February 07, 2025 Subjective patient seen and examined, tolerating diet, says shortness of breath is improved Review of Systems Review of Systems: All systems reviewed are negative, apart from the ones contained in the history. Physical Exam Physical Exam: The patient is awake, alert and oriented Although occasionally confused HEENT--PERRL, EOMI, mucous membranes and oropharynx mildly dry Neck--supple. No JVD. No bruits. Thyroid normal, trachea midline, no adenopathy. Heart--normal S1 and S2. No murmurs, rubs or gallops. Lungs--Reduced and on auscultation, bibasilar crackles Abdomen--normal bowel sounds and soft. Extremities--no cyanosis or clubbing. Pitting leg edema Dermatologic--normal skin turgor, normal color, no abnormal lymph nodes, no rash. Neurologic--cranial nerves II through XII grossly intact. Rheumatologic--normal range of motion. Psychiatric--normal affect. Results & Data Results & Data Vital Signs (Past 12 Hours) Vital Signs Temp Pulse Pulse Resp BP Pulse Ox O2 Del Method 02/08/25 10:49 97.7 F 73 20 101/72 96 Nasal Cannula 02/08/25 10:34 Nasal Cannula 02/08/25 10:16 98.2 F 86 26 H 101/72 94 Nasal Cannula 02/08/25 07:40 98.6 F 83 26 H 97/67 L 93 Nasal Cannula 02/08/25 07:30 74 02/08/25 07:25 85 18 96 Oxymask 02/08/25 02:22 97.9 F 76 21 125/59 L 96 Oxymask 02/08/25 02:08 78 17 95 Oxymask 02/08/25 01:32 Nasal Cannula, Oxymask O2 Flow Rate 02/08/25 10:49 2 02/08/25 10:34 2 02/08/25 10:16 4 02/08/25 07:40 3 02/08/25 07:30 02/08/25 07:25 5 02/08/25 02:22 6 02/08/25 02:08 5 02/08/25 01:32 6 PG Care Time/CCT Total # of Minutes Spent Total Time Spent with Patient: Total time spent is greater than 50% in coordination of care (as documented) at patient's floor/unit and/or counseling patient: Coding Level of Care Code 34620 SUB INP/OBS CARE 2/35MIN Diagnoses Acute respiratory failure with hypoxemia J96.01 Acute exacerbation of CHF (congestive heart failure) I50.9 Acute respiratory distress R06.03 Pulmonary edema J81.1 Atrial fibrillation, persistent I48.1 Myasthenia gravis G70.00 Dementia F03.90 Time Spent (min) 35
[2025-02-08 13:19] LABS: A calco-baum cmplx NotReported Not Detected (NotDetected); Bact fragilis Not Reported Not Detected (NotDetected); Blood Culture Id Panel See PCR Comment (NotDetected); C auris Not Reported Not Detected (NotDetected); Calbicans Not Reported Not Detected (NotDetected); Candida glabrata Not Reported Not Detected (NotDetected); Candida krusei Not Reported Not Detected (NotDetected); Cneoformans/gatti Not Reported Not Detected (NotDetected); Cparapsilosis Not Reported Not Detected (NotDetected); Ctropicalis Not Reported Not Detected (NotDetected); E cloacae compx Not Reported Not Detected (NotDetected); Efaecalis Not Reported Not Detected (NotDetected); Efaecium Not Reported Not Detected (NotDetected); Enterobacterales Not Reported Not Detected (NotDetected); Escherichia coli Not Reported Not Detected (NotDetected); H influenzae Not Reported Not Detected (NotDetected); K aerogenes Not Reported Not Detected (NotDetected); Koxytoca Not Reported Not Detected (NotDetected); Kpneumoniae grp Not Reported Not Detected (NotDetected); Lmonocyt Not Reported Not Detected (NotDetected); N meningitidis Not Reported Not Detected (NotDetected); P aeruginosa Not Reported Not Detected (NotDetected); Proteus spp Not Reported Not Detected (NotDetected); Salmonella spp Not Reported Not Detected (NotDetected); Staph lugdunensis Not Reported Not Detected (NotDetected); Staph spp. Not Reported DETECTED (NotDetected); Staphaureus Not Reported Not Detected (NotDetected); Staphepi Not Reported Not Detected (NotDetected); Stenmaltophilia Not Reported Not Detected (NotDetected); Strep agal(GrpB) Not Reported Not Detected (NotDetected); Strep pneum Not Reported Not Detected (NotDetected); Strep pyog (GrpA) Not Reported Not Detected (NotDetected); Strep spp Not Reported Not Detected (NotDetected)
[2025-02-08 13:36] LABS: Staphylococcus spp. DETECTED (NotDetected)
[2025-02-08] MEDS ORDERED: WARFARIN SOD 3 MG TAB PO SCH (16:00)
[2025-02-08] MEDS: DAPTOmycin 600 MG in SYRINGE 0 ML IV SCH (16:14)
--- NOTE | 2025-02-08 19:33 | XCELERA ---
[id number]
[2025-02-08] MEDS: ACETAMINOPHEN 325 MG TAB PO PRN (20:45)
[2025-02-09 07:17] LABS: Hematocrit (blood only) 37.6 % (42.0-52.0); Hemoglobin 11.9 g/dl (14.0-18.0); Mean Corpuscular Hemoglobin 28.5 pg (25.0-34.0); Mean Corpuscular Volume 90.2 fL (80.0-100.0); Platelet Count 226 K/uL (130-400); RDW Standard Deviation 52.7 fL (36.4-46.3); Red Blood Count 4.17 M/uL (4.70-6.10); White Blood Count 6.29 K/ul (4.8-10.8)
[2025-02-09 07:33] LABS: Anion Gap 5.0 (3-11); Blood Urea Nitrogen 27.0 mg/dl (6-23); Calcium 8.1 mg/dl (8.6-10.3); Carbon Dioxide 32.0 mmol/L (21-32); Chloride 106.0 mmol/L (98-107); Creatinine Clr Calc Pharmacy 88.2 ml/min; Glucose 108.0 mg/dl (70-99(Fasting)); Potassium 3.3 mmol/L (3.5-5.1); Sodium 143.0 mmol/L (136-145)
[2025-02-09 07:42] LABS: INR 3.0 (0.9-1.1); Prothrombin Time 29.5 Seconds (9.0-12.0)
--- NOTE | 2025-02-09 08:42 | Electrocardiogram Report ---
Test Reason : Blood Pressure : */* mmHG Vent. Rate : 96 BPM Atrial Rate : 63 BPM P-R Int : 104 ms QRS Dur : 60 ms QT Int : 298 ms P-R-T Axes : * -24 162 degrees QTcB Int : 376 ms Atrial fibrillation with premature ventricular or aberrantly conducted complexes Low voltage QRS Cannot rule out Inferior infarct Right bundle branch block Abnormal ECG When compared with ECG of 28-Jan-2022 06:56, Right bundle branch block is now Present Confirmed by Tim Persaud ([id number]) on 02/09/2025 8:42:10 AM Referred By: Confirmed By: Tim Persaud
[2025-02-09] MEDS: POTASSIUM CHLORIDE CRTAB 20 MEQ TABCR PO STA (08:55)
--- NOTE | 2025-02-09 11:36 | Hospitalist Progress Note ---
Date of Service February 09, 2025 Assessment & Plan (1) Bacteremia: Plan: Preliminary blood cultures growing Staphylococcus capitis Patient is allergic to vancomycin Will start IV daptomycin Await full characterization and sensitivities Consult infectious disease on Tuesday (2) Acute respiratory failure with hypoxemia: Plan: Patient presents from his residence with acute onset of respiratory distress. It was reported he was cyanotic briefly after they turned him to change his clothes. Chest x-ray showed evidence of pulmonary congestion In the ED, he was subsequently put on BiPAP Currently on oxygen through nasal canula Feels better today Wean as tolerated (3) Acute exacerbation of CHF (congestive heart failure): Plan: According to reports, despite being on home torsemide, the daughters report that he has been gaining some weight. Will obtain BNP and 2D echo Start him on Bumex 2 mg IV twice daily, As his blood pressure can tolerate Will be wary of his blood pressure Monitor input and output, daily weight (4) Acute respiratory distress: Plan: Acute respiratory distress secondary to possible mucous plug They reported a brief period of cyanosis Currently on BiPAP Says his breathing is much improved and is close to baseline (5) Pulmonary edema: Plan: Seen on chest x-ray Patient has a history of congestive heart failure BNP 238 2D echo Continue diuresis with Bumex 2 mg IV twice daily, As his blood pressure can tolerate (6) Atrial fibrillation, persistent: Plan: On warfarin at home, continue Check INR, 3.0 today (7) Myasthenia gravis: Plan: Continue home medication (8) Dementia: Plan Continue to monitor in the hospital, hopefully discharge in the next 48 hours DNR/DNI Admission and Anticipated Discharge Date Admission Date: February 07, 2025 Subjective patient seen and examined, tolerating diet, says shortness of breath is improved Review of Systems Review of Systems: All systems reviewed are negative, apart from the ones contained in the history. Physical Exam Physical Exam: The patient is awake, alert and oriented Although occasionally confused HEENT--PERRL, EOMI, mucous membranes and oropharynx mildly dry Neck--supple. No JVD. No bruits. Thyroid normal, trachea midline, no adenopathy. Heart--normal S1 and S2. No murmurs, rubs or gallops. Lungs--Reduced and on auscultation, bibasilar crackles Abdomen--normal bowel sounds and soft. Extremities--no cyanosis or clubbing. Pitting leg edema Dermatologic--normal skin turgor, normal color, no abnormal lymph nodes, no rash. Neurologic--cranial nerves II through XII grossly intact. Rheumatologic--normal range of motion. Psychiatric--normal affect. Results & Data Results & Data Vital Signs (Past 12 Hours) Vital Signs Temp Pulse Pulse Resp BP Pulse Ox O2 Del Method 02/09/25 09:54 116/78 95 Nasal Cannula 02/09/25 09:24 68 02/09/25 08:56 98.8 F 69 22 90/59 L 96 BiPAP 02/09/25 07:23 70 20 98 CPAP 02/09/25 07:23 64 25 H 98 02/09/25 03:40 66 22 96 02/09/25 03:06 98.1 F 67 18 100/65 98 CPAP 02/09/25 01:54 76 22 95 BiPAP, CPAP 02/08/25 23:55 Nasal Cannula, CPAP O2 Flow Rate 02/09/25 09:54 2 02/09/25 09:24 02/09/25 08:56 02/09/25 07:23 3 02/09/25 07:23 02/09/25 03:40 02/09/25 03:06 02/09/25 01:54 2 02/08/25 23:55 2 PG Care Time/CCT Total # of Minutes Spent Total Time Spent with Patient: Total time spent is greater than 50% in coordination of care (as documented) at patient's floor/unit and/or counseling patient: Coding Level of Care Code 74866 SUB INP/OBS CARE 2/35MIN Diagnoses Bacteremia R78.81 Acute respiratory failure with hypoxemia J96.01 Acute exacerbation of CHF (congestive heart failure) I50.9 Acute respiratory distress R06.03 Pulmonary edema J81.1 Atrial fibrillation, persistent I48.1 Myasthenia gravis G70.00 Dementia F03.90 Time Spent (min) 35
[2025-02-10 06:39] LABS: Hematocrit (blood only) 39.6 % (42.0-52.0); Hemoglobin 12.3 g/dl (14.0-18.0); Mean Corpuscular Hemoglobin 28.3 pg (25.0-34.0); Mean Corpuscular Volume 91.2 fL (80.0-100.0); Platelet Count 243 K/uL (130-400); RDW Standard Deviation 52.7 fL (36.4-46.3); Red Blood Count 4.34 M/uL (4.70-6.10); White Blood Count 7.14 K/ul (4.8-10.8)
[2025-02-10 06:55] LABS: Anion Gap 6.0 (3-11); Blood Urea Nitrogen 26.0 mg/dl (6-23); Calcium 8.5 mg/dl (8.6-10.3); Carbon Dioxide 34.0 mmol/L (21-32); Chloride 105.0 mmol/L (98-107); Creatinine Clr Calc Pharmacy 76.7 ml/min; Glucose 108.0 mg/dl (70-99(Fasting)); Potassium 3.7 mmol/L (3.5-5.1); Sodium 145.0 mmol/L (136-145)
[2025-02-10 07:05] LABS: INR 3.1 (0.9-1.1); Prothrombin Time 30.6 Seconds (9.0-12.0)
--- NOTE | 2025-02-10 10:21 | Hospitalist Progress Note ---
Date of Service February 10, 2025 Assessment & Plan (1) Bacteremia: Plan: Preliminary blood cultures growing Staphylococcus capitis He became febrile this morning Patient is allergic to vancomycin Will continue IV daptomycin Await full characterization and sensitivities Consult infectious disease on Tuesday (2) Acute respiratory failure with hypoxemia: Plan: Patient presents from his residence with acute onset of respiratory distress. It was reported he was cyanotic briefly after they turned him to change his clothes. Chest x-ray showed evidence of pulmonary congestion In the ED, he was subsequently put on BiPAP Currently on oxygen through nasal canula, occasionally on BIPAP Wean as tolerated Repeat chest x ray today (3) Acute exacerbation of CHF (congestive heart failure): Plan: According to reports, despite being on home torsemide, the daughters report that he has been gaining some weight. BNP 238 and 2D echo shows moderate pericardial effusion, no tamponade. Moderate aortic stenosis Start him on Bumex 1 mg IV twice daily, As his blood pressure can tolerate Will be wary of his blood pressure Monitor input and output, daily weight (4) Acute respiratory distress: Plan: Acute respiratory distress secondary to possible mucous plug They reported a brief period of cyanosis Now resolved (5) Pulmonary edema: Plan: Seen on chest x-ray Patient has a history of congestive heart failure BNP 238 2D echo shows moderate pericardial effusion, no tamponade Continue diuresis with Bumex 1 mg IV twice daily, As his blood pressure can tolerate (6) Atrial fibrillation, persistent: Plan: On warfarin at home, continue Check INR, (7) Myasthenia gravis: Plan: Continue home medication (8) Dementia: Plan Continue to monitor in the hospital, hopefully discharge to [facility] in the next 48 hours DNR/DNI Admission and Anticipated Discharge Date Admission Date: February 07, 2025 Subjective patient seen and examined, tolerating diet, says shortness of breath is improved Review of Systems Review of Systems: All systems reviewed are negative, apart from the ones contained in the history. Physical Exam Physical Exam: The patient is awake, alert and oriented Although occasionally confused HEENT--PERRL, EOMI, mucous membranes and oropharynx mildly dry Neck--supple. No JVD. No bruits. Thyroid normal, trachea midline, no adenopathy. Heart--normal S1 and S2. No murmurs, rubs or gallops. Lungs--Reduced and on auscultation, bibasilar crackles Abdomen--normal bowel sounds and soft. Extremities--no cyanosis or clubbing. Pitting leg edema Dermatologic--normal skin turgor, normal color, no abnormal lymph nodes, no rash. Neurologic--cranial nerves II through XII grossly intact. Rheumatologic--normal range of motion. Psychiatric--normal affect. Results & Data Results & Data Vital Signs (Past 12 Hours) Vital Signs Temp Pulse Pulse Resp BP Pulse Ox O2 Del Method 02/10/25 07:48 101.7 F H 112 H 24 134/78 92 Nasal Cannula 02/10/25 07:20 92 H 02/10/25 06:48 78 22 93 02/10/25 06:19 86 22 93 CPAP 02/10/25 03:46 Nasal Cannula, CPAP 02/10/25 03:05 98.2 F 114 H 18 113/79 93 CPAP 02/10/25 02:06 87 24 94 02/10/25 02:04 87 24 94 02/09/25 23:53 97.9 F 77 18 102/71 94 CPAP 02/09/25 22:40 75 22 97 O2 Flow Rate 02/10/25 07:48 2 02/10/25 07:20 02/10/25 06:48 3 02/10/25 06:19 3 02/10/25 03:46 2 02/10/25 03:05 02/10/25 02:06 3 02/10/25 02:04 4 02/09/25 23:53 02/09/25 22:40 2 PG Care Time/CCT Total # of Minutes Spent Total Time Spent with Patient: Total time spent is greater than 50% in coordination of care (as documented) at patient's floor/unit and/or counseling patient: Coding Level of Care Code 10018 SUB INP/OBS CARE 2/35MIN Diagnoses Bacteremia R78.81 Acute respiratory failure with hypoxemia J96.01 Acute exacerbation of CHF (congestive heart failure) I50.9 Acute respiratory distress R06.03 Pulmonary edema J81.1 Atrial fibrillation, persistent I48.1 Myasthenia gravis G70.00 Dementia F03.90 Time Spent (min) 35
--- NOTE | 2025-02-10 10:36 | XRay Report ---
EXAM: Radiograph of the Chest 1 View INDICATION: Shortness of breath. TECHNIQUE: Frontal view of the chest. COMPARISON: 02/07/2025 FINDINGS: Lungs and pleural spaces: Stable small bilateral pleural effusions and basilar airspace consolidation. No pneumothorax. Heart: Stable large cardiac shadow. Mediastinum: Normal contour. Bones/joints: Stable left rib fractures. Soft tissues: No abnormality noted. No radiopaque foreign body noted. Upper abdomen: No abnormality noted. IMPRESSION: Stable small bilateral pleural effusions and basilar airspace consolidation. ACT 112: N/A Electronically signed by Tracee Gama 02-10-2025 10:36 AM
[2025-02-10] MEDS: CEFEPIME 2000MG 2,000 MG/20 ML SYR IV SCH (13:18)
[2025-02-10] MEDS: BUMETANIDE 1 MG in SYRINGE 0 ML IV SCH (16:40)
[2025-02-11 07:08] LABS: Hematocrit (blood only) 38.4 % (42.0-52.0); Hemoglobin 11.9 g/dl (14.0-18.0); Mean Corpuscular Hemoglobin 28.3 pg (25.0-34.0); Mean Corpuscular Volume 91.4 fL (80.0-100.0); Platelet Count 221 K/uL (130-400); RDW Standard Deviation 52.0 fL (36.4-46.3); Red Blood Count 4.20 M/uL (4.70-6.10); White Blood Count 7.11 K/ul (4.8-10.8)
[2025-02-11 07:41] LABS: Anion Gap 6.0 (3-11); Blood Urea Nitrogen 29.0 mg/dl (6-23); Calcium 8.4 mg/dl (8.6-10.3); Carbon Dioxide 34.0 mmol/L (21-32); Chloride 103.0 mmol/L (98-107); Creatinine Clr Calc Pharmacy 74.8 ml/min; Glucose 108.0 mg/dl (70-99(Fasting)); Potassium 3.6 mmol/L (3.5-5.1); Sodium 143.0 mmol/L (136-145)
[2025-02-11 07:47] LABS: INR 2.1 (0.9-1.1); Prothrombin Time 21.5 Seconds (9.0-12.0)
--- NOTE | 2025-02-11 09:36 | Infectious Disease Consult ---
Date of Consultation February 11, 2025 Assessment & Plan (1) Fever: (2) Bacteremia: (3) Acute respiratory failure with hypoxemia: Plan Problems: #Fever #Staph capitis in blood culture #Acute hypoxic respiratory failure #CHF exacerbation Micro: 02/11 BCx x2: pending 02/07 BCx x2: Staph capitis in 2/4 bottles (in 2/2 sets). S oxacillin Abx: Dapto 02/08 - present Cefepime 02/10 - present 89 yo M from [facility] with dementia, permanent Afib, CHF, HTN, pulmonary HTN, myasthenia gravis who presented on 02/07 after an episode of cyanosis, shortness of breath. The pt was reportedly being changed, and all of a sudden he passed out for a brief second and then started having shortness of breath. He turned cyanotic so they called 911. On presentation, pt was afebrile, HR 63, BP 104/73 (decreased to 90s/60s), RR 24, 95% on 5 L. Labs showed no leukocytosis, lactate 1, BNP 238, procal 0.13. UA negative. COVID-19/flu/RSV negative. CXR showed CHF with pleural effusions and lung base consolidation. Pt was placed on BiPAP and started on diuresis. Blood cultures were obtained on admission, which became positive for GPCs in clusters, so was started on daptomycin on 02/08. Biofire panel positive for Staph species. BCx ultimately grew Staph capitis in 2/4 bottles. On 02/09, pt developed T 37.6. On 02/10, had fever to 38.7. On my evaluation, pt does not recall the circumstances of his admission. Denies sore throat or rhinorrhea. Does not remember if he was coughing. Denies pain. Discussion: Unclear source of fever on 02/10. Think unlikely to be related to Staph capitis which grew in 02/07 blood cultures--this is a coag neg Staph and may represent contaminant, as pt does not have central lines. Recommendations: - Ordered repeat blood cultures this AM - Monitor fever curve - Can continue dapto, cefepime for now, but anticipate discontinuation soon if no source found - Ordered respiratory viral panel Will continue to follow Consultation Information Consultation was provided via telemedicine using two-way real-time interactive telecommunication between the patient and the telemedicine provider. For the duration of the visit, the provider was performing the assessment from a different facility than the patient. This includesuse of bluetooth stethoscope forauscultationperformed by the telepresenter that the telemedicine provider can hear if described in the physical exam. Associate Professor [employer] contact information: Please call [facility] [phone]. (Phone Number For Physician Use Only) After establishing a telemedicine visit, patient was: Patient was verified with two unique identifiers, Patient/authorized rep acknowledged consent and understanding and Gave permission to continue telehealth session Time Spent with Patient: Initial => 55 min History of Present Illness Reason for Consultation: positive blood culture Attending Physician: Nicole Alcaraz MD History of Present Illness 89 yo M from [facility] with dementia, permanent Afib, CHF, HTN, pulmonary HTN, myasthenia gravis who presented on 02/07 after an episode of cyanosis, shortness of breath. The pt was reportedly being changed, and all of a sudden he passed out for a brief second and then started having shortness of breath. He turned cyanotic so they called 911. On presentation, pt was afebrile, HR 63, BP 104/73 (decreased to 90s/60s), RR 24, 95% on 5 L. Labs showed no leukocytosis, lactate 1, BNP 238, procal 0.13. UA negative. COVID-19/flu/RSV negative. CXR showed CHF with pleural effusions and lung base consolidation. Pt was placed on BiPAP and started on diuresis. Blood cultures were obtained on admission, which became positive for GPCs in clusters, so was started on daptomycin on 02/08. Biofire panel positive for Staph species. BCx ultimately grew Staph capitis in 2/4 bottles. On 02/09, pt developed T 37.6. On 02/10, had fever to 38.7. On my evaluation, pt does not recall the circumstances of his admission. Denies sore throat or rhinorrhea. Does not remember if he was coughing. Denies pain. Allergies Allergy/AdvReac Type Severity Reaction Status Date / Time vancomycin Allergy Severe Hives Verified 02/07/25 15:05 adhesive Allergy Intermediate TEARS SKIN Verified 02/07/25 15:05 latex Allergy Intermediate blisters Verified 02/07/25 15:05 and swelling morphine Allergy Intermediate Rash Verified 02/07/25 15:05 Influenza Virus Vaccines AdvReac Severe DEATHLY Verified 02/07/25 15:05 SICK Home Medications Medication Instructions Recorded Confirmed Type acetaminophen 325 mg tablet 650 mg PO Q4 PRN .FEVER >100F/PAIN 01/28/22 02/07/25 History (Tylenol) amoxicillin 500 mg capsule 2,000 mg PO DIRECTED PRN PRIOR 01/28/22 02/07/25 History TO DENTAL APPT. carboxymethylcellulose sodium 1 % 1 drp ophthalmic (eye) TID 01/28/22 02/07/25 History eye drops (Artificial Tears (carboxymethylcellulose)) ferrous sulfate 325 mg (65 mg 325 mg PO DAILY 01/28/22 02/07/25 History iron) tablet finasteride 5 mg tablet 5 mg PO QAM 01/28/22 02/07/25 History melatonin 3 mg tablet 6 mg PO HS 01/28/22 02/07/25 History metoprolol succinate 25 mg 12.5 mg PO HS 01/28/22 02/07/25 History tablet,extended release 24 hr pyridostigmine bromide 60 mg tablet 120 mg PO TID 01/28/22 02/07/25 History sodium fluoride 1.1 %-potassium 1 applic dental AMHS 01/28/22 02/07/25 History nitrate 5 % dental paste (PreviDent 5000 Sensitive) vitamins A,C,F-ltzg-yrmnoq 4,296 1 cap PO BID 01/28/22 02/07/25 History mcg-226 mg-90 mg capsule (PreserVision AREDS) Triad Hydrophilic Wound Drsg. 1 applic topical TID 02/07/25 02/07/25 History albuterol sulfate 2.5 mg/3 mL 2.5 mg inhalation Q4H PRN 02/07/25 02/07/25 History (0.083 %) solution for nebulization Shortness Of Breath Or Wheezing calcium carbonate 200 mg PO BIDM 02/07/25 02/07/25 History cholecalciferol (vitamin D3) 25 100 mcg PO QDL 02/07/25 02/07/25 History mcg (1,000 unit) capsule (Vitamin D3) coconut oil 1 ea topical 2XWK 02/07/25 02/07/25 History corn starch 1 applic topical BID 02/07/25 02/07/25 History cyanocobalamin (vitamin B-12) 1,000 mcg IM MONTHLY 02/07/25 02/07/25 History 1,000 mcg/mL injection solution famotidine 20 mg tablet 20 mg PO HS 02/07/25 02/07/25 History fluticasone furoate 200 1 inh inhalation QAM 02/07/25 02/07/25 History mcg/actuation blister powder for inhalation (Arnuity Ellipta) food supplemt, lactose-reduced 1 ea PO BID 02/07/25 02/07/25 History guaifenesin 600 mg tablet, 600 mg PO Q12H PRN COUGH/CONGESTION 02/07/25 02/07/25 History extended release 12 hr (Mucinex) ipratropium 0.5 mg-albuterol 3 mg 3 ml inhalation QID 02/07/25 02/07/25 History (2.5 mg base)/3 mL nebulization soln mineral oil-hydrophil petrolat 1 applic topical BID 02/07/25 02/07/25 History topical ointment multivitamin with minerals 1 tab PO DAILY 02/07/25 02/07/25 History protein supplement 1 ea PO AMHS 02/07/25 02/07/25 History quetiapine 25 mg tablet 12.5 mg PO AMHS 02/07/25 02/07/25 History salicylic acid 3 % shampoo 1 ea topical 2XWK 02/07/25 02/07/25 History sertraline 100 mg tablet (Zoloft) 150 mg PO HS 02/07/25 02/07/25 History soap 1 ea topical BID 02/07/25 02/07/25 History torsemide 20 mg tablet 20 mg PO QAM 02/07/25 02/07/25 History warfarin 2 mg tablet 2 mg PO 4XWK 02/07/25 02/07/25 History warfarin 2 mg tablet 3 mg PO 3XWK 02/07/25 02/07/25 History Patient History Medical History SOB (shortness of breath) Hematoma of flank Sleep apnea Essential hypertension Dyslipidemia Diabetes mellitus Cellulitis and abscess of leg Surgical History History of Louis-en-Y gastric bypass S/P cholecystectomy 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) Family History Other Family history non-contributory Social History Smoking Status: Former smoker Tobacco Type: Cigarettes and Pipe Second Hand Exposure: No; Do You Dip or Chew Tobacco: No; Hx Alcohol Use: No Hx Substance Use: No Preferred Language: Romanian Communication Ability: Impaired Communication Ability Comment: Hard of hearing, hearing aids at [facility] Human Resources Clerk Required: No Beliefs That Will Affect Care: None marital status: / Current Living Situation: Assisted Current Living Situation Comment: Lives at [facility] in shelter home Feels Safe at Home: Declines to Answer Assistive Devices: CPAP, Glasses, Hearing Aid - Bilateral, Mechanical Lift and Wheelchair Review of System A complete ROS was performed and is negative except as mentioned in the HPI. Physical Exam Physical Exam: GEN: elderly man in NAD. HEENT: NC in place RESP: No increased work of breathing ABD: firm, nontender to palpation SKIN: No lesions or rashes on exposed skin. No wounds. NEURO: Alert, answering questions appropriately Results & Data Vital Signs (Past 12 Hours) Vital Signs Temp Pulse Pulse Resp BP Pulse Ox O2 Del Method 02/11/25 07:05 75 22 96 BiPAP 02/11/25 07:00 36.5 C 74 18 119/70 97 BiPAP 02/11/25 02:25 36.6 C 61 18 102/71 95 BiPAP 02/11/25 02:20 66 16 94 02/11/25 01:11 Nasal Cannula, CPAP 02/11/25 00:31 77 18 94 CPAP 02/10/25 22:37 36.5 C 80 18 127/88 96 BiPAP 02/10/25 21:43 87 O2 Flow Rate 02/11/25 07:05 4 02/11/25 07:00 02/11/25 02:25 02/11/25 02:20 4 02/11/25 01:11 2 02/11/25 00:31 4 02/10/25 22:37 02/10/25 21:43
--- NOTE | 2025-02-11 14:30 | Hospitalist Progress Note ---
Date of Service February 11, 2025 Assessment & Plan (1) Bacteremia: Plan: Preliminary blood cultures growing Staphylococcus capitis He became febrile on 28th AM Patient is allergic to vancomycin Will continue IV daptomycin Await full characterization and sensitivities ID recs appreciated - repeat cultures pending (2) Acute respiratory failure with hypoxemia: Plan: Patient presents from his residence with acute onset of respiratory distress. It was reported he was cyanotic briefly after they turned him to change his clothes. Chest x-ray showed evidence of pulmonary congestion In the ED, he was subsequently put on BiPAP Currently on oxygen through nasal canula, occasionally on BIPAP Wean as tolerated Viral panel pending (3) Acute exacerbation of CHF (congestive heart failure): Plan: According to reports, despite being on home torsemide, the daughters report that he has been gaining some weight. BNP 238 and 2D echo shows moderate pericardial effusion, no tamponade. Moderate aortic stenosis Start him on Bumex 1 mg IV twice daily, As his blood pressure can tolerate Monitor input and output, daily weight Monitor BP (4) Acute respiratory distress: Plan: Acute respiratory distress secondary to possible mucous plug They reported a brief period of cyanosis Now resolved (5) Pulmonary edema: Plan: Seen on chest x-ray Patient has a history of congestive heart failure BNP 238 2D echo shows moderate pericardial effusion, no tamponade Continue diuresis with Bumex 1 mg IV twice daily, As his blood pressure can tolerate (6) Atrial fibrillation, persistent: Plan: On warfarin at home, continue Check INR, (7) Myasthenia gravis: Plan: Continue home medication (8) Dementia: Plan: no agitation noted at this time delirium precautions Plan Continue to monitor in the hospital, hopefully discharge to [facility] in the next 48 hours DNR/DNI Admission and Anticipated Discharge Date Admission Date: February 07, 2025 Subjective No acute events overnight Pt not offering any complaints Denies any dyspnea Review of Systems Constitutional: pt confused and not able to provide comprehensive ROS Physical Exam Physical Exam: Gen: no acute distress, lying in bed comfortable HEENT: NC/AT, dry MM Lungs: nonlabored breathing, diminished breath sounds at bases CVS: s1s2nl, RRR Abd: nl bowel sounds, soft, NT / ND : no vann Ext: no edema Neuro: AAOx3 Psych: calm cooperative Results & Data Results & Data Vital Signs (Past 12 Hours) Vital Signs Temp Pulse Pulse Resp BP Pulse Ox O2 Del Method 02/11/25 07:05 75 22 96 BiPAP 02/11/25 07:00 36.5 C 74 18 119/70 97 BiPAP 02/11/25 02:25 36.6 C 61 18 102/71 95 BiPAP 02/11/25 02:20 66 16 94 02/11/25 01:11 Nasal Cannula, CPAP 02/11/25 00:31 77 18 94 CPAP 02/10/25 22:37 36.5 C 80 18 127/88 96 BiPAP 02/10/25 21:43 87 O2 Flow Rate 02/11/25 07:05 4 02/11/25 07:00 02/11/25 02:25 02/11/25 02:20 4 02/11/25 01:11 2 02/11/25 00:31 4 02/10/25 22:37 02/10/25 21:43 PG Care Time/CCT Total # of Minutes Spent Total Time Spent with Patient: Total time spent is greater than 50% in coordination of care (as documented) at patient's floor/unit and/or counseling patient: Coding Level of Care Code 83742 SUB INP/OBS CARE 3/50MIN Diagnoses Bacteremia R78.81 Acute respiratory failure with hypoxemia J96.01 Acute exacerbation of CHF (congestive heart failure) I50.9 Acute respiratory distress R06.03 Pulmonary edema J81.1 Atrial fibrillation, persistent I48.1 Myasthenia gravis G70.00 Dementia F03.90
[2025-02-12 07:30] LABS: Hematocrit (blood only) 37.7 % (42.0-52.0); Hemoglobin 11.7 g/dl (14.0-18.0); Mean Corpuscular Hemoglobin 28.1 pg (25.0-34.0); Mean Corpuscular Volume 90.6 fL (80.0-100.0); Platelet Count 181 K/uL (130-400); RDW Standard Deviation 52.2 fL (36.4-46.3); Red Blood Count 4.16 M/uL (4.70-6.10); White Blood Count 6.96 K/ul (4.8-10.8)
[2025-02-12 07:49] LABS: Anion Gap 7.0 (3-11); Calcium 8.3 mg/dl (8.6-10.3); Carbon Dioxide 34.0 mmol/L (21-32); Chloride 102.0 mmol/L (98-107); Magnesium 1.9 mg/dl (1.7-2.4); Potassium 3.5 mmol/L (3.5-5.1); Sodium 143.0 mmol/L (136-145)
[2025-02-12 07:55] LABS: Blood Urea Nitrogen 33.0 mg/dl (6-23); Creatinine Clr Calc Pharmacy 65.5 ml/min; Glucose 108.0 mg/dl (70-99(Fasting))
[2025-02-12 07:58] LABS: INR 3.4 (0.9-1.1); Prothrombin Time 33.5 Seconds (9.0-12.0)
--- NOTE | 2025-02-12 08:26 | Hospitalist Progress Note ---
Date of Service February 12, 2025 Assessment & Plan (1) Bacteremia: (2) Acute respiratory failure with hypoxemia: (3) Acute exacerbation of CHF (congestive heart failure): (4) Acute respiratory distress: (5) Pulmonary edema: (6) Atrial fibrillation, persistent: (7) Myasthenia gravis: (8) Dementia: Plan 89 yr old M with PMHx of persistent AFib, myasthenia gravis, dementia, CHF, HTN, pulmonary HTN was brought to [facility] on 02/07/25 for the evaluation of an episode of cyanosis and dyspnea. Episode occurred while pt was being changed. He was turned and he passed out for brief second and then started having dyspnea. Per report, he turned cyanotic prompting 911 call. ED workup revealed CHF with pleural effusions. #Acute respiratory failure with hypoxemia: - In the ED, he required BiPAP support - dyspnea improving - CXR showing evidence of pulmonary congestion - currently tolerating NC oxygen wean - viral pending #Acute exacerbation of CHF #Pulmonary edema - according to reports, despite being on home torsemide, the daughters report that he has been gaining some weight. - BNP 238 and 2D echo shows moderate pericardial effusion, no tamponade. Moderate aortic stenosis - change IV bumex to bumex 1mg PO daily - Monitor input and output, daily weight - Monitor BP #Hyperactive bowel sounds - KUB notes stool impaction vs volvulus- pt does not have any pain and his abdomen is soft without guarding - pt did have a large liquid BM / gas on 02/11, but could be overflow - will obtain CT abd / pelvis for further evaluation of dilated bowel #Mod pericardial effusion - ECHO (02/08/25)- moderate pericardial effusion without tamponade physiology, moderate aortic stenosis - TSH wnl - ESR / CRP pending - cardiology on board , reassess pericardial effusion tomorrow AM #Bacteremia - BCx growing staph capitis - rpt BCx pending - d/c IV daptomycin (pt has vanc allergy), IV Cefepime changed to IV Ceftriaxone - ID on board #Persistent AFib - on warfarin, INR 3.4 today - will hold today's warfarin dose - metoprolol 12.5mg po BID (previously on 25mg BID) - wean midodrine #Myasthenia gravis - NIF qshift ordered - cont pyridostigmine #Dementia: - no agitation noted at this time - delirium precautions #Code status: DNR / DNI #Disposition- pending clinical improvement Admission and Anticipated Discharge Date Admission Date: February 07, 2025 Subjective No acute events overnight Pt not offering any complaints Denies any dyspnea Review of Systems Review of Systems: currently not offering any complaints Physical Exam Physical Exam: Gen: no acute distress, lying in bed comfortable HEENT: NC/AT, dry MM Lungs: nonlabored breathing, diminished breath sounds at bases CVS: s1s2nl, RRR Abd: protuberant abdomen, hyperactive / high pitched bowel sounds, soft, NT, no guarding / rigidity / rebound : no vann Ext: no edema Neuro: AAOx1 Psych: calm cooperative Results & Data Results & Data Vital Signs (Past 12 Hours) Vital Signs Temp Pulse Pulse Resp BP Pulse Ox O2 Del Method 02/12/25 07:44 36.8 C 80 20 98/55 L 93 Nasal Cannula 02/12/25 07:05 85 22 92 Nasal Cannula 02/12/25 04:33 Nasal Cannula, CPAP 02/12/25 03:42 36.6 C 79 24 113/85 98 CPAP 02/12/25 03:16 77 20 94 02/12/25 00:12 86 20 91 BiPAP 02/11/25 23:02 74 26 H 95 02/11/25 22:50 37.1 C 72 22 86/58 L 94 CPAP 02/11/25 22:01 82 O2 Flow Rate 02/12/25 07:44 1 02/12/25 07:05 3 02/12/25 04:33 2 02/12/25 03:42 02/12/25 03:16 2 02/12/25 00:12 2 02/11/25 23:02 2 02/11/25 22:50 02/11/25 22:01 PG Care Time/CCT Total # of Minutes Spent Total Time Spent with Patient: Total time spent is greater than 50% in coordination of care (as documented) at patient's floor/unit and/or counseling patient: Coding Level of Care Code 16835 SUB INP/OBS CARE 3/50MIN Diagnoses Bacteremia R78.81 Acute respiratory failure with hypoxemia J96.01 Acute exacerbation of CHF (congestive heart failure) I50.9 Acute respiratory distress R06.03 Pulmonary edema J81.1 Atrial fibrillation, persistent I48.1 Myasthenia gravis G70.00 Dementia F03.90
[2025-02-12 08:47] LABS: Chlamydia pneumoniae PCR Not Detected (NotDetected); Coronavirus 229E PCR Not Detected (NotDetected); Coronavirus CoV-2 (COVID19)PCR Not Detected (NotDetected); Coronavirus HKU1 PCR Not Detected (NotDetected); Coronavirus NL63 PCR Not Detected (NotDetected); Coronavirus OC43PCR Not Detected (NotDetected); Human Metapneumovirus PCR Not Detected (NotDetected); Parainfluenza Virus 1 PCR Not Detected (NotDetected); Parainfluenza Virus 2 PCR Not Detected (NotDetected); Parainfluenza Virus 3 PCR Not Detected (NotDetected); Parainfluenza Virus 4 PCR Not Detected (NotDetected); Respiratory Syncytial VirusPCR Not Detected (NotDetected); Rhinovirus/Enterovirus PCR Not Detected (NotDetected)
--- NOTE | 2025-02-12 09:22 | Infectious Disease Progress Nt ---
Date of Service February 12, 2025 Assessment & Plan (1) Fever: (2) Bacteremia: (3) Acute respiratory failure with hypoxemia: Plan Problems: #Fever #Staph capitis in blood culture #Acute hypoxic respiratory failure #CHF exacerbation Micro: 02/11 BCx x2: NGTD 02/07 BCx x2: Staph capitis in 2/4 bottles (in 2/2 sets). S oxacillin Abx: Dapto 02/08 - present Cefepime 02/10 - present 89 yo M from [facility] with dementia, permanent Afib, CHF, HTN, pulmonary HTN, myasthenia gravis who presented on 02/07 after an episode of cyanosis, shortness of breath. The pt was reportedly being changed, and all of a sudden he passed out for a brief second and then started having shortness of breath. He turned cyanotic so they called 911. On presentation, pt was afebrile, HR 63, BP 104/73 (decreased to 90s/60s), RR 24, 95% on 5 L. Labs showed no leukocytosis, lactate 1, BNP 238, procal 0.13. UA negative. COVID-19/flu/RSV negative. CXR showed CHF with pleural effusions and lung base consolidation. Pt was placed on BiPAP and started on diuresis. Blood cultures were obtained on admission, which became positive for GPCs in clusters, so was started on daptomycin on 02/08. Biofire panel positive for Staph species. BCx ultimately grew Staph capitis in 2/4 bottles. On 02/09, pt developed T 37.6. On 02/10, had fever to 38.7. On my evaluation, pt does not recall the circumstances of his admission. Denies sore throat or rhinorrhea. Does not remember if he was coughing. Denies pain. Discussion: Unclear source of fever on 02/10. Think unlikely to be related to Staph capitis which grew in 02/07 blood cultures--this is a coag neg Staph and may represent contaminant, as pt does not have central lines. Consider pneumonia given O2 requirement and basilar consolidation seen on CXR, although could be from CHF. Full respiratory viral panel negative. Recommendations: - Discontinued daptomycin - Stopped cefepime, narrowing to ceftriaxone for possible pneumonia - Monitor fever curve Will continue to follow Admission and Anticipated Discharge Date Admission Date: February 07, 2025 Subjective This patient recommendation is based on a telemedicine consult request which was completed asynchronously through chart review and information provided by the pr imary physician. The patient was not seen or examined today. The evaluation is consultative in nature and all patient care and treatment decisions can either be accepted or rejected by the patient's primary hospital-based treating physician using their own independent medical judgment for their patient. Time Spent Reviewing Chart: 11 - 20 minutes Afebrile RVP negative Results & Data Vital Signs (Past 12 Hours) Vital Signs Temp Pulse Pulse Resp BP Pulse Ox O2 Del Method 02/12/25 07:44 36.8 C 80 20 98/55 L 93 Nasal Cannula 02/12/25 07:05 85 22 92 Nasal Cannula 02/12/25 04:33 Nasal Cannula, CPAP 02/12/25 03:42 36.6 C 79 24 113/85 98 CPAP 02/12/25 03:16 77 20 94 02/12/25 00:12 86 20 91 BiPAP 02/11/25 23:02 74 26 H 95 02/11/25 22:50 37.1 C 72 22 86/58 L 94 CPAP 02/11/25 22:01 82 O2 Flow Rate 02/12/25 07:44 1 02/12/25 07:05 3 02/12/25 04:33 2 02/12/25 03:42 02/12/25 03:16 2 02/12/25 00:12 2 02/11/25 23:02 2 02/11/25 22:50 02/11/25 22:01 Laboratory Results Short CBC 02/12/25 Range/Units 07:15 WBC 6.96 (4.8-10.8) K/ul Hgb 11.7 L (14.0-18.0) g/dl Hct 37.7 L (42.0-52.0) % Plt Count 181 (130-400) K/uL BMP 02/12/25 07:15 Sodium 143 Potassium 3.5 Chloride 102 Carbon Dioxide 34 H BUN 33 H Creatinine 0.83 Glucose 108 H Calcium 8.3 L Medications Administered Current Inpatient Medications Acetaminophen (Acetaminophen 325 Mg Tab) 650 mg PO Q4H PRN PRN Reason: Pain or Fever Stop: 03/09/25 17:59 Last Admin: 02/11/25 20:56 Dose: 650 mg Albuterol (Albut/Ipratrop 3mg/0.5mg Neb 3 Ml Vial) 3 ml NEB Q6R [facility]; Protocol Stop: 03/09/25 18:59 Last Admin: 02/12/25 07:04 Dose: 3 ml Aspirin (Aspirin 81 Mg Ectab) 81 mg PO HS TRACY Stop: 03/09/25 20:59 Last Admin: 02/11/25 20:56 Dose: 81 mg Daptomycin 600 mg/ Syringe 12 mls @ 8.75 mls/min IV Q24H [facility]; Protocol Stop: 02/22/25 14:59 Last Admin: 02/11/25 15:04 Dose: 8.75 mls/min Bumetanide 1 mg/ Syringe 4 mls @ 4 mls/min IV BID@0900,1700 [facility] Stop: 03/12/25 16:59 Last Admin: 02/11/25 16:12 Dose: 4 mls/min Cefepime HCl (Maxipime 2000mg) 2,000 mg in 20 mls @ 5 mls/min IV Q8H [facility]; Protocol Stop: 02/15/25 11:59 Last Admin: 02/12/25 04:17 Dose: 5 mls/min Melatonin (Melatonin 3 Mg Tab) 3 mg PO HS PRN PRN Reason: Sleep Stop: 03/10/25 00:09 Last Admin: 02/11/25 20:56 Dose: 3 mg Metoprolol Tartrate (Metoprolol Tartrate 25 Mg Tab) 25 mg PO BID [facility] Stop: 03/09/25 18:04 Last Admin: 02/11/25 20:56 Dose: 25 mg Midodrine (Midodrine Hcl 2.5 Mg Tab) 5 mg PO TID@0800,1200,1700 [facility] Stop: 03/09/25 17:59 Last Admin: 02/11/25 16:12 Dose: 5 mg Pyridostigmine [place] (Pyridostigmine [place] 60 Mg Tab) 120 mg PO DAILY@0800,1400,2000 [facility] Stop: 03/09/25 19:59 Last Admin: 02/11/25 20:56 Dose: 120 mg Quetiapine Fumarate (Quetiapine Fumarate 25 Mg Tablet) 12.5 mg PO AMHS [facility] Stop: 03/09/25 20:59 Last Admin: 02/11/25 20:56 Dose: 12.5 mg Warfarin Sodium (Warfarin Sod 3 Mg Tab) 3 mg PO DAILY@1600 [facility] Stop: 03/09/25 18:29 Last Admin: 02/11/25 16:09 Dose: 3 mg
[2025-02-12 11:04] LABS: Thyroid Stimulating Hormone 2.058 uIu/ml (0.300-4.500)
[2025-02-12] MEDS: cefTRIAXone SODIUM 2,000 MG/50 ML BAG IV SCH (12:28)
--- NOTE | 2025-02-12 13:25 | XRay Report ---
KUB HISTORY: hyperactive bowel sounds COMPARISON STUDY: 01/28/2022 FINDINGS: Rectum is distended with stool. Otherwise there is diffuse gaseous distention of the colon measuring up to 13 cm diameter at the sigmoid. There are a few mildly distended small bowel loops harinder suring up to 4 cm diameter. No gross free air. IMPRESSION: Differential diagnosis of the appearance of the bowel gas pattern includes sigmoid volvul us or fecal impaction at the rectum with ileus. Consider follow-up CT of the abdomen and pelvis. ACT 112: Negative or not required by law. The above report was generated using voice recognition software. It may contain grammatical, syntax o r spelling errors. Electronically signed by: Álvaro Irby M.D. 02/12/2025 1:24 PM
--- NOTE | 2025-02-12 15:06 | Cardiology Consultation ---
Date of Consultation February 12, 2025 Assessment & Plan (1) Acute respiratory failure with hypoxemia: (2) Atrial fibrillation, persistent: (3) Valvular heart disease: (4) Pericardial effusion: Plan 1. Pericardial effusion: Unknown chronicity. Unknown etiology. I would ch aracterize this as mild to moderate in size. It does not appear to be causing any hemodynamic instability. I think repeat echocardiogram tomorrow would be reasonable simply to exclude any worsening. I do not think is any urgent need for treatment unless he develops new symptoms or hemodynamic instability. We could obtain some inflammatory markers in the morning to see if he might benefit from anti-inflammatories. 2. Atrial fibrillation: Permanent. No overt symptoms. Rate control appears to be good. It seems that his metoprolol was increased at the time of his admission. I think reducing it to 25 mg daily would be reasonable. This may provide better cardiac output overall. I do not think it is an independent indication for metoprolol in the absence of high heart rates. 3. Congestive heart failure: He is believed to have an element of pulmonary vascular congestion at the time of admission. Unclear if this played a role in his decompensation. Overall LV function appears adequate. He seems to be undergoing a very aggressive diuresis losing several liters of fluid over the past few days. He has become mildly alkalotic as a result. In the setting of a pericardial effusion I would caution against aggressive diuresis. I think his regimen could certainly be reduced to 1 mg of Bumex daily. 4. Valvular heart disease: He has an element of aortic stenosis and mitral reg urgitation. Neither is severe. Neither is causing symptoms. Not likely to produce any hemodynamic effects at this stage. History of Present Illness Reason for Consultation: Atrial fibrillation, pericardial effusion Requesting Physician: Kieran Attending Physician: Nicole Alcaraz MD History of Present Illness The patient is an 89-year-old gentleman with a history of permanent atrial fibrillation and valvular heart disease who was brought to the hospital from his nursing facility due to respiratory difficulties. Patient was felt to have a pneumonia and placed on supportive care as well as treatment of infection. He was noted early in his hospitalization to have a moderate-sized pericardial effusion and permanent atrial fibrillation. It seems that the patient's clinical condition has improved to some degree. We were asked to provide an opinion regarding his cardiac issues. Unfortunately, the patient suffers from significant dementia. He was not able to provide any meaningful history. When asked about symptoms he did not endorse any. Allergies Allergy/AdvReac Type Severity Reaction Status Date / Time vancomycin Allergy Severe Hives Verified 02/07/25 15:05 adhesive Allergy Intermediate TEARS SKIN Verified 02/07/25 15:05 latex Allergy Intermediate blisters Verified 02/07/25 15:05 and swelling morphine Allergy Intermediate Rash Verified 02/07/25 15:05 Influenza Virus Vaccines AdvReac Severe DEATHLY Verified 02/07/25 15:05 SICK Home Medications Medication Instructions Recorded Confirmed Type acetaminophen 325 mg tablet 650 mg PO Q4 PRN .FEVER >100F/PAIN 01/28/22 02/07/25 History (Tylenol) amoxicillin 500 mg capsule 2,000 mg PO DIRECTED PRN PRIOR 01/28/22 02/07/25 History TO DENTAL APPT. carboxymethylcellulose sodium 1 % 1 drp ophthalmic (eye) TID 01/28/22 02/07/25 History eye drops (Artificial Tears (carboxymethylcellulose)) ferrous sulfate 325 mg (65 mg 325 mg PO DAILY 01/28/22 02/07/25 History iron) tablet finasteride 5 mg tablet 5 mg PO QAM 01/28/22 02/07/25 History melatonin 3 mg tablet 6 mg PO HS 01/28/22 02/07/25 History metoprolol succinate 25 mg 12.5 mg PO HS 01/28/22 02/07/25 History tablet,extended release 24 hr pyridostigmine bromide 60 mg tablet 120 mg PO TID 01/28/22 02/07/25 History sodium fluoride 1.1 %-potassium 1 applic dental AMHS 01/28/22 02/07/25 History nitrate 5 % dental paste (PreviDent 5000 Sensitive) vitamins A,C,O-rzib-icjegf 4,296 1 cap PO BID 01/28/22 02/07/25 History mcg-226 mg-90 mg capsule (PreserVision AREDS) Triad Hydrophilic Wound Drsg. 1 applic topical TID 02/07/25 02/07/25 History albuterol sulfate 2.5 mg/3 mL 2.5 mg inhalation Q4H PRN 02/07/25 02/07/25 History (0.083 %) solution for nebulization Shortness Of Breath Or Wheezing calcium carbonate 200 mg PO BIDM 02/07/25 02/07/25 History cholecalciferol (vitamin D3) 25 100 mcg PO QDL 02/07/25 02/07/25 History mcg (1,000 unit) capsule (Vitamin D3) coconut oil 1 ea topical 2XWK 02/07/25 02/07/25 History corn starch 1 applic topical BID 02/07/25 02/07/25 History cyanocobalamin (vitamin B-12) 1,000 mcg IM MONTHLY 02/07/25 02/07/25 History 1,000 mcg/mL injection solution famotidine 20 mg tablet 20 mg PO HS 02/07/25 02/07/25 History fluticasone furoate 200 1 inh inhalation QAM 02/07/25 02/07/25 History mcg/actuation blister powder for inhalation (Arnuity Ellipta) food supplemt, lactose-reduced 1 ea PO BID 02/07/25 02/07/25 History guaifenesin 600 mg tablet, 600 mg PO Q12H PRN COUGH/CONGESTION 02/07/25 02/07/25 History extended release 12 hr (Mucinex) ipratropium 0.5 mg-albuterol 3 mg 3 ml inhalation QID 02/07/25 02/07/25 History (2.5 mg base)/3 mL nebulization soln mineral oil-hydrophil petrolat 1 applic topical BID 02/07/25 02/07/25 History topical ointment multivitamin with minerals 1 tab PO DAILY 02/07/25 02/07/25 History protein supplement 1 ea PO AMHS 02/07/25 02/07/25 History quetiapine 25 mg tablet 12.5 mg PO AMHS 02/07/25 02/07/25 History salicylic acid 3 % shampoo 1 ea topical 2XWK 02/07/25 02/07/25 History sertraline 100 mg tablet (Zoloft) 150 mg PO HS 02/07/25 02/07/25 History soap 1 ea topical BID 02/07/25 02/07/25 History torsemide 20 mg tablet 20 mg PO QAM 02/07/25 02/07/25 History warfarin 2 mg tablet 2 mg PO 4XWK 02/07/25 02/07/25 History warfarin 2 mg tablet 3 mg PO 3XWK 02/07/25 02/07/25 History Patient History Medical History SOB (shortness of breath) Hematoma of flank Sleep apnea Essential hypertension Dyslipidemia Diabetes mellitus Cellulitis and abscess of leg Surgical History History of Louis-en-Y gastric bypass S/P cholecystectomy 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 Glove Finisher Required: No Beliefs That Will Affect Care: None marital status: / Current Living Situation: [facility] Current Living Situation Comment: Lives at [facility] in [facility] home Feels Safe at Home: Declines to Answer Assistive Devices: CPAP, Glasses, Hearing Aid - Bilateral, Mechanical Lift and Wheelchair Review of Systems Review of Systems: Unobtainable due to cognitive status Physical Exam Physical Exam: The patient is alert and oriented to person only. Mood and affect appeared normal. He answered all questions appropriately but the answers are unreliable. HEENT: Pupils are equal and reactive to light and accommodation. Extraocular movements are intact. The sclerae are anicteric. Neuro: Cranial nerves intact Lungs: Clear to auscultation bilaterally. He has good air movement without use of accessory muscles. No rales wheezes or rhonchi. Cardiac: Heart demonstrates an irregular rhythm. Holosystolic murmur at variable intensity. Normal S1 and S2. Pulses: The patient has palpable radial pulses bilaterally that are equal in intensity Extremities: There was no evidence of hypoperfusion. There is no cyanosis or clubbing. Lower extremities in protective boots. Skin: I did not appreciate any rashes on examination today. Results & Data Vital Signs (Past 12 Hours) Vital Signs Temp Pulse Pulse Resp BP Pulse Ox O2 Del Method 02/12/25 13:15 76 22 92 Nasal Cannula 02/12/25 12:00 36.8 C 87 18 101/69 95 Nasal Cannula 02/12/25 11:00 74 02/12/25 10:00 Nasal Cannula 02/12/25 07:44 36.8 C 80 20 98/55 L 93 Nasal Cannula 02/12/25 07:05 85 22 92 Nasal Cannula 02/12/25 04:33 Nasal Cannula, CPAP 02/12/25 03:42 36.6 C 79 24 113/85 98 CPAP 02/12/25 03:16 77 20 94 O2 Flow Rate 02/12/25 13:15 2 02/12/25 12:00 1 02/12/25 11:00 02/12/25 10:00 1 02/12/25 07:44 1 02/12/25 07:05 3 02/12/25 04:33 2 02/12/25 03:42 02/12/25 03:16 2 Laboratory Results Abnormal Lab Results 02/12/25 02/12/25 07:15 Unknown WBC 6.96 RBC 4.16 L Hgb 11.7 L Hct 37.7 L MCV 90.6 MCH 28.1 MCHC 31.0 L RDW Std Deviation 52.2 H RDW Coeff of Naseem 15.6 H Plt Count 181 MPV 9.5 PT 33.5 H INR 3.4 H Sodium 143 Potassium 3.5 Chloride 102 Carbon Dioxide 34 H Anion Gap 7 BUN 33 H Creatinine 0.83 Est Cr Clr Drug Dosing 65.5 eGFR 84.18 BUN/Creatinine Ratio 39.8 H Glucose 108 H Calcium 8.3 L Phosphorus 3.3 Magnesium 1.9 TSH 2.058 Adenovirus (PCR) Not Detected B. pertussis DNA (PCR) Not Detected B.parapertussis DNA PCR Not Detected C. pneumoniae DNA (PCR) Not Detected Coronavirus OC43 (PCR) Not Detected Coronavirus HKU1 (PCR) Not Detected Coronavirus 229E (PCR) Not Detected SARS-CoV-2 (PCR) Not Detected Coronavirus NL63 (PCR) Not Detected Human Metapneumovir PCR Not Detected Influenza Type A (PCR) Not Detected Influenza Type B (PCR) Not Detected M. pneumoniae (PCR) Not Detected Parainfluenza 1 (PCR) Not Detected Parainfluenza 2 (PCR) Not Detected Parainfluenza 3 (PCR) Not Detected Parainfluenza 4 (PCR) Not Detected RSV (PCR) Not Detected Entero/Rhino (PCR) Not Detected Diagnostic Findings Echocardiogram 02/08/2025: LV systolic function ejection fraction 55 to 60%. Mild to moderate LV H. Mildly dilated right ventricle. Severe biatrial dilation. Moderate aortic stenosis. Mild mitral regurgitation. Moderate-sized pericardial effusion without echocardiographic evidence of tamponade. PG Care Time/CCT Total # of Minutes Spent Total Time Spent with Patient: Total time spent is greater than 50% in coordination of care (as documented) at patient's floor/unit and/or counseling patient: Coding Level of Care Code 71119 INT INP/OBS CARE 375MIN Diagnoses Acute respiratory failure with hypoxemia J96.01 Atrial fibrillation, persistent I48.1 Valvular heart disease I38 Pericardial effusion I31.39
--- NOTE | 2025-02-12 17:47 | CT Scan Report ---
EXAMINATION: CT of the abdomen and pelvis performed without contrast TECHNIQUE: Helical CT images from the lung bases through the symphysis pubis were obtained without contrast. Coronal and sagittal reformatted images were generated at a workstation for further assessment. Dose reduction techniques were achieved by using automatic exposure control and/or adjustment of mA and/or kV according to patient size and/or use of iterative reconstruction technique. COMPARISON: 01/28/2022 HISTORY: Abdominal pain FINDINGS: Lower chest: Cardiomegaly. Prominent aortic valve and mitral annular calcifications. Heavy coronary calcifications. New small pericardial effusion. Moderate bilateral pleural effusions with subjacent compressive atelectasis. Liver: No suspicious liver lesions. The cyst in the liver has increased from prior. Gallbladder: No gallstones. No evidence of acute cholecystitis. Spleen: Normal size. Pancreas: No suspicious pancreatic lesions. The pancreatic duct is not dilated. Adrenal glands: No adrenal nodules. Kidneys: No hydronephrosis or obstructing renal stones. Few punctate nonobstructing stones in the left kidney. Simple left renal cyst. Bladder / Pelvic organs: There is a Jamil catheter in the urinary bladder, which is decompressed. Bowel: No bowel obstruction. No abnormal bowel wall thickening. The appendix is not definitely seen. Diffuse prominent gaseous distention of the large bowel. Moderate subsolid volume of stool in the rectosigmoid colon. Lymph nodes: No retroperitoneal, mesenteric, or pelvic lymphadenopathy. Peritoneum / Retroperitoneum: No free fluid or air within the abdomen. Vessels: No infrarenal aortic aneurysm. Bones and soft tissues: No suspicious lesion in the bones. Diffuse anasarca. IMPRESSION: Diffuse gaseous distention of the large bowel, suggesting adynamic ileus. No convincing evidence for obstruction. No obstructing renal or ureteral stone. Jamil catheter in place. Findings of volume overload, as well as cardiomegaly and a small pericardial effusion, as above. Electronically signed by Bryce Bagley 02-12-2025 5:47 PM
[2025-02-12] MEDS: METOPROLOL TARTRATE 25 MG TAB PO SCH (21:02)
[2025-02-12] MEDS: ALBUMIN 25% 25 GM/100 ML VIAL IV ONE (23:45)
[2025-02-13 06:39] LABS: Hematocrit (blood only) 36.2 % (42.0-52.0); Hemoglobin 11.5 g/dl (14.0-18.0); Mean Corpuscular Hemoglobin 28.4 pg (25.0-34.0); Mean Corpuscular Volume 89.4 fL (80.0-100.0); Platelet Count 162 K/uL (130-400); RDW Standard Deviation 51.5 fL (36.4-46.3); Red Blood Count 4.05 M/uL (4.70-6.10); White Blood Count 6.19 K/ul (4.8-10.8)
[2025-02-13 07:02] LABS: Anion Gap 9.0 (3-11); Blood Urea Nitrogen 31.0 mg/dl (6-23); Calcium 8.5 mg/dl (8.6-10.3); Carbon Dioxide 33.0 mmol/L (21-32); Chloride 101.0 mmol/L (98-107); Creatinine Clr Calc Pharmacy 70.8 ml/min; Glucose 91.0 mg/dl (70-99(Fasting)); Magnesium 2.0 mg/dl (1.7-2.4); Potassium 3.1 mmol/L (3.5-5.1); Sodium 143.0 mmol/L (136-145)
[2025-02-13 07:31] LABS: Prothrombin Time 61.8 Seconds (9.0-12.0)
[2025-02-13 07:40] LABS: INR 6.5 (0.9-1.1)
--- NOTE | 2025-02-13 07:40 | Hospitalist Progress Note ---
Date of Service February 13, 2025 Assessment & Plan (1) Bacteremia: (2) Acute respiratory failure with hypoxemia: (3) Acute exacerbation of CHF (congestive heart failure): (4) Acute respiratory distress: (5) Pulmonary edema: (6) Atrial fibrillation, persistent: (7) Myasthenia gravis: (8) Dementia: (9) Supratherapeutic INR: (10) Pericardial effusion: Plan 89 yr old M with PMHx of persistent AFib, myasthenia gravis, dementia, CHF, HTN, pulmonary HTN was brought to [facility] on 02/07/25 for the evaluation of an episode of cyanosis and dyspnea. Episode occurred while pt was being changed. He was turned and he passed out for brief second and then started having dyspnea. Per report, he turned cyanotic prompting 911 call. ED workup revealed CHF with pleural effusions. #Acute respiratory failure with hypoxemia: - In the ED, he required BiPAP support - dyspnea improving - CXR showing evidence of pulmonary congestion - currently tolerating NC oxygen wean - viral pending #Acute exacerbation of CHF #Pulmonary edema - according to reports, despite being on home torsemide, the daughters report that he has been gaining some weight. - BNP 238 and 2D echo shows moderate pericardial effusion, no tamponade. Moderate aortic stenosis - change IV bumex to bumex 1mg PO daily - Monitor input and output, daily weight - Monitor BP #Hyperactive bowel sounds - KUB notes stool impaction vs volvulus- pt does not have any pain and his abdomen is soft without guarding - pt did have a large liquid BM / gas on 02/11, but could be overflow - will obtain CT abd / pelvis for further evaluation of dilated bowel #Mod pericardial effusion - ECHO (02/08/25)- moderate pericardial effusion without tamponade physiology, moderate aortic stenosis - TSH wnl - ESR / CRP elevated - cardiology on board , rpt echo shows worsening , started on colchicine - spoke with pt's daughters- they do not wish to pursue invasive treatments, however, would like rpt ECHO on Tuesday to reassess effusion #Bacteremia - BCx growing staph capitis - rpt BCx pending - d/c IV daptomycin (pt has vanc allergy), IV Cefepime changed to IV Ceftriaxone - ID on board #Supratherapeutic INR - last dose of warfarin on 02/11 - given no active bleeding, will not reverse at this time - trend INR daily #Persistent AFib - on warfarin, INR 3.4 today - will hold today's warfarin dose - metoprolol 12.5mg po BID (previously on 25mg BID) - wean midodrine #Myasthenia gravis - NIF qshift ordered - currently put on hold as pt not able to follow instructions well - cont pyridostigmine #Dementia: - no agitation noted at this time - delirium precautions #Code status: DNR / DNI #Disposition- pending clinical improvement Meeting with pt's daughters on 02/15/25 Admission and Anticipated Discharge Date Admission Date: February 07, 2025 Subjective No acute events overnight night His abdomen feels better today Review of Systems Review of Systems: currently not offering any complaints Physical Exam Physical Exam: Gen: no acute distress, lying in bed comfortable HEENT: NC/AT, dry MM Lungs: nonlabored breathing, diminished breath sounds at bases CVS: s1s2nl, RRR Abd: protuberant abdomen, nl bowel sounds today, soft, NT, no guarding / rigidity / rebound : no vann Ext: no edema Neuro: AAOx1 Psych: calm cooperative Results & Data Results & Data Vital Signs (Past 12 Hours) Vital Signs Temp Pulse Pulse Resp BP Pulse Ox O2 Del Method 02/13/25 07:16 76 20 95 CPAP 02/13/25 03:45 Nasal Cannula, CPAP 02/13/25 03:08 77 22 92 02/13/25 02:50 36.9 C 72 20 90/57 L 94 CPAP 02/12/25 23:58 74 24 93 BiPAP 02/12/25 23:01 36.9 C 82 20 89/63 L 92 CPAP 02/12/25 22:52 73 18 93 02/12/25 21:58 76 02/12/25 19:39 92 Nasal Cannula O2 Flow Rate 02/13/25 07:16 2 02/13/25 03:45 2 02/13/25 03:08 2 02/13/25 02:50 02/12/25 23:58 2 02/12/25 23:01 02/12/25 22:52 2 02/12/25 21:58 02/12/25 19:39 2.0 PG Care Time/CCT Total # of Minutes Spent Total Time Spent with Patient: Total time spent is greater than 50% in coordination of care (as documented) at patient's floor/unit and/or counseling patient: Coding Level of Care Code 59824 SUB INP/OBS CARE 350MIN Diagnoses Bacteremia R78.81 Acute respiratory failure with hypoxemia J96.01 Acute exacerbation of CHF (congestive heart failure) I50.9 Acute respiratory distress R06.03 Pulmonary edema J81.1 Atrial fibrillation, persistent I48.1 Myasthenia gravis G70.00 Dementia F03.90 Supratherapeutic INR R79.1 Pericardial effusion I31.39
--- NOTE | 2025-02-13 09:07 | XCELERA ---
[id number]
[2025-02-13] MEDS: BUMETANIDE 1 MG TAB PO SCH (09:41)
[2025-02-13] MEDS: NYSTATIN POWDER 15GM BTL EXT SCH (11:25)
--- NOTE | 2025-02-13 16:29 | Gastrointestinal Consultation ---
Date of Consultation February 13, 2025 Assessment & Plan (1) Ileus: Abdomen soft, non-tender, patient moving his bowels significantly throughout the day. Consider maintenance dosing of Miralax when he returns to SNF given he is sedentary. No objections to feeding patient. Obtain a KUB tomorrow morning. Supervising Physician Co-Signing Physician Notes Patient with adynamic ileus. Multiple bowel movements since suppository. Passing gas. Abdomen quite soft. Patient complaining of being hungry. I think he can be fed. Follow-up KUB tomorrow. Do not think he requires any sort of endoscopic evaluation or intervention. History of Present Illness Reason for Consultation: ileus Attending Physician: Nicole Aclaraz MD History of Present Illness Patient is an 89 yo male who GI has been consulted for an ileus. He is very much bed bound and requires a aristides lift to move. He had a KUB that showed a sigmoid volvulus vs ileus. A follow-up CT showed an adynamic ileus. RN gave him a suppository and he did not have a fecal impaction, but the suppository led to significant large volume stool and significant flatus. His abdomen is soft, nontender and patient is asking for food. He denies pain at present. No GI bleeding. Allergies Allergy/AdvReac Type Severity Reaction Status Date / Time vancomycin Allergy Severe Hives Verified 02/07/25 15:05 adhesive Allergy Intermediate TEARS SKIN Verified 02/07/25 15:05 latex Allergy Intermediate blisters Verified 02/07/25 15:05 and swelling morphine Allergy Intermediate Rash Verified 02/07/25 15:05 Influenza Virus Vaccines AdvReac Severe DEATHLY Verified 02/07/25 15:05 SICK Home Medications Medication Instructions Recorded Confirmed Type acetaminophen 325 mg tablet 650 mg PO Q4 PRN .FEVER >100F/PAIN 01/28/22 02/07/25 History (Tylenol) amoxicillin 500 mg capsule 2,000 mg PO DIRECTED PRN PRIOR 01/28/22 02/07/25 History TO DENTAL APPT. carboxymethylcellulose sodium 1 % 1 drp ophthalmic (eye) TID 01/28/22 02/07/25 History eye drops (Artificial Tears (carboxymethylcellulose)) ferrous sulfate 325 mg (65 mg 325 mg PO DAILY 01/28/22 02/07/25 History iron) tablet finasteride 5 mg tablet 5 mg PO QAM 01/28/22 02/07/25 History melatonin 3 mg tablet 6 mg PO HS 01/28/22 02/07/25 History metoprolol succinate 25 mg 12.5 mg PO HS 01/28/22 02/07/25 History tablet,extended release 24 hr pyridostigmine bromide 60 mg tablet 120 mg PO TID 01/28/22 02/07/25 History sodium fluoride 1.1 %-potassium 1 applic dental AMHS 01/28/22 02/07/25 History nitrate 5 % dental paste (PreviDent 5000 Sensitive) vitamins A,C,M-nztg-ggcvbd 4,296 1 cap PO BID 01/28/22 02/07/25 History mcg-226 mg-90 mg capsule (PreserVision AREDS) Triad Hydrophilic Wound Drsg. 1 applic topical TID 02/07/25 02/07/25 History albuterol sulfate 2.5 mg/3 mL 2.5 mg inhalation Q4H PRN 02/07/25 02/07/25 History (0.083 %) solution for nebulization Shortness Of Breath Or Wheezing calcium carbonate 200 mg PO BIDM 02/07/25 02/07/25 History cholecalciferol (vitamin D3) 25 100 mcg PO QDL 02/07/25 02/07/25 History mcg (1,000 unit) capsule (Vitamin D3) coconut oil 1 ea topical 2XWK 02/07/25 02/07/25 History corn starch 1 applic topical BID 02/07/25 02/07/25 History cyanocobalamin (vitamin B-12) 1,000 mcg IM MONTHLY 02/07/25 02/07/25 History 1,000 mcg/mL injection solution famotidine 20 mg tablet 20 mg PO HS 02/07/25 02/07/25 History fluticasone furoate 200 1 inh inhalation QAM 02/07/25 02/07/25 History mcg/actuation blister powder for inhalation (Arnuity Ellipta) food supplemt, lactose-reduced 1 ea PO BID 02/07/25 02/07/25 History guaifenesin 600 mg tablet, 600 mg PO Q12H PRN COUGH/CONGESTION 02/07/25 02/07/25 History extended release 12 hr (Mucinex) ipratropium 0.5 mg-albuterol 3 mg 3 ml inhalation QID 02/07/25 02/07/25 History (2.5 mg base)/3 mL nebulization soln mineral oil-hydrophil petrolat 1 applic topical BID 02/07/25 02/07/25 History topical ointment multivitamin with minerals 1 tab PO DAILY 02/07/25 02/07/25 History protein supplement 1 ea PO AMHS 02/07/25 02/07/25 History quetiapine 25 mg tablet 12.5 mg PO AMHS 02/07/25 02/07/25 History salicylic acid 3 % shampoo 1 ea topical 2XWK 02/07/25 02/07/25 History sertraline 100 mg tablet (Zoloft) 150 mg PO HS 02/07/25 02/07/25 History soap 1 ea topical BID 02/07/25 02/07/25 History torsemide 20 mg tablet 20 mg PO QAM 02/07/25 02/07/25 History warfarin 2 mg tablet 2 mg PO 4XWK 02/07/25 02/07/25 History warfarin 2 mg tablet 3 mg PO 3XWK 02/07/25 02/07/25 History Patient History Medical History SOB (shortness of breath) Hematoma of flank Sleep apnea Essential hypertension Dyslipidemia Diabetes mellitus Cellulitis and abscess of leg Surgical History History of Louis-en-Y gastric bypass S/P cholecystectomy 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) Family History Other Family history non-contributory Social History Smoking Status: Former smoker Tobacco Type: Cigarettes and Pipe Second Hand Exposure: No; Do You Dip or Chew Tobacco: No; Hx Alcohol Use: No Hx Substance Use: No Preferred Language: Serbian Communication Ability: Impaired Communication Ability Comment: Hard of hearing, hearing aids at [facility] Tap Grinder Required: No Beliefs That Will Affect Care: None marital status: / Current Living Situation: [facility] Current Living Situation Comment: Lives at [facility] in [facility] home Feels Safe at Home: Declines to Answer Assistive Devices: CPAP, Glasses, Hearing Aid - Bilateral, Mechanical Lift and Wheelchair Review of Systems Gastrointestinal: no abdominal pain Physical Exam Constitutional: no acute distress Respiratory: normal respiratory effort Gastrointestinal (Abdomen): Inspection/Auscultation: abdomen normal to inspection and normal bowel sounds; abdomen not distended Percussion/Palpation: abdomen soft; abdomen nontender Psychiatric: Orientation: alert Results & Data Vital Signs (Past 12 Hours) Vital Signs Temp Pulse Pulse Resp BP BP Pulse Ox 02/13/25 14:53 36.9 C 79 23 109/77 97 02/13/25 13:47 66 02/13/25 13:07 82 20 96 02/13/25 11:27 36.8 C 69 20 97/48 L 98 02/13/25 10:00 72 02/13/25 10:00 02/13/25 07:39 36.9 C 76 20 98/60 L 94 02/13/25 07:16 76 20 95 O2 Del Method O2 Flow Rate 02/13/25 14:53 Nasal Cannula 2.0 02/13/25 13:47 02/13/25 13:07 Nasal Cannula 2 02/13/25 11:27 Nasal Cannula 2.0 02/13/25 10:00 02/13/25 10:00 Nasal Cannula 2 02/13/25 07:39 Nasal Cannula 3.0 02/13/25 07:16 CPAP 2 PG Care Time/CCT Total # of Minutes Spent Total Time Spent with Patient: Total time spent is greater than 50% in coordination of care (as documented) at patient's floor/unit and/or counseling patient: Coding Level of Care Code 67384 Inpt Consult Level 1 Diagnoses Ileus K56.7
--- NOTE | 2025-02-13 17:29 | Cardiology Progress Note ---
Date of Service February 13, 2025 Assessment & Plan (1) Acute respiratory failure with hypoxemia: (2) Atrial fibrillation, persistent: (3) Valvular heart disease: (4) Pericardial effusion: Plan 1. Pericardial effusion: Unknown chronicity. Unknown etiology. Today's echocardiogram seem to suggest slightly more fluid in the pericardial space. No overt symptoms. No hemodynamic compromise. No evidence of tamponade. His CRP was elevated. Sedimentation rate however was not. I think at this point we should stop his diuretic as he does not appear volume overloaded and has affected a good diuresis recently. Will continue with the low-dose beta- blockade. I will order him some colchicine and we will reevaluate the effusion in a few days. Still awaiting some determination by the family regarding their desire for aggressive treatment/interventions. 2. Atrial fibrillation: Permanent. No overt symptoms. Rate control appears to be good. His warfarin was stopped recently, but his INR continues to rise. Will monitor. May require some vitamin K. 3. Congestive heart failure: He is believed to have an element of pulmonary vascular congestion at the time of admission. Unclear if this played a role in his decompensation. He diuresed quite a bit. With his pericardial effusion and perhaps some worsening I would discontinue the diuretic at this time. 4. Valvular heart disease: He has an element of aortic stenosis and mitral regurgitation. Neither is severe. Neither is causing symptoms. Not likely to produce any hemodynamic effects at this stage. Admission and Anticipated Discharge Date Admission Date: February 07, 2025 Subjective This afternoon the patient's main concern was eating. He was very hungry and upset that he did not get lunch. He did not endorse any additional symptoms such as breathing difficulty, pain or sense of palpitation. However, he was not oriented to place or situation. Review of Systems Review of Systems: Unobtainable due to cognitive status Physical Exam Physical Exam: The patient is alert and oriented to person only. Mood and affect appeared normal. He answered all questions appropriately but the answers are unreliable. HEENT: Pupils are equal and reactive to light and accommodation. Extraocular movements are intact. The sclerae are anicteric. Neuro: Cranial nerves intact Lungs: Clear to auscultation bilaterally. He has good air movement without use of accessory muscles. No rales wheezes or rhonchi. Cardiac: Heart demonstrates an irregular rhythm. Holosystolic murmur at variable intensity. Normal S1 and S2. Pulses: The patient has palpable radial pulses bilaterally that are equal in intensity Extremities: There was no evidence of hypoperfusion. There is no cyanosis or clubbing. Lower extremities in protective boots. Skin: I did not appreciate any rashes on examination today. Results & Data Vital Signs (Past 12 Hours) Vital Signs Temp Pulse Pulse Resp BP BP Pulse Ox 02/13/25 14:53 36.9 C 79 23 109/77 97 02/13/25 13:47 66 02/13/25 13:07 82 20 96 02/13/25 11:27 36.8 C 69 20 97/48 L 98 02/13/25 10:00 72 02/13/25 10:00 02/13/25 07:39 36.9 C 76 20 98/60 L 94 02/13/25 07:16 76 20 95 O2 Del Method O2 Flow Rate 02/13/25 14:53 Nasal Cannula 2.0 02/13/25 13:47 02/13/25 13:07 Nasal Cannula 2 02/13/25 11:27 Nasal Cannula 2.0 02/13/25 10:00 02/13/25 10:00 Nasal Cannula 2 02/13/25 07:39 Nasal Cannula 3.0 02/13/25 07:16 CPAP 2 Laboratory Results Abnormal Lab Results 02/13/25 05:54 WBC 6.19 RBC 4.05 L Hgb 11.5 L Hct 36.2 L MCV 89.4 MCH 28.4 MCHC 31.8 L RDW Std Deviation 51.5 H RDW Coeff of Naseem 15.5 H Plt Count 162 MPV 10.1 ESR 26 H PT 61.8 H INR 6.5 H* Sodium 143 Potassium 3.1 L Chloride 101 Carbon Dioxide 33 H Anion Gap 9 BUN 31 H Creatinine 0.76 Est Cr Clr Drug Dosing 70.8 eGFR 86.45 BUN/Creatinine Ratio 40.8 H Glucose 91 Calcium 8.5 L Phosphorus 3.0 Magnesium 2.0 C-Reactive Protein 2.66 H Diagnostic Findings Repeat echocardiogram today for evaluation of pericardial effusion reveals slight worsening. PG Care Time/CCT Total # of Minutes Spent Total Time Spent with Patient: Total time spent is greater than 50% in coordination of care (as documented) at patient's floor/unit and/or counseling patient: Coding Level of Care Code 19108 SUB INP/OBS CARE 2/35MIN Diagnoses Acute respiratory failure with hypoxemia J96.01 Atrial fibrillation, persistent I48.1 Valvular heart disease I38 Pericardial effusion I31.39
[2025-02-13] MEDS: COLCHICINE 0.6 MG TAB PO SCH (20:11)
[2025-02-14 06:16] LABS: Hematocrit (blood only) 37.7 % (42.0-52.0); Hemoglobin 11.8 g/dl (14.0-18.0); Mean Corpuscular Hemoglobin 28.0 pg (25.0-34.0); Mean Corpuscular Volume 89.5 fL (80.0-100.0); Platelet Count 170 K/uL (130-400); RDW Standard Deviation 50.2 fL (36.4-46.3); Red Blood Count 4.21 M/uL (4.70-6.10); White Blood Count 6.94 K/ul (4.8-10.8)
[2025-02-14 06:33] LABS: Anion Gap 5.0 (3-11); Blood Urea Nitrogen 25.0 mg/dl (6-23); Calcium 8.5 mg/dl (8.6-10.3); Carbon Dioxide 37.0 mmol/L (21-32); Chloride 99.0 mmol/L (98-107); Creatinine Clr Calc Pharmacy 67.7 ml/min; Glucose 97.0 mg/dl (70-99(Fasting)); Magnesium 2.0 mg/dl (1.7-2.4); Potassium 3.7 mmol/L (3.5-5.1); Sodium 141.0 mmol/L (136-145)
[2025-02-14 06:58] LABS: Prothrombin Time 56.9 Seconds (9.0-12.0)
[2025-02-14 07:15] LABS: INR 5.9 (0.9-1.1)
--- NOTE | 2025-02-14 07:24 | Hospitalist Progress Note ---
Date of Service February 14, 2025 Assessment & Plan (1) Bacteremia: (2) Acute respiratory failure with hypoxemia: (3) Acute exacerbation of CHF (congestive heart failure): (4) Acute respiratory distress: (5) Pulmonary edema: (6) Atrial fibrillation, persistent: (7) Myasthenia gravis: (8) Dementia: (9) Supratherapeutic INR: (10) Pericardial effusion: Plan 89 yr old M with PMHx of persistent AFib, myasthenia gravis, dementia, CHF, HTN, pulmonary HTN was brought to [facility] on 02/07/25 for the evaluation of an episode of cyanosis and dyspnea. Episode occurred while pt was being changed. He was turned and he passed out for brief second and then started having dyspnea. Per report, he turned cyanotic prompting 911 call. ED workup revealed CHF with pleural effusions. #Acute respiratory failure with hypoxemia: - In the ED, he required BiPAP support - dyspnea improving - CXR showing evidence of pulmonary congestion - currently tolerating NC oxygen wean - viral panel neg #Acute exacerbation of CHF #Pulmonary edema - according to reports, despite being on home torsemide, the daughters report that he has been gaining some weight. - BNP 238 and 2D echo shows moderate pericardial effusion, no tamponade. Moderate aortic stenosis - change IV bumex to bumex 1mg PO daily - Monitor input and output, daily weight - Monitor BP #Hyperactive bowel sounds - KUB notes stool impaction vs volvulus- pt does not have any pain and his abdomen is soft without guarding - large BM after suppository on 02/12, and continues to have stool output without difficulty - CT abd / pelvis after BM reveals adynamic ileus - GI recs appreciated - diet initiated and is tolerating well #Mod pericardial effusion - ECHO (02/08/25)- moderate pericardial effusion without tamponade physiology, moderate aortic stenosis - TSH wnl - ESR / CRP elevated - cardiology on board , rpt echo shows worsening , started on colchicine - spoke with pt's daughters- they do not wish to pursue invasive treatments, however, would like rpt ECHO on Tuesday to reassess effusion #Bacteremia - BCx growing staph capitis - rpt BCx pending - d/c IV daptomycin (pt has vanc allergy), IV Cefepime changed to IV Ceftriaxone , s/p 5 days of abx. - ID on board #Supratherapeutic INR - last dose of warfarin on 02/11 - given no active bleeding, will not reverse at this time - trend INR daily #Persistent AFib - on warfarin, INR 3.4 > 6.5 > 5.9 - will hold today's warfarin dose - metoprolol 12.5mg po BID (previously on 25mg BID) - wean midodrine #Myasthenia gravis - NIF qshift ordered - currently put on hold as pt not able to follow instructions well - cont pyridostigmine #Dementia: - no agitation noted at this time - delirium precautions #Code status: DNR / DNI #Disposition- pending clinical improvement Meeting with pt's daughters on 02/15/25 at 430pm Admission and Anticipated Discharge Date Admission Date: February 07, 2025 Subjective No acute events overnight Still having BM Pt has very poor short-term memory Review of Systems Review of Systems: currently not offering any complaints Physical Exam Physical Exam: Gen: no acute distress, lying in bed comfortable HEENT: NC/AT, dry MM Lungs: nonlabored breathing, diminished breath sounds at bases CVS: s1s2nl, RRR Abd: slightly hyperactive bowel sounds today, soft, NT, no guarding / rigidity / rebound : no vann Ext: no edema Neuro: AAOx1 (pt was informed that he was at hospital and it was 2024. these questions were immediately repeated and he didn't know the answers) Psych: calm cooperative Results & Data Results & Data Vital Signs (Past 12 Hours) Vital Signs Temp Pulse Pulse Resp BP Pulse Ox O2 Del Method 02/14/25 05:52 65 02/14/25 02:53 36.5 C 84 20 111/71 95 CPAP 02/14/25 02:23 76 24 95 BiPAP, CPAP, Other 02/14/25 02:22 73 23 95 02/13/25 23:04 36.8 C 66 20 95/63 L 95 CPAP 02/13/25 22:23 Nasal Cannula 02/13/25 22:22 68 25 H 94 02/13/25 19:49 71 18 98 Nasal Cannula 02/13/25 19:34 36.4 C L 71 18 116/82 96 Nasal Cannula O2 Flow Rate 02/14/25 05:52 02/14/25 02:53 02/14/25 02:23 2 02/14/25 02:22 2 02/13/25 23:04 02/13/25 22:23 2 02/13/25 22:22 3 02/13/25 19:49 2 02/13/25 19:34 2.0 PG Care Time/CCT Total # of Minutes Spent Total Time Spent with Patient: Total time spent is greater than 50% in coordination of care (as documented) at patient's floor/unit and/or counseling patient: Coding Level of Care Code 75952 SUB INP/OBS CARE 2/35MIN Diagnoses Bacteremia R78.81 Acute respiratory failure with hypoxemia J96.01 Acute exacerbation of CHF (congestive heart failure) I50.9 Acute respiratory distress R06.03 Pulmonary edema J81.1 Atrial fibrillation, persistent I48.1 Myasthenia gravis G70.00 Dementia F03.90 Supratherapeutic INR R79.1 Pericardial effusion I31.39
--- NOTE | 2025-02-14 10:09 | XRay Report ---
KUB HISTORY: Ileus COMPARISON STUDY: 02/12/2025 FINDINGS: Rectum and distal sigmoid are distended with stool. Otherwise there is stable diffuse gaseo us bowel distention measuring up to 10 cm at the colon and 4 cm at the small bowel. No gross free air seen. IMPRESSION: Stable diffuse bowel distention. ACT 112: Negative or not required by law. The above report was generated using voice recognition software. It may contain grammatical, syntax o r spelling errors. Electronically signed by: Álvaro Irby M.D. 02/14/2025 10:08 AM
--- NOTE | 2025-02-14 12:10 | Gastroenterology Progress Note ---
Date of Service February 14, 2025 Assessment & Plan (1) Ileus: Plan: Patient without abdominal pain, tolerating a diet at present. He is moving his bowels regularly. Due to his overall picture, would favor monitoring conservatively for now. If he becomes more distended or develops pain, nausea, vomiting, or other symptoms, we would re-evaluate and make further recommendations. Admission and Anticipated Discharge Date Admission Date: February 07, 2025 Supervising Physician Co-Signing Physician Notes Tolerating p.o. Having flatus. Abdomen with distention and tympany as per previous. KUB today does show ileus and stool. Recheck tomorrow. May need to consider Greenwood's type syndrome. Rule out anal stenosis or impaction if symptoms persist. However patient has been having frequent liquid bowel movements per nursing. Patient is bed ridden apparently 89 with dementia. Adynamic or ileus not uncommon in this situation. Subjective Patient is an 89 yo male with ileus. Patient's KUB this AM shows persistent bowel distention. Patient does not have abdominal pain. He is eating. He is moving his bowels. He has bowel sounds. We do not have previous recent imaging to know whether this may be his baseline. Review of Systems Gastrointestinal: no abdominal pain Physical Exam Constitutional: no acute distress Respiratory: normal respiratory effort Gastrointestinal (Abdomen): soft, nontender, mild distention Results & Data Results & Data Vital Signs (Past 12 Hours) Vital Signs Temp Pulse Pulse Resp BP BP Pulse Ox 02/14/25 11:11 36.7 C 72 19 102/64 97 02/14/25 09:00 02/14/25 08:00 36.7 C 70 21 104/69 98 02/14/25 07:19 75 14 95 02/14/25 07:19 75 14 95 02/14/25 05:52 65 02/14/25 02:53 36.5 C 84 20 111/71 95 02/14/25 02:23 76 24 95 02/14/25 02:22 73 23 95 O2 Del Method O2 Flow Rate 02/14/25 11:11 Nasal Cannula 2.0 02/14/25 09:00 Nasal Cannula 2 02/14/25 08:00 Nasal Cannula 2.0 02/14/25 07:19 2 02/14/25 07:19 2 02/14/25 05:52 02/14/25 02:53 CPAP 02/14/25 02:23 BiPAP, CPAP, Other 2 02/14/25 02:22 2 PG Care Time/CCT Total # of Minutes Spent Total Time Spent with Patient: Total time spent is greater than 50% in coordination of care (as documented) at patient's floor/unit and/or counseling patient: Coding Level of Care Code 16898 SUB INP/OBS CARE 2/35MIN Diagnoses Ileus K56.7
--- NOTE | 2025-02-14 12:46 | Infectious Disease Progress Nt ---
Date of Service February 14, 2025 Assessment & Plan (1) Fever: (2) Bacteremia: (3) Acute respiratory failure with hypoxemia: Plan Problems: #Fever: resolved #Staph capitis in blood culture #Acute hypoxic respiratory failure #CHF exacerbation Micro: 02/11 BCx x2: NGTD 02/07 BCx x2: Staph capitis in 2/4 bottles (in 2/2 sets). S oxacillin Abx: Dapto 02/08 - 02/11 Cefepime 02/10 - 02/12 Ceftriaxone 02/12 - present 89 yo M from [facility] with dementia, permanent Afib, CHF, HTN, pulmonary HTN, myasthenia gravis who presented on 02/07 after an episode of cyanosis, shortness of breath. The pt was reportedly being changed, and all of a sudden he passed out for a brief second and then started having shortness of breath. He turned cyanotic so they called 911. On presentation, pt was afebrile, HR 63, BP 104/73 (decreased to 90s/60s), RR 24, 95% on 5 L. Labs showed no leukocytosis, lactate 1, BNP 238, procal 0.13. UA negative. COVID-19/flu/RSV negative. CXR showed CHF with pleural effusions and lung base consolidation. Pt was placed on BiPAP and started on diuresis. Blood cultures were obtained on admission, which became positive for GPCs in clusters, so was started on daptomycin on 02/08. Biofire panel positive for Staph species. BCx ultimately grew Staph capitis in 2/4 bottles. On 02/09, pt developed T 37.6. On 02/10, had fever to 38.7. On my evaluation, pt does not recall the circumstances of his admission. Denies sore throat or rhinorrhea. Does not remember if he was coughing. Denies pain. Discussion: Unclear source of fever on 02/10. Think unlikely to be related to Staph capitis which grew in 02/07 blood cultures--this is a coag neg Staph and may represent contaminant, as pt does not have central lines. Consider pneumonia given O2 requirement and basilar consolidation seen on CXR, although could be from CHF. Full respiratory viral panel negative. Recommendations: - Can complete ceftriaxone today for 5 day course for possible pneumonia Will sign off. Admission and Anticipated Discharge Date Admission Date: February 07, 2025 Subjective This patient recommendation is based on a telemedicine consult request which was completed asynchronously through chart review and information provided by the primary physician. The patient was not seen or examined today. The evaluation is consultative in nature and all patient care and treatment decisions can either be accepted or rejected by the patient's primary hospital-based treating physician using their own independent medical judgment for their patient. Time Spent Reviewing Chart: 11 - 20 minutes Afebrile without leukocytosis On 2 L NC Results & Data Vital Signs (Past 12 Hours) Vital Signs Temp Pulse Pulse Resp BP BP Pulse Ox 02/14/25 11:11 36.7 C 72 19 102/64 97 02/14/25 09:00 02/14/25 08:00 36.7 C 70 21 104/69 98 02/14/25 07:19 75 14 95 02/14/25 07:19 75 14 95 02/14/25 05:52 65 02/14/25 02:53 36.5 C 84 20 111/71 95 02/14/25 02:23 76 24 95 02/14/25 02:22 73 23 95 O2 Del Method O2 Flow Rate 02/14/25 11:11 Nasal Cannula 2.0 02/14/25 09:00 Nasal Cannula 2 02/14/25 08:00 Nasal Cannula 2.0 02/14/25 07:19 2 02/14/25 07:19 2 02/14/25 05:52 02/14/25 02:53 CPAP 02/14/25 02:23 BiPAP, CPAP, Other 2 02/14/25 02:22 2
--- NOTE | 2025-02-14 19:03 | Communication Note ---
Date of Service: February 14, 2025 Rectal examination performed at the bedside with his nurse Abisai. Patient had a dilated rectum. There was no fecal impaction no anal stenosis. Likely f unctional ileus related to being bedbound. If worsening distention could try temporary rectal tube. Nurse report large semiformed bowel movement today.
[2025-02-15 06:57] LABS: INR 3.2 (0.9-1.1); Prothrombin Time 31.9 Seconds (9.0-12.0)
--- NOTE | 2025-02-15 10:34 | XCELERA ---
[id number]
--- NOTE | 2025-02-15 11:00 | Gastroenterology Progress Note ---
Date of Service February 15, 2025 Assessment & Plan (1) Ileus: Plan: Likely chronic, functional ileus given he is bedbound -KUB ordered for this AM Admission and Anticipated Discharge Date Admission Date: February 07, 2025 Supervising Physician Co-Signing Physician Notes About the same. Abdomen maybe a little less distended than last evening. In no discomfort. Follow clinical course. No plan for any endoscopic or other interventions. Subjective Patient is an 89 yo male with ileus. He is moving his bowels significantly according to his nurse. His abdomen is soft. He denies abdominal pain. He is tolerating a diet. Review of Systems Constitutional: no fever and no chills Gastrointestinal: no abdominal pain Psychiatric: no problem reported Physical Exam Constitutional: well developed Respiratory: normal respiratory effort Gastrointestinal (Abdomen): normal bowel sounds, soft, nontender, no hepatosplenomegaly Psychiatric: Orientation: alert and oriented x 3 Results & Data Results & Data Vital Signs (Past 12 Hours) Vital Signs Temp Pulse Pulse Resp BP BP Pulse Ox 02/15/25 08:33 36.7 C 85 20 97/68 L 02/15/25 07:16 68 19 95 02/15/25 07:16 70 19 95 02/15/25 07:00 82 02/15/25 03:05 78 26 H 94 02/15/25 02:28 36.4 C L 90 24 98/72 L 96 02/15/25 01:58 75 21 95 02/15/25 00:00 91 H 02/14/25 23:15 36.7 C 82 25 H 107/75 95 O2 Del Method O2 Flow Rate 02/15/25 08:33 Nasal Cannula 2.0 02/15/25 07:16 BiPAP 2 02/15/25 07:16 2 02/15/25 07:00 02/15/25 03:05 2 02/15/25 02:28 BiPAP 02/15/25 01:58 BiPAP, CPAP, Other 2 02/15/25 00:00 02/14/25 23:15 BiPAP PG Care Time/CCT Total # of Minutes Spent Total Time Spent with Patient: Total time spent is greater than 50% in coordination of care (as documented) at patient's floor/unit and/or counseling patient: Coding Level of Care Code 82591 SUB INP/OBS CARE 2/35MIN Diagnoses Ileus K56.7
--- NOTE | 2025-02-15 14:49 | XRay Report ---
KUB HISTORY: Ileus COMPARISON STUDY: 02/14/2025 FINDINGS: There is moderate retained stool at the rectosigmoid. Otherwise there is diffuse gaseous di stention of the bowel measuring up to 11 cm at the colon and 3 cm at the small bowel, grossly stable. IMPRESSION: Grossly stable exam. ACT 112: Negative or not required by law. The above report was generated using voice recognition software. It may contain grammatical, syntax o r spelling errors. Electronically signed by: Álvaro Irby M.D. 02/15/2025 2:48 PM
--- NOTE | 2025-02-15 20:16 | Advance Care Plan Prog Note ---
Advanced Care Planning Note Date of Discussion February 15, 2025 ACP Discussion Diagnoses requiring ACP discussion: pericardial effusion, myasthenia gravis, dementia A [id number] discussion with the daughters (Mylene Longoria, Naheed) regarding the patient's advanced care planning took place during this hospitalization on the above date. The discussion included the explanation and discussion of advance directives and associated forms/documents, as well as the patient's current code status. We also discussed at length the patient's medical conditions (both acute and chronic), general prognosis, treatment options, and goals of care. The following summarizes the discussion: Approximately 1 hour was spent during this conversation. They discussed their father's deteriorating quality of life. Gill stated that pt wants to go see his and is ready to . We discussed the presence of pericardial effusion that is enlarging slowly. They do not want to pursue pericardiocentesis or any aggressive treatment. We discussed not continuing warfarin given the effusion. We discussed the risk of stroke. If patient were to get stroke, then we would manage the symptoms while on hospice. They are in agreement. They are ok with continuing colchicine in the meantime. We discussed DNR / DNI / DNH. We also discussed the option of comfort measures, hospice at [facility]. Though Naheed had a hard time with this, they were all in agreement that he would not want to be prolonged. They are in agreement with him returning to [facility] on hospice. Status Resuscitation Status DNR/DNI No Resuscitation Total Time I spent a total of [60] minutes was spent on this discussion, including counseling, answering questions, and completing, if any, pertinent advanced care planning forms/documents.
--- NOTE | 2025-02-15 20:18 | Hospitalist Progress Note ---
Date of Service February 15, 2025 Assessment & Plan (1) Bacteremia: (2) Acute respiratory failure with hypoxemia: (3) Acute exacerbation of CHF (congestive heart failure): (4) Acute respiratory distress: (5) Pulmonary edema: (6) Atrial fibrillation, persistent: (7) Myasthenia gravis: (8) Dementia: (9) Supratherapeutic INR: (10) Pericardial effusion: Plan 89 yr old M with PMHx of persistent AFib, myasthenia gravis, dementia, CHF, HTN, pulmonary HTN was brought to [facility] on 02/07/25 for the evaluation of an episode of cyanosis and dyspnea. Episode occurred while pt was being changed. He was turned and he passed out for brief second and then started having dyspnea. Per report, he turned cyanotic prompting 911 call. ED workup revealed CHF with pleural effusions. #Acute respiratory failure with hypoxemia: - In the ED, he required BiPAP support - dyspnea improving - CXR showing evidence of pulmonary congestion - currently tolerating NC oxygen wean - viral panel neg #Acute exacerbation of CHF #Pulmonary edema - according to reports, despite being on home torsemide, the daughters report that he has been gaining some weight. - BNP 238 and 2D echo shows moderate pericardial effusion, no tamponade. Moderate aortic stenosis - change IV bumex to bumex 1mg PO daily - Monitor input and output, daily weight - Monitor BP #Hyperactive bowel sounds - KUB notes stool impaction vs volvulus- pt does not have any pain and his abdomen is soft without guarding - large BM after suppository on 02/12, and continues to have stool output without difficulty - CT abd / pelvis after BM reveals adynamic ileus - GI recs appreciated - diet initiated and is tolerating well #Mod pericardial effusion - ECHO (02/08/25)- moderate pericardial effusion without tamponade physiology, moderate aortic stenosis - TSH wnl - ESR / CRP elevated - cardiology on board , rpt echo shows worsening , started on colchicine - spoke with pt's daughters- they do not wish to pursue invasive treatments - rpt ECHO (02/15): showing slightly enlarged effusion #Bacteremia - BCx growing staph capitis - rpt BCx pending - d/c IV daptomycin (pt has vanc allergy), IV Cefepime changed to IV Ceftriaxone , s/p 5 days of abx. - ID on board #Supratherapeutic INR - last dose of warfarin on 02/11 - given no active bleeding, will not reverse at this time - trend INR daily #Persistent AFib - on warfarin, INR 3.4 > 6.5 > 5.9 - will hold today's warfarin dose - metoprolol 12.5mg po BID (previously on 25mg BID) - wean midodrine #Myasthenia gravis - NIF qshift ordered - currently put on hold as pt not able to follow instructions well - cont pyridostigmine #Dementia: - no agitation noted at this time - delirium precautions #Code status: DNR / DNI #Disposition- pending clinical improvement 02/14 updated pt's daughters 02/15: met with pt's daughters, agreement to discharge on hospice Pt is medically stable. Will follow up with CM in the AM Admission and Anticipated Discharge Date Admission Date: February 07, 2025 Subjective No acute events No new complaints Review of Systems Review of Systems: currently not offering any complaints Physical Exam Physical Exam: Gen: no acute distress, lying in bed comfortable HEENT: NC/AT, dry MM Lungs: nonlabored breathing, diminished breath sounds at bases CVS: s1s2nl, RRR Abd: nl bowel sounds, soft, NT, no guarding / rigidity / rebound : no vann Ext: no edema Neuro: AAOx1 (02/14: pt was informed that he was at hospital and it was 2024. these questions were immediately repeated and he didn't know the answers) Psych: calm cooperative Results & Data Results & Data Vital Signs (Past 12 Hours) Vital Signs Temp Pulse Resp BP Pulse Ox O2 Del Method O2 Del Method 02/15/25 18:00 Nasal Cannula 02/15/25 16:04 36.8 C 103 H 19 107/72 97 Nasal Cannula 02/15/25 11:55 36.7 C 85 18 91/63 L 98 Nasal Cannula 02/15/25 08:33 36.7 C 85 20 97/68 L Nasal Cannula O2 Flow Rate O2 Flow Rate 02/15/25 18:00 2 02/15/25 16:04 2.0 02/15/25 11:55 2.0 02/15/25 08:33 2.0 PG Care Time/CCT Total # of Minutes Spent Total Time Spent with Patient: Total time spent is greater than 50% in coordination of care (as documented) at patient's floor/unit and/or counseling patient: Coding Level of Care Code 76023 SUB INP/OBS CARE 350MIN Diagnoses Bacteremia R78.81 Acute respiratory failure with hypoxemia J96.01 Acute exacerbation of CHF (congestive heart failure) I50.9 Acute respiratory distress R06.03 Pulmonary edema J81.1 Atrial fibrillation, persistent I48.1 Myasthenia gravis G70.00 Dementia F03.90 Supratherapeutic INR R79.1 Pericardial effusion I31.39
[2025-02-16 07:27] VITALS: RESP 18
[2025-02-16 08:29] LABS: Anion Gap 5.0 (3-11); Blood Urea Nitrogen 24.0 mg/dl (6-23); Calcium 8.4 mg/dl (8.6-10.3); Carbon Dioxide 35.0 mmol/L (21-32); Chloride 99.0 mmol/L (98-107); Creatinine Clr Calc Pharmacy 82.3 ml/min; Glucose 114.0 mg/dl (70-99(Fasting)); Magnesium 2.2 mg/dl (1.7-2.4); Potassium 3.6 mmol/L (3.5-5.1); Sodium 139.0 mmol/L (136-145)
[2025-02-16 08:34] LABS: INR 3.0 (0.9-1.1); Prothrombin Time 29.7 Seconds (9.0-12.0)
[2025-02-16 11:32] VITALS: BP 105/49; PULSE 85; TEMP 97.9; O2SAT 95
[2025-02-16] MEDS: HYDROmorphone INJ 0.5 MG/0.5 ML SYR IV STA (15:26)
[2025-02-16] MEDS: LORazepam Inj 0.5 MG in SYRINGE 0.25 ML IV PRN ×2 (16:31→23:05)
--- NOTE | 2025-02-16 17:23 | Hospitalist Progress Note ---
Date of Service February 16, 2025 Assessment & Plan (1) Bacteremia: (2) Acute respiratory failure with hypoxemia: (3) Acute exacerbation of CHF (congestive heart failure): (4) Acute respiratory distress: (5) Pulmonary edema: (6) Atrial fibrillation, persistent: (7) Myasthenia gravis: (8) Dementia: (9) Supratherapeutic INR: (10) Pericardial effusion: Plan 89 yr old M with PMHx of persistent AFib, myasthenia gravis, dementia, CHF, HTN, pulmonary HTN was brought to [facility] on 02/07/25 for the evaluation of an episode of cyanosis and dyspnea. Episode occurred while pt was being changed. He was turned and he passed out for brief second and then started having dyspnea. Per report, he turned cyanotic prompting 911 call. ED workup revealed CHF with pleural effusions. #Comfort measures - pt had drastic change in respiratory status, suspect worsening pericardial effusion vs aspiration - spoke with family and all in agreement to transition to comfort measures now - all non-essential orders d/c-ed, including tele and non-comfort meds, transfer to med-surge - comfort meds: hydromorphone, lorazepam, glycopyrrolate ordered - will cont pyridostigmine and quetiapine as long as he is able to swallow - consult seam checker for support - CM on board to assist with hospice eval See below for plans leading up to 02/16/25 #Acute respiratory failure with hypoxemia: - In the ED, he required BiPAP support - dyspnea improving - CXR showing evidence of pulmonary congestion - currently tolerating NC oxygen wean - viral panel neg #Acute exacerbation of CHF #Pulmonary edema - according to reports, despite being on home torsemide, the daughters report that he has been gaining some weight. - BNP 238 and 2D echo shows moderate pericardial effusion, no tamponade. Moderate aortic stenosis - change IV bumex to bumex 1mg PO daily - Monitor input and output, daily weight - Monitor BP #Hyperactive bowel sounds - KUB notes stool impaction vs volvulus- pt does not have any pain and his abdomen is soft without guarding - large BM after suppository on 02/12, and continues to have stool output without difficulty - CT abd / pelvis after BM reveals adynamic ileus - GI recs appreciated - diet initiated and is tolerating well #Mod pericardial effusion - ECHO (02/08/25)- moderate pericardial effusion without tamponade physiology, moderate aortic stenosis - TSH wnl - ESR / CRP elevated - cardiology on board , rpt echo shows worsening , started on colchicine - spoke with pt's daughters- they do not wish to pursue invasive treatments - rpt ECHO (02/15): showing slightly enlarged effusion #Bacteremia - BCx growing staph capitis - rpt BCx pending - d/c IV daptomycin (pt has vanc allergy), IV Cefepime changed to IV Ceftriaxone , s/p 5 days of abx. - ID on board #Supratherapeutic INR - last dose of warfarin on 02/11 - given no active bleeding, will not reverse at this time - trend INR daily #Persistent AFib - on warfarin, INR 3.4 > 6.5 > 5.9 - will hold today's warfarin dose - metoprolol 12.5mg po BID (previously on 25mg BID) - wean midodrine #Myasthenia gravis - NIF qshift ordered - currently put on hold as pt not able to follow instructions well - cont pyridostigmine #Dementia: - no agitation noted at this time - delirium precautions #Code status: DNR / DNI #Disposition- pending clinical improvement 02/14 updated pt's daughters 02/15: met with pt's daughters, agreement to discharge on hospice Pt is medically stable. Will follow up with CM in the AM Admission and Anticipated Discharge Date Admission Date: February 07, 2025 Subjective was a little sleepy this morning, but by 1030a, he was more awake remained stable Then family arrived. Pt told his youngest daughter that he want to go see their mom, who had already . She told him that it is ok for him to go. Shortly afterwards, he because acutely dyspneic, tachycardic. Evaluated pt at bedside. Discussed with family about transitioning him to comfort measures here instead of waiting for discharge. They are in agreement. Review of Systems Review of Systems: currently not offering any complaints Physical Exam Physical Exam: Gen: no acute distress, lying in bed comfortable HEENT: NC/AT, dry MM Lungs: nonlabored breathing, diminished breath sounds at bases CVS: s1s2nl, RRR Abd: nl bowel sounds, soft, NT, no guarding / rigidity / rebound : + vann Ext: trace edema Neuro: AAOx1 (02/14: pt was informed that he was at hospital and it was 2024. these questions were immediately repeated and he didn't know the answers) Psych: calm cooperative 1515 Gen: acute respiratory distress, use of accessory muscle HEENT: NC/AT, MMM Lungs: labored CVS: s1s2nl, tachycardic, irregular Abd: nl bowel sounds, soft, NT / ND : + vann Ext: trace edema Neuro: awake Psych: restless Results & Data Results & Data Vital Signs (Past 12 Hours) Vital Signs Temp Pulse Pulse Resp BP BP Pulse Ox 02/16/25 11:31 36.6 C 85 18 105/49 L 95 02/16/25 07:25 37.1 C 77 18 102/67 96 02/16/25 07:15 74 19 95 02/16/25 07:15 74 21 95 O2 Del Method O2 Flow Rate 02/16/25 11:31 Nasal Cannula 2 02/16/25 07:25 BiPAP 02/16/25 07:15 CPAP 2 02/16/25 07:15 2 PG Care Time/CCT Total # of Minutes Spent Total Time Spent with Patient: Total time spent is greater than 50% in coordination of care (as documented) at patient's floor/unit and/or counseling patient: Coding Level of Care Code 07289 SUB INP/OBS CARE 3/50MIN Diagnoses Bacteremia R78.81 Acute respiratory failure with hypoxemia J96.01 Acute exacerbation of CHF (congestive heart failure) I50.9 Acute respiratory distress R06.03 Pulmonary edema J81.1 Atrial fibrillation, persistent I48.1 Myasthenia gravis G70.00 Dementia F03.90 Supratherapeutic INR R79.1 Pericardial effusion I31.39
--- NOTE | 2025-02-16 17:24 | Hospitalist Progress Note ---
Date of Service February 17, 2025 Assessment & Plan Admission and Anticipated Discharge Date Admission Date: February 07, 2025 Results & Data Results & Data Vital Signs (Past 12 Hours) Vital Signs Temp Pulse Pulse Resp BP BP Pulse Ox 02/16/25 11:31 36.6 C 85 18 105/49 L 95 02/16/25 07:25 37.1 C 77 18 102/67 96 02/16/25 07:15 74 19 95 02/16/25 07:15 74 21 95 O2 Del Method O2 Flow Rate 02/16/25 11:31 Nasal Cannula 2 02/16/25 07:25 BiPAP 02/16/25 07:15 CPAP 2 02/16/25 07:15 2 PG Care Time/CCT Total # of Minutes Spent Total Time Spent with Patient: Total time spent is greater than 50% in coordination of care (as documented) at patient's floor/unit and/or counseling patient: Coding
[2025-02-16] MEDS: HYDROmorphone INJ 0.5 MG/0.5 ML SYR IV PRN ×2 (19:17→22:21)
[2025-02-16] MEDS: GLYCOPYRROLATE 0.2 MG/ML VIAL IV PRN (20:56)
[2025-02-16] MEDS: HYOSCYAMINE SULFATE 0.125 MG TAB SL PRN (22:21)
[2025-02-16] MEDS: ATROPINE SULFATE 1% OP SOLN 5 ML BTL SL PRN (23:05)
--- NOTE | 2025-02-17 04:51 | Death Pronouncement Note ---
Date of Service February 17, 2025 Pronouncement Note Admission Date Admission Date: February 07, 2025 Contributing Factors (1) Bacteremia: (2) Acute respiratory failure with hypoxemia: (3) Acute exacerbation of CHF (congestive heart failure): (4) Acute respiratory distress: (5) Pulmonary edema: (6) Atrial fibrillation, persistent: (7) Myasthenia gravis: (8) Dementia: (9) Supratherapeutic INR: (10) Pericardial effusion: Hospital Course Hospital Course: I was called to pronounce the of Emory Benjamin : 1935 by nursing on 02/17/2025 Upon entering the room, the patient was found to be in a terminal state. Patient was unresponsive to verbal and tactile stimuli. Patient unresponsive to corneal and pupillary reflexes. On cardiopulmonary exam, no carotid or radial pulses found and pt without spontaneous heart tones or respirations. Time of was pronounced by me on 02/17/2025 at 0434 Attending physician was notified. Next of kin was notified by nursing Additional Data Attending physician: Nicole Alcaraz MD
--- NOTE | 2025-02-18 11:04 | Communication Note ---
Date of Service: February 18, 2025 certificate signed in EVitals.
== END 2025-02-17 08:30 | disposition expired | DRG 189 ==
LOC: ED 14:19 → SUATTDRO 15:22 → 2E 15:22 → 3W 02-16 17:13